=== PATIENT | female | born 1950 | race Caucasian/White ===

== ENCOUNTER 2023-05-15 08:41 | Outpatient (OUT) | payer MEDICARE, OTHER, SELFPAY ==
[2023-05-15 09:22] LABS: Basophils Absolute Auto 0.1 10^3/uL (0.0-0.1); Basophils Percent Auto 0.5 % (0.2-2.0); Eosinophils Absolute Auto 0.1 10^3/uL (0.0-0.7); Eosinophils Percent Auto 1.4 % (0.9-7.0); Hematocrit 47.5 % (36.0-48.0); Immature Granulocytes Abs Auto 0.03 10^3/uL (0.00-0.03); Immature Granulocytes Pct Auto 0.3 % (0.0-0.5); Lymphocytes Absolute Auto 2.3 10^3/uL (1.2-3.8); Lymphocytes Percent Auto 23.7 % (20.5-60.0); Mean Corpuscular HGB Conc 31.6 g/dL (29.9-35.2); Mean Corpuscular Hemoglobin 30.2 pg (26.7-34.0); Mean Corpuscular Volume 95.8 fL (81.0-99.0); Mean Platelet Volume 9.9 fL (9.5-13.5); Monocytes Absolute Auto 0.5 10^3/uL (0.3-0.8); Monocytes Percent Auto 5.4 % (1.7-12.0); Neutrophils Absolute Auto 6.5 10^3/uL (1.4-6.5); Neutrophils Percent Auto 68.7 % (43.0-75.0); Platelet Count 227 10^3/uL (150-450); Red Blood Count 4.96 10^6/uL (4.20-5.40); Red Cell Distribution Width 14.5 % (11.0-15.0); White Blood Count 9.5 10^3/uL (4.0-11.0)
[2023-05-15 09:55] LABS: Alanine Aminotransferase 33 U/L (14-59); Alkaline Phosphatase 97 U/L (46-116); Aspartate Amino Transferase 24 U/L (15-37); Bilirubin Total 0.6 mg/dL (0.2-1.0); Calcium 9.3 mg/dL (8.5-10.1); Carbon Dioxide 29.2 mmol/L (21.0-32.0); Chloride 103 mmol/L (98-107); Cholesterol 176 mg/dL (<=200); Estimated GFR (African America >60 (>=60); Estimated GFR (Non-African Ame >60 (>=60); Glucose 93 mg/dL (74-106); HDL Cholesterol 59 mg/dL (40-60); Potassium 4.2 mmol/L (3.5-5.1); Sodium 140 mmol/L (136-145); Triglycerides 178 mg/dL (<=150); VLDL CHOLESTEROL 35.6 mg/dL
== END 2023-05-15 08:42 | disposition home or self-care (01) ==
LOC: LAB 08:41
PROVIDERS: PCP Family Medicine; Visit Provider Family Medicine
DX: E78.5 Hyperlipidemia, unspecified (principal); I10 Essential (primary) hypertension
CPT/HCPCS: 36415; 80053; 80061; 82043; 85025

== ENCOUNTER 2023-06-27 07:56 | Outpatient (OUT) | payer MEDICARE, OTHER, SELFPAY ==
--- NOTE | 2023-06-27 07:59 | MM_ITS ---
Patient: PORFIRIO LAWSON Exam Date: 06/27/2023 : 1950 Gender:F Ordering : DR Reyn Carbera M.D. Admission #: [id number] Family : Order #: [id number] CLICK HERE TO VIEW EXAM RADIOLOGY REPORT PROCEDURE: MM TOMOSYNTHESIS SCREENING BI COMPARISON: MG MAMM SCREEN 3D EVAN CAD, 06/25/2021. MG MAMM SCREEN 3D EVAN CAD, 06/26/2022. INDICATIONS: Screening Calculator Name NCI Breast Cancer Risk Assessment Tool 5 Year Breast Cancer Risk 1.80% Lifetime Breast Cancer Risk 5.10% Personal Breast Cancer No Personal Ovarian Cancer No Treatments None Family Cancers None LOCATION: [facility] BREAST COMPOSITION: Heterogeneously dense,which may obscure small masses. FINDINGS: DIAGNOSTIC CATEGORY 2--BENIGN FINDING. NO CHANGE FROM COMPARISON. Scattered benign-appearing nodules are present. Scattered benign-appearing calcifications are present. Scattered benign-appearing lymph nodes are present. RIGHT BREAST: No significant suspicious finding. LEFT BREAST: No significant suspicious finding. RECOMMENDATIONS: ROUTINE MAMMOGRAM AND CLINICAL EVALUATION IN 12 MONTHS. PLEASE NOTE: A NORMAL MAMMOGRAM DOES NOT EXCLUDE THE POSSIBILITY OF BREAST CANCER. A CLINICALLY SUSPICIOUS PALPABLE LUMP SHOULD BE BIOPSIED. Dictated by: Mario Sheldon MD on 06/27/2023 at 09:08 Approved by: Mario Sheldon MD on 06/27/2023 at 09:09
== END 2023-06-27 07:57 | disposition home or self-care (01) ==
LOC: MAMMO 07:56
PROVIDERS: PCP Family Medicine; Visit Provider Family Medicine
DX: Z12.31 Encounter for screening mammogram for malignant neoplasm of breast (principal)
CPT/HCPCS: 77063; 77067

== ENCOUNTER 2024-05-03 10:51 | Outpatient (OUT) | payer MEDICARE, OTHER, SELFPAY ==
--- OUTSIDE RECORDS SUMMARY | 2024-05-03 11:13 | XMS_ITS | CCD ---
Author Organization [facility] Care Team Providers Care Cloth Grader Name Role Phone WEST, DR LOTUS Chester Consulting Unavailable DEBORAH, DR RENY Montes Attending Unavailable DEBORAH, DR RENY Montes Admitting Unavailable DEBORAH, DR RENY Montes Primary Care Unavailable DEBORAH, DR RENY Montes Consulting Unavailable DEBORAH, DR RENY Montes Primary Care Unavailable DEBORAH, DR RENY Montes Consulting Unavailable DEBORAH, DR RENY Montes Attending Unavailable DEBORAH, DR RENY Montes Admitting Unavailable Reny Cabrera DOMINIC PATIÑO Attending Unavailable Medications Current Medications Medication Drug Class(es) Dates Sig (Normalized) Sig (Original) atorvastatin 20 mg oral tablet (2 sources) HMG-CoA Reductase Inhibitor Atorvastatin Calcium 20 MG TAKE 1 TABLET EVERY DAY Active lisinopril 20 mg oral tablet (2 sources) Angiotensin Converting Enzyme Inhibitor Start: 07-11-2022 take 1 tablet by mouth once daily Lisinopril 20 MG lisinopriL 20mg, 1 (one) Tablet daily # 0, 07/11/2022, No Refill. Active Oral daily Jun, Active sertraline 100 mg oral tablet (2 sources) Serotonin Reuptake Inhibitor Start: 07-16-2022 take 1 tablet by mouth once daily sertraline 100mg sertraline 100mg, 1 (one) Tablet daily # 0, 07/16/2022, No Refill. Active oral daily for 0 Jun, Active Problems Problem Classification Problem Date Documented Da te Episodic/Chronic Disorders of lipid metabolism (7 sources) Hyperlipidemia, unspecified; Translations: [Dyslipidemia] Onset: 05-13-2022 Chronic Essential hypertension (4 sources) Essential (primary) hypertension; Translations: [Essential hypertension] Onset: 05-14-2022 Chronic Melanomas of skin (2 sources) History of malignant melanoma of the skin; Translations: [Personal history of malignant melanoma of skin] Episodic Mood disorders (2 sources) Major depression, single episode; Translations: [Major depressive disorder, single episode, unspecified] Chronic Other screening for suspected conditions (not mental disorders or infectious disease) (5 sources) Encounter for screening mammogram for malignant neoplasm of breast; Translations: [ENC SCR MAMMO MALIG NEOPLASM BREAST] Onset: 06-26-2022 Episodic Results Test Name Value Interpretation Reference Range Facil ity MG MAMM SCREEN 3D EVAN CADon 06-26-2022 MG MAMM SCREEN 3D EVAN CAD Patient: PORFIRIO LAWSON Exam Date: 06/26/2022 : 1950 Gender:F Ordering : DR RENY CABRERA M.D. Admission #: [id number] Family : Order #: [id number] CLICK HERE TO VIEW EXAM RADIOLOGY REPORT PROCEDURE: MAMMOGRAM SCREENING 3D BILATERAL CAD COMPARISON: MG MAMM SCREEN EVAN W CAD, 06/23/2020. MG MAMM SCREEN 3D EVAN CAD, 06/25/2021. INDICATIONS: Screening mammography Calculator Name NCI Breast Cancer Risk Assessment Tool 5 Year Breast Cancer Risk 1.80% Lifetime Breast Cancer Risk 5.30% Personal Breast Cancer No Personal Ovarian Cancer No Treatments None Family Cancers None LOCATION: [facility] BREAST COMPOSITION: Heterogeneously dense,which may obscure small masses. FINDINGS: DIAGNOSTIC CATEGORY 2--BENIGN FINDING. NO CHANGE FROM COMPARISON. Scattered benign-appearing nodules are present. Scattered benign-appearing calcifications are present. Scattered benign-appearing lymph nodes are present. RIGHT BREAST: No significant suspicious finding. LEFT BREAST: No significant suspicious finding. RECOMMENDATIONS: ROUTINE MAMMOGRAM AND CLINICAL EVALUATION IN 12 MONTHS. PLEASE NOTE: A NORMAL MAMMOGRAM DOES NOT EXCLUDE THE POSSIBILITY OF BREAST CANCER. A CLINICALLY SUSPICIOUS PALPABLE LUMP SHOULD BE BIOPSIED. Dictated by: Lotus Serna MD on 06/26/2022 at 08:27 Approved by: Lotus Serna MD on 06/26/2022 at 08:44 Normal [facility] CBC AUTO DIFFon 05-13-2022 BASO # 0.0 103/ul Normal 0.0-0.1 [facility] Comment on above: Performed By: #### C BC #### [facility] [address] [address] [address] Christina Camarena Basophils/100 WBC (Bld) 0.3 % Normal 0.2-2.0 [facility] Comment on above: Performed By: #### C BC #### [facility] [address] [place] [address] Dr. Christina Camarena EO # 0.1 103/ul Normal 0.0-0.7 [facility] Comment on above: Performed By: #### C BC #### [facility] [address] [place] [address] Dr. Christina Camarena Eosinophils/100 WBC (Bld) 1.5 % Normal 0.9-7.0 [facility] Comment on above: Performed By: #### C BC #### [facility] [address] [place] [address] Dr. Christina Camarnea Erythrocyte distribution width (RBC) [Ratio] 14.4 % Normal 11.0-15.0 [facility] Comment on above: Performed By: #### C BC #### [facility] [address] [place] [address] Dr. Christina Camarena Hematocrit (Bld) [Volume fraction] 46.5 % Normal 36.0-48.0 [facility] Comment on above: Performed By: #### C BC #### [facility] [address] [place] [address] Dr. Christina Camarena Hemoglobin (Bld) [Mass/Vol] 14.8 g/dL Normal 12.0-16.0 [facility] Comment on above: Performed By: #### C BC #### [facility] [address] [place] [address] Dr. Christina Camarena IG # 0.02 10e3/ul Normal 0.00-0.03 [facility] Comment on above: Performed By: #### C BC #### [facility] [address] [place] [address] Dr. Christina Camarena IG % 0.2 % Normal 0.0-0.5 [facility] Comment on above: Performed By: #### C BC #### [facility] [address] [place] [address] Dr. Christina Camarena LYMPH # 2.4 103/ul Normal 1.2-3.8 [facility] Comment on above: Performed By: #### C BC #### [facility] [address] [address] [address] Christina Camarena Lymphocytes/100 WBC (Bld) 26.2 % Normal 20.5-60.0 [facility] Comment on above: Performed By: #### C BC #### [facility] [address] [address] [address] Christina Camarena MANUAL DIFF REQ NO Normal [facility] Comment on above: Performed By: #### C BC #### [facility] [address] [place] [address] Dr. Christina Camarena MCH (RBC) [Entitic mass] 29.5 pg Normal 26.7-34.0 [facility] Comment on above: Performed By: #### C BC #### [facility] [address] [place] [address] Dr. Christina Camarena MCHC (RBC) [Mass/Vol] 31.8 g/dL Normal 29.9-35.2 [facility] Comment on above: Performed By: #### C BC #### [facility] [address] [place] [address] Dr. Christina Camarena MCV (RBC) [Entitic vol] 92.8 fL Normal 81.0-99.0 [facility] Comment on above: Performed By: #### C BC #### [facility] [address] [place] [address] Dr. Christina Camarena MONO # 0.6 103/ul Normal 0.3-0.8 [facility] Comment on above: Performed By: #### C BC #### [facility] [address] [place] [address] Dr. Christina Camarena Monocytes/100 WBC (Bld) 6.7 % Normal 1.7-12.0 [facility] Comment on above: Performed By: #### C BC #### [facility] [address] [place] [address] Dr. Christina Camarena NEUT # 5.9 103/ul Normal 1.4-6.5 [facility] Comment on above: Performed By: #### C BC #### [facility] [address] [address] [address] Christina Camarena Neutrophils/100 WBC (Bld) 65.1 % Normal 43.0-75.0 [facility] Comment on above: Performed By: #### C BC #### [facility] [address] [place] [address] Dr. Christina Camarena Platelet mean volume (Bld) [Entitic vol] 9.8 fL Normal 9.5-13.5 [facility] Comment on above: Performed By: #### C BC #### [facility] [address] [place] [address] Dr. Christina Camarena PLT 228 103/ul Normal 150-450 [facility] Comment on above: Performed By: #### C BC #### [facility] [address] [place] [address] Dr. Christina Camarena RBC 5.01 106/ul Normal 4.20-5.40 [facility] Comment on above: Performed By: #### C BC #### [facility] [address] [place] [address] Dr. Christina Camarena WBC 9.1 103/ul Normal 4.0-11.0 [facility] Comment on above: Performed By: #### C BC #### [facility] [address] [place] [address] Dr. Christina Camarena LIPID PROFILEon 05-13-2022 CHOL-HDL RATIO NORM SEE BELOW Normal [facility] Comment on above: Result Comment: 3.3 - 4.4 LOW RISK 4.4 - 7.1 AVERAGE RISK 7.1 - 11.0 MODERATE RISK >11.0 HIGH RISK Performed By: #### L IPID, CMP #### [facility] [address] [place] [address] Dr. Christina Camarena Cholesterol [Mass/Vol] 172 mg/dL Normal <=200 [facility] Comment on above: Performed By: #### L IPID, CMP #### [facility] [address] [place] [address] Dr. Christina Camarena Cholesterol in HDL [Mass/Vol] 55 mg/dL Normal 40-60 [facility] Comment on above: Performed By: #### L IPID, CMP #### [facility] [address] [address] [address] Christina Camarena Cholesterol in LDL [Mass/Vol] 76.8 mg/dL Normal [facility] Comment on above: Performed By: #### L IPID, CMP #### [facility] [address] [address] [address] Christina Camarena Cholesterol.total/C holesterol in HDL [Mass ratio] 3.1 {ratio} Normal [facility] Comment on above: Performed By: #### L IPID, CMP #### [facility] [address] [address] [address] Christina Camarena HDL NORMAL > or = 60 mg/dl - LO W CARDIOVASCULAR RISK <40 mg/dl - HIGH CARDIOVASCULAR RISK Normal [facility] Comment on above: Performed By: #### L IPID, CMP #### [facility] [address] [place] [address] Dr. Christina Camarena LDL CALC NORMAL SEE BELOW Normal [facility] Comment on above: Result Comment: <100 mg/dl OPTIMAL 100 - 129 mg/dl NEAR OR ABOVE OPTIMAL 130 - 159 mg/dl BORDERLINE HIGH 160 - 189 mg/dl HIGH >190 mg/dl VERY HIGH Performed By: #### L IPID, CMP #### [facility] [address] [place] [address] Dr. Christina Camarena Triglyceride [Mass/Vol] 201 mg/dL Critically high <=150 [facility] Comment on above: Performed By: #### L IPID, CMP #### [facility] [address] [place] [address] Dr. Christina Camarena VLDL CALC 40.2 mg/dL Normal [facility] Comment on above: Performed By: #### L IPID, CMP #### [facility] [address] [place] [address] Dr. Christina Camarena PROF 14(COMP METB)on 022 Albumin [Mass/Vol] 4.1 g/dL Normal 3.4-5.0 [facility] Comment on above: Performed By: #### L IPID, CMP #### [facility] [address] [address] [address] Christina Camarena Albumin/Globulin [Mass ratio] 1.1 {ratio} Normal [facility] Comment on above: Performed By: #### L IPID, CMP #### [facility] [address] [address] [address] Christina Camarena ALP [Catalytic activity/Vol] 99 U/L Normal 46-116 [facility] Comment on above: Performed By: #### L IPID, CMP #### [facility] [address] [address] [address] Christina Camarena ALT [Catalytic activity/Vol] 29 U/L Normal 14-59 [facility] Comment on above: Performed By: #### L IPID, CMP #### [facility] [address] [address] [address] Christina Camarena Anion gap [Moles/Vol] 13.7 mmol/L Normal [facility] Comment on above: Performed By: #### L IPID, CMP #### [facility] [address] [address] [address] Christina Camarena AST [Catalytic activity/Vol] 24 U/L Normal 15-37 [facility] Comment on above: Performed By: #### L IPID, CMP #### [facility] [address] [address] [address] Christina Camarena Bilirubin [Mass/Vol] 0.5 mg/dL Normal 0.2-1.0 [facility] Comment on above: Performed By: #### L IPID, CMP #### [facility] [address] [address] [address] Christina Camarena Calcium [Mass/Vol] 9.4 mg/dL Normal 8.5-10.1 [facility] Comment on above: Performed By: #### L IPID, CMP #### [facility] [address] [address] [address] Christina Camarena Chloride [Moles/Vol] 104 mmol/L Normal 98-107 [facility] Comment on above: Performed By: #### L IPID, CMP #### [facility] [address] [address] [address] Christina Camarena CO2 [Moles/Vol] 25.4 mmol/L Normal 21.0-32.0 [facility] Comment on above: Performed By: #### L IPID, CMP #### [facility] [address] [address] [address] Christina Camarena Creatinine [Mass/Vol] 0.99 mg/dL Normal 0.55-1.02 [facility] Comment on above: Performed By: #### L IPID, CMP #### [facility] [address] [address] [address] Christina Camarena EGFR-AF VINCENTIAN >60 Normal >=60 [facility] Comment on above: Performed By: #### L IPID, CMP #### [facility] [address] [address] [address] Christina Camarena EGFR-NON AF VINCENTIAN 55 mL/min/1.73m2 Critically low >=60 [facility] Comment on above: Performed By: #### L IPID, CMP #### [facility] [address] [address] [address] Christina Camarena Globulin (S) [Mass/Vol] 3.8 g/dL Normal [facility] Comment on above: Performed By: #### L IPID, CMP #### [facility] [address] [address] [address] Christina Camarena Glucose [Mass/Vol] 98 mg/dL Normal 74-106 [facility] Comment on above: Performed By: #### L IPID, CMP #### [facility] [address] [address] [address] Christina Camarena Potassium [Moles/Vol] 4.1 mmol/L Normal 3.5-5.1 [facility] Comment on above: Performed By: #### L IPID, CMP #### [facility] [address] [address] [address] Christina Camarena Protein [Mass/Vol] 7.9 g/dL Normal 6.4-8.2 [facility] Comment on above: Performed By: #### L IPID, CMP #### [facility] [address] [place], [place] [address] Dr. Christina Camarena Sodium [Moles/Vol] 139 mmol/L Normal 136-145 [facility] Comment on above: Performed By: #### L IPID, CMP #### [facility] [id number] Christina Camarena Urea nitrogen [Mass/Vol] 20.0 mg/dL Critically high 7.0-18.0 [facility] Comment on above: Performed By: #### L IPID, CMP #### [facility] [id number] Christina Camarena Urea nitrogen/Creatinine [Mass ratio] 20.2 mg/mg Normal [facility] Comment on above: Performed By: #### L IPID, CMP #### [facility] [address] [address] [address] Christina Camarena Coding Summary.on 02-05-2022 Coding Summary. CD:[id number] G h0bWw+PGhlYWQ+KS9BVVZ wO49qrBIvkZ2YW4jYNI6L VMOEAHRZMC4BZC8tqSW1B DafN4ZmwoNd TdkrkCPjBM25XIk1EGY8z PtcPAylfN7yuWNhC9n5Lk ZfXV41vI07IFplNYMiNfR 3LjZpbjsgbWFy T9liLtFjvBXgLtm+PHRhY mxlIHdpZHRoPScxMDAlJy RajAebPW0jPx9tNMIaQJC vbGxhcHNlOiBj d7vfSPIiGBfcIO0ecFqwB 2XxqRW4LBZtb4m6Gt08aQ I+WCSkFDP5eXhaSQzip65 3ZlVua7jjJYX0 pZJhEDplDOB0O97uy2A1W LAeBRHeDUJ1bLZ3qI6obO esrfqiU1RinTCqMqW8BYY 0yTQdxW4fxQkj xpvrwY6yIhs+E47JCB4VE RQPEF0STrb3S3GcMevjpY I+SJ44RUNmLT22vMIdgKD jt3zdkRc3VqRj IPKuEIG9oKuiKWfzp0SvJ XXlH33phVJur8X9NEOnvF uspACvRlOxcDG0kW1mODs bdwhdt1vzaokb Rqepj3wewq01sH26S82oJ AveITCxTOZ5TCXnOKWyjM mtof0scP4gIk1+LCtbr1p vn6fgsHw0GfSf TMFlldJqmSxkVGF2w2UvD s57Z9GixFedu4OmDdb4va 22zZXkg3H8yPF8JVqaZKY zkK8iNPpyYvS1 VNBtEdPnwJ60bTHySGqpP z6haGzhoOvzJD1lDWWcpd dzXNWkbT0iWVAckQSncDv oMT1dXLMudshc y016JcHkRSF9UTNfkOUwZ 3DwmG3dOqRzJVXyNGJoW9 FgmDHkYFxfJ012NApdCdD 1RADcryIuG5Ez PQBrmCgoWvY5s6N6Ei7Ux 0QgusbrJPM5CBfgFSF8Eg V1RtZfVkJ5K7QhAlp6XWY ooWrhVI5wX6Jx QSXfsziemhvyxTA2BLEfQ MXfmC37aVXjRNbyGp9qj7 L1t158GOQzSUOpfK25Gb2 udDogMTBwdCBU kG3mqfgml9mxlosdYkVdK XZwLQs4RRq4TLBisLmsLg MuQOW2DoX6DAL3iUHlcS0 ixXorcahfmU1s Oyc+Z83dqZ5eWDC2RAF2p yesIARzfiBqQB09NU00D0 RyPjwvdGFibGU+PGRpdiB nqOoyOL1aJcSb h2etm7NcUGokM5TkILGsF EepCpq9VZXvKLO8cSR5fU 3kDUDnFUamc7P4mFO4E9M kwtJwwz3ox5pb UDRbLOvhF99duIKyk9F7K PRxjDW5FUMmrVbzCbBlnZ 93Oyc+ASHhzMqoh3NwIet dk1bdb0gvlLf2 JnVoXMEplvLfeCzfJEA3z 6MiDv00N28qKUhbXVJnUH IsUTTvFZBlrKbldf8npH8 wIi8+PGNvbCB3 yXQ3hA5iEQOhLkS0ZEwuN 597HrMmxMJlXwses2bmc3 qvaZx6WfRpQRKjvhXaeRy wLQJ5t4IbJb34 Q98kHYoxRYCvUWHuBSHqX FGubKhigm7orE3mOw7+PC 2ym1izio09dS37vNQ+PHR iFKG7cMefCYzs QLSqxH0eWOebIyC5ZKQuD rGnlF90bLMxVWhxXe4iqY dxoEgwBB4gRGEwwkfeo40 9UfGvk9mrSLJg uVCfRBrjPTH7H15ey5C7Y DLzZKMkNUN2jOW1mF6thJ lnbjogbGVmdDsgdmVydGl cSVxsXZaeK779 IHRvcDsnPlBhdGllbnQgT tQgFMt8F1JfFsf2TOHfzA blYS2fkDMiYRujFd5gpFx saHnhCD5uDYNw tlars616KcNvd0qiIRSuz UMgPMpfBDX8M64xo4E1OT QfXAEjPKH6iHR6pN0jkZv nbjogbGVmdDsg ndUayBktRIlpQCokZ461O HRvcDsnPkJpcnRoIERhdG Q4UB35EF87aZYkr0P7kMC 7C0ReVQDiyegl lbyyhXI7FYErKMWfbZ42L v8iaCmdJq3xXIPdTVH2MC CelLRsI7AlfL3uDxRfIIJ sHBRyF3RklOEk CQmdD189DGpmLrI8XUMlw yQlG8RzBAEmoDzkXpO0i0 K0Nq7UN4K4HF54VH75uRB cw3B1rCK7W1Ml ZSUnttjikhxilXN8UIIqJ KIlsX96Au3mwBrbGn7uPT WkQFP1LPYwuNJkO9PahS5 yOiAjMDAwMDAw N8WrmLPiZTlqO305COhoX kO0AOIszzVvR7PmYTLlxJ prQtP7j5P0Pi1HELu0LJ0 5GE83vTYre0A1 oJB7M5QgXDRurnmtelvjd JN5KRGoUPGinZ49Pr3vxC qlCy8yMGVrERZ3YGRzvYT kT4KdvQ2tJjSu NJMwTQJvL8JfzRKoILssX 190KShnUpW5IZMiprHuR9 GoTQKksGyoWzB5o4S9Cu5 HMMYsTG80KXP7 vDX2GV34BG08P0VkVqtkt GFibGU+PHRhYmxlIHdpZH RoPScxMDAlJyBzdHlsZT0 cIr0uVUPrVCNk wCrkwJCqVaKgr1wuYZViW DtmWG1xbEidD6ZhjZQ7PM Gvu1b9Ue72P37iQ3MfrCJ +JDJrsLG6gZD1 uL7sXpThKkL8DBspJ019P cZdvRSkEojvz3tlm7jymV q0MsD9TRXqkiSmwRoeICQ 1d6ZoBr95M84q IHdpZHRoPSIxNSUiIHZhb Wxckg7ujB4mSj1+PGNvbC X2xZJ0vN9iKuNjQgN3MAm dP812TvGtrIJy Xjpnw4ouv3yilCk4EsSiD SDgmdDhdXepEFD6y1PxYj 17B3YvzHnpl3RiXqz3go0 6fNAxu6I6rZM0 W2EpOSQpocfgjOFqrRgyO Y7tFOXxgnnmUUYijY7cDO JqU1b6AgYsOvK1PVzgH5B sltK8WFDkwAPu TAikSVC4B78cc6E0XQLlA GNiUWR4uSG3uE3liCkhcu ogbGVmdDsgdmVydGljYWw pDAeuE725LGDl dNheBSGhlX2qKERouCIct QgkNR9cWIKpkxghQaKPVY IFX6FpFZRPIfrUNstRTZ5 2Y8OwMvj8NBFj jNhlID9bnUEtDUifGm0dg HvncDqoHW1lHDYvokdiBP WceY0nOAMtlYCquHagTT7 xWXOcpqniz408 LaIwVCU6DYSivYBsP7Obw E5yYsAmOMBmEZMeU2QnzJ YuQNdbM473PDxzKxX3YRL eflNxA2HyQGDy lSqzWzL8v0A9Ti6aZX8fE G9iKPOaET17FK71uSOyc6 Y1cXV2U3MsJAOzhtraovk wuIJ8DKNkTVBr aY54uJOxICofPd1cc9I7a 294QWTbBURdzG87Fl6jsZ fgLAOqlGFBmX7bjcqjo1y vcjogIzAwMDAw ILv5IGl4WFEkwDkrVsIxY IL7WyU2PYG1lMMptA7maK uutzcaeB2wSty+NjkgWWV rnlQ4S7IaWho7 WWPssRudCR3quXTpIVujM m9rnZzuuYpdCM1wUWJvsl tvOFKijF0bZMUdfEEjgWc yGE7gGRGlnlgj f046PzZmDBE8RKKyfXOzN 7IqhY6oBcVnDICyDSJjM9 UkyYTyGIltD879WZdgZmP 3CWEcvwQfI0Mg PPZdqTpdNbN7d8T7Sb0FK L7ltQA2Z5BiIvr4UKWmeI pxZY2jqWQpRNqxSa3hbEj qcHwyMZ6fTQQx fxsvFNUkaI4pNZTttCLgx SppCE0mRBIajhdpc824Hg XgRSE1ZUCpoEBgR1UubK5 yOiAjMDAwMDAw T7PsrADgQSeuX390MKjvJ bI8DXHnhqTlW1FgMLHcbW bnVoI6x7S0Bw4DVMYeKVM atLJcTwY7X8Yb PjwvdHI+MF57WLFjVI89v QWdvYTws9oidSa4LgRcNQ NqNIK0vOvhJUucy6MrHCQ oA29ftYZab5D7 VFKaiLqztLWkBtQbpBG1a P5nSJrlhgmsb7unodmcJu heu4sycm24hL79S47hNVn pZHRoPSIzMCUi UQPjfYwfne5wlH4uVb6+P UEnhQB1qVI2nC1jAwKnNw I8EHlmR206SnPriROeTbi ry2wdb3zqzGq8 NaLrYNRjhyCtiPciGEB9e 9HdYh32O92lMTpoYUEpZB XrBLEyMDFyvIwjxt8hbA2 wIi8+SK4or5jn zg65zV26aVR+QLNxUGA5g VcrDPuiAXAziF8bICvhHo I3NYQdTuCisR75gCBvYXs mOc6joGtfxOxn OE3gVHPpluago873FdVrz 6coZGAksJDuXPmiWEF0P9 1vo3Z9SOTpZMRwZQJ2gFP 0xA5ymAxhxhml bGVmdDsgdmVydGljYWwtY HpxH477ZRJzbXscHzOesT DkH4ceucDGRP7oWkhiqPA +PCKyBEM9sRsh BShbBYUgvK7cKXCsF0c7L lZaLqC4WYhqF5VdfrV9QQ ValTHsONLdfODNsK2pdoi wx2vxtzveZvRx DLKlSGx2UMf9AEKxtCeiQ kKbCNV2RlH0JHI6jVRalS 6ltIcyrdrufN2lEkk+Rkl OOjwvdGQ+PHRk GSD0pWflKSflTMPjaS9fL GFhI0t5NsYgEgP3OEyfQ3 IfjiI0QNFjeAJiOMJyfGO WhU7plvgdw9cu ecjpMpOaLWYqXGn1XOx9F FZazVyzZpHaABU3UhQ2TE I5iKBduW8xnFjwvfxbrQ4 wOyc+TVJOOjwv dGQ+EFUqHIS9tBfmDSpnF EXfoK7rSXAwX4u3AlDhCr G0MQzqK1XnmcZ6SYDafMT jONFyvOFAvG3p kgsku5zaojexCyVbNWSwL Bj2CDi5DKFnqLccNzJqPA A4GtL9DZV3aDYkwO7heYi ndachtF3qEnb+ JII6FWM4MS64SX63S3YqD jwvdGFibGU+PHRhYmxlIH dpZHRoPScxMDAlJyBzdHl dTW5xRp5tXXHo LWNv (more content not included)... Normal [facility] Physician Orderon 01-17-2022 Physician Order [id number]# 1.00CD:127 Normal [facility] Vital Signs Date Time Vital Sign Value Performing Clinician Facility 05-01-2023 10:00-0400 Body height 160.02 cm Reny Cabrera Other [facility] Other 05-01-2023 10:00-0400 Body mass index (BMI) [Ratio] 29.33 kg/m2 Reny Cabrera Other [facility] Other 05-01-2023 10:00-0400 Body weight 75.12 kg Reny Cabrera Other [facility] Other 05-01-2023 10:00-0400 Diastolic blood pressure 65 mm[Hg] Reny Cabrera Other [facility] Other 05-01-2023 10:00-0400 Systolic blood pressure 125 mm[Hg] Reny Cabrera Other [facility] Other Encounters Encounter Date Encounter Type Care Provider Facility Start: 07-28-2023 End: 07-28-2023 ambulatory DOMINIC Adrián PERALESSOPHIA Not Available Start: 05-15-2023 End: 05-15-2023 ambulatory Reny Cabrera Other [facility] Other Start: 05-15-2023 Telephone encounter Reny Cabrera [facility] Start: 05-01-2023 End: 05-01-2023 ambulatory Reny Cabrera Other [facility] Other Start: 05-01-2023 Patient encounter procedure Reny Cabrera [facility] Start: 06-26-2022 End: 06-27-[address] LOTUS SERNA Facility:[facility] Start: 05-13-2022 End: 05-14-[address] RENY CABRERA Facility:[facility] Immunizations Immunization Date Immunization Notes Care Provider Fa cility 05-01-2023 influenza, high dose seasonal, preservative-free Reny Cabrera Other [facility] Other 06-24-2022 COVID-19 Pfizer (Pediatric) Reny Cabrera Other [facility] Other 06-24-2022 influenza virus vaccine, split virus (incl. purified surface antigen) Reny Cabrera Other [facility] Other 11-14-2020 COVID-19 Vaccine Pfi zer - Documentation Purposes Only Reny Cabrera Other [facility] Other 04-26-2020 influenza virus vaccine, split virus (incl. purified surface antigen) Reny Deborah Other [facility] Other 04-26-2020 pneumococcal polysaccharide vaccine, 23 valent Reny Cabrera Other [facility] Other 04-20-2019 pneumococcal conjuga te vaccine, 13 valent Reny Deborah Other [facility] Other Payers Date Payer Category Payer Medicare [id number] 1957 Unknown [id number] 1950 Unknown [id number] 1950 Unknown [id number] 1950 Unknown [id number] Social History Date Type Detail Facility Sex Assigned At [facility] Other Evaluation note 05-01-2023 Note Date & Type Note Facility 05-01-2023 Evaluation note Encounter Date Diagnosis Assessment Notes Apr, Medicare annual wellness visit, subsequent (ICD-10 - Z00.00) Personalized health advice was given to the beneficiary including a written plan for screenings discussed and provided. Advanced care planning reviewed and/or information given as requested. Additional counseling was provided here today in regards to, [ ]. The above visit was performed by [ ], under direct supervision of [ ]. Document reviewed and amended by provider signed below. 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 Medical History Personal history of malignant melanoma of skin Surgical History Cholecystectomy Surgical History Wide excision of Melanoma 2012 Surgical History D&C Hospitalization History see surgical hx [facility] video Other History general Narrative - Reported Note Date & Type Note Facility History general Narrative - Reported Type Surgical History Cholecystectomy Surgical History Wide excision of Melanoma 2012 Surgical History D&C Hospitalization History see surgical hx [facility] video Other Summary Purpose Family History No Family History Records FoundNo Family History Records FoundNo Family History Records Found Advance Directives No Advanced Directives Records FoundNo Advanced Directives Records FoundNo Advanced Directives Records Found Additional Source Comments INFORMATION SOURCE (unrecogn ized section and content) DATE CREATED AUTHOR 03/13/2022 [facility] DATE CREATED AUTHOR AUTHOR'S ORGANIZ ATION 07/30/2022 [facility] DATE CREATED AUTHOR AUTHOR'S ORGANIZ ATION 07/29/2023 [facility] EPIC REASON FOR VISIT (unrecogniz ed section and content) [facility] FOR RECORDS PERTAINING TO PATIENTS WHO ARE OR HAVE BEEN ENROLLED IN A CHEMICAL DEPENDENCY/SUBSTANCEABUSE PROGRAM, SOME INFORMATION MAY BE OMITTED. This clinical summary was aggregated from multiple sources. Caution should be exercised in using it in the provision of clinical care. This summary normalizes information from multiple sources, and as a consequence, information in this document may materially change the coding, format and clinical context of patient data. In addition, data may be omitted in some cases. CLINICAL DECISIONS SHOULD BE BASED ON THE PRIMARY CLINICAL RECORDS. [employer] provides no warranty or guarantee of the accuracy or completeness of information in this document.
[2024-05-03 11:18] LABS: Basophils Percent Auto 0.5 % (0.2-2.0); Eosinophils Absolute Auto 0.1 10^3/uL (0.0-0.7); Eosinophils Percent Auto 1.6 % (0.9-7.0); Hematocrit 45.3 % (36.0-48.0); Hemoglobin 14.7 g/dL (12.0-16.0); Immature Granulocytes Abs Auto 0.02 10^3/uL (0.00-0.03); Immature Granulocytes Pct Auto 0.2 % (0.0-0.5); Lymphocytes Absolute Auto 2.5 10^3/uL (1.2-3.8); Lymphocytes Percent Auto 30.3 % (20.5-60.0); Mean Corpuscular HGB Conc 32.5 g/dL (29.9-35.2); Mean Corpuscular Hemoglobin 30.1 pg (26.7-34.0); Mean Corpuscular Volume 92.6 fL (81.0-99.0); Mean Platelet Volume 9.7 fL (9.5-13.5); Monocytes Absolute Auto 0.5 10^3/uL (0.3-0.8); Monocytes Percent Auto 5.9 % (1.7-12.0); Neutrophils Percent Auto 61.5 % (43.0-75.0); Platelet Count 206 10^3/uL (150-450); Red Blood Count 4.89 10^6/uL (4.20-5.40); Red Cell Distribution Width 14.4 % (11.0-15.0); White Blood Count 8.2 10^3/uL (4.0-11.0)
[2024-05-03 11:58] LABS: Alanine Aminotransferase 29 U/L (14-59); Albumin Globulin Ratio 1.1; Alkaline Phosphatase 107 U/L (46-116); Aspartate Amino Transferase 23 U/L (15-37); BUN Creatinine Ratio 17.2; Bilirubin Total 0.4 mg/dL (0.2-1.0); Calcium 9.7 mg/dL (8.5-10.1); Carbon Dioxide 30.1 mmol/L (21.0-32.0); Chloride 103 mmol/L (98-107); Chol HDL Ratio 2.6; Cholesterol 163 mg/dL (<=200); Estimated GFR (African America >60 (>=60); Estimated GFR (Non-African Ame 55 (>=60); Globulin 3.7 g/dL; Glucose 91 mg/dL (74-106); HDL Cholesterol 62 mg/dL (40-60); Potassium 4.1 mmol/L (3.5-5.1); Sodium 139 mmol/L (136-145); Thyroid Stimulating Hormone 2.666 uIU/mL (0.358-3.740); Total Protein 7.7 g/dL (6.4-8.2); Triglycerides 91 mg/dL (<=150); VLDL CHOLESTEROL 18.2 mg/dL
== END 2024-05-03 10:52 | disposition home or self-care (01) ==
PROVIDERS: PCP Family Medicine; Visit Provider Family Medicine
DX: E78.5 Hyperlipidemia, unspecified (principal); I10 Essential (primary) hypertension; R00.2 Palpitations
CPT/HCPCS: 36415; 80053; 80061; 84443; 85025

== ENCOUNTER 2024-05-06 07:14 | Outpatient (OUT) | payer MEDICARE, OTHER, SELFPAY ==
--- NOTE | 2024-05-06 | ECG_ITS ---
[facility] Test Date: 2024-05-06 Pat Name: PORFIRIO LAWSON Department: Room: - Gender: Female General Internist: : 1950 Requested By: KAMI SMITH Order Number: [id number] Reading MD: IRENE VELAZQUEZ Measurements Intervals [place] Rate: 56 P: 258 TN: 120 QRS: 62 QRSD: 97 T: 72 QT: 403 QTc: 391 Interpretive Statements JUNCTIONAL BRADYCARDIA ABNORMAL RHYTHM ECG No previous ECG available for comparison Electronically Signed On 05-06-2024 22:25:23 EDT by IRENE VELAZQUEZ
--- OUTSIDE RECORDS SUMMARY | 2024-05-06 07:16 | XMS_ITS | CCD ---
Author Organization [facility] Care Team Providers Care Meter Mechanic Name Role Phone WEST, DR LOTUS Chester Consulting Unavailable LUIS, DR RENY Montes Attending Unavailable LUIS, DR RENY Montes Admitting Unavailable LUIS, DR RENY Montes Primary Care Unavailable LUIS, DR RENY Montes Consulting Unavailable LUIS, DR RENY Montes Primary Care Unavailable LUIS, DR RENY Montes Consulting Unavailable LUIS, DR RENY Montes Attending Unavailable LUIS, DR RENY Montes Admitting Unavailable Reny Cabrera Unavailable DOMINIC PATIÑO Attending Unavailable NON STAFF Primary Care Provider UnavailMD Reny Mendoza Attending Provider [phone] Reny Cabrera Attending Unavailable Reny Cabrera Admitting Unavailable NON STAFF Primary Care Unavailable Medications Current Medications Medication Drug Class(es) Dates Sig (Normalized) Sig (Original) atorvastatin 20 mg oral tablet (4 sources) HMG-CoA Reductase Inhibitor Start: 05-03-2024 take 1 tablet by mouth once daily Atorvastatin Active 1 TAB PO Daily May 03, 2024 12:00am FreeTextSi tablet Orally Once a day; Note: Source Status: Refill; Refills: 3; Qty: 90 Tablet; Provider: Luis Montes Atorvastatin Mauricio cium 20 MG TAKE 1 TABLET EVERY DAY Active lisinopril 20 mg oral tablet (4 sources) Angiotensin Converting Enzyme Inhibitor Start: 05-03-2024 take 1 tablet by mouth once daily Lisinopril Active 20 MG PO Daily May 03, 2024 12:00am FreeTextSig: TAKE 1 TABLET EVERY DAY; Note: Source Status: Start; Refills: 3; Qty: 90 Tablet; Provider: Luis Oglesby ( ) Start: 07-11-2022 take 1 tablet by akbar th once daily Lisinopril 20 MG lisinopriL 20mg, 1 (one) Tablet daily # 0, 07/11/2022, No Refill. Active Oral daily Jun, Active sertraline 100 mg oral tablet (4 sources) Serotonin Reuptake Inhibitor Start: 05-03-2024 take 1 tablet by mouth once daily Sertraline Active 100 MG PO Daily May 03, 2024 12:00am FreeTextSig: TAKE 1 TABLET EVERY DAY; Note: Source Status: Start; Refills: 3; Qty: 90 Tablet; Provider: Luis Oglesby ( ) Start: 07-16-2022 take 1 tablet by akbar th once daily sertraline 100mg sertraline 100mg, 1 (one) Tablet daily # 0, 07/16/2022, No Refill. Active oral daily for 0 Jun, Active Problems Problem Classification Problem Date Documented Da te Episodic/Chronic Cardiac dysrhythmias (5 sources) Palpitations; Translations: [Palpitations] Onset: 05-03-2024 05-03-2024 Episodic Disorders of lipid metabolism (11 sources) Hyperlipidemia, unspecified; Translations: [Dyslipidemia] Onset: 05-13-2022 Chronic Essential hypertension (8 sources) Essential (primary) hypertension; Translations: [Essential hypertension] Onset: 05-14-2022 Chronic Melanomas of skin (2 sources) History of malignant melanoma of the skin; Translations: [Personal history of malignant melanoma of skin] Episodic Mood disorders (2 sources) Major depression, single episode; Translations: [Major depressive disorder, single episode, unspecified] Chronic Other screening for suspected conditions (not mental disorders or infectious disease) (9 sources) Encounter for screening mammogram for malignant neoplasm of breast; Translations: [Patient encounter status] Onset: 06-26-2022 Episodic Results Test Name Value Interpretation Reference Range Facility Basophils Auto (Bld) [#/Vol] on 05-03-2024 Basophils (Bld) [#/Vol] 0.0 10 3/uL 0.0-0.1 [facility] Basophils/100 WBC Auto (Bld) on 05-03-2024 Basophils/100 WBC (Bld) 0.5 % 0.2-2.0 [facility] Cholesterol in LDL Calc [Mas s/Vol]on 05-03-2024 Cholesterol in LDL [Mass/Vol] 83.0 mg/dL [facility] Comment on above: <100 mg/dl [id number] 0-129 mg/dl NEAR OR ABOVE [id number] mg/dl BORDERLINE VSBI017-316 mg/dl HIGH>190 mg/dl VERY HIGH Cholesterol in VLDL Calc [Ma ss/Vol]on 05-03-2024 Cholesterol in VLDL [Mass/Vol] 18.2 mg/dL [facility] Eosinophils/100 WBC Auto (Bl d)on 05-03-2024 Eosinophils/100 WBC (Bld) 1.6 % 0.9-7.0 [facility] Erythrocyte distribution wid th Auto (RBC) [Ratio]on 05-03-2024 Erythrocyte distribution width (RBC) [Ratio] 14.4 % 11.0-15.0 [facility] Estimated glomerular filtrat ion rate (GFR) non- Americanon 05-03-2024 GFR/1.73 sq M.predicted among non-blacks MDRD (S/P/Bld) [Vol rate/Area] 55 mL/min/{1.73_m2} Low >=60 [facility] Globulin Calc (S) [Mass/Vol] on 05-03-2024 Globulin (S) [Mass/Vol] 3.7 g/dL [facility] Hematocrit Auto (Bld) [Volum e fraction]on 05-03-2024 Hematocrit (Bld) [Volume fraction] 45.3 % 36.0-48.0 [facility] Hemoglobin [Mass/volume] in Bloodon 05-03-2024 Hemoglobin (Bld) [Mass/Vol] 14.7 g/dL 12.0-16.0 [facility] Laboratory - Chemistry and C hemistry - challengeon 05-03-2024 Albumin [Mass/Vol] 4.0 g/dL 3.4-5.0 [facility] ALP [Catalytic activity/Vol] 107 U/L 46-116 [facility] ALT [Catalytic activity/Vol] 29 U/L 14-59 [facility] AST [Catalytic activity/Vol] 23 U/L 15-37 [facility] Bilirubin [Mass/Vol] 0.4 mg/dL 0.2-1.0 [facility] Calcium [Mass/Vol] 9.7 mg/dL 8.5-10.1 [facility] Chloride [Moles/Vol] 103 mmol/L 98-107 [facility] Cholesterol [Mass/Vol] 163 mg/dL <=200 [facility] Cholesterol in HDL [Mass/Vol] 62 mg/dL High 40-60 [facility] Comment on above: > or =60 mg/dl - LOW CARDIOVASCULAR RISK<40 mg/dl - HIGH CARDIOVASCULAR RISK CO2 [Moles/Vol] 30.1 mmol/L 21.0-32.0 [facility] Creatinine [Mass/Vol] 0.99 mg/dL 0.55-1.02 [facility] GFR/1.73 sq M.predicted MDRD (S/P/Bld) [Vol rate/Area] mL/min/{1.73_m2} >=60 [facility] Glucose [Mass/Vol] 91 mg/dL 74-106 [facility] Potassium [Moles/Vol] 4.1 mmol/L 3.5-5.1 [facility] Protein [Mass/Vol] 7.7 g/dL 6.4-8.2 [facility] Sodium [Moles/Vol] 139 mmol/L 136-145 [facility] Triglyceride [Mass/Vol] 91 mg/dL <=150 [facility] TSH Qn 2.666 m[IU]/L 0.358-3.740 [facility] Urea nitrogen [Mass/Vol] 17.0 mg/dL 7.0-18.0 [facility] Urea nitrogen/Creatinine [Mass ratio] 17.2 mg/mg [facility] Laboratory - Hematology and Cell countson 05-03-2024 Immature granulocytes/100 WBC (Bld) 0.2 % 0.0-0.5 [facility] Leukocytes [#/volume] correc alyssia for nucleated erythrocytes in Blood by Automated counon 05-03-2024 WBC corrected for nucl RBC Auto (Bld) [#/Vol] 8.2 10 3/uL 4.0-11.0 [facility] Lymphocytes Auto (Bld) [#/Vo l]on 05-03-2024 Lymphocytes (Bld) [#/Vol] 2.5 10 3/uL 1.2-3.8 [facility] Lymphocytes/100 WBC Auto (Bl d)on 05-03-2024 Lymphocytes/100 WBC (Bld) 30.3 % 20.5-60.0 [facility] MCH Auto (RBC) [Entitic mass ]on 05-03-2024 MCH (RBC) [Entitic mass] 30.1 pg 26.7-34.0 [facility] MCHC Auto (RBC) [Mass/Vol]on 05-03-2024 MCHC (RBC) [Mass/Vol] 32.5 g/dL 29.9-35.2 [facility] MCV Auto (RBC) [Entitic vol] on 05-03-2024 MCV (RBC) [Entitic vol] 92.6 fL 81.0-99.0 [facility] Monocytes Auto (Bld) [#/Vol] on 05-03-2024 Monocytes (Bld) [#/Vol] 0.5 10 3/uL 0.3-0.8 [facility] Monocytes/100 WBC Auto (Bld) on 05-03-2024 Monocytes/100 WBC (Bld) 5.9 % 1.7-12.0 [facility] Neutrophils Auto (Bld) [#/Vo l]on 05-03-2024 Neutrophils (Bld) [#/Vol] 5.0 10 3/uL 1.4-6.5 [facility] Neutrophils/100 WBC Auto (Bl d)on 05-03-2024 Neutrophils/100 WBC (Bld) 61.5 % 43.0-75.0 [facility] No Panel Informationon 05-03 Eosinophils # (Auto) 0.1 10 3/uL 0.0-0.7 [facility] Immature Granulocyte # (Auto) 0.02 10 3/uL 0.00-0.03 [facility] Platelet mean volume Auto (B ld) [Entitic vol]on 05-03-2024 Platelet mean volume (Bld) [Entitic vol] 9.7 fL 9.5-13.5 [facility] Platelets Auto (Bld) [#/Vol] on 05-03-2024 Platelets (Bld) [#/Vol] 206 10 3/uL 150-450 [facility] RBC Auto (Bld) [#/Vol]on RBC (Bld) [#/Vol] 4.89 10 6/uL 4.20-5.40 [facility] Serum or plasma albumin/glob ulin mass ratioon 05-03-2024 Albumin/Globulin [Mass ratio] 1.1 {ratio} [facility] Serum or plasma anion gap de terminationon 05-03-2024 Anion gap [Moles/Vol] 10.0 mmol/L [facility] Serum or plasma total choles terol/high density lipoprotein (HDL) cholesterol mass gloria 05-03-2024 Cholesterol.total/Cho lesterol in HDL [Mass ratio] 2.6 {ratio} [facility] Comment on above: 3.3 - 4.4 LOW RISK4. 4 - 7.1 AVERAGE RISK7.1 - 11.0 MODERATE RISK>11.0 HIGH RISK MG MAMM SCREEN 3D EVAN CADon 06-26-2022 MG MAMM SCREEN 3D EVAN CAD Patient: PORFIRIO FERNANDES Exam Date: 06/26/2022 : 1950 Gender:F Ordering : DR RENY CABRERA M.D. Admission #: [id number] Family : Order #: [id number] CLICK HERE TO VIEW EXAM RADIOLOGY REPORT [...] Treatments None Family Cancers None LOCATION: [facility] BREAST COMPOSITION: Heterogeneously dense,which may obscure [...] MD on 06/26/2022 at 08:44 Normal [facility] CBC AUTO DIFFon 05-13-2022 BASO # 0.0 103/ul Normal 0.0-0.1 [facility] Comment on above: Performed By: #### C BC #### [facility] [address] [place] [address] Dr. Christina Camarena Basophils/100 WBC (Bld) 0.3 % Normal 0.2-2.0 [facility] Comment on above: Performed By: #### C BC #### [facility] [address] [place] [address] Dr. Christina Camarena EO # 0.1 103/ul Normal 0.0-0.7 [facility] Comment on above: Performed By: #### C BC #### [facility] [address] [place] [address] Dr. Christina Camarena Eosinophils/100 WBC (Bld) 1.5 % Normal 0.9-7.0 [facility] Comment on above: Performed By: #### C BC #### [facility] [address] [place] [address] Dr. Christina Camarena Erythrocyte distribution width (RBC) [Ratio] 14.4 % Normal 11.0-15.0 [facility] Comment on above: Performed By: #### C BC #### [facility] [address] [place] [address] Dr. Christina Camarena Hematocrit (Bld) [Volume fraction] 46.5 % Normal 36.0-48.0 [facility] Comment on above: Performed By: #### C BC #### [facility] [address] [place] [address] Dr. Christina Camarena Hemoglobin (Bld) [Mass/Vol] 14.8 g/dL Normal 12.0-16.0 [facility] Comment on above: Performed By: #### C BC #### [facility] [address] [place] [address] Dr. Christina Camarena IG # 0.02 10e3/ul Normal 0.00-0.03 [facility] Comment on above: Performed By: #### C BC #### [facility] [address] [place] [address] Dr. Christina Camarena IG % 0.2 % Normal 0.0-0.5 [facility] Comment on above: Performed By: #### C BC #### [facility] [address] [place] [address] Dr. Christina Camarena LYMPH # 2.4 103/ul Normal 1.2-3.8 [facility] Comment on above: Performed By: #### C BC #### [facility] [address] [place] [address] Dr. Christina Camarena Lymphocytes/100 WBC (Bld) 26.2 % Normal 20.5-60.0 [facility] Comment on above: Performed By: #### C BC #### [facility] [address] [place] [address] Dr. Christina Camarena MANUAL DIFF REQ NO Normal [facility] Comment on above: Performed By: #### C BC #### [facility] [address] [place] [address] Dr. Christina Camarena MCH (RBC) [Entitic mass] 29.5 pg Normal 26.7-34.0 [facility] Comment on above: Performed By: #### C BC #### [facility] [address] [place] [address] Dr. Christina Camarena MCHC (RBC) [Mass/Vol] 31.8 g/dL Normal 29.9-35.2 [facility] Comment on above: Performed By: #### C BC #### [facility] [address] [place] [address] Dr. Christina Camarena MCV (RBC) [Entitic vol] 92.8 fL Normal 81.0-99.0 [facility] Comment on above: Performed By: #### C BC #### [facility] [address] [place] [address] Dr. Christina Camarena MONO # 0.6 103/ul Normal 0.3-0.8 [facility] Comment on above: Performed By: #### C BC #### [facility] [address] [place] [address] Dr. Christina Camarena Monocytes/100 WBC (Bld) 6.7 % Normal 1.7-12.0 [facility] Comment on above: Performed By: #### C BC #### [facility] [address] [place] [address] Dr. Christina Camarena NEUT # 5.9 103/ul Normal 1.4-6.5 [facility] Comment on above: Performed By: #### C BC #### [facility] [address] [place] [address] Dr. Christina Camarena Neutrophils/100 WBC (Bld) 65.1 % Normal 43.0-75.0 [facility] Comment on above: Performed By: #### C BC #### [facility] [address] [place] [address] Dr. Christina Camarena Platelet mean volume (Bld) [Entitic vol] 9.8 fL Normal 9.5-13.5 [facility] Comment on above: Performed By: #### C BC #### [facility] [address] [place] [address] Dr. Christina Camarena PLT 228 103/ul Normal 150-450 [facility] Comment on above: Performed By: #### C BC #### [facility] [address] [place] [address] Dr. Christina Camarena RBC 5.01 106/ul Normal 4.20-5.40 [facility] Comment on above: Performed By: #### C BC #### [facility] [address] [place] [address] Dr. Christina Camarena WBC 9.1 103/ul Normal 4.0-11.0 [facility] Comment on above: Performed By: #### C BC #### [facility] [address] [place] [address] Dr. Christina Camarena LIPID PROFILEon 05-13-2022 CHOL-HDL RATIO NORM SEE BELOW Normal [facility] Comment on above: Result Comment: 3.3 - 4.4 LOW RISK 4.4 - 7.1 AVERAGE RISK 7.1 - 11.0 MODERATE RISK >11.0 HIGH RISK Performed By: #### L IPID, CMP #### [facility] [address] [address] [address] Christina Camarena Cholesterol [Mass/Vol] 172 mg/dL Normal <=200 [facility] Comment on above: Performed By: #### L IPID, CMP #### [facility] [address] [address] [address] Christina Camarena Cholesterol in HDL [Mass/Vol] 55 mg/dL Normal 40-60 [facility] Comment on above: Performed By: #### L IPID, CMP #### [facility] [address] [address] [address] Christina Camarena Cholesterol in LDL [Mass/Vol] 76.8 mg/dL Normal [facility] Comment on above: Performed By: #### L IPID, CMP #### [facility] [address] [place] [address] Dr. Christina Camarena Cholesterol.total/Cho lesterol in HDL [Mass ratio] 3.1 {ratio} Normal [facility] Comment on above: Performed By: #### L IPID, CMP #### [facility] [address] [address] [address] Christina Camarena HDL NORMAL > or = 60 mg/dl - LOW CARDIOVASCULAR RISK <40 mg/dl - HIGH CARDIOVASCULAR RISK Normal [facility] Comment on above: Performed By: #### L IPID, CMP #### [facility] [address] [address] [address] Christina Camarena LDL CALC NORMAL SEE BELOW Normal [facility] Comment on above: Result Comment: <100 mg/dl OPTIMAL 100 - 129 mg/dl NEAR OR ABOVE OPTIMAL 130 - 159 mg/dl BORDERLINE HIGH 160 - 189 mg/dl HIGH >190 mg/dl VERY HIGH Performed By: #### L IPID, CMP #### [facility] [address] [address] [address] Christina Camarena Triglyceride [Mass/Vol] 201 mg/dL Critically high <=150 [facility] Comment on above: Performed By: #### L IPID, CMP #### [facility] [address] [address] [address] Christina Camarena VLDL CALC 40.2 mg/dL Normal [facility] Comment on above: Performed By: #### L IPID, CMP #### [facility] [address] [place] [address] Dr. Christina Camarena PROF 14(COMP METB)on 022 Albumin [Mass/Vol] 4.1 g/dL Normal 3.4-5.0 [facility] Comment on above: Performed By: #### L IPID, CMP #### [facility] [address] [place] [address] Dr. Christina Camarena Albumin/Globulin [Mass ratio] 1.1 {ratio} Normal [facility] Comment on above: Performed By: #### L IPID, CMP #### [facility] [address] [place] [address] Dr. Christina Camarena ALP [Catalytic activity/Vol] 99 U/L Normal 46-116 [facility] Comment on above: Performed By: #### L IPID, CMP #### [facility] [address] [place] [address] Dr. Christina Camarena ALT [Catalytic activity/Vol] 29 U/L Normal 14-59 [facility] Comment on above: Performed By: #### L IPID, CMP #### [facility] [address] [place] [address] Dr. Christina Camarena Anion gap [Moles/Vol] 13.7 mmol/L Normal [facility] Comment on above: Performed By: #### L IPID, CMP #### [facility] [address] [place] [address] Dr. Christina Camarena AST [Catalytic activity/Vol] 24 U/L Normal 15-37 [facility] Comment on above: Performed By: #### L IPID, CMP #### [facility] [address] [place] [address] Dr. Christina Camarena Bilirubin [Mass/Vol] 0.5 mg/dL Normal 0.2-1.0 [facility] Comment on above: Performed By: #### L IPID, CMP #### [facility] [address] [address] [address] Christina Camarena Calcium [Mass/Vol] 9.4 mg/dL Normal 8.5-10.1 [facility] Comment on above: Performed By: #### L IPID, CMP #### [facility] [address] [address] [address] Christina Camarena Chloride [Moles/Vol] 104 mmol/L Normal 98-107 [facility] Comment on above: Performed By: #### L IPID, CMP #### [facility] [address] [address] [address] Christina Camarena CO2 [Moles/Vol] 25.4 mmol/L Normal 21.0-32.[address] [facility] Comment on above: Performed By: #### L IPID, CMP #### [facility] [address] [address] [address] Christina Camarena Creatinine [Mass/Vol] 0.99 mg/dL Normal 0.55-1.02 [facility] Comment on above: Performed By: #### L IPID, CMP #### [facility] [address] [place] [address] Dr. Christina Camarena EGFR-AF ZIMBABWEAN >60 Normal >=[address] [facility] Comment on above: Performed By: #### L IPID, CMP #### [facility] [address] [address] [address] Christina Camarena EGFR-NON AF ZIMBABWEAN 55 mL/min/1.73m2 Critically low >=60 [facility] Comment on above: Performed By: #### L IPID, CMP #### [facility] [address] [address] [address] Christina Camarena Globulin (S) [Mass/Vol] 3.8 g/dL Normal [facility] Comment on above: Performed By: #### L IPID, CMP #### [facility] [address] [address] [address] Christina Camarena Glucose [Mass/Vol] 98 mg/dL Normal 74-106 [facility] Comment on above: Performed By: #### L IPID, CMP #### [facility] [address] [address] [address] Christina Camarena Potassium [Moles/Vol] 4.1 mmol/L Normal 3.5-5.1 [facility] Comment on above: Performed By: #### L IPID, CMP #### [facility] [address] [address] [address] Christina Camarena Protein [Mass/Vol] 7.9 g/dL Normal 6.4-8.2 [facility] Comment on above: Performed By: #### L IPID, CMP #### [facility] [address] [address] [address] Christina Camarena Sodium [Moles/Vol] 139 mmol/L Normal 136-145 [facility] Comment on above: Performed By: #### L IPID, CMP #### [facility] [address] [address] [address] Christina Camarena Urea nitrogen [Mass/Vol] 20.0 mg/dL Critically high 7.0-18.0 [facility] Comment on above: Performed By: #### L IPID, CMP #### [facility] [address] [address] [address] Christina Camarena Urea nitrogen/Creatinine [Mass ratio] 20.2 mg/mg Normal [facility] Comment on above: Performed By: #### L IPID, CMP #### [facility] [address] [address] [address] Christina Camarena Coding Summary.on 02-05-2022 Coding Summary. CD:[id number] Gh0bWw+PGhlYWQ+PE1FV XDhS21kjQAwhH6TV2sSW O3ELMPJIKORWM1XML7mz FP3QVqeF2ImybHp KotqkOXbCR00IVs8KIP0 wMsrQPelmN0ujDEwV5l2 FfMuKZ93gZ73JPsqXNXx JbL6LeHgjmcqbHFa B0ekWjTnyUYjYco+PHRh YmxlIHdpZHRoPScxMDAl LnDlfCieVB9hUq0yEFKq LWNvbGxhcHNlOiBj k1bbNDKmEIpnOG8itIen Q3FgfOD2MTVgk6d1Ys32 dHI+LCEbTFL8cVuwJDsa q314EvCwl1flEAX7 tNGxNHdgPNW9D78aw3N2 TOHqOVSlRJH5kAB0nJ5a vHlgwwdxT9XhbXThLfB6 HRA6sKXyrB9mkDpf wikwkN8pWkq+N26ZKB7K ETDROC9BVmm4L3YiHytu dHI+EV53GXJuER79iJTc iMZfr4ukxFl2RcDt OAThIJW9pTutHWcou2Uf ILJoB88zkZXfu9U7BILm kWdmnZNxZdHnoTG7zD3n KSziluvnk9qvwjxn Yvxtd3nryb73lZ77O19e CRslOFFnWXU1HRPbGTLl pJqwsk3krE7cCp5+IDxj v6fgx3ywaPv2EvIf LASnzsMrnDnlYVP3s0Sn Gk54M6WzpBmwu5VgKkp4 wh49eZQrm8I0bRO2ZRlt PYFsvN7hHOxgGyZ3 OQBbHcAeaV12yRLlJPwf Hl1ijRcuvEfbYK2qIREj nwgkHMIkhP7oIVEkvORs vRcyMH8uOKHwfvuw p896UkKfTNK0MBIkkBJz A9JlbH4yQsEjSIOvFXQd R2FchLDmPRytC928WZix JpQ9HGFrvyMyC0Tb HHTaoUqfSlJ7g8Z8Dm1Z h1QvoymrBCI2PYwsXCQ4 MuX9TwMnFjP8V8RqGof0 MQHilPyiAD8oM1Go QANblmzyhuotkUT8QWZu ZSGmaU20iPIbBHlfKc1t r6P8b057YRNcGKOqjF52 Bk5fcPzhOJAnuSZV jC0xxiowf5iklphuOuYl TBPgJWa0USe1UTWzdClo CyAiRVU1QqE1FWN2eNGp nF1auMxjwpjkuK5e Oyc+C08xeS0hAYU9CYZ2 qpyhMCSushJuFU69JT63 X0JlBcwoqHKttPG+PGRp ehBrgEztKO2iSmHk p3cen0QnFCrxK3XoYNJl UHyzGyg6GIGkAXE2eDH3 tX3cDLBsVXdhc7R9tGZ2 H6MwtyHatf3ta9gd MHIoFZxbT89zfQBwp7J1 MOChvAQ2PIGsdUbrXcYd wZ78Uon+CBDavMcja1Ln Sfcln9ylo3bpmQu5 IjMwJSIgdmFsaWduPSJ0 e1YzAo61U69sXWtqVQYh USGjGRGpQLPanIouul5x eI7gXd4+PGNvbCB3 uMT2aK8uDTTrWdG2NJfv Q934LdGicEXcMxyhs2wu d3rbyXk1KtLcTSJnzjNk yGbmSLT1a4UySz36 T94wFUdiUPIiRQBzGSSk YCWdeTuqud9jlR3hUg9+ TY2ex7wsbc30iF56pBV+ VUZhMVB8dEveCFfz CVThiD0pQJexWeX6GYPg NaQspN90dEHiGGhcPx2g zLscnDksFG9cSLPhsttj l312QgDml0udAERb mAJcXBgjFVB8S68jn3J0 DNQxCMXmZYP7aXV6dO9h bGlnbjogbGVmdDsgdmVy uIhsRNeiWIvcV857 IHRvcDsnPlBhdGllbnQg AzBhSHj4K4WjZmx9EPVk zAghUB5jyRFtUBgvCw0q eIaeeZdkOZ4xIIIi lxidq810KqZqw7lqPNTf rYJvBJdgGAM8Q27on7E4 CTMiZMUnSUX3fKT2oM5u bGlnbjogbGVmdDsg liUigSqcJNeiFQhkG135 IHRvcDsnPkJpcnRoIERh gTQ3DQ11MG44dKNum1A2 hVM8I8YgCLIjjdjq sdahtVQ7JEJySUPbyQ37 Wz2muFltPo0zFZWdNBK6 ZDZbeVWoB1YvrH3pXgKl MTEdKKXdI7XgdAIk YZfnM480BXusBnR8OSEy kwFmR0ZlFNUkpZzmVfO4 m6K2Iw3HH6D2WT81AZ12 xWKni6L5mBL6X4Pe FHEacggdhqutmGQ0OQVr FVQlhO84Is7qyTkbWw3x VOKrLGM9KCQlbYIfB4Na fT9eGmNhHMZbYNTh P8UfqNHxHSjhY109QJxo GkT0EXUleqRyM8EaZEEa sHyqFjX7c9G7Nf3KUNs7 AZ62ED42zHTfb1O2 rBR9R0VfMPBepuglkucq rUC2REUaQQNfkF73Il5o gHqwSf8wHYYiBRX5NFZc qVMqK6JylV2tRlLz CFHhDTVmM4HtlNUeEFzv H454AOcrBiH6ZSSlppFi L5SnJCVyiQjiUiM8y5S9 Ag5EDZHnGO55YFJ8 mPD0XP96KY02T4BuBxrs dGFibGU+PHRhYmxlIHdp ZHRoPScxMDAlJyBzdHls OL2lJw0kOHRnGPJb iOdpaFZzDqRmc7liKKCn TRvkSI3wvPiwU0AftHK8 WYRpb0c2Td02B72xJ2Kw dXA+LOXjiAQ9gYO4 mD4sMyZiLcS2CUbaQ984 HrYwpBZnCvzlo0ecd2ax qSm0TkM5NUNccfCisZih CGS9u0EiVn21E87j IHdpZHRoPSIxNSUiIHZh pVylkd1gfD2vJl3+PGNv eVB5yPV9dN2sUwFlJhH5 PBnqO788CxJekKKr Hcfri6cpx0uthTx0WjAo RFTtnlKmzQtuIVI0m1Ak Yb47Z2PtaMoze7BpFak4 no61hNOtw9Y1cBD4 C2BpBZRkavbqeOXwtXkk TI0vJTXougpgADWruI9u ITOuQ8n9PiWcExH4JMcw P0HqwcY3BPZvpFRh RAssDAX2O97lk0Z2SPTn FHRnNRH9zKL1jK5fjMwz bjogbGVmdDsgdmVydGlj FOevORaiW922RVXt fBczBKJtmN1oEKNpgUMu eJaaIT8iVYIayfgpJtRR FAZTA7DpEGCWEwdPWvbX EZ16C2EiVrc2ZQZe oEymFH6jyHZfJKjwFh1s tIcdsUofAT8uDSPwgldk MTPlcB1rVKIwwESpwRlr HO1aURHbcbmwd266 TsWgFXG8MITpkNFoK5Pe uK8eUlKvXOJeOHAsM4Mg jXVjYEnxJ408MExhYgB1 MWCnqaXfC3GpOXRb qBneTgL0q8D1Kg6gVM5u IT4fLJGjYG59OL59wSJj j2E5kGZ3N8XgGZOzypjt lqllaDV9WQBuQFEz kJ53cNSeJWlyGr1ca1Y2 x345LGIlBVJgiX23Jm9h fAckAEFliDIQzI0tjces y9njphfpSlHlMKDo DTl8MKk6KNRieBhxFsJu PBN6WtB6DTV4kTOguN0q sOzzzdzhwJ7kJfh+Njkg WTWkrhK3N1WnFwm5 VGHcmHgyNU4vwGMpBOzh Ei1cdXxwhBvcJD8kYYIh dloqOBUoiY5uBPRmgRGd tCmwPU7nFANkxxtq t764FpAxONV1MOEfgBSh H4QhgG8nPuVxGPCzQIPo W8OjoXOcIMqfO553AOgs EhI2ZDXjfwScE3Oe CCYdsMceWwD3v9U9Zf9T CR0ayGF1M1VwUuh9AFCw kEoaOO4lhGLzFGdgFi3d wMxxpLgtLU3bEKCi iksrCCZqsQ5oEBHhkQOg hImoRS6rOGGtdjhdr550 KbVjNFB0SNDcxOLsJ9Rk bW1bBjUiHOBwYKJc C6RdkGWvJEqvW151WGjx UgU8HPIwpmAbW2OiTUNq jCxyTcO8i5M4Ah7VEHLd KBYpgLKdPvO3F4Hk PjwvdHI+NW47KAMjBE94 eTKbsYDrv6ihyIs2QkBd CHIuRWA4zFdoONauy2Aq FLTcS01zyAOlv2S4 IGNvbGxhcHNlOyBlbXB0 aQ5xWZhrdtzeo5hlfaxh Pqcgr4jaog91fG55R31w IHdpZHRoPSIzMCUi GMEygBylxb5ddW2bPw6+ RNLguFO1jTO2nJ5kYbJx UaS3RSjxU392WpJznSMb Biowx0nir3uzoPg9 IjIwJSIgdmFsaWduPSJ0 t6QqRk25O06iNHdiFIRs NBLdHMKmBMXbtAhmae4b jT3cZc1+YG4mo0fw wg78tU60nFX+PHRkIHN0 cHwmDDhgWUDojG1uUWoa EzS8FJRhYrBxhM28cKGr GRvsMa1phRtnlXle IC0qDXTaduaop445HuQb n1bcNGNqaIGzSRbfAYL4 J82si3N8XFUoBXHmDCG3 yVG6vH8dsZhotuiu bGVmdDsgdmVydGljYWwt JRruI514ZUXhfEmyYvMs vSQiL0dcdvOMSB8zBhur dGQ+CVPqNQK2hLwf WEgdQZXyvT6dZOTnO5x7 OsRiHbV6FIxwE0LnbiE5 JAZiqFPdSCDzgRMRbN3l wdwte6medjktJiPk FCZaFBv9LTv2MIIxhSdo QkFlPRN0QzV6JZU2wPFs nM4xjQexlxzptU6gTbd+ RklOOjwvdGQ+PHRk ITP4yYqzROeuCWPbqI9d ZNMcU7b7AaZeKsH2NPqv Z9XoqoU9RUWubPSqGMYd mQGBpW6qbyyvf3iy xdruFbSzWZJnOTi6HAc1 RIWehJvrCmRoHAV9FfK3 OIJ4jPLhgB7jpWwtsmbw bX3aXof+TVJOOjwv dGQ+UWTpGAS7sDjaWMfg AZApkF6yKTAuT5y3PvVi SpW2RRiwQ4PessE5YFOj jRRqDUHwsHHCwE0h ashvm4znizrrRtHbJCDz MQn1UFa1JLFeqRogNfWe GCU8QvM1OFA0kHEeoH6y fTphatajfN0oRre+ AOK3CCB8HW69XJ06C0Uq PjwvdGFibGU+PHRhYmxl IHdpZHRoPScxMDAlJyBz bPjgXV9rTv2cTUHk LWNv (more content not included)... Normal [facility] Physician Orderon 01-17-2022 Physician Order [id number] Normal [facility] Vital Signs Date Time Vital Sign Value Performing Clinician Facility 05-03-2024 10:03-0400 Body height 157.48 cm [facility] 05-03-2024 10:03-0400 Body mass index (BMI) [Ratio] 31.2 kg/m2 [facility] 05-03-2024 10:03-0400 Body weight 77.56 kg [facility] 05-03-2024 10:03-0400 Diastolic blood pressure 71 mm[Hg] [facility] 05-03-2024 10:03-0400 Heart rate 62 /min [facility] 05-03-2024 10:03-0400 Systolic blood pressure 144 mm[Hg] [facility] 05-01-2023 10:00-0400 Body height 160.02 cm Reny Cabrera Other [facility] Other 05-01-2023 10:00-0400 Body mass index (BMI) [Ratio] 29.33 kg/m2 Reny Cabrera Other [facility] Other 05-01-2023 10:00-0400 Body weight 75.12 kg Reny Cabrera Other [facility] Other 05-01-2023 10:00-0400 Diastolic blood pressure 65 mm[Hg] Reny Cabrera Other [facility] Other 05-01-2023 10:00-0400 Systolic blood pressure 125 mm[Hg] Reny Cabrera Other [facility] Other Encounters Encounter Date Encounter Type Care Provider Facility Start: 05-03-2024 Patient encounter procedure [facility] Start: 05-03-2024 End: 05-03-2024 ambulatory NON STAFF [facility] Work Phone: Start: 05-03-2024 End: 05-03-2024 Patient encounter procedure [facility] Work Phone: Start: 07-28-2023 End: 07-28-2023 ambulatory DOMINIC B APLING Not Available Start: 05-15-2023 End: 05-15-2023 ambulatory Reny Cabrera Other [facility] Other Start: 05-15-2023 Telephone encounter Reny Cabrera [facility] Start: 05-01-2023 End: 05-01-2023 ambulatory Reny Cabrera Other [facility] Other Start: 05-01-2023 Patient encounter procedure Reny Cabrera [facility] Start: 06-26-2022 End: 06-27-[address] LOTUS SERNA Facility:[facility] Start: 05-13-2022 End: 05-14-[address] RENY CABRERA Facility:[facility] Plan of Treatment Date Care Activity Detail Author Start: 05-03-2024 EKG 12 channel panel Fi [facility] Comprehensive metabo lic 2000 panel - Serum or Plasma [facility] Holter monitor study [facility] MG Breast - bilateral Screening [facility] Immunizations Immunization Date Immunization Notes Care Provider Fa cility 05-01-2023 influenza virus vaccine, unspecified formulation [facility] 05-01-2023 influenza, high dose seasonal, preservative-free Reny Cabrera Other [facility] Other 06-24-2022 COVID-19 Pfizer (Pediatric) Reny Cabrera Other [facility] 06-24-2022 influenza virus vaccine, split virus (incl. purified surface antigen) Reny Cabrera Other [facility] Other 06-24-2022 influenza virus vaccine, unspecified formulation [facility] 11-14-2020 COVID-19 Vaccine Pfi zer - Documentation Purposes Only Reny Cabrera Other [facility] 04-26-2020 influenza virus vaccine, split virus (incl. purified surface antigen) Reny Cabrera Other [facility] Other 04-26-2020 influenza virus vaccine, unspecified formulation [facility] 04-26-2020 pneumococcal polysaccharide vaccine, 23 valmario Oglesby Luis Other [facility] 04-20-2019 pneumococcal conjuga te vaccine, 13 jesu Oglesby Luis Other [facility] Payers Date Payer Category Payer Self-pay 1957 Medicare [id number] 1957 Unknown [id number] 1950 Unknown [id number] 1950 Unknown [id number] 1950 Unknown [id number] Unknown [id number] Social History Date Type Detail Facility Sex Assigned At [facility] Other Start: 05-03-2024 Tobacco smoking stat us IAIS Never smoked tobacco (finding) [facility] Start: 1950 Sex Assigned At Female F [facility] Evaluation note 05-01-2023 Note Date & Type [...] mammogram for breast cancer (ICD-10 - Z12.31) [facility] Other Evaluation note Note Date & Type Note Facility Evaluation note No Information [facility] [employer] Other Evaluation note Note Date & Type Note Facility Evaluation note Diagnosis Onset Date Dyslipidemia acute Essential hypertension acute Palpitations acute Screening mammogram for breast cancer acute [facility] Work Phone: Evaluation note Note Date & Type Note Facility Evaluation note Diagnosis Onset Date Dyslipidemia acute Essential hypertension acute Medicare annual wellness visit, subsequent acute Palpitations acute Screening mammogram for breast cancer acute 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 Medical History Personal history of malignant melanoma of skin Surgical History Cholecystectomy Surgical History Wide excision of Melanoma 2012 Surgical History [facility] Hospitalization History see surgical hx [facility] Other History general Narrative - Reported Note Date & Type Note Facility History general Narrative - Reported Type Surgical History Cholecystectomy Surgical History Wide excision of Melanoma 2012 Surgical History [facility] Hospitalization History see surgical hx [facility] Other Summary Purpose Family History No Family History Records Found Relationship Condition Age at Onset Recorded Date/T smiley mother Family history of thyroid disease Unknown History of stroke Unknown Advance Directives No Advanced Directives Records Found Advance Directive Response Recorded Date/ Time Advance Directives No April 9:52am Chief Complaint and Reason for Visit Chief Complaint wellness Reason for Visit Dyslipidemia Essential hypertension Palpitations Screening mammogram for breast cancer Chief Complaint wellness Reason for Visit Dyslipidemia Essential hypertension Medicare annual wellness visit, subsequent Palpitations Screening mammogram for breast cancer Additional Source Comments INFORMATION SOURCE (unrecogn ized section and content) DATE CREATED AUTHOR 03/13/2022 [facility] DATE CREATED AUTHOR AUTHOR'S ORGANIZ ATION 07/30/2022 [facility] DATE CREATED AUTHOR AUTHOR'S ORGANIZ ATION 07/29/2023 [facility] EPIC DATE CREATED AUTHOR AUTHOR'S ORGANIZ ATION 05/04/2024 [facility] REASON FOR VISIT (unrecogniz ed section and content) [facility] Care Teams (unrecognized sec tion and content) Team Status: Active Member Role Status Dates NON STAFF Primary Care Provider Active Team Status: Inactive Member Role Status Dates NON STAFF Primary Care Provider Active Start: May 03, 2024 End: May 03, 2024 Reny Cabrera MD Attending Provider Active St art: May 03, 2024 End: May 03, 2024 Team Status: Active Member Role Status Dates NON STAFF Primary Care Provider Active Start: May 03, 2024 Reny Cabrera MD Attending Provider Active St art: May 03, 2024 Goals (unrecognized section and content) Goals may be documented in a n alternate section FOR RECORDS PERTAINING TO PATIENTS WHO ARE [...] BE BASED ON THE PRIMARY CLINICAL RECORDS. [employer] provides no warranty or guarantee of the accuracy or completeness of information in this document.
== END 2024-05-06 07:15 | disposition home or self-care (01) ==
PROVIDERS: PCP Family Medicine; Visit Provider Family Medicine
DX: R00.2 Palpitations (principal)
CPT/HCPCS: 93005; 93270

== ENCOUNTER 2024-05-12 19:50 | Outpatient (OUT) | payer MEDICARE, OTHER, SELFPAY ==
--- OUTSIDE RECORDS SUMMARY | 2024-05-12 19:52 | XMS_ITS | CCD ---
Author Organization [facility] Care Team Providers Care [employer] Marker Name Role Phone WEST, DR LOTUS Chester [...] Care Provider UnavailMD Reny Mendoza Attending Provider Reny Cabrera Attending Unavailable Reny Cabrera Admitting [...] Basophils (Bld) [#/Vol] 0.0 10 3/uL 0.0-0.1 [facility] Basophils/100 WBC Auto (Bld) on 05-03-2024 Basophils/100 WBC (Bld) 0.5 % 0.2-2.0 [facility] Cholesterol in LDL Calc [Mas s/Vol]on 05-03-2024 Cholesterol in LDL [Mass/Vol] 83.0 mg/dL [facility] Comment on above: <100 mg/dl [id number] 0-129 mg/dl NEAR OR ABOVE ULPQQQU079-780 mg/dl BORDERLINE APCM246-789 mg/dl HIGH>190 mg/dl VERY HIGH Cholesterol in VLDL Calc [Ma ss/Vol]on 05-03-2024 Cholesterol in VLDL [Mass/Vol] 18.2 mg/dL [facility] Eosinophils/100 WBC Auto (Bl d)on 05-03-2024 Eosinophils/100 WBC (Bld) 1.6 % 0.9-7.0 [facility] Erythrocyte distribution wid th Auto (RBC) [Ratio]on 05-03-2024 Erythrocyte distribution width (RBC) [Ratio] 14.4 % 11.0-15.0 [facility] Estimated glomerular filtrat ion rate (GFR) non- Americanon 05-03-2024 GFR/1.73 sq M.predicted among non-blacks MDRD (S/P/Bld) [Vol rate/Area] 55 mL/min/{1.73_m2} Low >=60 [facility] Globulin Calc (S) [Mass/Vol] on 05-03-2024 Globulin (S) [Mass/Vol] 3.7 g/dL [facility] Hematocrit Auto (Bld) [Volum e fraction]on 05-03-2024 Hematocrit (Bld) [Volume fraction] 45.3 % 36.0-48.0 [facility] Hemoglobin [Mass/volume] in Bloodon 05-03-2024 Hemoglobin (Bld) [Mass/Vol] 14.7 g/dL 12.0-16.0 [facility] Laboratory - Chemistry and C hemistry - challengeon 05-03-2024 Albumin [Mass/Vol] 4.0 g/dL 3.4-5.0 [facility] ALP [Catalytic activity/Vol] 107 U/L 46-116 [facility] ALT [Catalytic activity/Vol] 29 U/L 14-59 [facility] AST [Catalytic activity/Vol] 23 U/L 15-37 [facility] Bilirubin [Mass/Vol] 0.4 mg/dL 0.2-1.0 [facility] Calcium [Mass/Vol] 9.7 mg/dL 8.5-10.1 [facility] Chloride [Moles/Vol] 103 mmol/L 98-107 [facility] Cholesterol [Mass/Vol] 163 mg/dL <=200 [facility] Cholesterol in HDL [Mass/Vol] 62 mg/dL High 40-60 [facility] Comment on above: > or =60 mg/dl - LOW CARDIOVASCULAR RISK<40 mg/dl - HIGH CARDIOVASCULAR RISK CO2 [Moles/Vol] 30.1 mmol/L 21.0-32.0 [facility] Creatinine [Mass/Vol] 0.99 mg/dL 0.55-1.02 [facility] GFR/1.73 sq M.predicted MDRD (S/P/Bld) [Vol rate/Area] mL/min/{1.73_m2} >=60 [facility] Glucose [Mass/Vol] 91 mg/dL 74-106 [facility] Potassium [Moles/Vol] 4.1 mmol/L 3.5-5.1 [facility] Protein [Mass/Vol] 7.7 g/dL 6.4-8.2 [facility] Sodium [Moles/Vol] 139 mmol/L 136-145 [facility] Triglyceride [Mass/Vol] 91 mg/dL <=150 [facility] TSH Qn 2.666 m[IU]/L 0.358-3.740 [facility] Urea nitrogen [Mass/Vol] 17.0 mg/dL 7.0-18.0 [facility] Urea nitrogen/Creatinine [Mass ratio] 17.2 mg/mg [facility] Laboratory - Hematology and Cell countson 05-03-2024 Immature granulocytes/100 WBC (Bld) 0.2 % 0.0-0.5 [facility] Leukocytes [#/volume] correc alyssia for nucleated erythrocytes in Blood by Automated counon 05-03-2024 WBC corrected for nucl RBC Auto (Bld) [#/Vol] 8.2 10 3/uL 4.0-11.0 [facility] Lymphocytes Auto (Bld) [#/Vo l]on 05-03-2024 Lymphocytes (Bld) [#/Vol] 2.5 10 3/uL 1.2-3.8 [facility] Lymphocytes/100 WBC Auto (Bl d)on 05-03-2024 Lymphocytes/100 WBC (Bld) 30.3 % 20.5-60.0 [facility] MCH Auto (RBC) [Entitic mass ]on 05-03-2024 MCH (RBC) [Entitic mass] 30.1 pg 26.7-34.0 [facility] MCHC Auto (RBC) [Mass/Vol]on 05-03-2024 MCHC (RBC) [Mass/Vol] 32.5 g/dL 29.9-35.2 [facility] MCV Auto (RBC) [Entitic vol] on 05-03-2024 MCV (RBC) [Entitic vol] 92.6 fL 81.0-99.0 [facility] Monocytes Auto (Bld) [#/Vol] on 05-03-2024 Monocytes (Bld) [#/Vol] 0.5 10 3/uL 0.3-0.8 [facility] Monocytes/100 WBC Auto (Bld) on 05-03-2024 Monocytes/100 WBC (Bld) 5.9 % 1.7-12.0 [facility] Neutrophils Auto (Bld) [#/Vo l]on 05-03-2024 Neutrophils (Bld) [#/Vol] 5.0 10 3/uL 1.4-6.5 [facility] Neutrophils/100 WBC Auto (Bl d)on 05-03-2024 Neutrophils/100 WBC (Bld) 61.5 % 43.0-75.0 [facility] No Panel Informationon 05-03 Eosinophils # (Auto) 0.1 10 3/uL 0.0-0.7 [facility] Immature Granulocyte # (Auto) 0.02 10 3/uL 0.00-0.03 [facility] Platelet mean volume Auto (B ld) [Entitic vol]on 05-03-2024 Platelet mean volume (Bld) [Entitic vol] 9.7 fL 9.5-13.5 [facility] Platelets Auto (Bld) [#/Vol] on 05-03-2024 Platelets (Bld) [#/Vol] 206 10 3/uL 150-450 [facility] RBC Auto (Bld) [#/Vol]on RBC (Bld) [#/Vol] 4.89 10 6/uL 4.20-5.40 [facility] Serum or plasma albumin/glob ulin mass ratioon 05-03-2024 Albumin/Globulin [Mass ratio] 1.1 {ratio} [facility] Serum or plasma anion gap de terminationon 05-03-2024 Anion gap [Moles/Vol] 10.0 mmol/L Fi [facility] Serum or plasma total choles terol/high density lipoprotein (HDL) cholesterol mass gloria 05-03-2024 Cholesterol.total/Cho lesterol in HDL [Mass ratio] 2.6 {ratio} [facility] Comment on above: 3.3 - 4.4 LOW RISK4. 4 - 7.1 AVERAGE RISK7.1 - 11.0 MODERATE RISK>11.0 HIGH RISK MG MAMM SCREEN 3D EVAN CADon 06-26-2022 MG MAMM SCREEN 3D EVAN CAD Patient: PORFIRIO FERNANDES Exam Date: 06/26/2022 : 1950 Gender:F Ordering : DR RENY CABRERA M.D. Admission #: [id number] Family : Order #: [id number] CLICK HERE TO VIEW EXAM RADIOLOGY REPORT [...] Treatments None Family Cancers None LOCATION: [facility] BREAST COMPOSITION: Heterogeneously dense,which may obscure [...] MD on 06/26/2022 at 08:44 Normal [facility] CBC AUTO DIFFon 05-13-2022 BASO # 0.0 103/ul Normal 0.0-0.1 [facility] Comment on above: Performed By: #### C BC #### [facility] [address] [place] [address] Dr. Christina Camarena Basophils/100 WBC (Bld) 0.3 % Normal 0.2-2.0 [facility] Comment on above: Performed By: #### C BC #### [facility] [address] [place] [address] Dr. Christina Camarena EO # 0.1 103/ul Normal 0.0-0.7 [facility] Comment on above: Performed By: #### C BC #### [facility] [address] [place] [address] Dr. Christina Camarena Eosinophils/100 WBC (Bld) 1.5 % Normal 0.9-7.0 [facility] Comment on above: Performed By: #### C BC #### [facility] [address] [place] [address] Dr. Christina Camarena Erythrocyte distribution width (RBC) [Ratio] 14.4 % Normal 11.0-15.0 [facility] Comment on above: Performed By: #### C BC #### [facility] [address] [place] [address] Dr. Christina Camarena Hematocrit (Bld) [Volume fraction] 46.5 % Normal 36.0-48.0 [facility] Comment on above: Performed By: #### C BC #### [facility] [address] [place] [address] Dr. Christina Camarena Hemoglobin (Bld) [Mass/Vol] 14.8 g/dL Normal 12.0-16.0 [facility] Comment on above: Performed By: #### C BC #### [facility] [address] [place] [address] Dr. Christina Camarena IG # 0.02 10e3/ul Normal 0.00-0.03 [facility] Comment on above: Performed By: #### C BC #### [facility] [address] [place] [address] Dr. Christina Camarena IG % 0.2 % Normal 0.0-0.5 [facility] Comment on above: Performed By: #### C BC #### [facility] [address] [place] [address] Dr. Christina Camarena LYMPH # 2.4 103/ul Normal 1.2-3.8 [facility] Comment on above: Performed By: #### C BC #### [facility] [address] [place] [address] Dr. Christina Camarena Lymphocytes/100 WBC (Bld) 26.2 % Normal 20.5-60.0 [facility] Comment on above: Performed By: #### C BC #### [facility] [address] [place] [address] Dr. Christina Camarena MANUAL DIFF REQ NO Normal [facility] Comment on above: Performed By: #### C BC #### [facility] [address] [place] [address] Dr. Christina Camarena MCH (RBC) [Entitic mass] 29.5 pg Normal 26.7-34.0 [facility] Comment on above: Performed By: #### C BC #### [facility] [address] [place] [address] Dr. Christina Camarena MCHC (RBC) [Mass/Vol] 31.8 g/dL Normal 29.9-35.2 [facility] Comment on above: Performed By: #### C BC #### [facility] [address] [place] [address] Dr. Christina Camarena MCV (RBC) [Entitic vol] 92.8 fL Normal 81.0-99.0 [facility] Comment on above: Performed By: #### C BC #### [facility] [address] [place] [address] Dr. Christina Camarena MONO # 0.6 103/ul Normal 0.3-0.8 [facility] Comment on above: Performed By: #### C BC #### [facility] [address] [place] [address] Dr. Christina Camarena Monocytes/100 WBC (Bld) 6.7 % Normal 1.7-12.0 [facility] Comment on above: Performed By: #### C BC #### [facility] [address] [place] [address] Dr. Christina Camarena NEUT # 5.9 103/ul Normal 1.4-6.5 [facility] Comment on above: Performed By: #### C BC #### [facility] [address] [place] [address] Dr. Christina Camarena Neutrophils/100 WBC (Bld) 65.1 % Normal 43.0-75.0 [facility] Comment on above: Performed By: #### C BC #### [facility] [address] [place] [address] Dr. Christina Camarena Platelet mean volume (Bld) [Entitic vol] 9.8 fL Normal 9.5-13.5 [facility] Comment on above: Performed By: #### C BC #### [facility] [address] [place] [address] Dr. Christina Camarena PLT 228 103/ul Normal 150-450 [facility] Comment on above: Performed By: #### C BC #### [facility] [address] [place] [address] Dr. Christina Camarena RBC 5.01 106/ul Normal 4.20-5.40 [facility] Comment on above: Performed By: #### C BC #### [facility] [address] [place] [address] Dr. Christina Camarena WBC 9.1 103/ul Normal 4.0-11.0 [facility] Comment on above: Performed By: #### C BC #### [facility] [address] [place] [address] Dr. Christina Camarena LIPID PROFILEon 05-13-2022 CHOL-HDL RATIO NORM SEE BELOW Normal [facility] Comment on above: Result Comment: 3.3 - 4.4 LOW RISK 4.4 - 7.1 AVERAGE RISK 7.1 - 11.0 MODERATE RISK >11.0 HIGH RISK Performed By: #### L IPID, CMP #### [facility] [address] [address] [address] Christina Camarena Cholesterol [Mass/Vol] 172 mg/dL Normal <=200 [facility] Comment on above: Performed By: #### L IPID, CMP #### [facility] [address] [address] [address] Christina Camarena Cholesterol in HDL [Mass/Vol] 55 mg/dL Normal 40-60 [facility] Comment on above: Performed By: #### L IPID, CMP #### [facility] [address] [address] [address] Christina Camarena Cholesterol in LDL [Mass/Vol] 76.8 mg/dL Normal [facility] Comment on above: Performed By: #### L IPID, CMP #### [facility] [address] [place] [address] Dr. Christina Camarena Cholesterol.total/Cho lesterol in HDL [Mass ratio] 3.1 {ratio} Normal [facility] Comment on above: Performed By: #### L IPID, CMP #### [facility] [address] [address] [address] Christina Camarena HDL NORMAL > or = 60 mg/dl - LOW CARDIOVASCULAR RISK <40 mg/dl - HIGH CARDIOVASCULAR RISK Normal [facility] Comment on above: Performed By: #### L IPID, CMP #### [facility] [address] [address] [address] Christina Camarena LDL CALC NORMAL SEE BELOW Normal [facility] Comment on above: Result Comment: <100 mg/dl OPTIMAL 100 - 129 mg/dl NEAR OR ABOVE OPTIMAL 130 - 159 mg/dl BORDERLINE HIGH 160 - 189 mg/dl HIGH >190 mg/dl VERY HIGH Performed By: #### L IPID, CMP #### [facility] [address] [address] [address] Christina Camarena Triglyceride [Mass/Vol] 201 mg/dL Critically high <=150 [facility] Comment on above: Performed By: #### L IPID, CMP #### [facility] [address] [address] [address] Christina Camarena VLDL CALC 40.2 mg/dL Normal [facility] Comment on above: Performed By: #### L IPID, CMP #### [facility] [address] [place] [address] Dr. Christina Camarena PROF 14(COMP METB)on 022 Albumin [Mass/Vol] 4.1 g/dL Normal 3.4-5.0 [facility] Comment on above: Performed By: #### L IPID, CMP #### [facility] [address] [place] [address] Dr. Christina Camarena Albumin/Globulin [Mass ratio] 1.1 {ratio} Normal [facility] Comment on above: Performed By: #### L IPID, CMP #### [facility] [address] [place] [address] Dr. Christina Camarena ALP [Catalytic activity/Vol] 99 U/L Normal 46-116 [facility] Comment on above: Performed By: #### L IPID, CMP #### [facility] [address] [place] [address] Dr. Christina Camarena ALT [Catalytic activity/Vol] 29 U/L Normal 14-59 [facility] Comment on above: Performed By: #### L IPID, CMP #### [facility] [address] [place] [address] Dr. Christina Camarena Anion gap [Moles/Vol] 13.7 mmol/L Normal [facility] Comment on above: Performed By: #### L IPID, CMP #### [facility] [address] [place] [address] Dr. Christina Camarena AST [Catalytic activity/Vol] 24 U/L Normal 15-37 [facility] Comment on above: Performed By: #### L IPID, CMP #### [facility] [address] [place] [address] Dr. Christina Camarena Bilirubin [Mass/Vol] 0.5 mg/dL Normal 0.2-1.0 [facility] Comment on above: Performed By: #### L IPID, CMP #### [facility] [address] [address] [address] Christina Camarena Calcium [Mass/Vol] 9.4 mg/dL Normal 8.5-10.1 [facility] Comment on above: Performed By: #### L IPID, CMP #### [facility] [address] [address] [address] Christina Camarena Chloride [Moles/Vol] 104 mmol/L Normal 98-107 [facility] Comment on above: Performed By: #### L IPID, CMP #### [facility] [address] [address] [address] Christina Camarena CO2 [Moles/Vol] 25.4 mmol/L Normal 21.0-32.0 [facility] Comment on above: Performed By: #### L IPID, CMP #### [facility] [address] [address] [address] Christina Camarena Creatinine [Mass/Vol] 0.99 mg/dL Normal 0.55-1.02 [facility] Comment on above: Performed By: #### L IPID, CMP #### [facility] [address] [place] [address] Dr. Christina Camarena EGFR-AF LITHUANIAN >60 Normal >=60 [facility] Comment on above: Performed By: #### L IPID, CMP #### [facility] [address] [address] [address] Christina Camarena EGFR-NON AF LITHUANIAN 55 mL/min/1.73m2 Critically low >=60 [facility] Comment on above: Performed By: #### L IPID, CMP #### [facility] [address] [address] [address] Christina Camarena Globulin (S) [Mass/Vol] 3.8 g/dL Normal [facility] Comment on above: Performed By: #### L IPID, CMP #### [facility] [address] [address] [address] Christina Camarena Glucose [Mass/Vol] 98 mg/dL Normal 74-106 [facility] Comment on above: Performed By: #### L IPID, CMP #### [facility] [address] [address] [address] Christina Camarena Potassium [Moles/Vol] 4.1 mmol/L Normal 3.5-5.1 [facility] Comment on above: Performed By: #### L IPID, CMP #### [facility] [address] [address] [address] Christina Camarena Protein [Mass/Vol] 7.9 g/dL Normal 6.4-8.2 [facility] Comment on above: Performed By: #### L IPID, CMP #### [facility] [address] [address] [address] Christina Camarena Sodium [Moles/Vol] 139 mmol/L Normal 136-145 [facility] Comment on above: Performed By: #### L IPID, CMP #### [facility] [address] [address] [address] Christina Camarena Urea nitrogen [Mass/Vol] 20.0 mg/dL Critically high 7.0-18.0 [facility] Comment on above: Performed By: #### L IPID, CMP #### [facility] [address] [address] [address] Christina Camarena Urea nitrogen/Creatinine [Mass ratio] 20.2 mg/mg Normal [facility] Comment on above: Performed By: #### L IPID, CMP #### [facility] [address] [address] [address] Christina Camarena Coding Summary.on 02-05-2022 Coding Summary. CD:[id number] Gh0bWw+PGhlYWQ+PE1FV JOvD66hpGSkoG6RV9qIP K4MJKVSUPWOFE2MXA1il OP3KSneA3GnkpNk BeygdIMrGQ76EUg9OQO8 xQcxHSpbrE7bhFDmD9z9 JnMvRP67jM50CSxaWUKz YfG4TzEqwymmqSJi S7xoUmOdpCIjMen+PHRh YmxlIHdpZHRoPScxMDAl GlOhpRanTH2pDm5dCZAz LWNvbGxhcHNlOiBj s5urGWDtVPoaYK1wiVee B6JaaGN6KXEfo5o7Df05 dHI+WSGtGYB1zUqiDFab p203VuCny1qgQKT2 oYDhQKdhITX7T74gq7Z9 YDAjCHSnZMU4xYE8fZ0c cSnvztnyQ7WejJXfTdJ7 EWW5wCCejQ1ukLdg gbkfpT2pYkb+I54MQZ8N MZRBGM0BLgi6P9RePnse dHI+FA89FQFtGY66iOJh kCJsb7yusPd3AvCj HKQzZMX8wClmANkpu7Cw ENIlC96geNHco7J8ATDf rXgahMPuXfXobPC4qN7h EDrrgfrwz0nahqji Tmncv3vrts01jI59H64z XAfjIFLaZNS7NPLdRISj dQkyaq0fzN6jYq1+IDxj v7xue2dnvEa9PqEv AFCrtvDlqWjfQXA4w0Xs Xu43L1JjgUqwb5RaEsr2 qs35rWSsr7B8aDS5IRin LTXbbG6nNNfuKvF5 NVVmMxEcmG54rRNlMEjm Xv3xtGiugLwjAU5iXCMp tuezLHPyiU6lKSFumDEd uJtxGO9xFCVqkbye s863YxGmLEN0IPIbgWRe Y7NtzE3sDkDsTQPoCMAf J6JzlAOoMLgbF108IBnh EvH0MLSsysFnL9Qe YOYuiQdfPkJ0z4P4We0D x6EvekgxWAA7JCfoUVL3 CdG5XzRuDwO3H4OnAhd6 UKXqtQriAT4zM7Rj INFubqclwqdzlVC1OJOs GCZncJ14sWXfWFhsIl0d c1X2m635QPUlWCCnnC21 Lf8ibJmlPQRnjAJJ dE2feacbu7fnyzejAmJw GNKfTTk0FLb8PPNhqUch IjWsHOX4LzN6HBA1pDWd mF4avZcnqvkaaF6l Oyc+Z14gkT1kHTW2CLQ8 rrckIPYjbrUxSQ63VQ19 A4QwLdtwrKIsdIH+PGRp etJpuYbzRV3gPvIy y4etd7AbGFbbY6HlAGFm UDczZdj6SCEbCUD5iGN6 wU3lVHXvNIqbc6Q3kEA6 T7HuezNcrx4zq2pn RVYdNUvnJ03rtQXrx9P9 VCOpaKV0TAFcaEyvIxWf bD20Dgb+MKCohMrdm9Jx Yhdwa6lij4kpoNt7 IjMwJSIgdmFsaWduPSJ0 b5OeXu13O67qAJiuXMQt QZRzVFPfLMJzhDvuus3m cN4rHk6+PGNvbCB3 nZX5nD4pKOLwQqT1IUqp X846GjCznAXpActmx1hh s2malFy1XlJrIWToopYu sBipJFI3k9UdTu43 I23gZNbiPSTeOPDnBSZz WSZldAvrkv1izC5wFj3+ DB0dl1eomi50eJ09nRD+ GWYiGXA1gHmjPMpf OPMvqA3cFHxvHyR6KGRy AxKdwU84yERvPWimWo0n vQclnBioTB1wAOWvjrmb x379YtStl4fmQOWi kNSpCGuqJBQ2I45hr6P5 MJKbUCIpLKM2nUS1hU9o bGlnbjogbGVmdDsgdmVy sWmvNTqnFFecG371 IHRvcDsnPlBhdGllbnQg PoDcTVr7T3ZmZtx0DNAg yGerYH9bcUDiVIfeQw3b rAgewPtlNF4jENCi fflra016JfUds4wvPSXn jIFbYPumBKU4W12gv1K8 CPXlWULeDGZ5kQY5kM5d bGlnbjogbGVmdDsg ofBnfJtaKHtbBMlgD866 IHRvcDsnPkJpcnRoIERh wJQ9BK73GQ81bXUtl4A8 pKI8J8PhYIOxwtpp jezmzCC8AOElTBQeyB84 Dv8vpZknRc4yWHYvFON3 ZXNkhWPjR1FjsY5bIuGm GOWqNEEjR1VtkRZt UQafQ177NPmkWlF5IWAj goEjV9YwQHOsjDdwAkP1 k3N7Si2QV5D4UW07NC62 tROhc0J1gQL3D0Nb OATmwocptjxkzPK3UJNf MVMzbX23Rb3yoHnuFr6r MIUpWPD7DGXkmSJmE4Ku cG4yGrZkCWPgUEWu J4NjlPPuVBsqV578JAgk DoZ4HFVyycRuT2HgVXFf cMxtMnV4o8P5Di5SCCp4 LB37HD91oDIrh4L6 xYL6G1UpYYJmbmfahfhs dWA4QDOhMNNtrA39Ij5v bLelKa1gBBJuRKX0XCAu aTYvF1RntS4nFqEc YLWaGOOtQ0GyhSCxIErj O428GTnvYlL8EIFvnlHc W8DpNLAmmAmvXdZ6n1O5 Nk4FBQCcUN15IYU9 vHA3HM29OO98E2XrXnup dGFibGU+PHRhYmxlIHdp ZHRoPScxMDAlJyBzdHls EC4bUu3cFOKgRGYd kYilwFDbOvXpt3doEBSq TPpdSH3xnZlmP1RxsUG5 XIMka0d8Km38D02eT9Wn dXA+NDWnwHW2zJK5 hI4hVhVlIwJ6XCwlM989 GiIreMQjLrwky1lye5jc fZw3JuK2RNXfjtKzrBzj AFQ1r4WhXj33R28b IHdpZHRoPSIxNSUiIHZh fQijgz1xrE8sYn5+PGNv tYM8mYT3cR9qEaGjNzB8 FTydC430EeIccQPc Loxqx0pok0dlbUc3HvYn KHDwinBuqRxhGRN7j2Qb Ep99O2MyiLwxh8EcYpv4 gk76kZAqx1Y5hXR0 U9QzKIKewkuwlEEazPwb NQ0bGHTdnubfUGGcnA5r BPCiZ3b1KvBrYhU3TDbv C2OqujL7JBGmnUUm CXlaDRM8H19vz9O5YFFc JLZbZQX0bRW3vR6naNpv bjogbGVmdDsgdmVydGlj ELesYXisJ905BTDd dJmsAJZupO1pKITkmENl zEjgHQ5hYNUcimdiBpYV JGECX0DfRVTGOzxPJvuP MH97Z6UuPxb0DVQy zWsoFT9xiMWhUTjiSd7x dIovgDxlUO7lZWUlkffl MBAvmZ4vOKDrsLSpqFjt FJ6rURKlqrzyw877 NzQoPTB5FLZtePJjK2Dc fS9yFdWbUSLnSXHkH6Bk kXCbZAqgE297JLzlWzI4 FNZyswSnE4NtFEPh qYsgDhR0r8V7Rk6mOC8r QI9iLGHgUA81XN60gERm v6G7jMK6S2YfTKQbzrme jmdppHX2MFKzINKn mF74yENsYOdlFj6bv8L2 b165GZZpVTVakC85Yv2z hVwlCFTwnEHKmT9msqdz k5kkahimFaKuRBAh KZb8SSw7TDIymVcsIzWr XRB7WlY8DEH4fRReuD8r sDtxtbbteB2fKgr+Njkg GIEubkU6Y7UrCaw8 VWQzvZbvGF5xbOLpTXqn Ap1msOihcLwnQB4gMJTg vngePHOqxD0aHQUzeSWq bUjrEK8bCNNabjvi v398IpMaETB6CQQkqCWz H6KccA6lAgDtGZWtDFTd K5HacPHgDCpwH060IPzj HlH5CXRxzbNyK8Ou GZMokQmwQxM9x8J4Gh3C IA5olPM3P2IfCrv7NHXg fVoqGA2ulCUoVIjvZt4q tBeevPycLP8rYWLv idllWUDfkC3pTJGcmRXb lIniKC2jCZIhkfkds938 BqDzPQC0NNRfiNMqP1Iq tS8iIqHbZWGcGCNo K9MhxEZnWUhcN547EIxl IrP0PMOyqtIrT9QhUDIx oPdjBeP3e7F6Yx7BXTZr BAHqmQJdEpU0F7Zr PjwvdHI+BA01DJFiYZ92 uBCheGIkb3mrcFw6FvOr ANAsFRJ7qNvgHTama8Jq OGBhE04nySRyu4D0 IGNvbGxhcHNlOyBlbXB0 sA6hPHjselcqn2fbpsov Vtvjt4iitr75nT98O01x IHdpZHRoPSIzMCUi YYKzoWrvsa3ccE2cSn6+ JWZuzUE1bPC3bT3dJfYx FeC4EKpcK038XdOzjKUy Oltyn2rrh1vnsCs7 IjIwJSIgdmFsaWduPSJ0 y4NjPy76P06mTFjqDUTi RJMrWNXnKQSotGpauh4o vQ7qVr1+VD2zv4or jc95dI11lBF+PHRkIHN0 fLpnIExlNSOekC5sJUhz WiM5UMWpDyVrvV21pTIn PCzvDn8beFngoQaq DA9aSZAcfynqd984RfCj x7mgKJJcjACkWNzwJDM8 V92og7U5DGArRTZsZJK9 gSR7fW6xwUrlnqbd bGVmdDsgdmVydGljYWwt EYbiO207THIvyEbqTzBe tCFhJ6neuhXHLP3xKbke dGQ+SWUpMDR9qLfp VTluJBDcdB0zDEXaY0w0 StYlIcJ7AEwuJ1UgkrT8 RTGopIXpPDUbgXUYsW7e lrutm9fsuuqiIgQf DAWoNHv2PMz8QKEquBjg LuQcHGC1ToD2XAL3wZUy gS4waMtvdazylR4kAan+ RklOOjwvdGQ+PHRk QLH2xTuxTQhwRNSbjS9r YTIoX3i8TrPpQkM6OWwv L8YjcwZ2SDZpqQDbEZUy gUQJmZ5kluelj3sv yzisSdNsZYIuLEw0NKa5 ZAYbzCekEcVeRCN8DvI5 ESL1pOTtpY9ncDwoombg cW3qSgc+TVJOOjwv dGQ+ZQJzCJM6eLodUXmv TSRhkI0tCTCrA0m3HtDz ShO4RNpjF5ZinnD4UDDh cCJkMOOhrUJHqO4u nbzrz7nylkexXlTxZAYz SPm1IJi2HFSuzHidLlNw WVX6HbX5ZLO6qXEqvN2s oBcafuvveU1dGco+ TSA1CAJ8EN46DD36Z4Ci PjwvdGFibGU+PHRhYmxl IHdpZHRoPScxMDAlJyBz hWndYZ5yPl1vILEl LWNv (more content not included)... Normal [facility] Physician Orderon 01-17-2022 Physician Order [id number] Normal [facility] Vital Signs Date Time Vital Sign Value Performing Clinician Facility 05-03-2024 10:03-0400 Body height 157.48 cm [facility] 05-03-2024 10:03-0400 Body mass index (BMI) [Ratio] 31.2 kg/m2 [facility] 05-03-2024 10:03-0400 Body weight 77.56 kg [facility] 05-03-2024 10:03-0400 Diastolic blood pressure 71 mm[Hg] [facility] 05-03-2024 10:03-0400 Heart rate 62 /min [facility] 05-03-2024 10:03-0400 Systolic blood pressure 144 mm[Hg] [facility] 05-01-2023 10:00-0400 Body height 160.02 cm Reny Cabrera Other [facility] Other 05-01-2023 10:00-0400 Body mass index (BMI) [Ratio] 29.33 kg/m2 Reny Cabrera Other [facility] Other 05-01-2023 10:00-0400 Body weight 75.12 kg Reny Cabrera Other [facility] Other 05-01-2023 10:00-0400 Diastolic blood pressure 65 mm[Hg] Reny Cabrera Other [facility] Other 05-01-2023 10:00-0400 Systolic blood pressure 125 mm[Hg] Reny Cabrera Other [facility] Other Encounters Encounter Date Encounter Type Care Provider Facility Start: 05-03-2024 Patient encounter procedure [facility] Start: 05-03-2024 End: 05-03-2024 ambulatory NON STAFF [facility] Work Phone: Start: 05-03-2024 End: 05-03-2024 Patient encounter procedure [facility] Work Phone: Start: 07-28-2023 End: 07-28-2023 ambulatory DOMINIC B APLING Not Available Start: 05-15-2023 End: 05-15-2023 ambulatory Reny Cabrera Other [facility] Other Start: 05-15-2023 Telephone encounter Reny Cabrera [facility] Start: 05-01-2023 End: 05-01-2023 ambulatory Reny Cabrera Other [facility] Other Start: 05-01-2023 Patient encounter procedure Reny Cabrera [facility] Start: 06-26-2022 End: 06-27-[address] LOTUS ESRNA Facility:[facility] Start: 05-13-2022 End: 05-14-[address] RENY CABRERA Facility:[facility] Plan of Treatment Date Care Activity Detail Author Start: 05-03-2024 EKG 12 channel panel Fi [facility] Comprehensive metabo lic 2000 panel - Serum or Plasma [facility] Holter monitor study [facility] MG Breast - bilateral Screening [facility] Immunizations Immunization Date Immunization Notes Care Provider Fa cility 05-01-2023 influenza virus vaccine, unspecified formulation [facility] 05-01-2023 influenza, high dose seasonal, preservative-free Reny Cabrera Other [facility] Other 06-24-2022 COVID-19 Pfizer (Pediatric) Reny Cabrera Other [facility] 06-24-2022 influenza virus vaccine, split virus (incl. purified surface antigen) Reny Cabrera Other [facility] Other 06-24-2022 influenza virus vaccine, unspecified formulation [facility] 11-14-2020 COVID-19 Vaccine Pfi zer - Documentation Purposes Only Reny Cabrera Other [facility] 04-26-2020 influenza virus vaccine, split virus (incl. purified surface antigen) Reny Cabrera Other [facility] Other 04-26-2020 influenza virus vaccine, unspecified formulation [facility] 04-26-2020 pneumococcal polysaccharide vaccine, 23 valmario Oglesby Luis Other [facility] 04-20-2019 pneumococcal conjuga te vaccine, 13 jesu Oglesby Luis Other [facility] Payers Date Payer Category Payer Self-pay 1957 Medicare [id number] 1957 Unknown [id number] 1950 Unknown [id number] 1950 Unknown [id number] 1950 Unknown [id number] Unknown [id number] Social History Date Type Detail Facility Sex Assigned At [facility] Other Start: 05-03-2024 Tobacco smoking stat us MSIS Never smoked tobacco (finding) [facility] Start: 1950 Sex Assigned At Female F [facility] Evaluation note 05-01-2023 Note Date & [...] mammogram for breast cancer (ICD-10 - Z12.31) [facility] Other Evaluation note Note Date & Type Note Facility Evaluation note No Information [facility] Other Evaluation note Note Date & Type Note Facility Evaluation note Diagnosis Onset Date Dyslipidemia acute Essential hypertension acute Palpitations acute Screening mammogram for breast cancer acute [facility] Work Phone: Evaluation note Note Date & Type Note Facility Evaluation note Diagnosis Onset Date Dyslipidemia acute Essential hypertension acute Medicare annual wellness visit, subsequent acute Palpitations acute Screening mammogram for breast cancer acute [facility] Work Phone: History general Narrative - Reported Note Date & Type Note Facility History general Narrative - Reported Type Medical History Dyslipidemia Medical History Essential hypertension Medical History 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 Medical History Personal history of malignant melanoma of skin Surgical History Cholecystectomy Surgical History Wide excision of Melanoma 2012 Surgical History [facility] Hospitalization History see surgical hx [facility] Other History general Narrative - Reported Note Date & Type Note Facility History general Narrative - Reported Type Surgical History Cholecystectomy Surgical History Wide excision of Melanoma 2012 Surgical History [facility] Hospitalization History see surgical hx [facility] Other Summary Purpose Family History No Family [...] section and content) DATE CREATED AUTHOR 03/13/2022 [facility] DATE CREATED AUTHOR AUTHOR'S ORGANIZ ATION 07/30/2022 [facility] DATE CREATED AUTHOR AUTHOR'S ORGANIZ ATION 07/29/2023 [facility] EPIC DATE CREATED AUTHOR AUTHOR'S ORGANIZ ATION 05/12/2024 [facility] REASON FOR VISIT (unrecogniz ed [...] BE BASED ON THE PRIMARY CLINICAL RECORDS. [employer] provides no warranty or guarantee of the accuracy or completeness of information in this document.
== END 2024-05-12 19:51 | disposition home or self-care (01) ==
LOC: SLEEP 19:50
PROVIDERS: PCP Family Medicine; Visit Provider Family Medicine
DX: G47.33 Obstructive sleep apnea (adult) (pediatric) (principal)
CPT/HCPCS: 95810

== ENCOUNTER 2024-06-08 20:48 | Outpatient (OUT) | payer MEDICARE, OTHER, SELFPAY ==
--- OUTSIDE RECORDS SUMMARY | 2024-06-08 20:51 | XMS_ITS | CCD ---
Author Organization [facility] Care Team Providers Care Booking Agent Name Role Phone WEST, DR LOTUS Chester [...] Care Provider UnavailMD Reny Mendoza Attending Provider [phone] Reny Cabrera Attending Unavailable Reny Cabrera Admitting [...] Basophils (Bld) [#/Vol] 0.0 10 3/uL 0.0-0.1 [facility] Basophils/100 WBC Auto (Bld) on 05-03-2024 Basophils/100 WBC (Bld) 0.5 % 0.2-2.0 [facility] Cholesterol in LDL Calc [Mas s/Vol]on 05-03-2024 Cholesterol in LDL [Mass/Vol] 83.0 mg/dL [facility] Comment on above: <100 mg/dl [id number] 0-129 mg/dl NEAR OR ABOVE [id number] mg/dl BORDERLINE [id number] mg/dl HIGH>190 mg/dl VERY HIGH Cholesterol in VLDL Calc [Ma ss/Vol]on 05-03-2024 Cholesterol in VLDL [Mass/Vol] 18.2 mg/dL [facility] Eosinophils/100 WBC Auto (Bl d)on 05-03-2024 Eosinophils/100 WBC (Bld) 1.6 % 0.9-7.0 [facility] Erythrocyte distribution wid th Auto (RBC) [Ratio]on 05-03-2024 Erythrocyte distribution width (RBC) [Ratio] 14.4 % 11.0-15.0 [facility] Estimated glomerular filtrat ion rate (GFR) non- Americanon 05-03-2024 GFR/1.73 sq M.predicted among non-blacks MDRD (S/P/Bld) [Vol rate/Area] 55 mL/min/{1.73_m2} Low >=60 [facility] Globulin Calc (S) [Mass/Vol] on 05-03-2024 Globulin (S) [Mass/Vol] 3.7 g/dL [facility] Hematocrit Auto (Bld) [Volum e fraction]on 05-03-2024 Hematocrit (Bld) [Volume fraction] 45.3 % 36.0-48.0 [facility] Hemoglobin [Mass/volume] in Bloodon 05-03-2024 Hemoglobin (Bld) [Mass/Vol] 14.7 g/dL 12.0-16.0 [facility] Laboratory - Chemistry and C hemistry - challengeon 05-03-2024 Albumin [Mass/Vol] 4.0 g/dL 3.4-5.0 [facility] ALP [Catalytic activity/Vol] 107 U/L 46-116 [facility] ALT [Catalytic activity/Vol] 29 U/L 14-59 [facility] AST [Catalytic activity/Vol] 23 U/L 15-37 [facility] Bilirubin [Mass/Vol] 0.4 mg/dL 0.2-1.[address] [facility] Calcium [Mass/Vol] 9.7 mg/dL 8.5-10.1 [facility] Chloride [Moles/Vol] 103 mmol/L 98-[address] [facility] Cholesterol [Mass/Vol] 163 mg/dL <=200 [facility] Cholesterol in HDL [Mass/Vol] 62 mg/dL High 40-60 [facility] Comment on above: > or =60 mg/dl - LOW CARDIOVASCULAR RISK<40 mg/dl - HIGH CARDIOVASCULAR RISK CO2 [Moles/Vol] 30.1 mmol/L 21.0-32.0 [facility] Creatinine [Mass/Vol] 0.99 mg/dL 0.55-1.02 [facility] GFR/1.73 sq M.predicted MDRD (S/P/Bld) [Vol rate/Area] mL/min/{1.73_m2} >=60 [facility] Glucose [Mass/Vol] 91 mg/dL 74-106 [facility] Potassium [Moles/Vol] 4.1 mmol/L 3.5-5.1 [facility] Protein [Mass/Vol] 7.7 g/dL 6.4-8.2 [facility] Sodium [Moles/Vol] 139 mmol/L 136-145 [facility] Triglyceride [Mass/Vol] 91 mg/dL <=150 [facility] TSH Qn 2.666 m[IU]/L 0.358-3.740 [facility] Urea nitrogen [Mass/Vol] 17.0 mg/dL 7.0-18.0 [facility] Urea nitrogen/Creatinine [Mass ratio] 17.2 mg/mg [facility] Laboratory - Hematology and Cell countson 05-03-2024 Immature granulocytes/100 WBC (Bld) 0.2 % 0.0-0.5 [facility] Leukocytes [#/volume] correc alyssia for nucleated erythrocytes in Blood by Automated counon 05-03-2024 WBC corrected for nucl RBC Auto (Bld) [#/Vol] 8.2 10 3/uL 4.0-11.0 [facility] Lymphocytes Auto (Bld) [#/Vo l]on 05-03-2024 Lymphocytes (Bld) [#/Vol] 2.5 10 3/uL 1.2-3.8 [facility] Lymphocytes/100 WBC Auto (Bl d)on 05-03-2024 Lymphocytes/100 WBC (Bld) 30.3 % 20.5-60.0 [facility] MCH Auto (RBC) [Entitic mass ]on 05-03-2024 MCH (RBC) [Entitic mass] 30.1 pg 26.7-34.0 [facility] MCHC Auto (RBC) [Mass/Vol]on 05-03-2024 MCHC (RBC) [Mass/Vol] 32.5 g/dL 29.9-35.2 [facility] MCV Auto (RBC) [Entitic vol] on 05-03-2024 MCV (RBC) [Entitic vol] 92.6 fL 81.0-99.0 [facility] Monocytes Auto (Bld) [#/Vol] on 05-03-2024 Monocytes (Bld) [#/Vol] 0.5 10 3/uL 0.3-0.8 [facility] Monocytes/100 WBC Auto (Bld) on 05-03-2024 Monocytes/100 WBC (Bld) 5.9 % 1.7-12.0 [facility] Neutrophils Auto (Bld) [#/Vo l]on 05-03-2024 Neutrophils (Bld) [#/Vol] 5.0 10 3/uL 1.4-6.5 [facility] Neutrophils/100 WBC Auto (Bl d)on 05-03-2024 Neutrophils/100 WBC (Bld) 61.5 % 43.0-75.0 [facility] No Panel Informationon 05-03 Eosinophils # (Auto) 0.1 10 3/uL 0.0-0.7 [facility] Immature Granulocyte # (Auto) 0.02 10 3/uL 0.00-0.03 [facility] Platelet mean volume Auto (B ld) [Entitic vol]on 05-03-2024 Platelet mean volume (Bld) [Entitic vol] 9.7 fL 9.5-13.5 [facility] Platelets Auto (Bld) [#/Vol] on 05-03-2024 Platelets (Bld) [#/Vol] 206 10 3/uL 150-450 [facility] RBC Auto (Bld) [#/Vol]on RBC (Bld) [#/Vol] 4.89 10 6/uL 4.20-5.40 [facility] Serum or plasma albumin/glob ulin mass ratioon 05-03-2024 Albumin/Globulin [Mass ratio] 1.1 {ratio} [facility] Serum or plasma anion gap de terminationon 05-03-2024 Anion gap [Moles/Vol] 10.0 mmol/L Fi [facility] Serum or plasma total choles terol/high density lipoprotein (HDL) cholesterol mass gloria 05-03-2024 Cholesterol.total/Cho lesterol in HDL [Mass ratio] 2.6 {ratio} [facility] Comment on above: 3.3 - 4.4 LOW RISK4. 4 - 7.1 AVERAGE RISK7.1 - 11.0 MODERATE RISK>11.0 HIGH RISK MG MAMM SCREEN 3D EVAN CADon 06-26-2022 MG MAMM SCREEN 3D EVAN CAD Patient: PORFIRIO FERNANDES Exam Date: 06/26/2022 : 1950 Gender:F Ordering : DR RENY CABRERA M.D. Admission #: [id number] Family : Order #: [id number] CLICK HERE TO VIEW EXAM RADIOLOGY REPORT [...] Treatments None Family Cancers None LOCATION: [facility] BREAST COMPOSITION: Heterogeneously dense,which may obscure [...] MD on 06/26/2022 at 08:44 Normal [facility] CBC AUTO DIFFon 05-13-2022 BASO # 0.0 103/ul Normal 0.0-0.1 [facility] Comment on above: Performed By: #### C BC #### [facility] [address] [place] [address] Dr. Christina Camarena Basophils/100 WBC (Bld) 0.3 % Normal 0.2-2.0 [facility] Comment on above: Performed By: #### C BC #### [facility] [address] [place] [address] Dr. Christina Camarena EO # 0.1 103/ul Normal 0.0-0.7 [facility] Comment on above: Performed By: #### C BC #### [facility] [address] [place] [address] Dr. Christina Camarena Eosinophils/100 WBC (Bld) 1.5 % Normal 0.9-7.0 [facility] Comment on above: Performed By: #### C BC #### [facility] [address] [place] [address] Dr. Christina Camarena Erythrocyte distribution width (RBC) [Ratio] 14.4 % Normal 11.0-15.0 [facility] Comment on above: Performed By: #### C BC #### [facility] [address] [place] [address] Dr. Christina Camarena Hematocrit (Bld) [Volume fraction] 46.5 % Normal 36.0-48.0 [facility] Comment on above: Performed By: #### C BC #### [facility] [address] [place] [address] Dr. Christina Camarena Hemoglobin (Bld) [Mass/Vol] 14.8 g/dL Normal 12.0-16.0 [facility] Comment on above: Performed By: #### C BC #### [facility] [address] [place] [address] Dr. Christina Camarena IG # 0.02 10e3/ul Normal 0.00-0.03 [facility] Comment on above: Performed By: #### C BC #### [facility] [address] [place] [address] Dr. Christina Camarena IG % 0.2 % Normal 0.0-0.5 [facility] Comment on above: Performed By: #### C BC #### [facility] [address] [place] [address] Dr. Christina Camarena LYMPH # 2.4 103/ul Normal 1.2-3.8 [facility] Comment on above: Performed By: #### C BC #### [facility] [address] [place] [address] Dr. Christina Camarena Lymphocytes/100 WBC (Bld) 26.2 % Normal 20.5-60.0 [facility] Comment on above: Performed By: #### C BC #### [facility] [address] [place] [address] Dr. Christina Camarena MANUAL DIFF REQ NO Normal [facility] Comment on above: Performed By: #### C BC #### [facility] [address] [place] [address] Dr. Christina Camarena MCH (RBC) [Entitic mass] 29.5 pg Normal 26.7-34.0 [facility] Comment on above: Performed By: #### C BC #### [facility] [address] [place] [address] Dr. Christina Camarena MCHC (RBC) [Mass/Vol] 31.8 g/dL Normal 29.9-35.2 [facility] Comment on above: Performed By: #### C BC #### [facility] [address] [place] [address] Dr. Christina Camarena MCV (RBC) [Entitic vol] 92.8 fL Normal 81.0-99.0 [facility] Comment on above: Performed By: #### C BC #### [facility] [address] [place] [address] Dr. Christina Camarena MONO # 0.6 103/ul Normal 0.3-0.8 [facility] Comment on above: Performed By: #### C BC #### [facility] [address] [place] [address] Dr. Christina Camarena Monocytes/100 WBC (Bld) 6.7 % Normal 1.7-12.0 [facility] Comment on above: Performed By: #### C BC #### [facility] [address] [place] [address] Dr. Christina Camarena NEUT # 5.9 103/ul Normal 1.4-6.5 [facility] Comment on above: Performed By: #### C BC #### [facility] [address] [place] [address] Dr. Christina Camarena Neutrophils/100 WBC (Bld) 65.1 % Normal 43.0-75.0 [facility] Comment on above: Performed By: #### C BC #### [facility] [address] [place] [address] Dr. Christina Camarena Platelet mean volume (Bld) [Entitic vol] 9.8 fL Normal 9.5-13.5 [facility] Comment on above: Performed By: #### C BC #### [facility] [address] [place] [address] Dr. Christina Camarena PLT 228 103/ul Normal 150-450 [facility] Comment on above: Performed By: #### C BC #### [facility] [address] [place] [address] Dr. Christina Camarena RBC 5.01 106/ul Normal 4.20-5.40 [facility] Comment on above: Performed By: #### C BC #### [facility] [address] [place] [address] Dr. Christina Camarena WBC 9.1 103/ul Normal 4.0-11.0 [facility] Comment on above: Performed By: #### C BC #### [facility] [address] [place] [address] Dr. Christina Camarena LIPID PROFILEon 05-13-2022 CHOL-HDL RATIO NORM SEE BELOW Normal [facility] Comment on above: Result Comment: 3.3 - 4.4 LOW RISK 4.4 - 7.1 AVERAGE RISK 7.1 - 11.0 MODERATE RISK >11.0 HIGH RISK Performed By: #### L IPID, CMP #### [facility] [address] [address] [address] Christina Camarena Cholesterol [Mass/Vol] 172 mg/dL Normal <=200 [facility] Comment on above: Performed By: #### L IPID, CMP #### [facility] [address] [address] [address] Christina Camarena Cholesterol in HDL [Mass/Vol] 55 mg/dL Normal 40-60 [facility] Comment on above: Performed By: #### L IPID, CMP #### [facility] [address] [address] [address] Christina Camarena Cholesterol in LDL [Mass/Vol] 76.8 mg/dL Normal [facility] Comment on above: Performed By: #### L IPID, CMP #### [facility] [address] [place] [address] Dr. Christina Camarena Cholesterol.total/Cho lesterol in HDL [Mass ratio] 3.1 {ratio} Normal [facility] Comment on above: Performed By: #### L IPID, CMP #### [facility] [address] [address] [address] Christina Camarena HDL NORMAL > or = 60 mg/dl - LOW CARDIOVASCULAR RISK <40 mg/dl - HIGH CARDIOVASCULAR RISK Normal [facility] Comment on above: Performed By: #### L IPID, CMP #### [facility] [address] [address] [address] Christina Camarena LDL CALC NORMAL SEE BELOW Normal [facility] Comment on above: Result Comment: <100 mg/dl OPTIMAL 100 - 129 mg/dl NEAR OR ABOVE OPTIMAL 130 - 159 mg/dl BORDERLINE HIGH 160 - 189 mg/dl HIGH >190 mg/dl VERY HIGH Performed By: #### L IPID, CMP #### [facility] [address] [address] [address] Christina Camarena Triglyceride [Mass/Vol] 201 mg/dL Critically high <=150 [facility] Comment on above: Performed By: #### L IPID, CMP #### [facility] [address] [address] [address] Christina Camarena VLDL CALC 40.2 mg/dL Normal [facility] Comment on above: Performed By: #### L IPID, CMP #### [facility] [address] [place] [address] Dr. Christina Camarena PROF 14(COMP METB)on 022 Albumin [Mass/Vol] 4.1 g/dL Normal 3.4-5.0 [facility] Comment on above: Performed By: #### L IPID, CMP #### [facility] [address] [place] [address] Dr. Christina Camarena Albumin/Globulin [Mass ratio] 1.1 {ratio} Normal [facility] Comment on above: Performed By: #### L IPID, CMP #### [facility] [address] [place] [address] Dr. Christina Camarena ALP [Catalytic activity/Vol] 99 U/L Normal 46-116 [facility] Comment on above: Performed By: #### L IPID, CMP #### [facility] [address] [place] [address] Dr. Christina Camarena ALT [Catalytic activity/Vol] 29 U/L Normal 14-59 [facility] Comment on above: Performed By: #### L IPID, CMP #### [facility] [address] [place] [address] Dr. Christina Camarena Anion gap [Moles/Vol] 13.7 mmol/L Normal [facility] Comment on above: Performed By: #### L IPID, CMP #### [facility] [address] [place] [address] Dr. Christina Camarena AST [Catalytic activity/Vol] 24 U/L Normal 15-37 [facility] Comment on above: Performed By: #### L IPID, CMP #### [facility] [address] [place] [address] Dr. Christina Camarena Bilirubin [Mass/Vol] 0.5 mg/dL Normal 0.2-1.0 [facility] Comment on above: Performed By: #### L IPID, CMP #### [facility] [address] [address] [address] Christina Camarena Calcium [Mass/Vol] 9.4 mg/dL Normal 8.5-10.[address] [facility] Comment on above: Performed By: #### L IPID, CMP #### [facility] [address] [address] [address] Christina Camarena Chloride [Moles/Vol] 104 mmol/L Normal 98-107 [facility] Comment on above: Performed By: #### L IPID, CMP #### [facility] [address] [address] [address] Christina Camarena CO2 [Moles/Vol] 25.4 mmol/L Normal 21.0-32.0 [facility] Comment on above: Performed By: #### L IPID, CMP #### [facility] [address] [address] [address] Christina Camarena Creatinine [Mass/Vol] 0.99 mg/dL Normal 0.55-1.02 [facility] Comment on above: Performed By: #### L IPID, CMP #### [facility] [address] [place] [address] Dr. Christina Camarena EGFR-AF [place] >60 Normal >=60 [facility] Comment on above: Performed By: #### L IPID, CMP #### [facility] [address] [address] [address] Christina Camarena EGFR-NON AF [place] 55 mL/min/1.73m2 Critically low >=60 [facility] Comment on above: Performed By: #### L IPID, CMP #### [facility] [address] [address] [address] Christina Camarena Globulin (S) [Mass/Vol] 3.8 g/dL Normal [facility] Comment on above: Performed By: #### L IPID, CMP #### [facility] [address] [address] [address] Christina Camarena Glucose [Mass/Vol] 98 mg/dL Normal 74-[address] [facility] Comment on above: Performed By: #### L IPID, CMP #### [facility] [address] [address] [address] Christina Camarena Potassium [Moles/Vol] 4.1 mmol/L Normal 3.5-5.1 [facility] Comment on above: Performed By: #### L IPID, CMP #### [facility] [address] [address] [address] Christina Camarena Protein [Mass/Vol] 7.9 g/dL Normal 6.4-8.[address] [facility] Comment on above: Performed By: #### L IPID, CMP #### [facility] [address] [address] [address] Christina Camarena Sodium [Moles/Vol] 139 mmol/L Normal 136-[address] [facility] Comment on above: Performed By: #### L IPID, CMP #### [facility] [address] [address] [address] Christina Camarena Urea nitrogen [Mass/Vol] 20.0 mg/dL Critically high 7.0-18.0 [facility] Comment on above: Performed By: #### L IPID, CMP #### [facility] [address] [address] [address] Christina Camarena Urea nitrogen/Creatinine [Mass ratio] 20.2 mg/mg Normal [facility] Comment on above: Performed By: #### L IPID, CMP #### [facility] [address] [address] [address] Christina Camarena Coding Summary.on 02-05-2022 Coding Summary. CD:[id number] Gh0bWw+PGhlYWQ+PE1FV YKfD35alNZrtT6PR1vFL G0BWYEFZUWJGW4IMW1oq NN1CBkxW5YpvbZq AngskQFcOF96IKt8NTX7 eUutZDuedL8myGAuU4y7 PcYsAN98lC94VSgjXXOd WaU2JtMshglxpQWy W1afOrBitMZfMdt+PHRh YmxlIHdpZHRoPScxMDAl VpBsdOmpVC3uRu7bRMXz LWNvbGxhcHNlOiBj v1txDPSdNBeqAM9fzLsz S2XfkZR3WTXud3f1Lh46 dHI+KWGyRSP3eZiqXVzm e429RvZqf3buJDH8 eYGeRZgmNQE3Y86am0Q4 ZTCrNJIhVAA8lOD6hP6a mGdeaurgM1BvsYCjDaQ9 VMV5vSXzpW8ltKyv yafbaM2dQza+J84FLA2C OCXJKX2LYzz2U6BxKbds dHI+DV20BHVkHS47vVTr hTRyb1kgqIs6TzCy XQJdNDR9mSlbAXvua7Ss UFOiJ12hfKRyy3H2YWFw yWeejMZqWnZocWS1cM8p DWknstywa2hfwcjg Dzsqa3trhl67sL10D48w YFbfTVIuAFC1DFXlVXUk qWavqf7sxJ5lDs6+IDxj j2ckk9wotAx5RjVm TZYjygLxhBeeUTK4d3Vq Uy45E1HlaXjeb5YyQzz0 pz45gGEcb4D7lAK1WMqc PUGxuJ3uSYrsEeB0 QECwTrYahY80bGJjEKbg Xp9hhUiurFfiEW9aSKGx dskhBJEkfC7dCXWznXQz mMzvXG3oHHJmkunx k549QlUgBNF5TGTffWKb U8XnbK9xRuYxTXRvRMQm X1NgiIWqAMbkF640IRfb HlM6IQEdjxNcI6Qv KTObyVmsQwH3h8V2Sy7H r1YezxsoPXI1MXhpYHN4 VlR9ByVyBcS8V7IrDae1 RYNsgPurST9rH4Rb DJPpjpxjdhjvdDV2LVFv CVQgwK86qXIwIDppEb3k b3W2h133PMKmNIAsxW11 Qt3dxZrjJQKzqEYC yW8tgadxw3rrwfakMfCk QGIhHKo3AHv5LZAegXql BmKbMJV6MlZ7YLG2kUNq qF0gmCkdfzafxX3w Oyc+L58wgE1fKPW7ZZR2 gyaySVSnneKnQJ00QA26 S4IyVllsdJTwqCU+PGRp clTymKvqOU9wUuPe f8puv8XoSLmcN1LdYBFl WWtpDnt1HVVkLWO0iQV7 jK0xFWDyGUtgw8W2zUY5 N0BczvJukq4pl9mw CVGlCZatC66pmCTpk3L4 BNEriBZ6OOWiaAcsEqSo iR58Xls+IVCnkHimj0Bi Yrkys9olz6tocKb4 IjMwJSIgdmFsaWduPSJ0 y3UfKh37A55sJGkhMAJa SMFeNCHaEDUfxGogxp6u sV7vEn2+PGNvbCB3 xCE3aI2mDGBbVfP2ASpk H398PgSekYHjSanio4hw q5pcbYe9GnMmQYRlgrQj dHlpOVE4p4BxCc22 M38rZTfvABAnBSMcKWOy SVJxfEdqtl7qjH5jGe6+ HF0sc4fnqh05qW86jTW+ NMSuIRV0dWntQTmj YRBqfB2jVChrWhC4JNSf MgKduO18vYKpHDomMm1s lGotmBmhBU7eJZCkovts m434GmRft7tsAIVg nHMiAFleGCS8H81mq4Q2 MRNbEYRtPPF6zCK8hK9n bGlnbjogbGVmdDsgdmVy xMvcRXkwOMtiV589 IHRvcDsnPlBhdGllbnQg NaWkQLp7T4FdNum9DNGa mIeaHO3kuUJtZDqqOt9r cYsnjWopIQ2sHXDs zrddv970UhPdr9gyCZFf vPIaMPqeBEO8J03hv2T8 IOAwWTKiMYN8uPQ3rY8q bGlnbjogbGVmdDsg ixRqzHttUCfaPIlmF119 IHRvcDsnPkJpcnRoIERh xBA5PX46OB37qGQos5B3 yCO5N3PnVSYvmzil xzhebSN2LWKfVUGguN95 Yb8zeVemGt9mYCZdWOL0 IRKbpRJtP7FywL3gCeVh HYOcGQOrV8VrqLNf EZhiG765QCchRrS1VVIx flSvW4EsDORpeLttRkB3 p8N2Kv7PO6R8YQ86WH32 sBIae2B7gPT6Z7Kp GZUzismikevozOM6VKIx GKPawK53Sn9okSnsEa1h IYPsDEW4HLWbrNBdT2Qe eU3oMfPsIADiOTDm N7WafIVqHAegZ084DGhx GcB8MGYjjgXyI5EyYIOs rPyjZnX4m1K9Gi8QPEs5 UY38BY68fWXcn4K6 iMF3L6MwFFNzniuwbjab oPF9VINkCETyrY69Qj7y wYjqAm5qDOLuJRL3IOSq qWUjE8LaxA0eCiIj BRLxOOHhQ4MuwGEbUIsd D002YQprHcK7KHPstgDp M8InGKJxwNjrUnF1i0A1 Pn0FVZNlUY16NBM1 fPG0ZP90LQ43I4TaNgqd dGFibGU+PHRhYmxlIHdp ZHRoPScxMDAlJyBzdHls HF3cBw2uQTJuOKTs oDjojANgFoQsl5vfUKDw YYfmEF5lwFemH1PowOK4 WYYcj6n5Jt28V07bY4Uh dXA+TELaeBN8uVD9 cD0lOpGuFjV2WPesI103 AzMkgBTtOmvql9axf1zi bMl3BcK5LTIywiFjyHvh MAC1y5CgYo04K21u IHdpZHRoPSIxNSUiIHZh uDsuog8fjO6oJb0+PGNv fST7dWH8lI0pGmLhVuK9 VKnvU136GkNijQFs Zeqkm3aut5dmhQz2OwJz ACAtbxQfrAsxGER7h7Ct Vl24U7ReaRhgn1CcHjf1 wi91dEYeo4H2yPF8 M5QeGVKuoliscDBvbRhs RR5mVEHkfbhdFWOosF0q DJLrM0u9AeTmGvQ0FRur K2ZuvxN8CUPeqWXc XLitGPG6N10tu8C5FHRh FJSoEIT7hOA9vY9dgAvm bjogbGVmdDsgdmVydGlj KIxhSPmsE009UIKl nDkwQYLffD0kJHGvmIFb pPrnOZ7nCHHfximiOeZY AHLIV2PqCCIKUcfTIxkX RE61H1CfMfs1BKPn vRrxIV7ueBEfFNiyIs4p dQopmPngBZ7rPBQhltmw NGZepN2hLYZieGCjwAce DL4yRMKndbbln658 VzKwNQY6BQBqsDYbV8Tv oJ8gQxJhCIDoFWPmK3Gh gNCaWCjkR430PIbuUcD8 ZSTvugAcA2UnTSNb rMwfIaF3y0M7Rm7iQM1g VI5xFFQiHC15CC66wTWi z9P1eCQ1D9PnJADpocvh bfvxiRW0GJQrUSQr iQ85gKYkAWfoVe1ci3T1 g992FYJzVIQdiG78Iq1y rKwdDANgnYFGoM4kbcfb h4enkzedGfZdXGYh OMw6SEu1WYAjrEqjHdDk IHG5QyK1WEH6sHYooF2m wWnunrewpP3wQui+Njkg RBSjpdS2I5PbUvv0 LNSpcUbzRE4hyVVdIPup Ue4ovTbyxOwzYK2iQEOk eaqnEAIliH0vJBKvlZBz yUwcRB5tVBQtxxng b248XaAdDFC0GOUbyTKw V6NfuE8xFiLhDNMaPJNb B9GfbIMsQCcxF202UVqq BvH1STVugjDcB6Rg YMKkrNjzZcB7g5I9Ko2U TZ9zdHV5F2XaLma6ZXLl nTydRA6tlYHoBFkpYi8v xMierLwqLT7sNFLx mabyRIDudV3cUFCnxAGf yBmrCA0gHNYsefdtr864 OmOmOVC7TLOpzCGfL9Qo nL4oYlCvZIRoLMCl C3DddBIkGZxsC229IOjh ClX4OTSjfoCsK1JzGYOw aQxjTkZ8y3N0Iv7HOFVf UMNxtJPoAzE6T7Qs PjwvdHI+WX44APFkJR12 lHCyfCHan3tgsKz1EfUf BFGiQRP9dBkzFTfos8Md KPDiJ43xoXWxq1N9 IGNvbGxhcHNlOyBlbXB0 mT5xFLoxkppct2exshiy Tinhy8prlr44nL47B27c IHdpZHRoPSIzMCUi YHAdhZomat2xlC6dEl3+ EJWaoBU0rDD1xB5aRoKq TbG6MVcgF645AcGsgNAf Nepik9ake6vkiVc7 IjIwJSIgdmFsaWduPSJ0 i2ZfIx54V57gHYfjWNVf GJLnFLAjKVZkrUufak9s wG1rWk5+KI8gn4ny vk56eW64rUE+PHRkIHN0 eSjfIAdgNHQevB2bGZwn YsC6TYKnByGfuI65lXXa PGqoXc3tcDxinMhr ML3vGGAxwrdah594NpPx v9mqQQWidWPsANinRPO4 K76zo7X2JHGpFBRmDTR6 oRA8vU3jpFwgzqib bGVmdDsgdmVydGljYWwt XCvaU467LKCcjZttJwKy dYPqA8fusrWNXP6dQoyz dGQ+GZOyAZI7lUjb CXikVKTcnB9iCEOrA7e9 KjUwVfK3MFutP2CinyV4 TAWegHOtOPZepCLTaS5u ckuld8kawxxjCdOa NEOyCIu6QLe0LDLtvQfl NuBuCIM9HyK3YAU1vADl eI7tkRryxifhwM2xRzt+ RklOOjwvdGQ+PHRk ZXT4fKvzQOloAJCegH7m OLKbY5w5OiFhQdC4ZKif E9DjqhA6KESitNHeHCYa bCVFqD0nbcliy7fv bjimIxZiVFMvEUk1HNq7 AZAqsCtuLtMlXHO9SvX7 DVO3dRCjaK5wkUyjrybk sP5eZix+TVJOOjwv dGQ+IDQvQZF6yCxrGXtc FZUuuV5mEFWyW0v6PxGz KgX2IDerX4IoejF4OYYq uDAmLUNrtANEqE2q unwrk7rifofvZjMlFRWa SRr5ILk1CWRksStdRuMz ZZS3SgP4PSJ5uLCouP4z vMxpekdztR3uAhc+ YKJ3TDH8GH89TY46O5Fl PjwvdGFibGU+PHRhYmxl IHdpZHRoPScxMDAlJyBz vWlpBN2uZr9tDAGl LWNv (more content not included)... Normal [facility] Physician Orderon 01-17-2022 Physician Order [id number] 7#[id number] [facility] [facility] Vital Signs Date Time Vital Sign Value Performing Clinician Facility 05-03-2024 10:03-0400 Body height 157.48 cm [facility] 05-03-2024 10:03-0400 Body mass index (BMI) [Ratio] 31.2 kg/m2 [facility] 05-03-2024 10:03-0400 Body weight 77.56 kg [facility] 05-03-2024 10:03-0400 Diastolic blood pressure 71 mm[Hg] [facility] 05-03-2024 10:03-0400 Heart rate 62 /min [facility] 05-03-2024 10:03-0400 Systolic blood pressure 144 mm[Hg] [facility] 05-01-2023 10:00-0400 Body height 160.02 cm Reny Cabrera Other [facility] 05-01-2023 10:00-0400 Body mass index (BMI) [Ratio] 29.33 kg/m2 Reny Cabrera Other [facility] 05-01-2023 10:00-0400 Body weight 75.12 kg Reny Cabrera Other [facility] 05-01-2023 10:00-0400 Diastolic blood pressure 65 mm[Hg] Reny Cabrera Other [facility] 05-01-2023 10:00-0400 Systolic blood pressure 125 mm[Hg] Reny Cabrera Other [facility] Other Encounters Encounter Date Encounter Type Care Provider Facility Start: 05-03-2024 Patient encounter procedure [facility] Start: 05-03-2024 End: 05-03-2024 ambulatory NON STAFF [facility] Work Phone: Start: 05-03-2024 End: 05-03-2024 Patient encounter procedure [facility] Work Phone: Start: 07-28-2023 End: 07-28-2023 ambulatory DOMINIC B APLING Not Available Start: 05-15-2023 End: 05-15-2023 ambulatory Reny Cabrera Other [facility] Start: 05-15-2023 Telephone encounter Reny Cabrera [facility] Start: 05-01-2023 End: 05-01-2023 ambulatory Reny Cabrera Other [facility] Start: 05-01-2023 Patient encounter procedure Reny Cabrera [facility] Start: 06-26-2022 End: 06-27-[address] LOTUS SERNA Facility:[facility] Start: 05-13-2022 End: 05-14-[address] RENY CABRERA Facility:[facility] Plan of Treatment Date Care Activity Detail Author Start: 05-03-2024 EKG 12 channel panel Fi [facility] Comprehensive metabo lic 2000 panel - Serum or Plasma [facility] Holter monitor study [facility] MG Breast - bilateral Screening [facility] Immunizations Immunization Date Immunization Notes Care Provider Fa cility 05-01-2023 influenza virus vaccine, unspecified formulation [facility] 05-01-2023 influenza, high dose seasonal, preservative-free Reny Cabrera Other [facility] 06-24-2022 COVID-19 Pfizer (Pediatric) Reny Cabrera Other [facility] 06-24-2022 influenza virus vaccine, split virus (incl. purified surface antigen) Reny Cabrera Other [facility] 06-24-2022 influenza virus vaccine, unspecified formulation [facility] 11-14-2020 COVID-19 Vaccine Pfi zer - Documentation Purposes Only Reny Cabrera Other [facility] 04-26-2020 influenza virus vaccine, split virus (incl. purified surface antigen) Reny Cabrera Other [facility] 04-26-2020 influenza virus vaccine, unspecified formulation [facility] 04-26-2020 pneumococcal polysaccharide vaccine, 23 valmario Oglesby Luis Other [facility] 04-20-2019 pneumococcal conjuga te vaccine, 13 jesu Oglesby Luis Other [facility] Payers Date Payer Category Payer Self-pay 1957 Medicare [id number] 1957 Unknown [id number] 1950 Unknown [id number] 1950 Unknown [id number] 1950 Unknown [id number] Unknown [id number] Social History Date Type Detail Facility Sex Assigned At [facility] Start: 05-03-2024 Tobacco smoking stat us FLIS Never smoked tobacco (finding) [facility] Start: 1950 Sex Assigned At Female F [facility] Evaluation note 05-01-2023 Note Date & [...] mammogram for breast cancer (ICD-10 - Z12.31) [facility] Other Evaluation note Note Date & Type Note Facility Evaluation note No Information [employer] Other Evaluation note Note Date & Type Note Facility Evaluation note Diagnosis Onset Date Dyslipidemia acute Essential hypertension acute Palpitations acute Screening mammogram for breast cancer acute [facility] Work Phone: Evaluation note Note Date & Type Note Facility Evaluation note Diagnosis Onset Date Dyslipidemia acute Essential hypertension acute Medicare annual wellness visit, subsequent acute Palpitations acute Screening mammogram for breast cancer acute [facility] Work Phone: History general Narrative - Reported Note Date & Type Note Facility History general Narrative - Reported Type Medical History Dyslipidemia Medical History Essential hypertension Medical History 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 Medical History Personal history of malignant melanoma of skin Surgical History Cholecystectomy Surgical History Wide excision of Melanoma 2012 Surgical History [facility] Hospitalization History see surgical hx [facility] Other History general Narrative - Reported Note Date & Type Note Facility History general Narrative - Reported Type Surgical History Cholecystectomy Surgical History Wide excision of Melanoma 2012 Surgical History [facility] Hospitalization History see surgical hx [facility] Other Summary Purpose Family History No Family [...] section and content) DATE CREATED AUTHOR 03/13/2022 [facility] DATE CREATED AUTHOR AUTHOR'S ORGANIZ ATION 07/30/2022 [facility] DATE CREATED AUTHOR AUTHOR'S ORGANIZ ATION 07/29/2023 [facility] EPIC DATE CREATED AUTHOR AUTHOR'S ORGANIZ ATION 05/12/2024 [facility] REASON FOR VISIT (unrecogniz ed [...] BE BASED ON THE PRIMARY CLINICAL RECORDS. [employer] provides no warranty or guarantee of the accuracy or completeness of information in this document.
== END 2024-06-08 20:49 | disposition home or self-care (01) ==
LOC: SLEEP 20:48
PROVIDERS: PCP Family Medicine; Visit Provider Family Medicine
DX: G47.33 Obstructive sleep apnea (adult) (pediatric) (principal)
CPT/HCPCS: 95811

== ENCOUNTER 2024-06-29 11:18 | Outpatient (OUT) | payer MEDICARE, OTHER, SELFPAY ==
--- NOTE | 2024-06-29 11:20 | MM_ITS ---
Patient Name: PORFIRIO LAWSON MR#: [id number] : 1950 Exam Date: 06/29/2024 Ordering Doctor: DR Reny Cabrera M.D. RADIOLOGY REPORT PROCEDURE: MM TOMOSYNTHESIS SCREENING BI COMPARISON: MM TOMOSYNTHESIS SCREENING BI, 06/27/2023. MG MAMM SCREEN 3D EVAN CAD, 06/26/2022. INDICATIONS: Screening Calculator Name NCI Breast Cancer Risk Assessment Tool 5 Year Breast Cancer Risk 1.90% Lifetime Breast Cancer Risk 4.80% Personal Breast Cancer No Personal Ovarian Cancer No Treatments None Family Cancers None LOCATION: [facility] BREAST COMPOSITION: The breasts are heterogeneously dense,which may obscure small masses. FINDINGS: DIAGNOSTIC CATEGORY 2--BENIGN FINDING. NO CHANGE FROM COMPARISON. Scattered benign-appearing nodules are present. Scattered benign-appearing calcifications are present. Scattered benign-appearing lymph nodes are present. RIGHT BREAST: No significant suspicious finding. LEFT BREAST: No significant suspicious finding. RECOMMENDATIONS: ROUTINE MAMMOGRAM AND CLINICAL EVALUATION IN 12 MONTHS. PLEASE NOTE: A NORMAL MAMMOGRAM DOES NOT EXCLUDE THE POSSIBILITY OF BREAST CANCER. A CLINICALLY SUSPICIOUS PALPABLE LUMP SHOULD BE BIOPSIED. Dictated by: Mario Sheldon MD on 06/29/2024 at 12:43 Approved by: Mario Sheldon MD on 06/29/2024 at 12:44
--- OUTSIDE RECORDS SUMMARY | 2024-06-29 11:26 | XMS_ITS | CCD ---
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 Name Role Phone WEST, DR LOTUS Chester Consulting Unavailable LUIS, DR RENY Montes Attending Unavailable LUIS, DR RENY Montes Admitting Unavailable LUIS, DR RENY Montes Primary Care Unavailable LUIS, DR RENY Montes Consulting Unavailable LUIS, DR RENY Montes Primary Care Unavailable LUIS, DR RENY Montes Consulting Unavailable LUIS, DR RENY Montes Attending Unavailable LUIS, DR RENY Montes Admitting Unavailable Reny Cabrera Unavailable NON STAFF Primary Care Provider UnavailMD Reny Mendoza Attending Provider Reny Cabrera Attending Unavailable Reny Cabrera Admitting Unavailable NON STAFF Primary Care Unavailable Reny Cabrera MD Primary Care Provider [phone] DOMINIC PATIÑO Attending Unavailable DOMINIC PATIÑO Attending Unavailable DOMINIC PATIÑO Referring Unavailable Medications Current Medications Medication Drug Class(es) Dates Sig (Normalized) Sig (Original) amoxicillin 875 mg / clavulanate 125 mg oral tablet (1 source) Penicillin-class Antibacterial Start: 06-14-2024 take 1 tablet by mouth twice daily Amoxicillin-Pot Clavulanate Active 1 TAB PO Twice daily 14 7 June 14, 2024 12:00am atorvastatin (7 sources) HMG-CoA Reductase Inhibitor Start: 05-04-2024 Atorvastatin Active 0 .ROUTE .COMPLEX 90 May 04, 2024 8:36am TAKE 1 TABLET EVERY DAY Start: 05-03-2024 End: 05-04-2024 take 1 tablet by mouth once daily Atorvastatin Discontinued 1 TAB PO Daily May 03, 2024 12:00am May 04, 2024 8:36am FreeTextSi tablet Orally Once a day; Note: Source Status: Refill; Refills: 3; Qty: 90 Tablet; Provider: Luis Montes calcium carbonate 1250 mg / cholecalciferol 0.01 mg chewable tablet (1 source) Vitamin D Calcium Carb-Cholecalciferol (Calcium + Vitamin D3) 500-10 MG-MCG chewable tablet Calcium + Vitamin D3 Active Fish Oils (1 source) take 1 capsule by mouth every twelve hours omega-3 (Fish Oil) 500 MG capsule 1 capsule every 12 (twelve) hours. Active fluticasone propionate 0.05 mg/actuat metered dose nasal spray (1 source) Corticosteroid Start: 2023 take 1 spray(s) nasal route twice daily Fluticasone Propionate (Flonase Allergy Relief) 50 mcg/actuation spray,suspension Active 1 SPRAY INTRANASAL Twice daily June 14, 2024 12:00am administer into each nostril lisinopril 20 mg oral tablet (6 sources) Angiotensin Converting Enzyme Inhibitor Start: 2023 take 1 tablet by mouth once daily [...] No Refill. Active Oral daily Jun, Active Misc Natural Products (OSTEO BI-FLEX TRIPLE STRENGTH PO) (1 source) Misc Natural Products (OSTEO BI-FLEX TRIPLE STRENGTH PO) Osteo Bi-Flex Triple Strength Active Multiple Vitamin (multivitamin) tablet (1 source) take 1 tablet by mouth in the morning Multiple Vitamin (multivitamin) tablet Take 1 tablet by mouth in the morning. Active sertraline 100 mg oral tablet (6 sources) Serotonin Reuptake Inhibitor Start: 07-16-2022 take 1 tablet by mouth once daily Sertraline Active 100 MG PO Daily May 03, 2024 12:00am FreeTextSig: TAKE 1 TABLET EVERY DAY; Note: Source Status: Start; Refills: 3; Qty: 90 Tablet; Provider: Luis Oglesby ( ) Problems Active Problems Problem Classification Problem Date Documented Date Episodic/Chronic Cardiac dysrhythmias (7 sources) Palpitations; Translations: [Palpitations] Onset: 05-03-2024 05-03-2024 Episodic Cataract (1 source) Nuclear senile cataract; Translations: [Age-related nuclear cataract, unspecified eye] Onset: 01-30-2023 01-30-2023 Chronic Disorders of lipid metabolism (13 sources) Hyperlipidemia, unspecified; Translations: [Dyslipidemia] Onset: 05-13-2022 Chronic Essential hypertension (10 sources) Essential (primary) hypertension; Translations: [Essential hypertension] Onset: 05-14-2022 Chronic Melanomas of skin (2 sources) History of malignant melanoma of the skin; Translations: [Personal history of malignant melanoma of skin] Episodic Mood disorders (2 sources) Major depression, single episode; Translations: [Major depressive disorder, single episode, unspecified] Chronic Osteoarthritis (2 sources) Arthritis of first carpometacarpal joint of left hand; Translations: [Unilateral primary osteoarthritis of first carpometacarpal joint, left hand] Onset: 01-30-2023 01-30-2023 Chronic Other screening for suspected conditions (not mental disorders or infectious disease) (11 sources) Encounter for screening mammogram for malignant neoplasm of breast; Translations: [Patient encounter status] Onset: 06-26-2022 Episodic Other upper respiratory infections (2 sources) Acute maxillary sinusitis; Translations: [Acute maxillary sinusitis, unspecified] 06-14-2024 Episodic Past or Other Problems Problem Classification Problem Date Documented Date Episodic/Chronic Other eye disorders (1 source) Dermatochalasis of left upper eyelid; Translations: [Dermatochalasis of left upper eyelid] Onset: 01-30-2023 01-30-2023 Episodic Other eye disorders (1 source) Excess skin of eyelid; Translations: [Blepharochalasis unspecified eye, unspecified eyelid] Onset: 01-30-2023 01-30-2023 Episodic Results Test Name Value Interpretation Reference Range Facility Basophils Auto (Bld) [#/Vol] on 05-03-2024 Basophils (Bld) [#/Vol] 0.0 10 3/uL 0.0-0.1 [facility] Basophils/100 WBC Auto (Bld) on 05-03-2024 Basophils/100 WBC (Bld) 0.5 % 0.2-2.0 [facility] Cholesterol in LDL Calc [Mas s/Vol]on 05-03-2024 Cholesterol in LDL [Mass/Vol] 83.0 mg/dL [facility] Comment on above: <100 mg/dl [id number] 0-129 mg/dl NEAR OR ABOVE [id number] mg/dl BORDERLINE [id number] mg/dl HIGH>190 mg/dl VERY HIGH Cholesterol in VLDL Calc [Ma ss/Vol]on 05-03-2024 Cholesterol in VLDL [Mass/Vol] 18.2 mg/dL [facility] Eosinophils/100 WBC Auto (Bl d)on 05-03-2024 Eosinophils/100 WBC (Bld) 1.6 % 0.9-7.0 [facility] Erythrocyte distribution wid th Auto (RBC) [Ratio]on 05-03-2024 Erythrocyte distribution width (RBC) [Ratio] 14.4 % 11.0-15.0 [facility] Estimated glomerular filtrat ion rate (GFR) non- Americanon 05-03-2024 GFR/1.73 sq M.predicted among non-blacks MDRD (S/P/Bld) [Vol rate/Area] 55 mL/min/{1.73_m2} Low >=60 [facility] Globulin Calc (S) [Mass/Vol] on 05-03-2024 Globulin (S) [Mass/Vol] 3.7 g/dL [facility] Hematocrit Auto (Bld) [Volum e fraction]on 05-03-2024 Hematocrit (Bld) [Volume fraction] 45.3 % 36.0-48.0 [facility] Hemoglobin [Mass/volume] in Bloodon 05-03-2024 Hemoglobin (Bld) [Mass/Vol] 14.7 g/dL 12.0-16.0 [facility] Laboratory - Chemistry and C hemistry - challengeon 05-03-2024 Albumin [Mass/Vol] 4.0 g/dL 3.4-5.0 [facility] ALP [Catalytic activity/Vol] 107 U/L 46-116 [facility] ALT [Catalytic activity/Vol] 29 U/L 14-59 [facility] AST [Catalytic activity/Vol] 23 U/L 15-37 [facility] Bilirubin [Mass/Vol] 0.4 mg/dL 0.2-1.0 [facility] Calcium [Mass/Vol] 9.7 mg/dL 8.5-10.1 [facility] Chloride [Moles/Vol] 103 mmol/L 98-107 [facility] Cholesterol [Mass/Vol] 163 mg/dL <=200 [facility] Cholesterol in HDL [Mass/Vol] 62 mg/dL High 40-60 [facility] Comment on above: > or =60 mg/dl - LOW CARDIOVASCULAR RISK<40 mg/dl - HIGH CARDIOVASCULAR RISK CO2 [Moles/Vol] 30.1 mmol/L 21.0-32.0 [facility] Creatinine [Mass/Vol] 0.99 mg/dL 0.55-1.02 [facility] GFR/1.73 sq M.predicted MDRD (S/P/Bld) [Vol rate/Area] mL/min/{1.73_m2} >=60 [facility] Glucose [Mass/Vol] 91 mg/dL 74-106 [facility] Potassium [Moles/Vol] 4.1 mmol/L 3.5-5.1 [facility] Protein [Mass/Vol] 7.7 g/dL 6.4-8.2 [facility] Sodium [Moles/Vol] 139 mmol/L 136-145 [facility] Triglyceride [Mass/Vol] 91 mg/dL <=150 [facility] TSH Qn 2.666 m[IU]/L 0.358-3.740 [facility] Urea nitrogen [Mass/Vol] 17.0 mg/dL 7.0-18.0 [facility] Urea nitrogen/Creatinine [Mass ratio] 17.2 mg/mg [facility] Laboratory - Hematology and Cell countson 05-03-2024 Immature granulocytes/100 WBC (Bld) 0.2 % 0.0-0.5 [facility] Leukocytes [#/volume] correc alyssia for nucleated erythrocytes in Blood by Automated counon 05-03-2024 WBC corrected for nucl RBC Auto (Bld) [#/Vol] 8.2 10 3/uL 4.0-11.0 [facility] Lymphocytes Auto (Bld) [#/Vo l]on 05-03-2024 Lymphocytes (Bld) [#/Vol] 2.5 10 3/uL 1.2-3.8 [facility] Lymphocytes/100 WBC Auto (Bl d)on 05-03-2024 Lymphocytes/100 WBC (Bld) 30.3 % 20.5-60.0 [facility] MCH Auto (RBC) [Entitic mass ]on 05-03-2024 MCH (RBC) [Entitic mass] 30.1 pg 26.7-34.0 [facility] MCHC Auto (RBC) [Mass/Vol]on 05-03-2024 MCHC (RBC) [Mass/Vol] 32.5 g/dL 29.9-35.2 [facility] MCV Auto (RBC) [Entitic vol] on 05-03-2024 MCV (RBC) [Entitic vol] 92.6 fL 81.0-99.0 [facility] Monocytes Auto (Bld) [#/Vol] on 05-03-2024 Monocytes (Bld) [#/Vol] 0.5 10 3/uL 0.3-0.8 [facility] Monocytes/100 WBC Auto (Bld) on 05-03-2024 Monocytes/100 WBC (Bld) 5.9 % 1.7-12.0 [facility] Neutrophils Auto (Bld) [#/Vo l]on 05-03-2024 Neutrophils (Bld) [#/Vol] 5.0 10 3/uL 1.4-6.5 [facility] Neutrophils/100 WBC Auto (Bl d)on 05-03-2024 Neutrophils/100 WBC (Bld) 61.5 % 43.0-75.0 [facility] No Panel Informationon 05-03 Eosinophils # (Auto) 0.1 10 3/uL 0.0-0.7 [facility] Immature Granulocyte # (Auto) 0.02 10 3/uL 0.00-0.03 [facility] Platelet mean volume Auto (B ld) [Entitic vol]on 05-03-2024 Platelet mean volume (Bld) [Entitic vol] 9.7 fL 9.5-13.5 [facility] Platelets Auto (Bld) [#/Vol] on 05-03-2024 Platelets (Bld) [#/Vol] 206 10 3/uL 150-450 [facility] RBC Auto (Bld) [#/Vol]on RBC (Bld) [#/Vol] 4.89 10 6/uL 4.20-5.40 [facility] Serum or plasma albumin/glob ulin mass ratioon 05-03-2024 Albumin/Globulin [Mass ratio] 1.1 {ratio} [facility] Serum or plasma anion gap de terminationon 05-03-2024 Anion gap [Moles/Vol] 10.0 mmol/L [facility] Serum or plasma total choles terol/high density lipoprotein (HDL) cholesterol mass gloria 05-03-2024 Cholesterol.total/Cho lesterol in HDL [Mass ratio] 2.6 {ratio} [facility] Comment on above: 3.3 - 4.4 LOW RISK4. 4 - 7.1 AVERAGE RISK7.1 - 11.0 MODERATE RISK>11.0 HIGH RISK MG MAMM SCREEN 3D EVAN CADon 06-26-2022 MG MAMM SCREEN 3D EVAN CAD Patient: PORFIRIO FERNANDES Exam Date: 06/26/2022 : 1950 Gender:F Ordering : DR RENY CABRERA M.D. Admission #: [id number] Family : Order #: [id number] CLICK HERE TO VIEW EXAM RADIOLOGY REPORT [...] Treatments None Family Cancers None LOCATION: [facility] BREAST COMPOSITION: Heterogeneously dense,which may [...] MD on 06/26/2022 at 08:44 Normal [facility] CBC AUTO DIFFon 05-13-2022 BASO # 0.0 103/ul Normal 0.0-0.1 [facility] Comment on above: Performed By: #### C BC #### [facility] [address] [place] [address] Dr. Christina Camarena Basophils/100 WBC (Bld) 0.3 % Normal 0.2-2.0 [facility] Comment on above: Performed By: #### C BC #### [facility] [address] [place] [address] Dr. Christina Camarena EO # 0.1 103/ul Normal 0.0-0.7 [facility] Comment on above: Performed By: #### C BC #### [facility] [address] [place] [address] Dr. Christina Camarena Eosinophils/100 WBC (Bld) 1.5 % Normal 0.9-7.0 [facility] Comment on above: Performed By: #### C BC #### [facility] [address] [place] [address] Dr. Christina Camarena Erythrocyte distribution width (RBC) [Ratio] 14.4 % Normal 11.0-15.0 [facility] Comment on above: Performed By: #### C BC #### [facility] [address] [place] [address] Dr. Christina Camarena Hematocrit (Bld) [Volume fraction] 46.5 % Normal 36.0-48.0 [facility] Comment on above: Performed By: #### C BC #### [facility] [address] [place] [address] Dr. Christina Camarena Hemoglobin (Bld) [Mass/Vol] 14.8 g/dL Normal 12.0-16.0 [facility] Comment on above: Performed By: #### C BC #### [facility] [address] [place] [address] Dr. Christina Camarena IG # 0.02 10e3/ul Normal 0.00-0.03 [facility] Comment on above: Performed By: #### C BC #### [facility] [address] [place] [address] Dr. Christina Camarena IG % 0.2 % Normal 0.0-0.5 [facility] Comment on above: Performed By: #### C BC #### [facility] [address] [place] [address] Dr. Christina Camarena LYMPH # 2.4 103/ul Normal 1.2-3.8 [facility] Comment on above: Performed By: #### C BC #### [facility] [address] [place] [address] Dr. Christina Camarena Lymphocytes/100 WBC (Bld) 26.2 % Normal 20.5-60.0 [facility] Comment on above: Performed By: #### C BC #### [facility] [address] [place] [address] Dr. Christina Camarena MANUAL DIFF REQ NO Normal [facility] Comment on above: Performed By: #### C BC #### [facility] [address] [place] [address] Dr. Christina Camarena MCH (RBC) [Entitic mass] 29.5 pg Normal 26.7-34.0 [facility] Comment on above: Performed By: #### C BC #### [facility] [address] [place] [address] Dr. Christina Camarean MCHC (RBC) [Mass/Vol] 31.8 g/dL Normal 29.9-35.2 [facility] Comment on above: Performed By: #### C BC #### [facility] [address] [place] [address] Dr. Christina Camarena MCV (RBC) [Entitic vol] 92.8 fL Normal 81.0-99.0 [facility] Comment on above: Performed By: #### C BC #### [facility] [address] [place] [address] Dr. Christina Camarena MONO # 0.6 103/ul Normal 0.3-0.8 [facility] Comment on above: Performed By: #### C BC #### [facility] [address] [place] [address] Dr. Christina Camarena Monocytes/100 WBC (Bld) 6.7 % Normal 1.7-12.0 [facility] Comment on above: Performed By: #### C BC #### [facility] [address] [place] [address] Dr. Christina Camarena NEUT # 5.9 103/ul Normal 1.4-6.5 [facility] Comment on above: Performed By: #### C BC #### [facility] [address] [place] [address] Dr. Christina Camarena Neutrophils/100 WBC (Bld) 65.1 % Normal 43.0-75.0 [facility] Comment on above: Performed By: #### C BC #### [facility] [address] [place] [address] Dr. Christina Camarena Platelet mean volume (Bld) [Entitic vol] 9.8 fL Normal 9.5-13.5 [facility] Comment on above: Performed By: #### C BC #### [facility] [address] [place] [address] Dr. Christina Camarena PLT 228 103/ul Normal 150-450 [facility] Comment on above: Performed By: #### C BC #### [facility] [address] [place] [address] Dr. Christina Camarena RBC 5.01 106/ul Normal 4.20-5.40 [facility] Comment on above: Performed By: #### C BC #### [facility] [address] [place] [address] Dr. Christina Camarena WBC 9.1 103/ul Normal 4.0-11.0 [facility] Comment on above: Performed By: #### C BC #### [facility] [address] [place] [address] Dr. Christina Camarena LIPID PROFILEon 05-13-2022 CHOL-HDL RATIO NORM SEE BELOW Normal [facility] Comment on above: Result Comment: 3.3 - 4.4 LOW RISK 4.4 - 7.1 AVERAGE RISK 7.1 - 11.0 MODERATE RISK >11.0 HIGH RISK Performed By: #### L IPID, CMP #### [facility] [address] [address] [address] Christina Camarena Cholesterol [Mass/Vol] 172 mg/dL Normal <=200 [facility] Comment on above: Performed By: #### L IPID, CMP #### [facility] [address] [address] [address] Christina Camarena Cholesterol in HDL [Mass/Vol] 55 mg/dL Normal 40-60 [facility] Comment on above: Performed By: #### L IPID, CMP #### [facility] [address] [address] [address] Christina Camarena Cholesterol in LDL [Mass/Vol] 76.8 mg/dL Normal [facility] Comment on above: Performed By: #### L IPID, CMP #### [facility] [address] [address] [address] Christina Camarena Cholesterol.total/Cho lesterol in HDL [Mass ratio] 3.1 {ratio} Normal [facility] Comment on above: Performed By: #### L IPID, CMP #### [facility] [address] [address] [address] Christina Camarena HDL NORMAL > or = 60 mg/dl - LOW CARDIOVASCULAR RISK <40 mg/dl - HIGH CARDIOVASCULAR RISK Normal [facility] Comment on above: Performed By: #### L IPID, CMP #### [facility] [address] [address] [address] Christina Camarena LDL CALC NORMAL SEE BELOW Normal [facility] Comment on above: Result Comment: <100 mg/dl OPTIMAL 100 - 129 mg/dl NEAR OR ABOVE OPTIMAL 130 - 159 mg/dl BORDERLINE HIGH 160 - 189 mg/dl HIGH >190 mg/dl VERY HIGH Performed By: #### L IPID, CMP #### [facility] [address] [address] [address] Christina Camarena Triglyceride [Mass/Vol] 201 mg/dL Critically high <=150 [facility] Comment on above: Performed By: #### L IPID, CMP #### [facility] [address] [address] [address] Christina Camarena VLDL CALC 40.2 mg/dL Normal [facility] Comment on above: Performed By: #### L IPID, CMP #### [facility] [address] [place] [address] Dr. Christina Camarena PROF 14(COMP METB)on 022 Albumin [Mass/Vol] 4.1 g/dL Normal 3.4-5.0 [facility] Comment on above: Performed By: #### L IPID, CMP #### [facility] [address] [place] [address] Dr. Christina Camarena Albumin/Globulin [Mass ratio] 1.1 {ratio} Normal [facility] Comment on above: Performed By: #### L IPID, CMP #### [facility] [address] [place] [address] Dr. Christina Camarena ALP [Catalytic activity/Vol] 99 U/L Normal 46-116 [facility] Comment on above: Performed By: #### L IPID, CMP #### [facility] [address] [place] [address] Dr. Christina Camarena ALT [Catalytic activity/Vol] 29 U/L Normal 14-59 [facility] Comment on above: Performed By: #### L IPID, CMP #### [facility] [address] [place] [address] Dr. Christina Camarena Anion gap [Moles/Vol] 13.7 mmol/L Normal [facility] Comment on above: Performed By: #### L IPID, CMP #### [facility] [address] [place] [address] Dr. Christina Camarena AST [Catalytic activity/Vol] 24 U/L Normal 15-37 [facility] Comment on above: Performed By: #### L IPID, CMP #### [facility] [address] [place] [address] Dr. Christina Camarena Bilirubin [Mass/Vol] 0.5 mg/dL Normal 0.2-1.0 [facility] Comment on above: Performed By: #### L IPID, CMP #### [facility] [address] [place] [address] Dr. Christina Camarena Calcium [Mass/Vol] 9.4 mg/dL Normal 8.5-10.1 [facility] Comment on above: Performed By: #### L IPID, CMP #### [facility] [address] [place] [address] Dr. Christina Camarena Chloride [Moles/Vol] 104 mmol/L Normal 98-107 [facility] Comment on above: Performed By: #### L IPID, CMP #### [facility] [address] [place] [address] Dr. Christina Camarena CO2 [Moles/Vol] 25.4 mmol/L Normal 21.0-32.0 [facility] Comment on above: Performed By: #### L IPID, CMP #### [facility] [address] [place] [address] Dr. Christina Camarena Creatinine [Mass/Vol] 0.99 mg/dL Normal 0.55-1.02 [facility] Comment on above: Performed By: #### L IPID, CMP #### [facility] [address] [place] [address] Dr. Christina Camarena EGFR-AF KITTITIAN >60 Normal >=60 [facility] Comment on above: Performed By: #### L IPID, CMP #### [facility] [address] [place] [address] Dr. Christina Camarena EGFR-NON AF KITTITIAN 55 mL/min/1.73m2 Critically low >=60 [facility] Comment on above: Performed By: #### L IPID, CMP #### [facility] [address] [place] [address] Dr. Christina Camarena Globulin (S) [Mass/Vol] 3.8 g/dL Normal [facility] Comment on above: Performed By: #### L IPID, CMP #### [facility] [address] [place] [address] Dr. Christina Camarena Glucose [Mass/Vol] 98 mg/dL Normal 74-106 [facility] Comment on above: Performed By: #### L IPID, CMP #### [facility] [address] [address] [address] Christina Camarena Potassium [Moles/Vol] 4.1 mmol/L Normal 3.5-5.1 [facility] Comment on above: Performed By: #### L IPID, CMP #### [facility] [address] [address] [address] Christina Camarena Protein [Mass/Vol] 7.9 g/dL Normal 6.4-8.2 [facility] Comment on above: Performed By: #### L IPID, CMP #### [facility] [address] [place] [address] Dr. Christina Camarena Sodium [Moles/Vol] 139 mmol/L Normal 136-145 [facility] Comment on above: Performed By: #### L IPID, CMP #### [facility] [address] [place] [address] Dr. Christina Camarena Urea nitrogen [Mass/Vol] 20.0 mg/dL Critically high 7.0-18.0 [facility] Comment on above: Performed By: #### L IPID, CMP #### [facility] [address] [place] [address] Dr. Christina Camarena Urea nitrogen/Creatinine [Mass ratio] 20.2 mg/mg Normal [facility] Comment on above: Performed By: #### L IPID, CMP #### [facility] [address] [place] [address] Dr. Christina Camarena Coding Summary.on 02-05-2022 Coding Summary. [id number] Gh0bWw+PGhlYWQ+PE1FV NHxN19lnERpeU1AT5hHG K3MIVVSQKPROX3UUH9ib KD4MHorC8OdhbKn AdkuxEBjVJ78PJi0ORO8 dDshLRpezH2sdGKvK7c7 UlHnLV55nT10HTvaXRFz GyP7UnPbnfjdiYNf I0vcUdOqeDTiEsn+PHRh YmxlIHdpZHRoPScxMDAl GcUufXdpAP3hUq1gNBYg LWNvbGxhcHNlOiBj p7lcQKXeTCjfMM4gqMtx Q2FaeUQ7BXKrn1k4Po29 dHI+TYUvSOM9tMzrGTal a941NeVwx9ueOTG3 cOQbTAysWDK7J62kf0C9 CWXlQHUpVZK1xWW9dM2f pWeorilhJ0CqwLSgSdU7 CZG1wYZulJ7gpAmj qkooaW1dDet+K75APD6H KFQHIP5QJrm0H3UuMusq dHI+FK01KFBqIT83wUTe hNOvz6scsPx0HbAm KKOoSEF6sRgkZYndj4Om VTTlK40abVUwy3D1EMWh nPasrKUjHqGybIS8lD2t YDbisixuf0jzdqvl Ngczy5oshb15zJ51S80e LGzlGWPhECF7RNTvDXJk yZsyfg3vpM3jMk2+IDxj e4kht6ednHg3BuSe EZNvspEluCjfSKL8p6Vg Du95C4OhwPkar8WlOto6 zp71bBXyq7E9cAF2IFod UNQepB8lVHwtFcW7 UTXuJwNpkK15nOOcFYtl Ss2sqYxvkKdtCO1xTKEx rhlvQEAhmM8dFOSaoRJs xWguXY6zQRYeankf i843DnDfNPX9AEGgaQRj O8XysS2iWhMjRPGmZSYs W2AciBWaKRyxV335YYjy WnT6MTXczmRpQ0Al SRQwhMbkQyM6p9H6Nn1D u3UlqtadLZL9ALejLBY0 QhB1NjEeQuM1F5DxFmw3 NDWywVdvAZ2nQ5Kc FONwbtjcqdgmyCM1ONPe JXLysS37oEHhEOsqOf1r j6A6e628KKPlZCNzoT91 Zi2jaHmdTYJmeLPN iS3isgpox5klumtkBhIh XSScOHv9UQw7QCEfvCzr QcCcOSW0NsL9ZYF2pJMd gK4xjErjxclmrT3e Oyc+Z33wlF9hVHR3KJN7 cgwjZMRqgwJfTH13KO39 M3QiIscpxPTrsJS+PGRp cnBvuBpjHM0fKfEd j9aej4XoDOgzA0MbWKUy WLdpClu5NVEaZLU6lKR4 nS2tGIOrTUykp0S6kEE9 T1TysiLxwo9ye5kc LMIlHJwkD42peUXuj6V6 EITatUB0LFIovRhnCzAa fN59Wwd+TLMkbRqxx2Aa Enulg8hxr7wjxAt8 IjMwJSIgdmFsaWduPSJ0 x5BzOc43Y92tSVelBDNu ZBTlCLGnRNRaiPhjgy4a lZ6dQl0+PGNvbCB3 bKV4wD9vPRKwHkC3URct O376VsUkpSGmFtqzn6mr d4lslIq4LfGeOAZouwXx sCxpTKY0s9PiGw42 I42lCStzCIInLENwYDXu QNEbsSauxr2bqY6pIb8+ TF6vr2qmkv77oA56dWX+ LDFpCME6fCebCPgu SYPodX1yUUlrNlV5XVDc FkOrnJ83oCLvSYebPj3n uKcazTkkNQ6kVURptdex i190PpTyy4cwMVEl zBNkMZisYFR7P13nf6S3 TOZkGMRyDDP6cPZ4tK2c bGlnbjogbGVmdDsgdmVy cEceEJwxPMfmM292 IHRvcDsnPlBhdGllbnQg TaZfXAa4A0WzFuh2LGYw lEqsBU2gjNSaLEmwZi5q aPvmxDmwIA9xBBKf qycki380ZpOhg8xpCGLn hLOnZYhfAVL3H34sz5R2 QVPtPKAmWNN8iAO6uM8r bGlnbjogbGVmdDsg mwRpwUatZRxwZVuwE330 IHRvcDsnPkJpcnRoIERh cDL7GG50ZQ05qJXkr0R4 iMU5Z9JsIBAxultu nliycGP1KTWrDHLwyE91 Lj7tzImtNp7lKMNcSMR3 KEVqbUIsB8ExaP1sGkLo BPQmMLApO4NqsQJq ESudN053COrwDaQ1IYLt puXgR6HoEYVwnPyuKvE6 h9B7As2CV2K3ZE35GG06 vNBqq9T9mVU3K3Ox QIJsrgqmnnzmiQQ6MOIo FPRyzL22Fp0ztQhyMv1y HEJdCJE9PNSdsVWrR5Er wW0jWjJlZMJtIQAo R1WfrKJdFHgjU843PItv YuK5FKEbwlPsW2BxPHEi yRplTtL9s4M4Ve6FDUw8 LJ18GG81hRJbu4K2 uPN0I9IdPCFrnwkodaee qDL3PPMpRHJzhG03Dy6b pOlvDt2kERZyVQW3WFEj hBHjI7YekU7rKyXp EZTqJQXgQ8VjuOMlYJbo X653ZZvcMmT9OGDgdvWt K5VsXSYanPwcMkC1s6M8 Ff7WWDPgUK06AEK0 oRC0JG23EF01B2UiOedx dGFibGU+PHRhYmxlIHdp ZHRoPScxMDAlJyBzdHls CK6nSf0hMAWgAYIk lSbyaOVoPdUhw7uiGBKk PWniWO1cgQvoE6HdiGB0 FGLnl6r1Zo85G50gM1Bo dXA+TBEorTH1xFG0 zS7kVpVdYyR2RNrlW041 CeLsiAGtFzmkb6ngh4rp oMb5QnB4OXKaojEqpNug OPW2a1RzBn48X17d IHdpZHRoPSIxNSUiIHZh cVrgvm3gxY3bGl6+PGNv fYS4oZH3lK2uHiOrUzD6 FUonE277KlSglYCc Faywl7ufr6nvmXk2RyQo FRFwhvUdkQemXMU6w0Pf Lp04X1MwzVzsh0RxEwm5 zx29gOWpv0Z1xCI8 U9YiOPJjwntngJEhhWzg TH1vSUVcwumyHYHpzD9a DXTrS9r4DaQbWjR0NApf H4VsnyD1LZKucAIr ACltFVM9O17iv0X9EJCf ZXPxPPN5kXU7yG7qkGmj bjogbGVmdDsgdmVydGlj BHxoEXvlJ296YBYa hDabEHLmvU4wTHIueTEz pLayQW8xEWRwgultLiRQ RWMTS7KcBQWYJdlZSbmA RP03O6WtTii9NOQj kTwxHF8jxTPgSIlrEc9v bLfxkKyjBN7dQXSyudoo IUMzoB4jGOAswACjbRzn BW8xGKHguavme343 EwVqAGD5OXDcuZDzG5Jw dI7tXlFlYDFqDGPuX2Ze iTHrZHsoG506UYzoXuB7 WIQnpdYvK9GcNBXt aFmyAjM8q2Q7Af2hKS7l SC4hYUTjEV88VJ86aHCj a7F5kZH5B0KfAWSspptj hhzypGI4XRGuAESu cG93bMKbEPosGn8ly2U8 y595JLMqOODazT08Zx6j gHktWJZilBZRaJ6dtdbp g4piqcixCqKfVMIc QTx1DCf3DMRayKdeKwTw VOY3KtQ5SGE1aZVxgO4x yKwgcacmeK0gIja+Njkg WXRkltB7L0DoWgz7 DKCyiTzhYO7rgHJtBJdj Yn7lnBphzCezRM7gKNOb khtdIJLyqZ3uZBIgaUVh sOctED2mYEIkzdri e713HxDhOOR8IJCkhISx A5LukX8rNwZbGJFiHZMk P8CwuZMfJYiyM081DTai MfZ3NTSkdrOaI4Nq RROxfOadQxK7z0V4Gs6R ZW1ckUM6A9OnWfb3JGSz eMyePH9rlXSmNFrxJa8k cZpwcYtjFX8jZGCa ofniRTOpxA0pMCTimAZs pExcQP5uBGQrgzrtv908 PhPnPZT6TVGosKGwH4Xe dB2yCoZxRYWzDQLy H2PcyRLnHQqbR191AKlr ZlA2UVNuvaBkS3ZqYPOz cMzwSvK4g2O7Xk7DMJCr UENnhPKnShV5E5Sm PjwvdHI+QJ44QEOyWR13 wTFltQQku2nalDv0SfCf HFLmFAP4rBvoIHsgw1Tc XIDdI12bfGXdw4A4 IGNvbGxhcHNlOyBlbXB0 xF2wDNekjjbew2ckivyl Gqqcx1dpkv83xP52C49x IHdpZHRoPSIzMCUi PFDdhLfcia8jlL7aZs5+ XERzrZV6sRZ1hR2sXrTk DdH2OJqbX253IzIymLUd Xlvfg1mjf5ihtRe5 IjIwJSIgdmFsaWduPSJ0 d5LaYs86P74yCYkhIEFg KMJbONElTMWiyKbbbg5z lN8rBb8+EF2hr0jy fq66nM25xHR+PHRkIHN0 yKnfBXoaROOrvN6lRSbf XsR0DKDzEjUdbD25jRPe MLljZc3uyUogwRlt IW3aCVGejddmt900YnMm x2xmZAOryCXmLHoyQLA6 W05ul7C0OJUyFFTvTGK3 oKM9dK3nzFcmakml bGVmdDsgdmVydGljYWwt UQadV344PAMrxPtyMqDt hJTuF6cenqNNRV6sDsmd dGQ+ZMBsYGV6xYji EKmnQQMfdI2fNYBfG4n2 PrRxJoK8CTugM9PbfnY2 TCEkoJSoLFZtbTBDsH5a hkpfq7tpkvbtCeSd KLOnGHv5GXy5ZASucRik ZsItNLB6KaV6TMN3gLIf mJ3xfBouzxuckN8zOhe+ RklOOjwvdGQ+PHRk NXH8dCobPXbzDNCtkX3q CMAaO5p4FmTwKbQ6YMae O0BgqhG5KCTfqVCxCTNx sWVKoE7rdqfwb7ee rlhqKzXhLVFjKJs2LYh3 FUWecUgtUwGyTAK8TyQ6 ZMF5yCLhiJ3nvHosmrab gN0dHxt+TVJOOjwv dGQ+DSQgZFY2zOyxIXoi KHUgzL9yTOEwE6u0LuGs XpB4UYwcZ2NyvpW3OSWb uMFjMEUisFSMxP6v opsyq4esglnsHsCcHAPl FMd6QIx8RBDnpBjzVjDj SSG2TyC7BLV8hLKpsO6o cLtdbipjuP7fOtq+ XPF2JUF0FU27HH53S6Ar PjwvdGFibGU+PHRhYmxl IHdpZHRoPScxMDAlJyBz jEbqWN3hHf6xPKAr LWNv (more content not included)... Normal [facility] Physician Orderon 01-17-2022 Physician Order [id number] Normal [facility] Vital Signs Date Time Vital Sign Value Performing Clinician Facility 06-14-2024 14:25-0400 Body height 157.48 cm [facility] 06-14-2024 14:25-0400 Body mass index (BMI) [Ratio] 31.2 kg/m2 [facility] 06-14-2024 14:25-0400 Body temperature 99 [degF] [facility] 06-14-2024 14:25-0400 Body weight 77.56 kg [facility] 06-14-2024 14:25-0400 Diastolic blood pressure 72 mm[Hg] [facility] 06-14-2024 14:25-0400 Heart rate 77 /min [facility] 06-14-2024 14:25-0400 SaO2% (BldA) [Mass fraction] 94 % [facility] 06-14-2024 14:25-0400 Systolic blood pressure 138 mm[Hg] [facility] 05-03-2024 10:03-0400 Body height 157.48 cm [facility] 05-03-2024 10:03-0400 Body mass index (BMI) [Ratio] 31.2 kg/m2 [facility] 05-03-2024 10:03-0400 Body weight 77.56 kg [facility] 05-03-2024 10:03-0400 Diastolic blood pressure 71 mm[Hg] [facility] 05-03-2024 10:03-0400 Heart rate 62 /min [facility] 05-03-2024 10:03-0400 Systolic blood pressure 144 mm[Hg] [facility] 05-01-2023 10:00-0400 Body height 160.02 cm Reny Cabrera Other [facility] Other 05-01-2023 10:00-0400 Body mass index (BMI) [Ratio] 29.33 kg/m2 Reny Cabrera Other [facility] Other 05-01-2023 10:00-0400 Body weight 75.12 kg Reny Cabrera Other [facility] Other 05-01-2023 10:00-0400 Diastolic blood pressure 65 mm[Hg] Reny Cabrera Other [facility] Other 05-01-2023 10:00-0400 Systolic blood pressure 125 mm[Hg] Reny Cabrera Other [facility] Other Encounters Encounter Date Encounter Type Care Provider Facility Start: 06-28-2024 End: 06-28-2024 Bamboo flowsheet Dominic B Apling [employer] Work Phone: [facility] Start: 06-28-2024 End: 06-28-2024 Bamboo flowsheet Dominic B Apling [employer] Work Phone: [facility] Start: 06-28-2024 End: 06-28-2024 ambulatory DOMINIC B APLING Not Available Start: 06-14-2024 End: 06-14-2024 ambulatory NON STAFF [facility] Work Phone: Start: 06-14-2024 End: 06-14-2024 Patient encounter procedure [facility] Work Phone: Start: 05-06-2024 Non-patient / Non-visit [facility] Work Phone: Start: 05-03-2024 Patient encounter procedure [facility] Start: 05-03-2024 End: 05-03-2024 ambulatory NON STAFF [facility] Work Phone: Start: 05-03-2024 End: 05-03-2024 Patient encounter procedure [facility] Physician [facility] Work Phone: Start: 07-28-2023 End: 07-28-2023 ambulatory DOMINIC B APLING Not Available Start: 05-15-2023 End: 09-21-2023 ambulatory Reny Cabrera Other [facility] Other Start: 05-15-2023 Telephone encounter Reny Cabrera [facility] Start: 05-01-2023 End: 05-01-2023 ambulatory Reny Cabrera Other [facility] Other Start: 05-01-2023 Patient encounter procedure Reny Cabrera [facility] Start: 06-26-2022 End: 06-27-[address] LOTUS SERNA Facility:[facility] Start: 05-13-2022 End: 05-14-[address] RENY CABRERA Facility:[facility] Plan of Treatment Date Care Activity Detail Author Start: 06-28-2024 End: 06-28-2024 Patient encounter procedure 06/28/2024 8:00 AM EST Office Visit [facility] [address] [facility] [address] [place] [id number] Dominic Patiño NP [address] [facility] [address] [place] [address] Swelling of right hand (Primary Dx) [facility] Comment on above: Swelling of right ahn nd (Primary Dx) Start: 05-03-2024 EKG 12 channel panel [facility] Start: 04-25-2024 Influenza vaccination Influenza Vacc ine (#1) [facility] Start: 1992 Screening for malign ant neoplasm of breast Mammogram [facility] Start: 1950 Screening for malign ant neoplasm of colon [facility] Comprehensive metabo lic 2000 panel - Serum or Plasma [facility] Holter monitor study [facility] MG Breast - bilatera l Screening [facility] Immunizations Immunization Date Immunization Notes Care Provider Fa cility 05-01-2023 influenza virus vaccine, unspecified formulation [facility] 05-01-2023 influenza, high dose seasonal, preservative-free Reny Cabrera Other [facility] Other 06-24-2022 COVID-19 Pfizer (Pediatric) Reny Cabrera Other [facility] 06-24-2022 influenza virus vaccine, split virus (incl. purified surface antigen) Reny Cabrera Other [facility] Other 06-24-2022 influenza virus vaccine, unspecified formulation [facility] 11-14-2020 COVID-19 Vaccine Pfi zer - Documentation Purposes Only Reny Cabrera Other [facility] 04-26-2020 influenza virus vaccine, split virus (incl. purified surface antigen) Reny Cabrera Other [facility] Other 04-26-2020 influenza virus vaccine, unspecified formulation [facility] 04-26-2020 pneumococcal polysaccharide vaccine, 23 valent Reny Cabrera Other [facility] 04-20-2019 pneumococcal conjuga te vaccine, 13 valent Reny Cabrera Other [facility] Payers Date Payer Category Payer Self-pay 2022 Private Health Insurance [employer] [id number] 2017 Medicare MEDICARE [id number] 1959 Medicare [id number] 1959 Unknown [id number] 1950 Unknown [id number] 1952 Unknown [id number] 1950 Unknown [id number] 1950 Unknown [id number] 1950 Unknown [id number] Unknown [id number] Social History Date Type Detail Facility Start: 07-28-2023 Sex Assigned At N [facility] Other Start: 01-30-2023 End: 05-03-2024 Tobacco smoking status NHIS Never smoked tobacco (finding) [facility] Start: 1950 Sex Assigned At Female F [facility] Start: 01-30-2023 Tobacco use and exposure Smokeless tobacco non-user [facility] Start: 07-28-2023 Alcoholic beverage intake Ex-drinker (finding) [facility] Start: 07-28-2023 History of Social function [facility] Start: 1950 Sex assigned at Not on file [facility] Evaluation note 05-01-2023 Note Date & Type [...] mammogram for breast cancer (ICD-10 - Z12.31) [facility] Other Evaluation note Note Date & Type Note Facility Evaluation note No Information [employer] Other Evaluation note Note Date & Type Note Facility Evaluation note Diagnosis Onset Date Dyslipidemia acute Essential hypertension acute Palpitations acute Screening mammogram for breast cancer acute [facility] Work Phone: Evaluation note Note Date & Type Note Facility Evaluation note Diagnosis Onset Date Dyslipidemia acute Essential hypertension acute Medicare annual wellness visit, subsequent acute Palpitations acute Screening mammogram for breast cancer acute [facility] Work Phone: Evaluation note Note Date & Type Note Facility Evaluation note Diagnosis Onset Date Dyslipidemia acute Essential hypertension acute Medicare annual wellness visit, subsequent acute Palpitations acute Screening mammogram for breast cancer acute Maxillary sinusitis, acute a cute [facility] Work Phone: History general Narrative - Reported Note Date & Type Note Facility History general Narrative - Reported Type Medical History Dyslipidemia Medical History Essential hypertension Medical History 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 Medical History Personal history of malignant melanoma of skin Surgical History Cholecystectomy Surgical History Wide excision of Melanoma 2012 Surgical History [facility] Hospitalization History see surgical hx [facility] Other History general Narrative - Reported Note Date & Type Note Facility History general Narrative - Reported Type Surgical History Cholecystectomy Surgical History Wide excision of Melanoma 2012 Surgical History [facility] Hospitalization History see surgical hx [facility] Other Summary Purpose Family History No Family [...] subsequent Palpitations Screening mammogram for breast cancer Chief Complaint wellness R00.2 head congestion Reason for Visit Dyslipidemia Essential hypertension Medicare annual wellness visit, subsequent Palpitations Screening mammogram for breast cancer Maxillary sinusitis, acute Additional Source Comments INFORMATION SOURCE (unrecogn ized section and content) DATE CREATED AUTHOR 03/13/2022 [facility] DATE CREATED AUTHOR AUTHOR'S ORGANIZ ATION 07/30/2022 [facility] DATE CREATED AUTHOR AUTHOR'S ORGANIZ ATION 05/12/2024 [facility] DATE CREATED AUTHOR AUTHOR'S ORGANIZ ATION 06/28/2024 [facility] EPIC REASON FOR VISIT (unrecogniz [...] Provider Active St art: May 03, 2024 Team Status: Active Member Role Status Dates NON STAFF Primary Care Provider Active Start: May 06, 2024 Rodríguez Chavez DO Attending Provider Active Sta rt: May 06, 2024 Team Status: Inactive Member Role Status Dates NON STAFF Primary Care Provider Active Start: June 14, 2024 End: June 14, 2024 Krais Pearl APRN [employer]-C Attending Provider Active Start: June 14, 2024 End: June 14, 2024 [employer] Operator Relationship Specialty Start Date End Date Reny Cabrera MD [address] [place] [address] PCP - General Family Medicine 01/17/23 Goals (unrecognized section and content) Goals may [...] BE BASED ON THE PRIMARY CLINICAL RECORDS. [employer] [facility]. provides no warranty or guarantee of the accuracy or completeness of information in this document.
== END 2024-06-29 11:19 | disposition home or self-care (01) ==
LOC: MAMMO 11:18
PROVIDERS: PCP Family Medicine; Visit Provider Family Medicine
DX: Z12.31 Encounter for screening mammogram for malignant neoplasm of breast (principal)
CPT/HCPCS: 77063; 77067

== ENCOUNTER 2024-08-19 09:01 | Outpatient (OUT) | payer MEDICARE, OTHER, SELFPAY ==
--- NOTE | 2024-08-19 09:00 | CA_ITS ---
Patient Name: PORFIRIO LAWSON MR#: [id number] : 1950 Exam Date: 08/19/2024 Ordering Doctor: DR. SOL MARIE M.D. ECHOCARDIOGRAM REPORT PROCEDURE: CA ECHO DOPPLER COMPLETE INDICATIONS: Atrial flutter COMPARISON: None. DESCRIPTION: COMPLETE ECHOCARDIOGRAM Real-time transthoracic echocardiography with 2D, M-mode, spectral and color flow Doppler performed. QUALITY: Technical quality was adequate. LEFT VENTRICLE: Normal chamber size. Mild concentric left ventricular hypertrophy. Normal systolic function. LV EF: Normal left ventricular ejection fraction, (>55%). DIASTOLIC: Grade III diastolic dysfunction. Doppler data indicate elevated left-sided filling pressures. ATRIAL SEPTUM: Visually appears intact. LEFT ATRIUM: Moderate dilatation. RIGHT ATRIUM: Mild dilatation. RIGHT VENTRICLE: Normal chamber size. Normal right ventricular systolic function. TRICUSPID VALVE: Normal mobility and thickness. No stenosis with mild regurgitation. Doppler studies reveal moderately (45-60) elevated right sided pressures. RVSP 60 mmHg MITRAL VALVE: Normal mobility and thickness. No evidence of mitral valve stenosis. There is no mitral annular calcification. Trivial mitral regurgitation. AORTIC VALVE: Normal trileaflet appearance. No visible sclerosis. Normal leaflet mobility. No evidence of aortic valve stenosis. No aortic regurgitation. AORTIC ROOT: Normal diameter and appearance. PULMONIC VALVE: Not well visualized. No regurgitation. PERICARDIUM: No evidence of pericardial effusion. IVC: Collapses with inspirations. IVC is normal in size. PLEURA: CONCLUSION: 1. Mild concentric left ventricular hypertrophy with normal systolic function. Estimated LVEF is 55 to 60%. 2. Normal right ventricular size and systolic function. 3. Mild to moderate biatrial dilatation. 4. Grade 3 diastolic dysfunction. 5. Doppler data indicates elevated left-sided filling pressures. 6. No significant valvular dysfunction. 7. Severely elevated right-sided pressures. RVSP is 60 mmHg. Adult Echocardiography Procedure Report Left Ventricle LVEDD (3.7 - 5.6 cm): 4.33 cm LVESD (2.2 - 4.0 cm): 2.92 cm LVIVS thickness (0.6 - 1.2 cm): 0.97 cm LVPW thickness (0.5 - 1.0 cm): 1.18 cm e': 0.07 m/s E - e': 17.38 LVOT Max Gradient: 4.02 mm[Hg] LVOT Area (cm2): 1.00 m/s Peak Velocity (LVOT): 1.00 m/s Mean Velocity (LVOT): 0.69 m/s LVOT Diameter 1.87 cm Left Atrium LA Volume Index (2D A2C): 37.65 ml/m2 Left Atrium Systolic Dimension: 3.84 cm Mitral Valve MV E to A Ratio: 2.14 Mitral Valve A-Wave Peak Velocity: 0.57 m/s Mitral Valve E-Wave Peak Velocity: 1.22 m/s Right Ventricle Aorta AO Root Diam: 3.18 cm Aortic Valve AoV Area (Peak Yaya): 1.82 cm2, 1.82 cm2 AoV Area (VTI): 1.95 cm2, 1.95 cm2 Peak Velocity(Antegrade Flow): 1.50 m/s Peak Gradient(Antegrade Flow): 9.06 mm[Hg] Mean Velocity(Antegrade Flow): 0.99 m/s Mean Gradient(Antegrade Flow): 4.74 mm[Hg] Velocity Time Integral: 32.84 cm Tricuspid Valve Peak Velocity (Regurgitant Flow): 3.76 m/s Pulmonic Valve Mean Gradient: 1.85 mm[Hg] Mean Velocity: 0.64 m/s Peak Velocity: 0.89 m/s, 0.95 m/s Peak Gradient: 3.58 mm[Hg], 3.14 mm[Hg] Right Atrium Right Atrium Systolic Pressure: 52.54 ml, 52.54 ml Dictated by: Teddy Skinner M.D. on 08/20/2024 at 08:30 Approved by: Teddy Skinner M.D. on 08/20/2024 at 08:33
--- OUTSIDE RECORDS SUMMARY | 2024-08-19 09:04 | XMS_ITS | CCD ---
Author Organization [facility] Care Team Providers Care Technology Infusion Specialist Name Role Phone WEST, DR LOTUS Chester Consulting Unavailable LUIS, DR RENY Montes Attending Unavailable LUIS, DR RENY Montes Admitting Unavailable LUIS, DR RENY Montes Primary Care Unavailable LUIS, DR RENY Montes Consulting Unavailable LUIS, DR RENY Montes Primary Care Unavailable LUIS, DR RENY Montes Consulting Unavailable LUIS, DR RENY Montes Attending Unavailable LUIS, DR RENY Montes Admitting Unavailable Reny Smith Unavailable NON STAFF Primary Care Provider UnavailMD Reny Mendoza Attending Provider [phone] Reny Smith Attending Unavailable Reny Smith Admitting Unavailable NON STAFF Primary Care Unavailable Reny Smith MD Primary Care Provider [phone] NON STAFF Primary Care Provider UnavailReny Mendoza MD Attending Provider DOMINIC MONTOYA Attending Unavailable DOMINIC MONTOYA Attending Unavailable DOMINIC MONTOYA Referring Unavailable DOMINIC MONTOYA Referring Unavailable JR. OSPINA GEORGE C Attending Unavaila UDAY Adair Referring Unavailable SLO MARIE Attending Unavailable UDAY SACNHEZ Attending Unavailable KELLY OSPINA Referring Unavailable Medications Current Medications Medication Drug Class(es) Dates Sig (Normalized) Sig (Original) amoxicillin 875 mg / clavulanate 125 mg oral tablet (2 sources) Penicillin-class Antibacterial Start: 06-14-2024 take 1 tablet by mouth twice daily Amoxicillin-Pot Clavulanate 875-125 mg tablet Active 1 TAB PO Twice daily 14 June 13, 2024 11:00pm atorvastatin (14 sources) HMG-CoA Reductase Inhibitor Start: 05-04-2024 Atorvastatin 20 mg tablet Active 0 .ROUTE .COMPLEX May 04, 2024 7:36am TAKE 1 TABLET EVERY DAY Start: 05-04-2024 Atorvastatin A ctive 0 .ROUTE .COMPLEX May 04, 2024 8:36am TAKE 1 TABLET EVERY DAY Start: 05-03-2024 End: 05-04-2024 take 1 tablet by mouth once daily Atorvastatin 20 mg tablet Discontinued 1 TAB PO Daily May 02, 2024 11:00pm May 04, 2024 7:36am FreeTextSi tablet Orally Once a day; Note: Source Status: Refill; Refills: 3; Qty: 90 Tablet; Provider: Luis Montes calcium carbonate 1250 mg / cholecalciferol 0.01 mg chewable tablet (6 sources) Vitamin D Calcium Carb-Cholecalciferol (Calcium + Vitamin D3) 500-10 MG-MCG chewable tablet Calcium + Vitamin D3 Active Fish Oils (6 sources) take 1 capsule by mouth every twelve hours omega-3 (Fish Oil) 500 MG capsule 1 capsule every 12 (twelve) hours. Active fluticasone propionate 0.05 mg/actuat metered dose nasal spray (2 sources) Corticosteroid Start: 2023 take 1 spray(s) nasal route twice daily Fluticasone Propionate (Flonase Allergy Relief) 50 mcg/actuation spray,suspension Active 1 SPRAY INTRANASAL Twice daily June 13, 2024 11:00pm administer into each nostril lisinopril 20 mg oral tablet (12 sources) Angiotensin Converting Enzyme Inhibitor Start: 2021 take 1 tablet by mouth once daily Lisinopril 20 mg tablet Active 20 MG PO Daily May 02, 2024 11:00pm FreeTextSig: TAKE 1 TABLET EVERY DAY; Note: Source Status: Start; Refills: 3; Qty: 90 Tablet; Provider: Luis Oglesby ( ) Misc Natural Products (OSTEO BI-FLEX TRIPLE STRENGTH PO) (6 sources) Misc Natural Pro ducts (OSTEO BI-FLEX TRIPLE STRENGTH PO) Osteo Bi-Flex Triple Strength Active Multiple Vitamin (multivitamin) tablet (6 sources) take 1 tablet by mouth in the morning Multiple Vitamin (multivitamin) tablet Take 1 tablet by mouth in the morning. Active sertraline 100 mg oral tablet (12 sources) Serotonin Reuptake Inhibitor Start: 2021 sertraline (Zoloft) 100 MG tablet 12/13/2022 Active Problems Active Problems Problem Classification Problem Date Documented Date Episodic/Chronic Cardiac dysrhythmias (2 sources) Typical atrial flutter; Translations: [Typical atrial flutter] Onset: 08-13-2024 Chronic Cardiac dysrhythmias (9 sources) Palpitations; Translations: [Palpitations] Onset: 05-03-2024 05-03-2024 Episodic Cataract (6 sources) Nuclear senile cataract; Translations: [Age-related nuclear cataract, unspecified eye] Onset: 01-30-2023 01-30-2023 Chronic Disorders of lipid metabolism (15 sources) Hyperlipidemia, unspecified; Translations: [Dyslipidemia] Onset: 05-13-2022 Chronic Essential hypertension (12 sources) Essential (primary) hypertension; Translations: [Essential hypertension] Onset: 05-14-2022 Chronic Melanomas of skin (2 sources) History of malignant melanoma of the skin; Translations: [Personal history of malignant melanoma of skin] Episodic Mood disorders (2 sources) Major depression, single episode; Translations: [Major depressive disorder, single episode, unspecified] Chronic Osteoarthritis (12 sources) Arthritis of first carpometacarpal joint of left hand; Translations: [Unilateral primary osteoarthritis of first carpometacarpal joint, left hand] Onset: 01-30-2023 01-30-2023 Chronic Other connective tissue disease (4 sources) Pain in right hand; Translations: [Pain in right hand] 06-28-2024 Episodic Other connective tissue disease (2 sources) Pain in right hand; Translations: [Pain in right hand] Onset: 08-05-2024 Episodic Other non-traumatic joint disorders (4 sources) Other specified joint disorders, right hand; Translations: [Other specified disorders of joint, hand] 06-28-2024 Episodic Other screening for suspected conditions (not mental disorders or infectious disease) (13 sources) Encounter for screening mammogram for malignant neoplasm of breast; Translations: [Patient encounter status] Onset: 06-26-2022 Episodic Other skin disorders (4 sources) Swelling of hand; Translations: [Other specified soft tissue disorders] 06-28-2024 Episodic Other upper respiratory infections (4 sources) Acute maxillary sinusitis; Translations: [Acute maxillary sinusitis, unspecified] 06-14-2024 Episodic Residual codes; unclassified (2 sources) Pain; Translations: [Pain] Onset: 08-05-2024 Episodic Past or Other Problems Problem Classification Problem Date Documented Date Episodic/Chronic Other eye disorders (6 sources) Dermatochalasis of left upper eyelid; Translations: [Dermatochalasis of left upper eyelid] Onset: 01-30-2023 01-30-2023 Episodic Other eye disorders (6 sources) Excess skin of eyelid; Translations: [Blepharochalasis unspecified eye, unspecified eyelid] Onset: 01-30-2023 01-30-2023 Episodic Results Test Name Value Interpretation Reference Range Facility Office Visiton 08-13-2024 Follow-up visit [id number] Kalani Fernandes 1950 Provider Department Center 08/13/2024 [id number] MARIE Family History Problem Relation Age of Onset Other Mother Atrial fibrillation Brother Stroke Maternal Grandmother Family Status - Relation Status Age at Mother Brother Maternal Grandmother Level of Service:58850 SD OFFICE/OUTPATIENT NEW MODERATE MDM 45 MINUTES Reason for Visit and Comments: Hypertension [781974] - Used to be on lisinopril but was recently switched to amlodipine 5mg daily. Denies swelling. Hyperlipidemia [182] - On atorvastatin Palpitations [671379] - Recently wore 30 day event monitor for palpitations, but hasn't had them recently. Sleep Apnea [348] - Compliant with bipap therapy. Normal [facility] Orders Onlyon 08-13-2024 Orders Only [id number] Kalani Fernandes Karena 1950 Provider Department Center 08/13/2024 928-KATERINA SAHNI KIMBERLY Berg Family History Problem Relation Age of Onset Other Mother Atrial fibrillation Brother Stroke Maternal Grandmother Family Status - Relation Status Age at Mother Brother Maternal Grandmother Normal [facility] 36on 08-12-2024 36 Patient was scheduled Normal [facility] Orders Onlyon 08-12-2024 Orders Only [id number] Kalani Fernandes Karena 1950 Provider Department Center 08/12/2024 803-CATARINA CRANE MP ORTHO MPORTHO Family History Problem Relation Age of Onset Other Mother Atrial fibrillation Brother Stroke Maternal Grandmother Family Status - Relation Status Age at Mother Brother Maternal Grandmother Normal [facility] 36on 08-11-2024 36 Patient was seen 08/05/24. She called stating that someone was suppose to call her to set up date and time for surgery. She states that she has not received a call. Please advise. Thank you. Normal [facility] Office Visiton 08-05-2024 Follow-up visit [id number] Kalani Fernandes 1950 F Date Provider Department Center 08/05/2024 UDAY GAMING [facility] No family history on file Level of Service:06287 SD OFFICE/OUTPATIENT NEW LOW [facility] 30 MINUTES (GC,25) Reason for Visit and Comments: Pain [136] Normal [facility] 36on 07-15-2024 36 Patient called to schedule a new patient appointment with our office. 08/05 Patient wants to be seen for: Cyst of joint of right hand Patient had MRI done at [facility] 07/05/24 Patient had Trigger Thumb done on 07/[address] Khan @ [facility] Patient saw Dr. Ospina for this issues. They were referred to us from this provider. This appointment is not a second opionion This appointment IS NOT related to a work related injury [facility] MR HAND RIGHT W AND WO IV CO NTRASTon 07-05-2024 MR HAND RIGHT W AND WO IV CONTRAST EXAMINATION: MR HAND RIGHT W AND WO IV CONTRAST HISTORY: Right hand swelling. Palmar soft tissue mass. COMPARISON: Radiographs June 28, 2024 TECHNIQUE: Multiplanar multisequence MRI of the hand was performed without and with contrast. FINDINGS: The examination is degraded by motion artifact. No acute fracture or bone lesion. Degenerative changes of the wrist and first carpometacarpal joint. Within the palmar soft tissues at the level of the fourth and fifth metacarpal heads is an ovoid structure measuring approximately 12 x 10 x 12 mm that follows fat signal on all sequences and demonstrates a 3 mm internal focus of postcontrast enhancement best seen on axial postcontrast fat-suppressed T1 series 9 image 13. No thick enhancing septations. Flexor and extensor tendons are intact. Musculature of the hand is within normal limits. IMPRESSION: Lipomatous lesion within the palmar soft tissues measuring approximately 12 x 10 x 12 mm most likely representing a lipoma however there is a 3 mm focus of postcontrast enhancement that makes it difficult to exclude a low-grade liposarcoma. ELECTRONICALLY SIGNED BY: Bart Hernández, DO Normal Not Available CREATININEon 07-03-2024 Creatinine [Mass/Vol] 0.90 mg/dL Normal 0.60-1.00 [facility] Comment on above: Performed By: #### 3 75 #### [facility] [address] [place] [address], [address] [place] [address] Safety Trainer: Shiraz Regalado MD GFR/1.73 sq M.predicted among non-blacks MDRD (S/P/Bld) [Vol rate/Area] 68 mL/min/{1.73_m2} Normal > OR = 60 [facility] Comment on above: Performed By: #### 3 75 #### [facility] [address], [address] Safety Trainer: Shiraz Regalado MD XR Hand - right 3 [facility] Result: Xrays AP, LAT and OBL of the right hand performed on June 28, 2024 demonstrates Narrowing of the 1st carpometacarpal joint with adjacent sclerosis and slight subluxation consistent withfirst CMC arthritis, no swelling or fractures noted. 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 [facility] Radiology Study observation (narrative) [facility] XR Hand - right 3 ViewsOrder ed By: El Khan on 06-28-2024 [facility] [employer] Work Phone: Basophils Auto (Bld) [#/Vol] on 05-03-2024 Basophils (Bld) [#/Vol] 0.0 10 3/uL 0.0-0.1 [facility] Basophils (Bld) [#/Vol] Automated basophil count 0.0-0.1 [facility] Basophils/100 WBC Auto (Bld) on 05-03-2024 Basophils/100 WBC (Bld) 0.5 % 0.2-2.0 [facility] Basophils/100 WBC (Bld) Automated basophil % 0.2-2.0 [facility] Cholesterol in LDL Calc [Mas s/Vol]on 05-03-2024 Cholesterol in LDL [Mass/Vol] 83.0 mg/dL [facility] Comment on above: <100 mg/dl [id number] 0-129 mg/dl NEAR OR ABOVE [id number] mg/dl BORDERLINE [id number] mg/dl HIGH>190 mg/dl VERY HIGH Cholesterol in LDL [Mass/Vol] Cholesterol in LDL [Mass/volume] in Serum or Plasma by calculation [facility] Comment on above: <100 mg/dl [id number] 0-129 mg/dl NEAR OR ABOVE [id number] mg/dl BORDERLINE [id number] mg/dl HIGH>190 mg/dl VERY HIGH Cholesterol in VLDL Calc [Ma ss/Vol]on 05-03-2024 Cholesterol in VLDL [Mass/Vol] 18.2 mg/dL [facility] Cholesterol in VLDL [Mass/Vol] Cholesterol in VLDL [Mass/volume] in Serum or Plasma by calculation [facility] Eosinophils/100 WBC Auto (Bl d)on 05-03-2024 Eosinophils/100 WBC (Bld) 1.6 % 0.9-7.0 [facility] Eosinophils/100 WBC (Bld) Automated eosinophil % 0.9-7.0 [facility] Erythrocyte distribution wid th Auto (RBC) [Ratio]on 05-03-2024 Erythrocyte distribution width (RBC) [Ratio] 14.4 % 11.0-15.0 [facility] Erythrocyte distribution width (RBC) [Ratio] Erythrocyte distribution width [Ratio] by Automated count 11.0-15.0 [facility] Estimated glomerular filtrat ion rate (GFR) non- Americanon 05-03-2024 GFR/1.73 sq M.predicted among non-blacks MDRD (S/P/Bld) [Vol rate/Area] 55 mL/min/{1.73_m2} Low >=60 [facility] GFR/1.73 sq M.predicted among non-blacks MDRD (S/P/Bld) [Vol rate/Area] Estimated glomerular filtration rate (GFR) non- Low >=60 [facility] Globulin Calc (S) [Mass/Vol] on 05-03-2024 Globulin (S) [Mass/Vol] 3.7 g/dL [facility] Globulin (S) [Mass/Vol] Serum globulin measurement by calculation (mass/volume) [facility] Hematocrit Auto (Bld) [Volum e fraction]on 05-03-2024 Hematocrit (Bld) [Volume fraction] 45.3 % 36.0-48.0 [facility] Hematocrit (Bld) [Volume fraction] Hematocrit [Volume Fraction] of Blood by Automated count 36.0-48.0 [facility] Hemoglobin [Mass/volume] in Bloodon 05-03-2024 Hemoglobin (Bld) [Mass/Vol] 14.7 g/dL 12.0-16.0 [facility] Hemoglobin (Bld) [Mass/Vol] Hemoglobin [Mass/volume] in Blood 12.0-16.0 [facility] Laboratory - Chemistry and C hemistry - challengeon 05-03-2024 Albumin [Mass/Vol] 4.0 g/dL 3.4-5.0 [facility] ALP [Catalytic activity/Vol] 107 U/L 46-116 [facility] ALT [Catalytic activity/Vol] 29 U/L 14-59 [facility] AST [Catalytic activity/Vol] 23 U/L 15-37 [facility] Bilirubin [Mass/Vol] 0.4 mg/dL 0.2-1.0 [facility] Calcium [Mass/Vol] 9.7 mg/dL 8.5-10.1 [facility] Chloride [Moles/Vol] 103 mmol/L 98-107 [facility] Cholesterol [Mass/Vol] 163 mg/dL <=200 [facility] Cholesterol in HDL [Mass/Vol] 62 mg/dL High 40-60 [facility] Comment on above: > or =60 mg/dl - LOW CARDIOVASCULAR RISK<40 mg/dl - HIGH CARDIOVASCULAR RISK CO2 [Moles/Vol] 30.1 mmol/L 21.0-32.0 [facility] Creatinine [Mass/Vol] 0.99 mg/dL 0.55-1.02 [facility] GFR/1.73 sq M.predicted MDRD (S/P/Bld) [Vol rate/Area] mL/min/{1.73_m2} >=60 [facility] Glucose [Mass/Vol] 91 mg/dL 74-106 [facility] Potassium [Moles/Vol] 4.1 mmol/L 3.5-5.1 [facility] Protein [Mass/Vol] 7.7 g/dL 6.4-8.2 [facility] Sodium [Moles/Vol] 139 mmol/L 136-145 [facility] Triglyceride [Mass/Vol] 91 mg/dL <=150 [facility] TSH Qn 2.666 m[IU]/L 0.358-3.740 [facility] Urea nitrogen [Mass/Vol] 17.0 mg/dL 7.0-18.0 [facility] Urea nitrogen/Creatinine [Mass ratio] 17.2 mg/mg [facility] Laboratory - Hematology and Cell countson 05-03-2024 Immature granulocytes/100 WBC (Bld) 0.2 % 0.0-0.5 [facility] Leukocytes [#/volume] correc alyssia for nucleated erythrocytes in Blood by Automated counon 05-03-2024 WBC corrected for nucl RBC Auto (Bld) [#/Vol] 8.2 10 3/uL 4.0-11.0 [facility] WBC corrected for nucl RBC Auto (Bld) [#/Vol] Leukocytes [#/volume] corrected for nucleated erythrocytes in Blood by Automated coun 4.0-11.0 [facility] Lymphocytes Auto (Bld) [#/Vo l]on 05-03-2024 Lymphocytes (Bld) [#/Vol] 2.5 10 3/uL 1.2-3.8 [facility] Lymphocytes (Bld) [#/Vol] Lymphocytes [#/volume] in Blood by Automated count 1.2-3.8 [facility] Lymphocytes/100 WBC Auto (Bl d)on 05-03-2024 Lymphocytes/100 WBC (Bld) 30.3 % 20.5-60.0 [facility] Lymphocytes/100 WBC (Bld) Lymphocytes/100 leukocytes in Blood by Automated count 20.5-60.0 [facility] MCH Auto (RBC) [Entitic mass ]on 05-03-2024 MCH (RBC) [Entitic mass] 30.1 pg 26.7-34.0 [facility] MCH (RBC) [Entitic mass] MCH [Entitic mass] by Automated count 26.7-34.0 [facility] MCHC Auto (RBC) [Mass/Vol]on 05-03-2024 MCHC (RBC) [Mass/Vol] 32.5 g/dL 29.9-35.2 [facility] MCHC (RBC) [Mass/Vol] MCHC [Mass/volume] by Automated count 29.9-35.2 [facility] MCV Auto (RBC) [Entitic vol] on 05-03-2024 MCV (RBC) [Entitic vol] 92.6 fL 81.0-99.0 [facility] MCV (RBC) [Entitic vol] MCV [Entitic volume] by Automated count 81.0-99.0 [facility] Monocytes Auto (Bld) [#/Vol] on 05-03-2024 Monocytes (Bld) [#/Vol] 0.5 10 3/uL 0.3-0.8 [facility] Monocytes (Bld) [#/Vol] Automated blood monocyte count 0.3-0.8 [facility] Monocytes/100 WBC Auto (Bld) on 05-03-2024 Monocytes/100 WBC (Bld) 5.9 % 1.7-12.0 [facility] Monocytes/100 WBC (Bld) Automated monocyte % 1.7-12.0 [facility] Neutrophils Auto (Bld) [#/Vo l]on 05-03-2024 Neutrophils (Bld) [#/Vol] 5.0 10 3/uL 1.4-6.5 [facility] Neutrophils (Bld) [#/Vol] Neutrophils [#/volume] in Blood by Automated count 1.4-6.5 [facility] Neutrophils/100 WBC Auto (Bl d)on 05-03-2024 Neutrophils/100 WBC (Bld) 61.5 % 43.0-75.0 [facility] Neutrophils/100 WBC (Bld) Automated neutrophil % 43.0-75.0 [facility] No Panel Informationon 05-03 Eosinophils # (Auto) 0.1 10 3/uL 0.0-0.7 [facility] Immature Granulocyte # (Auto) 0.02 10 3/uL 0.00-0.03 [facility] Platelet mean volume Auto (B ld) [Entitic vol]on 05-03-2024 Platelet mean volume (Bld) [Entitic vol] 9.7 fL 9.5-13.5 [facility] Platelet mean volume (Bld) [Entitic vol] Platelet mean volume [Entitic volume] in Blood by Automated count 9.5-13.5 [facility] Platelets Auto (Bld) [#/Vol] on 05-03-2024 Platelets (Bld) [#/Vol] 206 10 3/uL 150-450 [facility] Platelets (Bld) [#/Vol] Platelets [#/volume] in Blood by Automated count 150-450 [facility] RBC Auto (Bld) [#/Vol]on RBC (Bld) [#/Vol] 4.89 10 6/uL 4.20-5.40 [facility] RBC (Bld) [#/Vol] Erythrocytes [#/volume] in Blood by Automated count 4.20-5.40 [facility] Serum or plasma albumin/glob ulin mass ratioon 05-03-2024 Albumin/Globulin [Mass ratio] 1.1 {ratio} [facility] Albumin/Globulin [Mass ratio] Serum or plasma albumin/globulin mass ratio [facility] Serum or plasma anion gap de terminationon 05-03-2024 Anion gap [Moles/Vol] 10.0 mmol/L [facility] Anion gap [Moles/Vol] Serum or plasma anion gap determination [facility] Serum or plasma total choles terol/high density lipoprotein (HDL) cholesterol mass gloria 05-03-2024 Cholesterol.total/Ch olesterol in HDL [Mass ratio] 2.6 {ratio} [facility] Comment on above: 3.3 - 4.4 LOW RISK4. 4 - 7.1 AVERAGE RISK7.1 - 11.0 MODERATE RISK>11.0 HIGH RISK Cholesterol.total/Ch olesterol in HDL [Mass ratio] Serum or plasma total cholesterol/high density lipoprotein (HDL) cholesterol mass rat [facility] Comment on above: 3.3 - 4.4 LOW RISK4. 4 - 7.1 AVERAGE RISK7.1 - 11.0 MODERATE RISK>11.0 HIGH RISK MG MAMM SCREEN 3D EVAN CADon 11-02-2022 MG MAMM SCREEN 3D EVAN CAD Patient: KALANI FERNANDES Exam Date: 06/26/2022 : 1950 Gender:F Ordering : DR RENY SMITH M.D. Admission #: [id number] Family : Order #: [id number] CLICK HERE TO VIEW EXAM RADIOLOGY REPORT [...] Treatments None Family Cancers None LOCATION: [facility] BREAST COMPOSITION: Heterogeneously dense,which may obscure [...] MD on 06/26/2022 at 08:44 Normal [facility] CBC AUTO DIFFon 05-13-2022 BASO # 0.0 103/ul Normal 0.0-0.1 [facility] Comment on above: Performed By: #### C BC #### [facility] [address] [place] [address] Dr. Christina Camarena Basophils/100 WBC (Bld) 0.3 % Normal 0.2-2.0 [facility] Comment on above: Performed By: #### C BC #### [facility] [address] [place] [address] Dr. Christina Camarena EO # 0.1 103/ul Normal 0.0-0.7 [facility] Comment on above: Performed By: #### C BC #### [facility] [address] [place] [address] Dr. Christina Camarena Eosinophils/100 WBC (Bld) 1.5 % Normal 0.9-7.0 [facility] Comment on above: Performed By: #### C BC #### [facility] [address] [place] [address] Dr. Christina Camarena Erythrocyte distribution width (RBC) [Ratio] 14.4 % Normal 11.0-15.0 [facility] Comment on above: Performed By: #### C BC #### [facility] [address] [place] [address] Dr. Christina Camarena Hematocrit (Bld) [Volume fraction] 46.5 % Normal 36.0-48.0 [facility] Comment on above: Performed By: #### C BC #### [facility] [address] [place] [address] Dr. Christina Camarena Hemoglobin (Bld) [Mass/Vol] 14.8 g/dL Normal 12.0-16.0 [facility] Comment on above: Performed By: #### C BC #### [facility] [address] [place] [address] Dr. Christina Camarena IG # 0.02 10e3/ul Normal 0.00-0.03 [facility] Comment on above: Performed By: #### C BC #### [facility] [address] [place] [address] Dr. Christina Camarena IG % 0.2 % Normal 0.0-0.5 [facility] Comment on above: Performed By: #### C BC #### [facility] [address] [place] [address] Dr. Christina Camarena LYMPH # 2.4 103/ul Normal 1.2-3.8 [facility] Comment on above: Performed By: #### C BC #### [facility] [address] [place] [address] Dr. Christina Camarena Lymphocytes/100 WBC (Bld) 26.2 % Normal 20.5-60.0 [facility] Comment on above: Performed By: #### C BC #### [facility] [address] [place] [address] Dr. Christina Camarena MANUAL DIFF REQ NO Normal [facility] Comment on above: Performed By: #### C BC #### [facility] [address] [place] [address] Dr. Christina Camarena MCH (RBC) [Entitic mass] 29.5 pg Normal 26.7-34.0 [facility] Comment on above: Performed By: #### C BC #### [facility] [address] [place] [address] Dr. Christina Camarena MCHC (RBC) [Mass/Vol] 31.8 g/dL Normal 29.9-35.2 [facility] Comment on above: Performed By: #### C BC #### [facility] [address] [place] [address] Dr. Christina Camarena MCV (RBC) [Entitic vol] 92.8 fL Normal 81.0-99.0 [facility] Comment on above: Performed By: #### C BC #### [facility] [address] [place] [address] Dr. Christina Camarena MONO # 0.6 103/ul Normal 0.3-0.8 [facility] Comment on above: Performed By: #### C BC #### [facility] [address] [place] [address] Dr. Christina Camarena Monocytes/100 WBC (Bld) 6.7 % Normal 1.7-12.0 [facility] Comment on above: Performed By: #### C BC #### [facility] [address] [place] [address] Dr. Christina Camarena NEUT # 5.9 103/ul Normal 1.4-6.5 [facility] Comment on above: Performed By: #### C BC #### [facility] [address] [place] [address] Dr. Christina Camarena Neutrophils/100 WBC (Bld) 65.1 % Normal 43.0-75.0 [facility] Comment on above: Performed By: #### C BC #### [facility] [address] [place] [address] Dr. Christina Camarena Platelet mean volume (Bld) [Entitic vol] 9.8 fL Normal 9.5-13.5 [facility] Comment on above: Performed By: #### C BC #### [facility] [address] [place] [address] Dr. Christina Camarena PLT 228 103/ul Normal 150-450 [facility] Comment on above: Performed By: #### C BC #### [facility] [address] [place] [address] Dr. Christina Camarena RBC 5.01 106/ul Normal 4.20-5.40 [facility] Comment on above: Performed By: #### C BC #### [facility] [address] [place] [address] Dr. Christina Camarena WBC 9.1 103/ul Normal 4.0-11.0 [facility] Comment on above: Performed By: #### C BC #### [facility] [address] [place] [address] Dr. Christina Camarena LIPID PROFILEon 05-13-2022 CHOL-HDL RATIO NORM SEE BELOW Normal [facility] Comment on above: Result Comment: 3.3 - 4.4 LOW RISK 4.4 - 7.1 AVERAGE RISK 7.1 - 11.0 MODERATE RISK >11.0 HIGH RISK Performed By: #### L IPID, CMP #### [facility] [address] [place] [address] Dr. Christina Camarena Cholesterol [Mass/Vol] 172 mg/dL Normal <=200 [facility] Comment on above: Performed By: #### L IPID, CMP #### [facility] [address] [place] [address] Dr. Christina Camarena Cholesterol in HDL [Mass/Vol] 55 mg/dL Normal 40-60 [facility] Comment on above: Performed By: #### L IPID, CMP #### [facility] [address] [place] [address] Dr. Christina Camarena Cholesterol in LDL [Mass/Vol] 76.8 mg/dL Normal [facility] Comment on above: Performed By: #### L IPID, CMP #### [facility] [address] [address] [address] Christina Camarena Cholesterol.total/Ch olesterol in HDL [Mass ratio] 3.1 {ratio} Normal [facility] Comment on above: Performed By: #### L IPID, CMP #### [facility] [address] [address] [address] Christina Camarena HDL NORMAL > or = 60 mg/dl - LOW CARDIOVASCULAR RISK <40 mg/dl - HIGH CARDIOVASCULAR RISK Normal [facility] Comment on above: Performed By: #### L IPID, CMP #### [facility] [address] [address] [address] Christina Camarena LDL CALC NORMAL SEE BELOW Normal [facility] Comment on above: Result Comment: <100 mg/dl OPTIMAL 100 - 129 mg/dl NEAR OR ABOVE OPTIMAL 130 - 159 mg/dl BORDERLINE HIGH 160 - 189 mg/dl HIGH >190 mg/dl VERY HIGH Performed By: #### L IPID, CMP #### [facility] [address] [address] [address] Christina Camarena Triglyceride [Mass/Vol] 201 mg/dL Critically high <=150 [facility] Comment on above: Performed By: #### L IPID, CMP #### [facility] [address] [address] [address] Christina Camarena VLDL CALC 40.2 mg/dL Normal [facility] Comment on above: Performed By: #### L IPID, CMP #### [facility] [address] [place] [address] Dr. Christina Camarena PROF 14(COMP METB)on 022 Albumin [Mass/Vol] 4.1 g/dL Normal 3.4-5.0 [facility] Comment on above: Performed By: #### L IPID, CMP #### [facility] [address] [place] [address] Dr. Christina Camarena Albumin/Globulin [Mass ratio] 1.1 {ratio} Normal [facility] Comment on above: Performed By: #### L IPID, CMP #### [facility] [address] [place] [address] Dr. Christina Camarena ALP [Catalytic activity/Vol] 99 U/L Normal 46-116 [facility] Comment on above: Performed By: #### L IPID, CMP #### [facility] [address] [address] [address] Christina Camarena ALT [Catalytic activity/Vol] 29 U/L Normal 14-59 [facility] Comment on above: Performed By: #### L IPID, CMP #### [facility] [address] [address] [address] Christina Camarena Anion gap [Moles/Vol] 13.7 mmol/L Normal [facility] Comment on above: Performed By: #### L IPID, CMP #### [facility] [address] [place] [address] Dr. Christina Camarena AST [Catalytic activity/Vol] 24 U/L Normal 15-37 [facility] Comment on above: Performed By: #### L IPID, CMP #### [facility] [address] [place] [address] Dr. Christina Camarena Bilirubin [Mass/Vol] 0.5 mg/dL Normal 0.2-1.0 [facility] Comment on above: Performed By: #### L IPID, CMP #### [facility] [address] [place] [address] Dr. Christina Camarena Calcium [Mass/Vol] 9.4 mg/dL Normal 8.5-10.1 [facility] Comment on above: Performed By: #### L IPID, CMP #### [facility] [address] [place] [address] Dr. Christina Camarena Chloride [Moles/Vol] 104 mmol/L Normal 98-107 [facility] Comment on above: Performed By: #### L IPID, CMP #### [facility] [address] [address] [address] Christina Camarena CO2 [Moles/Vol] 25.4 mmol/L Normal 21.0-32.0 [facility] Comment on above: Performed By: #### L IPID, CMP #### [facility] [address] [address] [address] Christina Camarena Creatinine [Mass/Vol] 0.99 mg/dL Normal 0.55-1.02 [facility] Comment on above: Performed By: #### L IPID, CMP #### [facility] [address] [address] [address] Christina Camarena EGFR-AF MEXICAN >60 Normal >=60 [facility] Comment on above: Performed By: #### L IPID, CMP #### [facility] [address] [address] [address] Christina Camarena EGFR-NON AF MEXICAN 55 mL/min/1.73m2 Critically low >=60 [facility] Comment on above: Performed By: #### L IPID, CMP #### [facility] [address] [address] [address] Christina Camarena Globulin (S) [Mass/Vol] 3.8 g/dL Normal [facility] Comment on above: Performed By: #### L IPID, CMP #### [facility] [address] [address] [address] Christina Camarena Glucose [Mass/Vol] 98 mg/dL Normal 74-106 [facility] Comment on above: Performed By: #### L IPID, CMP #### [facility] [address] [address] [address] Christina Camarena Potassium [Moles/Vol] 4.1 mmol/L Normal 3.5-5.1 [facility] Comment on above: Performed By: #### L IPID, CMP #### [facility] [address] [address] [address] Christina Camarena Protein [Mass/Vol] 7.9 g/dL Normal 6.4-8.2 [facility] Comment on above: Performed By: #### L IPID, CMP #### [facility] [address] [address] [address] Chrisitna Camarena Sodium [Moles/Vol] 139 mmol/L Normal 136-145 [facility] Comment on above: Performed By: #### L IPID, CMP #### [facility] [address] [place], [place] [address] Dr. Christina Camarena Urea nitrogen [Mass/Vol] 20.0 mg/dL Critically high 7.0-18.0 [facility] Comment on above: Performed By: #### L IPID, CMP #### [facility] [address] [place], [place] [address] Dr. Christina Camarena Urea nitrogen/Creatinine [Mass ratio] 20.2 mg/mg Normal [facility] Comment on above: Performed By: #### L IPID, CMP #### [facility] [address] [place], [place] [address] Dr. Christina Camarena Coding Summary.on 02-05-2022 Coding Summary. [id number] Gh0bWw+PGhlYWQ+PE1FV FRqV59grBQksU3KR9uZW K1RAHLRQXRGDP7LVP4gy IG0AVjrM3TsbhCk KwyekVTtEQ39RIg4TUS7 yGwiMVkrjM6sbTKdB0e7 IkFwNB00gS00IEfpTUMb LiZ5TpPbvckkpYMg A2ojKoUkaYVkWyt+PHRh YmxlIHdpZHRoPScxMDAl RpHipYtoHP2hPu1qFJQo LWNvbGxhcHNlOiBj m9nnCCYjJSezGE0wpDrm J1GuqVF7GQGhc0g6Hd20 dHI+OITaKOG3uJpaJDgp j468BiApi1kjMTB0 vTVeBRpiYBD9A70yy4H9 KMOwLOKoGUJ5uTJ7vF6v cSyhoteuZ7HhiBCfDxS6 VYI1bUZxgA3wgNqh rvrpgO7xQfr+V04TUF7M WWJJWI6VBxq7R1SuFyga dHI+SG33POIzLL11rMPn gJNjb0xwzKv5KjXg ONDrLGQ9pOgeFWplv3Yh FSObC22coUXwx8E8SSLy rAyocWTuGcXwqGA1vA2b NWhtrozqy7qnhakv Puifd8ohgn09aJ87F85j OEdgMREcYLY7TASaOSKo yGycnt5cnR6dIj2+IDxj r7kdh1trnTy2BqXi YFDsufPszUmzSNR1d0Kk Ph41V2SglPdwc0QeMje8 gq58wQMge3Z7oDK6IVmb IJJypK1nYXczGuC2 SETwRnMlwY21eLDpPZmj Af2oaOdpcWywLA3dLKNq wqxnNNWoiT7nWAKnrYQy sNbrSG2bSZZzbytx a998NdHzTJC6KVMnfNUh W5ApgN6tTdUpYMFiQGKx Q1DnsDKmXUkmL690BHlz QaG7BQAuqjWbP1Cn BGMijKbxJqT5e3G5Lf0R m1KtkveuGXR6GYsjNLS8 RrU3NaIyHjI6D7NmOpo2 CMKzmMplAZ3dN7Xc AVHiozlifavhvYV1AQTe HYCbpZ77eMArWRklFx6z l2N0g687HRAjZQFwsN58 Ca4jcFaqMIEnpLJE bI0wxdqcl9jyopeoCzZo XLLcMZs1DVb0RJXarYmd SdWkOVR4YlA0YJD8lPWw qV0txDatpvglnZ6r Oyc+K79kaL3wWEQ0ZNP4 yknvYAOzebSdWZ61BH77 V8ZmDfthsCRckNL+PGRp ytMutKehAS8tFxXy c4szi4WuXQenO0TeBZJl ZUkmCfo8YZDfLHL2iEI3 eQ0tLRSwFFgtd5O7vKM6 I2EhxpLerx8ca9hz AVHvHIcaP49xaVZlk1K1 TWCrcUH6ICTnqAuoUmNg qX72Zbe+YLMwfMcdi8Bl Tgysj3chg4zzuTe1 IjMwJSIgdmFsaWduPSJ0 y8HxFo72V65wNCogDGQj TCSnRDDfYGGdwPdsbb4r aS7mIe2+PGNvbCB3 fFT5qU6rTJXhSnA2RLfx Y268RsBukJDkRsmuq2gi z6lasVu9CaGqKRYsyeJm mYfcOUN6z0UmIz55 E24yPMitOVDyXXGuJQVf ZCEimWyvlm6zgL8uYj2+ FQ3hv9nkaw68mW65vCV+ XYQwJQO6eAofEOau CBPkbK1qFPosJyA0VVXj AeGepV70lJZeCIxcNz3g gDgkkVlbLS1kTBXojdhm j077EdRoj3psSSSr kLPzBXykJRI0W01au8L9 FJWqISTmNBD7sIN0tX9v bGlnbjogbGVmdDsgdmVy pMavVWkpWYgiD317 IHRvcDsnPlBhdGllbnQg ZfNtQMb1X2QdKdv2UATa jUvkWO2ueAHjGPloCx2q qNinkWerCA6jGVDh ilzvi950ZkWpu7rjVDVd bKSlYYewOKN9Q93rw9K4 AKTcPMUiRLB0gNM1yI2q bGlnbjogbGVmdDsg cdZclJfuOQuzKJqkX984 IHRvcDsnPkJpcnRoIERh uBE5KH49GG65gYFyt9P6 hFL5P0ZlHFSyxejo ninecVQ7FNTbZLKzoV02 Qq0kdZqlWo9yYVGqYKH1 SIRquCWzQ9TpqI2vMmHc CGAkZSLoB1EcaWNi EYekO583KWqkMiI7NMXr jyAwD2EcOFJftQdySnW7 q8P4Mr4WR7W7KO03TG68 zZSxk0U7xFE7C9Zf SUGsofzphunjbNA1DMJh EWObaE13Ge1qrKkyKs0k KTNyXSJ8WCBfhEXdX3Fd iI8fZqMbSKWnBCFk Y5FpbKXwIHumT357VLit XxF2SWLhwwTiV2OtOCYq xTmqUvN6g2C1Vt7GKHd9 KN45CP82lFTqq6T9 sZO9M5ErSGIoaqaufswq cUB1XCGiHTOpkS01Fv2q cZejXi6wKNQuIWE7RRCe wHQzN6TyoN2fXpNu TVCrCOKdE4VxyTZmWAxs D902KHfvMgW6EMCutaJk D1KvBXTmnWadJbV5y6N2 Pb9MSNHrKJ32TGS1 sOQ3HC10NR31Q6JzFcxn dGFibGU+PHRhYmxlIHdp ZHRoPScxMDAlJyBzdHls SO5wFn1iSQWgCLEs aNjejPVnLvTrz2xgEGUl XDxhUD1hlEkfM5MqoLT0 CHJrt3q4Wd11Y18oW3Qu dXA+ESWnnLO9eIU8 fE9hCkQsHdV5SOpnI526 LdOlmGAvGbrxt1wjq6oa nPc7BeS1KFGdatJxgHyz NJN7m7OqCb60T40a IHdpZHRoPSIxNSUiIHZh jPiyel8lpD1nDj5+PGNv gRZ5xWC1aY7fEoZqWbM2 THziX669XgQftWWm Vzvzb3bik4qrrMc6BgBp NWRahzIkkZadJWT5l1Sm Yu80R5QekFolc0WtCqs6 nf62bCIrg6O5rGP1 L2TfIPYkrbsaiBRbqObl FJ2eVEVbwadlOJNngR6e TFWkM3r5LjOmTfV7OYlr R1KkavJ6QMEtyZTz IBymDBB5L61vz8X2JNZn XNUaNJP2qZC1xN5agDqz bjogbGVmdDsgdmVydGlj HXdlSZfpH639HLDf sZaoYGPjxT1pHTFigEDo bXqwBS5sJLJqazvkNdYD PQZOV5AsEYKXDruGXlrX PR37O3JyDqb5CREm kZwaDI2qqXNuYMufBa9p hKbpwNiiDR3iDJTqdtgo DJDolC1oPQZyzCEgmZag JM6aHHYzwaycp626 RyRhSJL6NNAdpGRlG4Ln dV1bLjKmFGZtLLDvO0Fa uVCaDNljB996DIpsLoT5 JFBqllZfA6HoRGCo nNqnYvC0u5Y5Aa6rVB0z RA7bVPOiGJ65XO38kMHs j2H3mGZ7H4JfTPAyeyhj yvnwrCZ3YKMsGONj lL51cSXyYJfqPb8bq5H8 m895JQWjRESlbH30Go6i xPfhFMJzdNJZyZ3crswl r8arvahjJhVgTXGf EOz8ZSr7FZSclGjzUfBs RQS0OgS1ZXY0eDEjpH8f hJkqnjxcnH0oUhm+Njkg JADpgfH5E3FtPkk1 NUEasRkiQK3btYQmVDlg Hf3sjNrrqVagCN6cXAAb mmzwAVFdoM8mRUOwnZCq fDnyWG1wYUUfucwe g012VcOqEIJ4WBDwuEMa G7VbgD8uXwUxDTFyWGAv K6WhiNSyMXlqR219APqy LtI2KVKwutRuH1Uo MOIaaWslPlV4l5H6Ij1R VQ9yyFD3X2LrJit1YBEw dAkeWG5awDPwTVnrMg2q xUllcPeaOX1rYFOj tpyaOVOnnE7aIALqoQIu qXjzOO5tYMWfbdbck457 PgWyOKQ7MOHvxLUyZ4El iM7lUtSsKEUvAWWf W3BybVLvXTtoO537QEwf WrE4RCXzdqRvG2NfRIDr oIbtTxK8i2H3Cs4DSNVj APBtbJDmIwT2D8Mc PjwvdHI+HL78LMVhZE41 qXVqhCJzg3juiTx1XyGk HWChIBV6gCorHSaqm9Mv ZOCqK79yvXVex4T3 IGNvbGxhcHNlOyBlbXB0 kD8mFQtygniyz3xhcast Xzpgp7isll68oZ85C88c IHdpZHRoPSIzMCUi MURkfMhlzd6uwK2nLk0+ CRMadOU2kGS6xF2eVxDp MzE7IOqcK104PkSbxXZk Dowla7bqx5lvhRj3 IjIwJSIgdmFsaWduPSJ0 k7XpXq42M88eBRfaNEHf PGDwHSHrUCAehFwghu7x uX4pRz0+IL2ur0oz wl58vG86bEC+PHRkIHN0 zWrzHGuiMMXokN5tPUvd WqK6AOYzMlLadZ50rLGh DUceHl8qnLjuuJci YD1kTGIszzhhu423LiYc q3qdIJRzdQHoZDicBEY9 X37if4T3ZFEbBGCnXMQ8 xCE6vE6jwYpyxjoj bGVmdDsgdmVydGljYWwt JQdcA667EWGwjDpzYtQn rTUqK9ayqnLUAL8aPgge dGQ+TOGfIYD0aGpl NYdwIQOwqM5sLMUfM3s4 QiGaLmZ0HHbdD0JqmaB3 UORjwYWeUFIdiDMGeD9v nphig7rvclhxXoGb YOWiFSa4QFs2QANkyYmj DuUcDWI2YmA8OML5nUDm oE2urBhhstiutJ6cPnr+ RklOOjwvdGQ+PHRk TEZ5wAgkCZuyOBWhmX0b ATJjN6j3WsVmGmJ9MWqk H6BoroL5OBDhzZYmQLUn xPAApQ1jzapmz1tw igftMaQyAQDpMAm0JWo5 LRLzdQqbFbFpTOP9MfN7 HCI3yAZtiN3zqQkjoaqi hL3oEnr+TVJOOjwv dGQ+CLPhZME3oYmnZDzb PRBmhO0uBYYxE4k6ZoJs BlR6IGqvH3HjkzD1OSYa yCTlWHQwvFNDiQ1g iasvn0txivpyCbRlKZEb WAr9WHq8JLQzjHrwWlDm TFU3WyG1XLF6uONueY7e oKuggxxbvA9sBvr+ SPJ4QJX5TJ02ZX66T0Eh PjwvdGFibGU+PHRhYmxl IHdpZHRoPScxMDAlJyBz wVlwJQ2gIw5uIPQy LWNv (more content not included)... Normal [facility] Physician Orderon 01-17-2022 Physician Order [id number] 7#[id number]:127 Normal [facility] Vital Signs Date Time Vital Sign Value Performing Clinician Facility 06-14-2024 14:25040 Body height 157.48 cm [facility] 06-14-2024 14:25-0400 Body mass index (BMI) [Ratio] 31.2 kg/m2 [facility] 06-14-2024 14:25-040 Body temperature 99 [degF] [facility] 06-14-2024 14:25-0400 Body weight 77.56 kg [facility] 06-14-2024 14:25-0400 Diastolic blood pressure 72 mm[Hg] [facility] 06-14-2024 14:25-0400 Heart rate 77 /min [facility] 06-14-2024 14:25-0400 SaO2% (BldA) [Mass fraction] 94 % [facility] 06-14-2024 14:25-0400 Systolic blood pressure 138 mm[Hg] [facility] 05-03-2024 10:03-0400 Body height 157.48 cm [facility] 05-03-2024 10:03-0400 Body mass index (BMI) [Ratio] 31.2 kg/m2 [facility] 05-03-2024 10:03-0400 Body weight 77.56 kg [facility] 05-03-2024 10:03-0400 Diastolic blood pressure 71 mm[Hg] [facility] 05-03-2024 10:03-0400 Heart rate 62 /min [facility] 05-03-2024 10:03-0400 Systolic blood pressure 144 mm[Hg] [facility] 05-01-2023 10:00-0400 Body height 160.02 cm Reny Smith Other [facility] Other 05-01-2023 10:00-0400 Body mass index (BMI) [Ratio] 29.33 kg/m2 Reny Smith Other [facility] Other 05-01-2023 10:00-0400 Body weight 75.12 kg Reny Smith Other [facility] Other 05-01-2023 10:00-0400 Diastolic blood pressure 65 mm[Hg] Reny Smith Other [facility] Other 05-01-2023 10:00-0400 Systolic blood pressure 125 mm[Hg] Reny Smith Other [facility] Other Encounters Encounter Date Encounter Type Care Provider Facility Start: 08-13-2024 End: 08-13-2024 ambulatory [facility] Start: 08-05-2024 End: 08-05-2024 ambulatory [facility] Start: 07-14-2024 End: 07-14-2024 Peace Ospina DO Work Phone: [facility] Start: 07-14-2024 End: 07-14-2024 Bamboo flowsheet Jr. Kelly Castanon Stepanic DO Work Phone: [facility] Start: 07-14-2024 End: 07-14-2024 Office outpatient visit 25 minutes Jr. Kelly Castanon Stepanic DO Work Phone: [facility] Comment on above: Cyst of joint of rig ht hand (Primary Dx) Start: 07-14-2024 End: 07-14-2024 ambulatory KELLY ADAME Not Available Start: 07-09-2024 End: 07-09-2024 ambulatory NON STAFF [facility] Work Phone: Start: 07-09-2024 End: 07-09-2024 Patient encounter procedure [facility] Work Phone: Start: 07-05-2024 End: 07-05-2024 ambulatory DOMINIC B APLING Not Available Start: 06-28-2024 End: 06-28-2024 Bamboo flowsheet Dominic B Apling HALL TENDER Work Phone: [facility] Start: 06-28-2024 End: 06-28-2024 Bamboo flowsheet Dominic B Apling HALL TENDER Work Phone: [facility] Start: 06-28-2024 End: 06-28-2024 Office outpatient visit 15 minutes Dominic Adrián Apling HALL TENDER Work Phone: [facility] Comment on above: Swelling of right ahn nd (Primary Dx); Right hand pain; Cyst of joint of right hand Start: 06-28-2024 End: 06-28-2024 ambulatory DOMINIC B APLING Not Available Start: 06-14-2024 End: 06-14-2024 ambulatory NON STAFF [facility] Work Phone: Start: 06-14-2024 End: 06-14-2024 Patient encounter procedure [facility] Work Phone: Start: 05-06-2024 Non-patient / Non-visit [facility] Work Phone: Start: 05-03-2024 Patient encounter procedure [facility] Start: 05-03-2024 End: 05-03-2024 ambulatory NON STAFF [facility] Work Phone: Start: 05-03-2024 End: 05-03-2024 Patient encounter procedure [facility] Work Phone: Start: 07-28-2023 End: 07-28-2023 ambulatory DOMINIC MONTOYA Not Available Start: 05-15-2023 End: 05-15-2023 ambulatory Reny Smith Other [facility] Other Start: 05-15-2023 Telephone encounter Reny Smith [facility] Start: 05-01-2023 End: 05-01-2023 ambulatory Reny Smith Other [facility] Other Start: 05-01-2023 Patient encounter procedure Reny Smith [facility] Start: 06-26-2022 End: 06-27-[address] LOTUS SERNA Facility:[facility] Start: 05-13-2022 End: 05-14-[address] RENY SMITH Facility:[facility] Procedures Date Procedure Procedure Detail Performing Clinician Start: 06-28-2024 Radex hand minimum 3 views Dominic Montoya HALL TENDER Work Phone: Plan of Treatment Date Care Activity Detail Author Start: 07-14-2024 End: 07-14-2024 Patient encounter procedure [facility] Comment on above: Arrived Start: 07-05-2024 End: 07-05-2024 Professional / ancillary services management 07/05/2024 8:30 AM EST Ancillary Procedure [facility] [address] [place] [address] [facility] Start: 06-28-2024 End: 06-28-2025 Creatinine [Mass/volume] in Serum or Plasma Creatinine, Serum Lab Routine Swelling of right hand Right hand pain Expected: 06/28/2024 (Approximate), Expires: 06/28/2025 [facility] Comment on above: Expected: 06/28/2024 (Approximate), Expires: 06/28/2025 Start: 06-28-2024 End: 06-28-2025 MR Hand - right WO and W contrast IV MR hand right w and wo IV contrast Imaging Routine Swelling of right hand Right hand pain Expected: 06/28/2024 (Approximate), Expires: 06/28/2025 [facility] Work Phone: Comment on above: Expected: 06/28/2024 (Approximate), Expires: 06/28/2025 Start: 06-28-2024 End: 06-28-2024 Patient encounter procedure 06/28/2024 8:00 AM EST Office Visit [facility] [address] [place] [id number] Dominic Montoya NP [address] [place] [address] Swelling of right hand (Primary Dx) [facility] Comment on above: Swelling of right ahn nd (Primary Dx) Start: 05-03-2024 EKG 12 channel panel [facility] Start: 04-25-2024 Influenza vaccination Influenza Vacc ine (#1) [facility] Start: 1992 Screening for malign ant neoplasm of breast Mammogram [facility] Start: 1952 Screening for malign ant neoplasm of colon [facility] Comprehensive metabo lic 2000 panel - Serum or Plasma [facility] Holter monitor study [facility] MG Breast - bilatera l Screening [facility] Immunizations Immunization Date Immunization Notes Care Provider Fa cility 07-09-2024 influenza, high dose seasonal, preservative-free [facility] 05-01-2023 influenza virus vaccine, unspecified formulation [facility] 05-01-2023 influenza, high dose seasonal, preservative-free Reny Smith Other [facility] Other 06-24-2022 COVID-19 Pfizer (Pediatric) Reny Smith Other [facility] 06-24-2022 influenza virus vaccine, split virus (incl. purified surface antigen) Reny Smith Other [facility] Other 06-24-2022 influenza virus vaccine, unspecified formulation [facility] 11-14-2020 COVID-19 Vaccine Pfi zer - Documentation Purposes Only Reny Smith Other [facility] 04-26-2020 influenza virus vaccine, split virus (incl. purified surface antigen) Reny Smith Other [facility] Other 04-26-2020 influenza virus vaccine, unspecified formulation [facility] 04-26-2020 pneumococcal polysaccharide vaccine, 23 valent Reny Smith Other [facility] 04-20-2019 pneumococcal conjuga te vaccine, 13 valent Reny Smith Other [facility] Payers Date Payer Category Payer Self-pay 2022 Private Health Insurance [employer] [id number] 2017 Medicare MEDICARE [id number] 1959 Medicare [id number] 1959 Unknown [id number] 1952 Unknown [id number] [id number]. 593 1952 Unknown [id number] 2.16.840.1.083054.3.579.2. 593 1952 Unknown [id number] 2.16.840.1.842202.3.579.2. 1259 1952 Unknown [id number] 2.16.840.1.445523.3.579.2. 1259 1952 Unknown [id number] 2.16.840.1.750692.3.579.2. 1259 1952 Unknown [id number] 2.16.840.1.310792.3.579.2. 1259 1952 Unknown [id number] 2.16.840.1.711868.3.579.2. 1259 Unknown [id number] 2.16.840.1.171789.3.579.2. 531 Social History Date Type Detail Facility Start: 07-28-2023 End: 07-14-2024 Sex Assigned At [facility] Other Start: 01-30-2023 End: 05-03-2024 Tobacco smoking status NJIS Never smoked tobacco (finding) [facility] Start: 1950 Sex Assigned At Female [facility] Start: 01-30-2023 Tobacco use and exposure Smokeless tobacco non-user [facility] Start: 07-28-2023 End: 07-14-2024 Alcoholic beverage intake Ex-drinker (finding) [facility] Start: 07-28-2023 End: 07-14-2024 History of Social function [facility] Start: 1950 Sex assigned at Not on file [facility] Start: 07-09-2024 Sex Female (finding) [facility] Clinical Notes 05-01-2023 to 08-13-2024 Jr. Kelly Ospina, DO - 07/14/2024 1:00 PM Chuck Montoya, HALL TENDER - 06/28/2024 8:00 AM EST Note Date & Type Note Facility 08-13-2024 Note [facility] Note Reason for cardiology consult: Chest pressure and palpitation Chief Complaint: Chest pressure and palpitation HPI: Deepika Fernandes is a 74 y.o. female without past medical history. She has history of hypertension, hyperlipidemia, obesity, sleep apnea diagnosed recently April 2024 on CPAP, right hand and left upper arm lipoma Patient states that she has been having episodes of palpitations about twice a week, short lasting, she feels that her heart racing. On annual well exam she was noted to have high heart rates therefore event monitor was ordered. Patient states that she used to be on lisinopril 20 mg for a while to control blood pressure but it did not and she was just started on amlodipine and lisinopril was discontinued. Patient is active and she denies any chest pain or shortness of breath at rest or with exertion. She denies dizziness or syncope or near syncope. She denies legs edema or leg discomfort on exertion She does not drink much caffeine however she eats a lot of chocolate. She tries to drink enough water She never been a smoker. She denies alcohol and illicit drugs Regarding family history mother had a pacemaker and grandmother had a stroke and [place] [facility] ROS: GENERAL: Denies fever, chills, night sweats, weight loss. HEENT: Denies changes in vision, photophobia, changes in hearing, epistaxis, oral bleeding. CARDIOVASCULAR: Denies chest pain, exertional dyspnea, orthopnea/PND, lower extremity edema, lightheadedness/dizziness. She reports occasional palpitations as described above RESPIRATORY: Denies SOB, coughing, wheezing GI: Denies abdominal pain, nausea/vomiting, heartburn, melena/hematochezia. RENAL: Denies dysuria, hematuria, flank pain. MSK: Denies muscle weakness/pain, arthralgias/joint pain. NEUROLOGIC: Denies LOC, weakness, numbness, headaches. SKIN: Denies abnormal rashes or bleeding. PSYCH: Denies significant anxiety, depression, sleep disturbances. Past Medical History She has a past medical history of Cancer (CMS/HCC), Hyperlipidemia, Hypertension, and Sleep apnea. Surgical History She has a past surgical history that includes Cholecystectomy and Carpal tunnel release. Social History She reports that she has never smoked. She has never used smokeless tobacco. She reports that she does not currently use alcohol. No history on file for drug use. Family History Family History Problem Relation Name Age of Onset Other (pacemaker in situ) Mother Atrial fibrillation Brother Stroke Maternal Grandmother Allergies Patient has no known allergies. Medications Current Outpatient Medications: amLODIPine (Norvasc) 5 mg tablet, Take 5 mg by mouth in the morning., Disp: , Rfl: atorvastatin (Lipitor) 20 mg tablet, Take 20 mg by mouth at bedtime., Disp: , Rfl: sertraline (Zoloft) 100 mg tablet, Take 100 mg by mouth in the morning., Disp: , Rfl: amLODIPine (Norvasc) 10 mg tablet, Take 1 tablet (10 mg) by mouth once daily as directed., Disp: 90 tablet, Rfl: 3 apixaban (Eliquis) 5 mg tablet, Take 1 tablet (5 mg) by mouth two times daily., Disp: 60 tablet, Rfl: 11 Last Recorded Vitals Visit Vitals BP 160/72 (BP Location: Left arm, Patient Position: Sitting) Pulse 67 Ht 1.575 m (5' 2 ) Wt 77.6 kg (171 lb) SpO2 97% BMI 31.28 kg/m??? Smoking Status Never BSA 1.84 m??? Physical Examination: GENERAL: alert and oriented x3, well developed, in no acute distress. HEAD: atraumatic, normocephalic. EYES: JOHN, EOMI. NECK: trachea midline, no JVD present, no carotid bruits present. CARDIAC: S1, S2 present. RRR. No murmur, rubs, or gallops. RESPIRATORY: CTAB, no increased effort of breathing, no rales, rhonchi, or wheezing. ABDOMEN: soft, nontender, nondistended. EXTREMITIES: no lower extremity edema, peripheral pulses are 2+ bilaterally. No rash/skin discoloration present. NEURO: strength/sensation equal and symmetric in bilateral upper and lower extremities. PSYCH: appropriate mood, affect, and judgement. Labs: 05/03/2024 White blood count 8.2, hemoglobin 14.7, hematocrit 45.3, platelets 206 Sodium 139, potassium 4.1, BUN 17, creatinine 0.99, GFR above 60 glucose 91, calcium 9.7 Total bilirubin 0.4, AST 23, ALT 29, alk phos 107, total protein 7.7, albumin 4 Triglyceride 91, cholesterol 163, LDL 83, HDL 62 TSH 2.66 Last Images: EKG 05/06/2024 showed low atrial rhythm with heart rate 56 bpm, otherwise no other abnormalities 30-day event monitor 05/06/2024 Assessment and Plan: Palpitations Paroxysmal atrial flutter noted on event monitor Sinus bradycardia, asymptomatic Essential hypertension, on amlodipine. Not well-controlled. She used to be on lisinopril 20 mg daily which did not control blood pressure adequately Hyperlipidemia, on atorvastatin, well-controlled Obesity, BMI 31.3 kg/m??? Sleep apnea on BiPAP for about 1 month Right hand and left upper ext (more content not included)... [facility] 08-05-2024 Note Orthopaedic Surgery Subjective Pain of the Right Hand 08/05/24 Kalani Fernandes is a 74 y.o. RHD female presenting for evaluation of a mass in the right hand and triggering of the middle finger. She first noticed the mass in March and states it has gradually increased in size. She reports locking and triggering of the long finger. Patient also reports a mass in the LUE for the past 10 years. 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 She would like to get both masses removed, however is concerned about the recovery with the right hand being so close to her busy season. History History reviewed. No pertinent surgical history. History reviewed. No pertinent past medical history. Objective General: Body mass index is 31.09 kg/m???. No acute distress, comfortable Right UE/Hand: Inspection- no swelling, no deformity or contracture, supple skin with no lesions, mass over the distal palm between the small and ring fingers Non-tender to palpation throughout ROM:full painless motion to all digits and the wrist Strength: mica spreader 5/5, thumb 5/5, interossei 5/5. wrist extension/flexion 5/5 Sensation: intact over median, ulnar, and radial nerve distributions Thumb: normal A1 eduin and AROM, Index finger: normal A1 eduin and AROM, Long finger: normal A1 eduin and AROM, Long finger: TTP over A1 eduin, + triggering, Ring finger: normal A1 eduin and AROM, and Small finger: normal A1 eduin and AROM Negative carpal tunnel compression test, Negative Tinel's at the Carpal Tunnel, Negative Coleen's test, and Negative Tinel's at the Cubital Tunnel Cardiovascular: Well-perfused digits Imaging MR of the left hand performed on 07/06/2024: Lipomatous lesion approximately 12 x 10 x 12 mm most likely representing a lipoma Imaging personally reviewed and interpreted by attending physician. Findings discussed with patient. Steroid Injections: R long A1 for trigger finger on 08/05/2024 1:47 PM Indications: pain Details: 21 G needle, volar approach Medications: 1 mL triamcinolone acetonide (Kenalog-10) 10 mg/mL; 1 mL lidocaine (PF) 10 mg/mL (1 %) Outcome: tolerated well, no immediate complications Procedure, treatment alternatives, risks and benefits explained, specific risks discussed. Immediately prior to procedure a time out was called to verify the correct patient, procedure, equipment, supportability engineer and site/side marked as required. Patient was prepped and draped in the usual sterile fashion. Assessment/Plan Kalani Fernandes is a 74 y.o. 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 Patient also has right long finger trigger finger. -Discussed conservative management versus surgical intervention with the patient. Patient expressed that she would like the masses removed surgically. 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 The office will call her to schedule surgery, if she is able to get added on in early August she will have the right hand mass removed and will plan for removal of the left upper extremity mass at a later date. Risks and benefits of surgery were discussed with the patient and consent was obtained for right hand and left upper extremity mass excision. For the right long finger trigger finger we recommended a corticosteroid injection which was administered in clinic today. -Return to clinic postoperatively Will Germain MD Orthopaedic Surgery Resident, PGY-1 08/05/24 1:43 PM By using the attestations below, the signing clinician agrees that I have read and verify that the documentation has been personally reviewed by me and ensure that the documentation accurately reflects the encounter. GC: I personally saw this patient on the day of the encounter, performed the frey portion(s) of the service and participated in the management and confirm the resident's documentation. Please note there may be an additional personal documentation from me. [facility] 08-05-2024 Note Patient ID: Kalani Fernandes is a 74 y.o. female. Steroid Injections for trigger finger on 08/05/2024 3:00 PM Details: 25 G needle, volar approach Medications: 1 mL lidocaine HCl 10 mg/mL (1 %); 1 mL triamcinolone acetonide (Kenalog-40) 40 mg/mL Outcome: tolerated well, no immediate complications After discussing the treatment options, and the risks and benefits of a corticosteroid injection, verbal consent to proceed was obtained. The right middle finger trigger digit was injected in the clinic today. The area was prepped with Betadine. A combination of 1 mL each of 1 percent lidocaine and Kenalog 40 mg/mL was injected into the flexor sheath using a 25-gauge needle. The area was wiped clean with an alcohol swab, and dressed with a Band-Aid. Instructions were given to either ice the area for about 10 minutes later today or use anti-inflammatories for discomfort. We also instructed that the finger would likely be numb for a couple of hours and to be careful until the sensation returned. Procedure, treatment alternatives, risks and benefits explained, specific risks discussed. Consent was given by the patient. Immediately prior to procedure a time out was called to verify the correct patient, procedure, equipment, supportability engineer and site/side marked as required. Procedure Attestation Level of Attending Supervision for Procedure I was present for the frey and critical portions and I was otherwise immediately available to assist [facility] 07-14-2024 History of Present illness Narrative Images from the original note were not included. HISTORY OF PRESENT ILLNESS: EST PT Kalani Fernandes is an 74 y.o. @ female. (EST PT ; LAST APPT W/ MOR) RECHECK (R) HAND CYST ; HERE FOR MRI RESULTS 07/05/24 IN [facility]YS 06/28/24 IN [facility] MRI 07/05/24 IN EPIC NO MDP / PREDNISONE NO CORTISONE INJ NO PHYSICAL THERAPY NO PAIN MGMT NOTES INTERMITTENT DISCOMFORT WITH ACTIVITY / MOVEMENT / LIFTING - PT STATES LUMP IS GROWING LARGER - LOCATED BETWEEN 4TH / 5TH MCP JOINT ; PALMAR ASPECT. NOTES LIMITED ROM ; SOME WEAKNESS. NO N/T. TAKING IBUPROFEN. PREVIOUS (R) THUMB TRIGGER RELEASE 06/2023 - DR KHAN ALLERGIES: No Known Allergies HOME MEDICATIONS: Current Outpatient Medications Medication Instructions atorvastatin (Lipitor) 20 MG tablet Every 24 hours Calcium Carb-Cholecalciferol (Calcium + Vitamin D3) 500-10 MG-MCG chewable tablet Calcium + Vitamin D3 lisinopril 20 MG tablet Daily Misc Natural Products (OSTEO BI-FLEX TRIPLE STRENGTH PO) Osteo Bi-Flex Triple Strength Multiple Vitamin (multivitamin) tablet 1 tablet, Daily omega-3 (Fish Oil) 500 MG capsule 1 capsule, Every 12 hours sertraline (Zoloft) 100 MG tablet PHYSICAL EXAM: Hand/Wrist Musculoskeletal Exam Inspection Right Edema: mild (between 4th and 5th A-1 eduin, size of a dime) Hand - prior incision: none Palpation Palpation additional comments: There is tenderness over the swelling, trace firmness, the cyst is moveable, the cyst does not move when the 4th and 5th finger is extended or flexed, no erythema, no warmth, no Pulsation, no locking or triggering, there is clicking of the A-1 eduin of the 5th PIP joint no locking. Strength Strength additional comments: Full extension and flexion of the LF and RF, pain with terminal flexion, no pain with extension Neurovascular Right Capillary refill: brisk Ulnar nerve sensory distribution: normal Median nerve sensory distribution: normal Vitals: There is no height or weight on file to calculate BMI. Tobacco Use: Low Risk (07/14/2024) Patient History Smoking Tobacco Use: Never Smokeless Tobacco Use: Never Passive Exposure: Not on file Alcohol Use: Not on file IMAGING: Procedures No orders of the defined types were placed in this encounter. ASSESSMENT: ICD-10-CM 1. Cyst of joint of right hand M25.841 PLAN: Probable lipoma palmar aspect fourth and fifth digits on MRI. We have discussed her MRI with her at length including the possibility of lipoma versus liposarcoma. We have recommended she follow up with Drs. Sanchez for definitive treatment. We'll see her back on a when necessary basis. We have discussed restrictions and home exercise program in the interim. Doing right now changes Questions answered in laymen terms at the bedside. The diagnosis, home exercise plan and any ongoing restrictions/ recommendations reviewed. If unable to be reached in office, I recommend evaluation at nearest Emergency Room if any symptoms worsened or new symptoms develop for requiring urgent evaluation. documented in this encounter [facility] 06-28-2024 History of Present illness Narrative Images from the original note were not included. Subjective Patient ID: Kalani Feranndes is a 74 y.o. female. RT Hand Cyst No studies Pt is RT handed. Pt noticed a small hard lump on the palmar aspect of her hand between 4th and 5th MCP joint x 2 months (Apr 2024) NKI. States it has been growing since she first noticed it, and it is hard to the touch. Occas gets pain on the lump with gripping and with certain movements. Denies radiation. Denies N/T. Denies pain at rest. Pain at worst 5/10 with gripping. Denies pain meds. Has tried heat w/o relief. Denies ice or creams. Denies waking at night. Had CTS 10+ years ago and June 2023 had RT thumb trigger release sx with Dr. Khan. [place]: heat, XR [facility] 06/28/24 Here with her Chris. Objective Ortho Exam Hand/Wrist Musculoskeletal Exam Inspection Right Edema: mild (between 4th and 5th A-1 eduin, size of a dime) Palpation Palpation additional comments: There is tenderness over the swelling, trace firmness, the cyst is moveable, the cyst does not move when the 4th and 5th finger is extended or flexed, no erythema, no warmth, no locking or triggering, there is clicking of the A-1 eduin of the 5th PIP joint no locking. Strength Strength additional comments: Full extension and flexion of the LF and RF, pain with terminal flexion, no pain with extension Neurovascular Right Capillary refill: brisk Ulnar nerve sensory distribution: normal Median nerve sensory distribution: normal XR hand 3+ views right Imaging Result: Xrays AP, LAT and OBL of the right hand performed on June 28, 2024 demonstrates Narrowing of the 1st carpometacarpal joint with adjacent sclerosis and slight subluxation consistent withfirst CMC arthritis, no swelling or fractures noted. Impression First [facility] arthritis Dominic Montoya APPLICATION INTEGRATION ENGINEER Assessment/Plan Encounter Diagnoses: ICD-10-CM 1. Swelling of right hand M79.89 XR hand 3+ views right MR hand right w and wo IV contrast Creatinine, Serum Creatinine, Serum 2. Right hand pain M79.641 MR hand right w and wo IV contrast Creatinine, Serum Creatinine, Serum 3. Cyst of joint of right hand M25.841 discussion of due to failure of conservative treatment would recommend an MRI of the right hand with and without contrast, activities as tolerated, f/u s/p MRI to be done at [facility] documented in this encounter [facility] 05-03-2024 Evaluation note Diagnosis Onset Date Resolution Dyslipidemia acute April 9:55am Essential hypertension acute Se ptember 2023 9:55am Medicare annual wellness visit, subsequent acute May 03, 024 9:55am Palpitations acute April 9:55am Screening mammogram for breast cancer acute May 03, 024 9:55am Maxillary sinusitis, acute acute June 14 2:21pm [facility] Work Phone: [phone]) 887-974709-07-2023 Evaluation note* Encounter Date Diagnosis Assessment Notes Treatment Notes Treatment Clinical Notes Apr, Medicare annual wellness visit, subsequent [...] mammogram for breast cancer (ICD-10 - Z12.31) [place] [facility] Other Evaluation noteNo [place] [facility] Other Evaluation note* Diagnosis Onset Date Resolution Status Dyslipidemia acute Essential hypertension acute Palpitations acute Screening mammogram for breast cancer acute [facility] Work Phone: Evaluation note* Diagnosis Onset Date Resolution Status Dyslipidemia acute Essential hypertension acute Medicare annual wellness visit, subsequent acute Palpitations acute Screening mammogram for breast cancer acute [facility] Work Phone: Evaluation note* Diagnosis Onset Date Resolution Status Dyslipidemia acute Essential hypertension acute Medicare annual wellness visit, subsequent acute Palpitations acute Screening mammogram for breast cancer acute Maxillary sinusitis, acute a cute [facility] Work Phone: Evaluation note* Diagnosis Swelling of right hand- Primary Right hand pain Pain in soft tissues of limb Cyst of joint of right hand [facility] Diagnosis Cyst of joint of right hand- Primary documented in this encounter [facility] Narrative - Reported* Type Description Date Medical History Dyslipidemia Medical History Essential hypertension Medical History Major depressive disorder withou t psychotic features Medical History Personal history of malignant me lanoma of skin Surgical History Cholecystectomy Surgical History Wide excision of Melanoma 2013 Surgical History [facility] Hospitalization History see surgical [place] Other History general Narrative - Reported* Type Description Date Surgical History Cholecystectomy Surgical History Wide excision of Melanoma 2013 Surgical History [facility] Hospitalization History see surgical [place] Other Summary Purpose Family History No Family History Records Found Relationship Condition Age at Onset Recorded Date/T smiley mother Family history of thyroid disease Unknown History of stroke Unknown Advance Directives No Advanced Directives Records Found Advance Directive Response Recorded Date/ Time Advance Directives No April 9:52am Advance Directive Response Recorded Date/ Time Advance Directives No April 8:52am Chief Complaint and Reason for Visit Chief [...] mammogram for breast cancer Maxillary sinusitis, acute Chief Complaint Admit Date wellness May 03, 2024 9:55am R00.2 May 03, 2024 10:37am head congestion June 14, 2024 2 :21pm flu shot July 09, 2024 11:26am Reason for Visit Admit Date Dyslipidemia May 03, 2024 9:55am Essential hypertension May 03 9:55am Medicare annual wellness visit, subseque nt May 03, 2024 9:55am Palpitations May 03, 2024 9:55am Screening mammogram for breast cancer Se ptember 2023 9:55am Maxillary sinusitis, acute June 14, 2024 2:21pm Additional Source Comments INFORMATION SOURCE (unrecogn ized section and content) DATE CREATED AUTHOR 03/13/2022 [facility] DATE CREATED AUTHOR AUTHOR'S ORGANIZ ATION 07/30/2022 [facility] DATE CREATED AUTHOR AUTHOR'S ORGANIZ ATION 05/12/2024 [facility] DATE CREATED AUTHOR AUTHOR'S ORGANIZ ATION 07/05/2024 [facility] DATE CREATED AUTHOR AUTHOR'S ORGANIZ ATION 07/17/2024 [facility] EPIC DATE CREATED AUTHOR AUTHOR'S ORGANIZ ATION 08/17/2024 [facility] REASON FOR VISIT (unrecogniz ed section and content) Reason Comments Pain Reason Comments Pain Care Teams (unrecognized sec tion and content) Team Status: Active Member Role Status Dates NON STAFF Primary Care Provider Active Team Status: Inactive Member Role Status Dates NON STAFF Primary Care Provider Active Start: May 03, 2024 End: May 03, 2024 Reny Smith MD Attending Provider Active St art: May 03, 2024 End: May 03, 2024 Team Status: Active Member Role Status Dates NON STAFF Primary Care Provider Active Start: May 03, 2024 Reny Smith MD Attending Provider Active St art: May 03, 2024 Team Status: Active Member Role Status Dates NON STAFF Primary Care Provider Active Start: May 06, 2024 Rodríguez Chavez DO Attending Provider Active Sta rt: May 06, 2024 Team Status: Inactive Member Role Status Dates NON STAFF Primary Care Provider Active Start: June 14, 2024 End: June 14, 2024 Karis Pearl APRN HALL TENDER-C Attending Provider Active Start: June 14, 2024 End: June 14, 2024 Technology Infusion Specialist Relationship Specialty Start Date End Date Reny Smith MD [address] [place] [id number] PCP - General Family Medicine 01/17/23 Technology Infusion Specialist Relationship Specialty Start Date End Date Reny Smith MD [address] [place] [id number] PCP - General Family Medicine 01/17/23 Team Status: Inactive Member Role Status Dates NON STAFF Primary Care Provider Active Start: July 09, 2024 End: July 09, 2024 Reny Smith MD Attending Provider Active St art: July 09, 2024 End: July 09, 2024 Technology Infusion Specialist Relationship Specialty Start Date End Date Reny Smith MD [address] [place] [id number] PCP - General Family Medicine 01/17/23 Technology Infusion Specialist Relationship Specialty Start Date End Date Reny Smith MD [address] [place] [id number] PCP - General Family Medicine 01/17/23 Goals [...] BE BASED ON THE PRIMARY CLINICAL RECORDS. [employer] provides no warranty or guarantee of the accuracy or completeness of information in this document.
== END 2024-08-19 09:02 | disposition home or self-care (01) ==
LOC: CARD 09:01
PROVIDERS: PCP Family Medicine; Visit Provider Internal Medicine Cardiovascular Disease
DX: I48.3 Typical atrial flutter (principal)
CPT/HCPCS: 93306

== ENCOUNTER 2024-09-08 12:32 | Outpatient (OUT) | payer MEDICARE, OTHER, SELFPAY ==
[2024-09-08 13:27] LABS: Anion Gap 11.3; BUN Creatinine Ratio 18.8; Calcium 9.8 mg/dL (8.5-10.1); Chloride 102 mmol/L (98-107); Estimated GFR (African America >60 (>=60 mL/min/1.73m^2); Estimated GFR (Non-African Ame 54 (>=60 mL/min/1.73m^2); Glucose 89 mg/dL (74-106); Potassium 4.3 mmol/L (3.5-5.1); Sodium 139 mmol/L (136-145)
== END 2024-09-08 12:33 | disposition home or self-care (01) ==
LOC: LAB 12:33
PROVIDERS: PCP Family Medicine; Visit Provider Internal Medicine Cardiovascular Disease
DX: I50.41 Acute combined systolic (congestive) and diastolic (congestive) heart failure (principal)
CPT/HCPCS: 36415; 80048

== ENCOUNTER 2024-09-24 17:47 | Inpatient (IN) | payer MEDICARE, OTHER, SELFPAY ==
[2024-09-24] VITALS (25 sets, daily range): BP systolic 114–168; BP diastolic 62–128; PULSE 63–156; TEMP 36.5; O2SAT 93–97
--- OUTSIDE RECORDS SUMMARY | 2024-09-24 18:03 | XMS_ITS | CCD ---
Author Organization [facility] Care Team Providers Care Weighing Station Operator Name Role Phone WEST, DR LOTUS [...] Provider UnavailMD Reny Mendoza Attending Provider Reny Smith Attending Unavailable Reny Smith Admitting Unavailable NON STAFF Primary Care Unavailable Reny Smith MD Primary Care Provider NON STAFF Primary Care Provider UnavailReny Mendoza MD Attending Provider DOMINIC MONTOYA Attending Unavailable DOMINIC MONTOYA Attending Unavailable DOMINIC MONTOYA Referring Unavailable DOMINIC MONTOYA Referring Unavailable JR. OSPINA GEORGE C Attending Unavaila UDAY Adair Referring Unavailable SOL MARIE Attending Unavailable UDAY SANCHEZ Attending Unavailable KELLY OSPINA Referring Unavailable Medications [...] Test Name Value Interpretation Reference Range Facility 36on 08-30-2024 36 Regarding echo result from 08/19/2024: MD Johanna Mcelroy MA Echo shows normal cardiac systolic function-contractili ty but there is significant diastolic dysfunction and also elevated pulmonary pressures therefore I would like to add Aldactone 25 mg daily and Lasix 20 mg daily to her current medications with following low-salt diet and check BMP in 1 week. Also let her continue to check her blood pressure twice daily for 2 weeks and send the log. Spoke with patient and informed her of new meds and labs ordered. She will continue to keep track of her BP and bring log with her when she sees Dr. Lee soon. She will look into [facility] for both Eliquis and Xarelto and let me know which one she wants us to fax into them. [facility] 36on 08-26-2024 36 Patient calling asking for echo results. It is scanned into digital media associate for your review. Also, Eliquis is very expensive for her. She said her takes Xarelto and that is very expensive for them also. Can I send a referral to coumadin clinic or would you like something else? Please advise. Thanks. [facility] Office Visiton 08-13-2024 Follow-up visit [id number] Kalani Fernandes 1950 F Date Provider Department Center 08/13/2024 [id number] MARIE KIMBERLY [facility] Family History Problem Relation Age of Onset Other Mother Atrial fibrillation Brother Stroke Maternal Grandmother Family Status - Relation Status Age at Mother Brother Maternal Grandmother Level of Service:52150 MI OFFICE/OUTPATIENT NEW MODERATE MDM 45 MINUTES Reason for Visit and Comments: Hypertension [722702] - Used to be on lisinopril but was recently switched to amlodipine 5mg daily. Denies swelling. Hyperlipidemia [182] - On atorvastatin Palpitations [821718] - Recently wore 30 day event monitor for palpitations, but hasn't had them recently. Sleep Apnea [348] - Compliant with bipap therapy. [facility] Orders Onlyon 08-13-2024 Orders Only [id number] Kalani Fernandes 1950 Provider Department Center 08/13/2024 928-KATERINA SAHNI KIMBERLY [facility] Family History Problem Relation Age of Onset Other Mother Atrial fibrillation Brother Stroke Maternal Grandmother Family Status - Relation Status Age at Mother Brother Maternal Grandmother [facility] 36on 08-12-2024 36 Patient was scheduled [facility] Orders Onlyon 08-12-2024 Orders Only [id number] Kalani Fernandes 1950 Provider Department [place] 08/12/2024 803-CATARINA CRANE MP ORTHO MPORTHO Family History Problem Relation Age of Onset Other Mother Atrial fibrillation Brother Stroke Maternal Grandmother Family Status - Relation Status Age at Mother Brother Maternal Grandmother [facility] 36on 08-11-2024 36 Patient was seen 08/05/24. She called stating that someone was suppose to call her to set up date and time for surgery. She states that she has not received a call. Please advise. Thank you. [facility] Office Visiton 08-05-2024 Follow-up visit [id number] Kalani Fernandes 1950 Provider Department Center 08/05/2024 UDAY GAMING [facility] [place] [facility] No family history on file Level of Service:27911 [place] OFFICE/OUTPATIENT NEW LOW MDM 30 MINUTES (GC,25) Reason for Visit and Comments: Pain [136] [facility] 36on 07-15-2024 36 Patient called to schedule a new patient appointment with our office. 08/05 Patient wants to be seen for: Cyst of joint of right hand Patient had MRI done at [facility] 07/05/24 Patient had Trigger Thumb done on 07/[address] Khan @ [facility] Patient saw Dr. Ospina for this issues. They were referred to us from this provider. This appointment is not a second opionion This appointment IS NOT related to a work related injury Normal [facility] MR HAND RIGHT W AND WO IV [...] 07-03-2024 Creatinine [Mass/Vol] 0.90 mg/dL Normal 0.60-1.00 [facility] Comment on above: Performed By: #### 3 75 #### [facility] [address], [address] [place] [phone] Sheet Metal Production Worker: Shiraz Regalado MD GFR/1.73 sq M.predicted among non-blacks MDRD (S/P/Bld) [Vol rate/Area] 68 mL/min/{1.73_m2} Normal > OR = 60 [facility] Comment on above: Performed By: #### 3 75 #### [facility] [address], [address] [place] [phone] [employer] Production Worker: Shiraz Regalado MD XR Hand - right 3 [facility] Result: Xrays AP, LAT and OBL of the right hand performed on June 28, 2024 demonstrates Narrowing of the 1st carpometacarpal joint with adjacent sclerosis and slight subluxation consistent withfirst [facility] arthritis, no swelling or fractures noted. Impression First [facility] arthritis Dominic Montoya TEA TASTER [facility] Study observation (narrative) [facility] XR Hand - right 3 ViewsOrder ed By: El Khan on 06-28-2024 [facility] [employer] Work Phone: Basophils Auto (Bld) [#/Vol] on 05-03-2024 Basophils (Bld) [#/Vol] 0.0 10 3/uL 0.0-0.1 [facility] Basophils (Bld) [#/Vol] Automated basophil count 0.0-0.1 [facility] Basophils/100 WBC Auto (Bld) on 05-03-2024 Basophils/100 WBC (Bld) 0.5 % 0.2-2.0 [facility] Basophils/100 WBC (Bld) Automated basophil % 0.2-2.0 [facility] Cholesterol in LDL Calc [Mas s/Vol]on 05-03-2024 Cholesterol in LDL [Mass/Vol] 83.0 mg/dL [facility] Comment on above: <100 mg/dl [id number] 0-129 mg/dl NEAR OR ABOVE [id number] mg/dl BORDERLINE [id number] mg/dl HIGH>190 mg/dl VERY HIGH Cholesterol in LDL [Mass/Vol] Cholesterol in LDL [Mass/volume] in Serum or Plasma by calculation [facility] Comment on above: <100 mg/dl [id number] 0-129 mg/dl NEAR OR ABOVE [id number] mg/dl BORDERLINE [id number] mg/dl HIGH>190 mg/dl VERY HIGH Cholesterol in VLDL Calc [Ma ss/Vol]on 05-03-2024 Cholesterol in VLDL [Mass/Vol] 18.2 mg/dL [facility] Cholesterol in VLDL [Mass/Vol] Cholesterol in VLDL [Mass/volume] in Serum or Plasma by calculation [facility] Eosinophils/100 WBC Auto (Bl d)on 05-03-2024 Eosinophils/100 WBC (Bld) 1.6 % 0.9-7.0 [facility] Eosinophils/100 WBC (Bld) Automated eosinophil % 0.9-7.0 [facility] Erythrocyte distribution wid th Auto (RBC) [Ratio]on 05-03-2024 Erythrocyte distribution width (RBC) [Ratio] 14.4 % 11.0-15.0 [facility] Erythrocyte distribution width (RBC) [Ratio] Erythrocyte distribution width [Ratio] by Automated count 11.0-15.0 [facility] Estimated glomerular filtrat ion rate (GFR) non- Americanon 05-03-2024 GFR/1.73 sq M.predicted among non-blacks MDRD (S/P/Bld) [Vol rate/Area] 55 mL/min/{1.73_m2} Low >=60 [facility] GFR/1.73 sq M.predicted among non-blacks MDRD (S/P/Bld) [Vol rate/Area] Estimated glomerular filtration rate (GFR) non- Low >=60 [facility] Globulin Calc (S) [Mass/Vol] on 05-03-2024 Globulin (S) [Mass/Vol] 3.7 g/dL [facility] Globulin (S) [Mass/Vol] Serum globulin measurement by calculation (mass/volume) [facility] Hematocrit Auto (Bld) [Volum e fraction]on 05-03-2024 Hematocrit (Bld) [Volume fraction] 45.3 % 36.0-48.0 [facility] Hematocrit (Bld) [Volume fraction] Hematocrit [Volume Fraction] of Blood by Automated count 36.0-48.0 [facility] Hemoglobin [Mass/volume] in Bloodon 05-03-2024 Hemoglobin (Bld) [Mass/Vol] 14.7 g/dL 12.0-16.0 [facility] Hemoglobin (Bld) [Mass/Vol] Hemoglobin [Mass/volume] in Blood 12.0-16.0 [facility] Laboratory - Chemistry and C hemistry - challengeon 05-03-2024 Albumin [Mass/Vol] 4.0 g/dL 3.4-5.0 [facility] ALP [Catalytic activity/Vol] 107 U/L 46-116 [facility] ALT [Catalytic activity/Vol] 29 U/L 14-59 [facility] AST [Catalytic activity/Vol] 23 U/L 15-37 [facility] Bilirubin [Mass/Vol] 0.4 mg/dL 0.2-1.0 [facility] Calcium [Mass/Vol] 9.7 mg/dL 8.5-10.1 [facility] Chloride [Moles/Vol] 103 mmol/L 98-107 [facility] Cholesterol [Mass/Vol] 163 mg/dL <=200 [facility] Cholesterol in HDL [Mass/Vol] 62 mg/dL High 40-60 [facility] Comment on above: > or =60 mg/dl - LOW CARDIOVASCULAR RISK<40 mg/dl - HIGH CARDIOVASCULAR RISK CO2 [Moles/Vol] 30.1 mmol/L 21.0-32.0 [facility] Creatinine [Mass/Vol] 0.99 mg/dL 0.55-1.02 [facility] GFR/1.73 sq M.predicted MDRD (S/P/Bld) [Vol rate/Area] mL/min/{1.73_m2} >=60 [facility] Glucose [Mass/Vol] 91 mg/dL 74-106 [facility] Potassium [Moles/Vol] 4.1 mmol/L 3.5-5.1 [facility] Protein [Mass/Vol] 7.7 g/dL 6.4-8.2 [facility] Sodium [Moles/Vol] 139 mmol/L 136-145 [facility] Triglyceride [Mass/Vol] 91 mg/dL <=150 [facility] TSH Qn 2.666 m[IU]/L 0.358-3.740 [facility] Urea nitrogen [Mass/Vol] 17.0 mg/dL 7.0-18.0 [facility] Urea nitrogen/Creatinine [Mass ratio] 17.2 mg/mg [facility] Laboratory - Hematology and Cell countson 05-03-2024 Immature granulocytes/100 WBC (Bld) 0.2 % 0.0-0.5 [facility] Leukocytes [#/volume] correc alyssia for nucleated erythrocytes in Blood by Automated counon 05-03-2024 WBC corrected for nucl RBC Auto (Bld) [#/Vol] 8.2 10 3/uL 4.0-11.0 [facility] WBC corrected for nucl RBC Auto (Bld) [#/Vol] Leukocytes [#/volume] corrected for nucleated erythrocytes in Blood by Automated coun 4.0-11.0 [facility] Lymphocytes Auto (Bld) [#/Vo l]on 05-03-2024 Lymphocytes (Bld) [#/Vol] 2.5 10 3/uL 1.2-3.8 [facility] Lymphocytes (Bld) [#/Vol] Lymphocytes [#/volume] in Blood by Automated count 1.2-3.8 [facility] Lymphocytes/100 WBC Auto (Bl d)on 05-03-2024 Lymphocytes/100 WBC (Bld) 30.3 % 20.5-60.0 [facility] Lymphocytes/100 WBC (Bld) Lymphocytes/100 leukocytes in Blood by Automated count 20.5-60.0 [facility] MCH Auto (RBC) [Entitic mass ]on 05-03-2024 MCH (RBC) [Entitic mass] 30.1 pg 26.7-34.0 [facility] MCH (RBC) [Entitic mass] MCH [Entitic mass] by Automated count 26.7-34.0 [facility] MCHC Auto (RBC) [Mass/Vol]on 05-03-2024 MCHC (RBC) [Mass/Vol] 32.5 g/dL 29.9-35.2 [facility] MCHC (RBC) [Mass/Vol] MCHC [Mass/volume] by Automated count 29.9-35.2 [facility] MCV Auto (RBC) [Entitic vol] on 05-03-2024 MCV (RBC) [Entitic vol] 92.6 fL 81.0-99.0 [facility] MCV (RBC) [Entitic vol] MCV [Entitic volume] by Automated count 81.0-99.0 [facility] Monocytes Auto (Bld) [#/Vol] on 05-03-2024 Monocytes (Bld) [#/Vol] 0.5 10 3/uL 0.3-0.8 [facility] Monocytes (Bld) [#/Vol] Automated blood monocyte count 0.3-0.8 [facility] Monocytes/100 WBC Auto (Bld) on 05-03-2024 Monocytes/100 WBC (Bld) 5.9 % 1.7-12.0 [facility] Monocytes/100 WBC (Bld) Automated monocyte % 1.7-12.0 [facility] Neutrophils Auto (Bld) [#/Vo l]on 05-03-2024 Neutrophils (Bld) [#/Vol] 5.0 10 3/uL 1.4-6.5 [facility] Neutrophils (Bld) [#/Vol] Neutrophils [#/volume] in Blood by Automated count 1.4-6.5 [facility] Neutrophils/100 WBC Auto (Bl d)on 05-03-2024 Neutrophils/100 WBC (Bld) 61.5 % 43.0-75.0 [facility] Neutrophils/100 WBC (Bld) Automated neutrophil % 43.0-75.0 [facility] No Panel Informationon 05-03 Eosinophils # (Auto) 0.1 10 3/uL 0.0-0.7 [facility] Immature Granulocyte # (Auto) 0.02 10 3/uL 0.00-0.03 [facility] Platelet mean volume Auto (B ld) [Entitic vol]on 05-03-2024 Platelet mean volume (Bld) [Entitic vol] 9.7 fL 9.5-13.5 [facility] Platelet mean volume (Bld) [Entitic vol] Platelet mean volume [Entitic volume] in Blood by Automated count 9.5-13.5 [facility] Platelets Auto (Bld) [#/Vol] on 05-03-2024 Platelets (Bld) [#/Vol] 206 10 3/uL 150-450 [facility] Platelets (Bld) [#/Vol] Platelets [#/volume] in Blood by Automated count 150-450 [facility] RBC Auto (Bld) [#/Vol]on RBC (Bld) [#/Vol] 4.89 10 6/uL 4.20-5.40 [facility] RBC (Bld) [#/Vol] Erythrocytes [#/volume] in Blood by Automated count 4.20-5.40 [facility] Serum or plasma albumin/glob ulin mass ratioon 05-03-2024 Albumin/Globulin [Mass ratio] 1.1 {ratio} [facility] Albumin/Globulin [Mass ratio] Serum or plasma albumin/globulin mass ratio [facility] Serum or plasma anion gap de terminationon 05-03-2024 Anion gap [Moles/Vol] 10.0 mmol/L [facility] Anion gap [Moles/Vol] Serum or plasma anion gap determination [facility] Serum or plasma total choles terol/high density lipoprotein (HDL) cholesterol mass gloria 05-03-2024 Cholesterol.total/Ch olesterol in HDL [Mass ratio] 2.6 {ratio} [facility] Comment on above: 3.3 - 4.4 LOW RISK4. 4 - 7.1 AVERAGE RISK7.1 - 11.0 MODERATE RISK>11.0 HIGH RISK Cholesterol.total/Ch olesterol in HDL [Mass ratio] Serum or plasma total cholesterol/high density lipoprotein (HDL) cholesterol mass rat [facility] Comment on above: 3.3 - 4.4 LOW RISK4. 4 - 7.1 AVERAGE RISK7.1 - 11.0 MODERATE RISK>11.0 HIGH RISK MG MAMM SCREEN 3D EVAN CADon 06-26-2022 MG MAMM SCREEN 3D EVAN CAD Patient: KALANI FERNANDES Exam Date: 06/26/2022 : 1950 Gender:F Ordering : DR RENY SMITH M.D. Admission #: [id number] Family : Order #: [id number] CLICK HERE TO VIEW EXAM RADIOLOGY REPORT [...] Treatments None Family Cancers None LOCATION: [facility] BREAST COMPOSITION: Heterogeneously dense,which may obscure small [...] MD on 06/26/2022 at 08:44 Normal [facility] CBC AUTO DIFFon 05-13-2022 BASO # 0.0 103/ul Normal 0.0-0.1 [facility] Comment on above: Performed By: #### C BC #### [facility] [address] [place] [address] Dr. Christina Camarena Basophils/100 WBC (Bld) 0.3 % Normal 0.2-2.0 [facility] Comment on above: Performed By: #### C BC #### [facility] [address] [place] [address] Dr. Christina Camarena EO # 0.1 103/ul Normal 0.0-0.7 [facility] Comment on above: Performed By: #### C BC #### [facility] [address] [place] [address] Dr. Christina Camarena Eosinophils/100 WBC (Bld) 1.5 % Normal 0.9-7.0 [facility] Comment on above: Performed By: #### C BC #### [facility] [address] [place] [address] Dr. Christina Camarena Erythrocyte distribution width (RBC) [Ratio] 14.4 % Normal 11.0-15.0 [facility] Comment on above: Performed By: #### C BC #### [facility] [address] [place] [address] Dr. Christina Camarena Hematocrit (Bld) [Volume fraction] 46.5 % Normal 36.0-48.0 [facility] Comment on above: Performed By: #### C BC #### [facility] [address] [place] [address] Dr. Christina Camarena Hemoglobin (Bld) [Mass/Vol] 14.8 g/dL Normal 12.0-16.0 [facility] Comment on above: Performed By: #### C BC #### [facility] [address] [place] [address] Dr. Christina Camarena IG # 0.02 10e3/ul Normal 0.00-0.03 [facility] Comment on above: Performed By: #### C BC #### [facility] [address] [place] [address] Dr. Christina Camarena IG % 0.2 % Normal 0.0-0.5 [facility] Comment on above: Performed By: #### C BC #### [facility] [address] [place] [address] Dr. Christina Camarena LYMPH # 2.4 103/ul Normal 1.2-3.8 [facility] Comment on above: Performed By: #### C BC #### [facility] [address] [place] [address] Dr. Christina Camarena Lymphocytes/100 WBC (Bld) 26.2 % Normal 20.5-60.0 [facility] Comment on above: Performed By: #### C BC #### [facility] [address] [place] [address] Dr. Christina Camarena MANUAL DIFF REQ NO Normal [facility] Comment on above: Performed By: #### C BC #### [facility] [address] [place] [address] Dr. Christina Camarena MCH (RBC) [Entitic mass] 29.5 pg Normal 26.7-34.0 [facility] Comment on above: Performed By: #### C BC #### [facility] [address] [place] [address] Dr. Christina Camarena MCHC (RBC) [Mass/Vol] 31.8 g/dL Normal 29.9-35.2 [facility] Comment on above: Performed By: #### C BC #### [facility] [address] [place] [address] Dr. Christina Camarena MCV (RBC) [Entitic vol] 92.8 fL Normal 81.0-99.0 [facility] Comment on above: Performed By: #### C BC #### [facility] [address] [place] [address] Dr. Christina Camarena MONO # 0.6 103/ul Normal 0.3-0.8 [facility] Comment on above: Performed By: #### C BC #### [facility] [address] [place] [address] Dr. Christina Camarena Monocytes/100 WBC (Bld) 6.7 % Normal 1.7-12.0 [facility] Comment on above: Performed By: #### C BC #### [facility] [address] [place] [address] Dr. Christina Camarena NEUT # 5.9 103/ul Normal 1.4-6.5 [facility] Comment on above: Performed By: #### C BC #### [facility] [address] [place] [address] Dr. Christina Camarena Neutrophils/100 WBC (Bld) 65.1 % Normal 43.0-75.0 [facility] Comment on above: Performed By: #### C BC #### [facility] [address] [place] [address] Dr. Christina Camarena Platelet mean volume (Bld) [Entitic vol] 9.8 fL Normal 9.5-13.5 [facility] Comment on above: Performed By: #### C BC #### [facility] [address] [place] [address] Dr. Christina Camarena PLT 228 103/ul Normal 150-450 [facility] Comment on above: Performed By: #### C BC #### [facility] [address] [place] [address] Dr. Christina Camarena RBC 5.01 106/ul Normal 4.20-5.40 [facility] Comment on above: Performed By: #### C BC #### [facility] [address] [place] [address] Dr. Christina Camarena WBC 9.1 103/ul Normal 4.0-11.0 [facility] Comment on above: Performed By: #### C BC #### [facility] [address] [place] [address] Dr. Christina Camarena LIPID PROFILEon 05-13-2022 CHOL-HDL RATIO NORM SEE BELOW Normal [facility] Comment on above: Result Comment: 3.3 - 4.4 LOW RISK 4.4 - 7.1 AVERAGE RISK 7.1 - 11.0 MODERATE RISK >11.0 HIGH RISK Performed By: #### L IPID, CMP #### [facility] [address] [address] [address] Christina Camarena Cholesterol [Mass/Vol] 172 mg/dL Normal <=200 [facility] Comment on above: Performed By: #### L IPID, CMP #### [facility] [address] [address] [address] Christina Camarena Cholesterol in HDL [Mass/Vol] 55 mg/dL Normal 40-60 [facility] Comment on above: Performed By: #### L IPID, CMP #### [facility] [address] [address] [address] Christina Camarena Cholesterol in LDL [Mass/Vol] 76.8 mg/dL Normal [facility] Comment on above: Performed By: #### L IPID, CMP #### [facility] [address] [address] [address] Christina Camarena Cholesterol.total/Ch olesterol in HDL [Mass ratio] 3.1 {ratio} Normal [facility] Comment on above: Performed By: #### L IPID, CMP #### [facility] [address] [address] [address] Christina Camarena HDL NORMAL > or = 60 mg/dl - LOW CARDIOVASCULAR RISK <40 mg/dl - HIGH CARDIOVASCULAR RISK Normal [facility] Comment on above: Performed By: #### L IPID, CMP #### [facility] [address] [address] [address] Christina Camarena LDL CALC NORMAL SEE BELOW Normal [facility] Comment on above: Result Comment: <100 mg/dl OPTIMAL 100 - 129 mg/dl NEAR OR ABOVE OPTIMAL 130 - 159 mg/dl BORDERLINE HIGH 160 - 189 mg/dl HIGH >190 mg/dl VERY HIGH Performed By: #### L IPID, CMP #### [facility] [address] [address] [address] Christina Camarena Triglyceride [Mass/Vol] 201 mg/dL Critically high <=150 [facility] Comment on above: Performed By: #### L IPID, CMP #### [facility] [address] [place] [address] Dr. Christina Camarena VLDL CALC 40.2 mg/dL Normal [facility] Comment on above: Performed By: #### L IPID, CMP #### [facility] [address] [address] [address] Christina Camarena PROF 14(COMP METB)on 022 Albumin [Mass/Vol] 4.1 g/dL Normal 3.4-5.0 [facility] Comment on above: Performed By: #### L IPID, CMP #### [facility] [address] [place] [address] Dr. Christina Camarena Albumin/Globulin [Mass ratio] 1.1 {ratio} Normal [facility] Comment on above: Performed By: #### L IPID, CMP #### [facility] [address] [place] [address] Dr. Christina Camarena ALP [Catalytic activity/Vol] 99 U/L Normal 46-116 [facility] Comment on above: Performed By: #### L IPID, CMP #### [facility] [address] [place] [address] Dr. Christina Camarena ALT [Catalytic activity/Vol] 29 U/L Normal 14-59 [facility] Comment on above: Performed By: #### L IPID, CMP #### [facility] [address] [place] [address] Dr. Christina Camarena Anion gap [Moles/Vol] 13.7 mmol/L Normal [facility] Comment on above: Performed By: #### L IPID, CMP #### [facility] [address] [place] [address] Dr. Christina Camarena AST [Catalytic activity/Vol] 24 U/L Normal 15-37 [facility] Comment on above: Performed By: #### L IPID, CMP #### [facility] [address] [address] [address] Christina Camarena Bilirubin [Mass/Vol] 0.5 mg/dL Normal 0.2-1.0 [facility] Comment on above: Performed By: #### L IPID, CMP #### [facility] [address] [place] [address] Dr. Christina Camarena Calcium [Mass/Vol] 9.4 mg/dL Normal 8.5-10.1 [facility] Comment on above: Performed By: #### L IPID, CMP #### [facility] [address] [address] [address] Christina [place] Chloride [Moles/Vol] 104 mmol/L Normal 98-107 [facility] Comment on above: Performed By: #### L IPID, CMP #### [facility] [address] [place] [address] Dr. Christina Camarena CO2 [Moles/Vol] 25.4 mmol/L Normal 21.0-32.0 [facility] Comment on above: Performed By: #### L IPID, CMP #### [facility] [address] [place] [address] Dr. Christina Camarena Creatinine [Mass/Vol] 0.99 mg/dL Normal 0.55-1.02 [facility] Comment on above: Performed By: #### L IPID, CMP #### [facility] [address] [place] [address] Dr. Christina Camarena EGFR-AF BAHAMIAN >60 Normal >=60 [facility] Comment on above: Performed By: #### L IPID, CMP #### [facility] [address] [place] [address] Dr. Christina Camarena EGFR-NON AF BAHAMIAN 55 mL/min/1.73m2 Critically low >=60 [facility] Comment on above: Performed By: #### L IPID, CMP #### [facility] [address] [place] [address] Dr. Christina Camarena Globulin (S) [Mass/Vol] 3.8 g/dL Normal [facility] Comment on above: Performed By: #### L IPID, CMP #### [facility] [address] [address] [address] Christina Camarena Glucose [Mass/Vol] 98 mg/dL Normal 74-106 [facility] Comment on above: Performed By: #### L IPID, CMP #### [facility] [address] [address] [address] Christina Camarena Potassium [Moles/Vol] 4.1 mmol/L Normal 3.5-5.1 [facility] Comment on above: Performed By: #### L IPID, CMP #### [facility] [address] [address] [address] Christina Camarena Protein [Mass/Vol] 7.9 g/dL Normal 6.4-8.2 [facility] Comment on above: Performed By: #### L IPID, CMP #### [facility] [address] [address] [address] Christina Camarena Sodium [Moles/Vol] 139 mmol/L Normal 136-145 [facility] Comment on above: Performed By: #### L IPID, CMP #### [facility] [address] [address] [address] Christina Camarena Urea nitrogen [Mass/Vol] 20.0 mg/dL Critically high 7.0-18.0 [facility] Comment on above: Performed By: #### L IPID, CMP #### [facility] [address] [address] [address] Christina Camarena Urea nitrogen/Creatinine [Mass ratio] 20.2 mg/mg Normal [facility] Comment on above: Performed By: #### L IPID, CMP #### [facility] [address] [address] [address] Christina Camarena Coding Summary.on 02-05-2022 Coding Summary. [id number] Gh0bWw+PGhlYWQ+PE1FV KXxL15jxZSutA2BM5tYE A3NAIAFDJOMOI6ZEV8kd QC2YOoqS9JrprPa SwbczUJyYM51TRt5URZ8 nJxqFXysuC2jnOEsA5u2 AmEaXE55dZ88OYlqMMBc YeY1JfZtsubleFLx D6lzYjJyxVJfHql+PHRh YmxlIHdpZHRoPScxMDAl AdPxiLwgSP8hMj1jDRNt LWNvbGxhcHNlOiBj m5zxJZYcLImsWP6njTox M4PeiQW8TZEkd2i4Kx49 dHI+HHErZUZ8qDdpVFmc v674WmTad7naYKH9 yBJaKYdeMGI0O70ye6U2 SVDsFJUsKKM0iZI9cP2y aNrzyjivS7XkkZWyNxI6 GFB2yQPbvP4shBpo ytltiB4uCar+K67ZNP1F FSXEKY5WGsq7C3BnIxxz dHI+GP05TMSyIJ65vNFu xTUbp4hoeVq1EuEh GWDhTVO5cOxtKMiln5Qj NGWlN91qzKHgt4B3EXOo gEmspIUiSiHwzQL3kR4h NOenewhmr5wfwcsb Jjnik6qzwv04xC92R00x JMxaQALmNUC5DEVaLWNq wNbefq5jrQ4lEe9+IDxj y1dna9pceFi7MuUn TYHwfqSuvNqxQWR0h1Yq Wx18I6EwhPwef2RlLrg4 lb28bGOdy8G8oGS1VMmf SYAxeN3pVQupIuG8 XIWzKqAauZ03hWUwQOne Dl2iuBjbhYhoVC7qBCSg tdiiGWJqoP6hGAHboGMt yJsuUV3jOJXydipt k603TrKuVGB6EBTqvIOb Q0XisC8tQbAqUTIuLNLv H0IocQSvGNkcF057QInm PqX9TJRfctImO4Ii VPErsCdsMaJ5k0B4On4S l2EwkdxqDFG6UMzbLFA4 WeI9VlRvNmF2K2VqHan1 NPAhaPntVL2eY0Wg NQIyjvkrsucvcXJ8PQSw TCWkxB88gXNcFGboBo6k u4K2i953FOKyNKDjkJ97 Sk6poCqxPELurDUS xH9zgobir9dcikqeJfEq HJGsZXv1GWl8GUCmtIhz QlRkZTO0JbN2RSB4lHQf tL4dyNznnagwgD3r Oyc+C51lrL4iNYB6WBX5 uosxEMJgmgAmFL80ZB54 I1JrSqghvEOixHB+PGRp dfCpwUkeVL3qZcRb u4xdg1PfDBiiP4NiQJWr VPokIiq9NOHeYNC5hQS0 qQ4zOWMmCHbtt5U7pAO8 K0ItvqYjtf7tm9ji RKPpUSvoJ89msAJxm2X3 TEYjeSR2VOWwjYrtYzIm uY27Ert+GZNodQvml5Sg Lrkrb9yfo8sbmLs4 IjMwJSIgdmFsaWduPSJ0 m9PoFq68G32oOCsbMGPy BCBxRQImDNLmaAucif2w dA2iSd9+PGNvbCB3 lDQ3gP5yOSRkAoG1HQic N968LiIdrCEpTsayu6ie s1xhxAu8TkIaWKKylrKp rScbNBF5t6UmTz65 H60qJTtoNMMxLBHmLWUf VCPclUzlvy5bcI4dJs9+ BM6uy8pvtr20jZ99fCI+ FEMoBNU8tMerMOmw ONFjbY6qMAjnKxM1GSFn CnHmdZ07oESxXLrwYa0y tLrgqJmlIO2fMUSrivfn r840OyVdy7bpIJBw aMEaLYveEPE2A64zp9F5 HURxEMEnTAT3qDQ9cP2n bGlnbjogbGVmdDsgdmVy hNqeVInpQTdnA321 IHRvcDsnPlBhdGllbnQg QkEkHYg3B2OeCam6NIWb lNidCX0nwQLcUDzkHw7n wWxplKnhHE5fBNSr sbzxz542QdBzh8zmVELd gKUgDNhuGLL9Q23ge8P1 CLJpAZMxEJY6kNH4vV6s bGlnbjogbGVmdDsg uxPbsUtnNWblJXoeT181 IHRvcDsnPkJpcnRoIERh nER8DV74FH93cMTmk1V7 oDV2Q9LkNPNacrbx uwlddZR0RHRsQZJqtR49 Vs4ltQwePf9rRGQbSIQ5 MVAisGBiP5EmbC4nKzJq OUNzNQVlF4TvzLDh MBcjB805SPrjVeZ4IZTj idQaE3YcZCFhwFwvLuH3 l9I7Yq6DZ3K7HO20QP66 oJJzj1R9hAL4X1Kg ZHLtuwwggvtzmGF1UAYd PLZjoH84Pi2nrWoaEb8u EFRgITC1LWVwvIOsZ8Cf fQ5aRnQxRJOjCUFd C9VmsATzQLdcU963UPzc JxQ3OVVputLwG5JoJPRm eLvbZfN8m7C9Oy7HTIi8 IH65WY32vRVkm4L6 pPA3P3IsADTsaszhvoar iYP0HLQgRQWjhH52Sx7j tWkfLq6lFXZuRSJ2XDCw dJPyN3OtcT9fVvZq DYCdRFNzS2YcmYQjLWar V615AEafJgQ5YRVrwbNd I4CqNPFvqPlkLyH8g2U6 Kx5FWCBiUI81JLZ8 eRK3OH84MS86V1XdFbed dGFibGU+PHRhYmxlIHdp ZHRoPScxMDAlJyBzdHls RR4fJu1kLPEiPXVx jWjkcJXyBeEym9zoHQAs VAprEI0meQdyE5PigSS9 JNWkf2h8Kp59W46xV3Fz dXA+TNPorVN8jAW2 nX1uMjXoBfO4EJxkP975 SfWltOGdAsibf7mbz1zl aTs3WwJ7GSKboqPjhNpz ZRV4x4RiFs36M08a IHdpZHRoPSIxNSUiIHZh mPolie1qbN5xHv4+PGNv nHS3yRK8pE1fLgFzDdJ1 GLnuF217YzHunMFx Lycyd0ghn9tnvZi8QmYs LQCkknHlcOerHCU9y9Kb Ju56U7XwdXijb9VcVse4 wl02mJFem7D9tGU7 F2NcKIFjvubvoMDqwImi QZ8zQUNjlwjjORUjtD7a BJPsR0c1IjHeSyW0XCna C6BhibM9QJLndLZu ZZtvJFA5N60ck7T5OPVb IAIzQNT4sAG5xT2hrSax bjogbGVmdDsgdmVydGlj YNtcROqyE917JMRr yWwsQPNtaJ8vSRPpdOSr lGqbQH3tBKBmvjvjEaGY WFGUA6FoVIFOQfgRJigX OC57F9LhZsz1ANRc hLukMF3otVZhSLlnUg8g lEpkuHerPM5nUCZgbcdu ORLynH7yWBQkdJUyfGfm NJ3qYWOgirolr568 OwKiYLN8XMRyoUGkX0Ox xD4lQjKqHEPsGIEnB5Fz yWXzXNynA150LSayEsH3 IDQjfrYrJ3DzCAOs rJnnQnW2e7L7Bw0wIQ0h BB6fNXPxEG32CJ41cUEv l7P2fKH5S1HjHKLgrkvb cksoiMO7UZOvYINy tT33sREuTQknKm2zt8F1 o219FSSmFMJuxL21Gz3m fYbaNWIgpNTYkH5wkmll f5prdqtaPvYtHGZa RGv2MTn2RDFinTefTcVl FGM6InL4QHU1oTOalG2q pDllbswsaU7qHpt+Njkg DECqcuC4A6YzZfc4 FZOwsBfxHM7wzQOrFDoz Zi6omHkzoAjoNG3jVYYd qxxzRRBfaT3jAPHjoKSx mRwuAI7jNUIkigvu l335LtQjKGD9WHPadCQs K7RekD7mIgHmORBhUYIw D3XbzTNcEVveN102IChh BdR3BYWovfMuX2Fw GUOxeRzzEjI4z4X8Gt2N BK9mzPO2U9RaGjh6BDIv tJggRW1alOGqAItwYa0z pDtxyTruDF0iZLZr rvdtADQmtM7hEOZmlVLs kWxiMU7wOUUfoddyf116 UrRiAVD1GXPxfXPeQ5Su vR8aVqXkEMBjGIDt G0IblIZbETtoY809AZwh VzU9QENbnoPxE4EoBVTw tNeqVlD9z2K8Ab2JWMIj RBCqwNXcFoS6K9Ti PjwvdHI+EF08ZSXpXS07 hFQmmRKun2ulpFl9YiDo OYRiRVG9yGquPScyt3Md ZYYvU23vbDJgo8K9 IGNvbGxhcHNlOyBlbXB0 pX5gIMmyhpkyw8tevolb Onipy8cfvw03sZ91S13l IHdpZHRoPSIzMCUi RAHtwWwncz6ivN8wUm0+ JOClzKK6jXW0sH6hKqDg EyF9ZRkvE003PhLbmNYq Hfhqo2idh1tokJt2 IjIwJSIgdmFsaWduPSJ0 o7TyBj79R41xBMzdZHWo ZKXaJWQgUSXzxRaxvy2h iX2rCe4+YV8gd4zc gx37oE07jFI+PHRkIHN0 oVtwDXkoBHMtqI8xTHsf ZjC0XWLfFeXcqZ66iSUu HPvnBe0qxGnekZeu IJ1gCNJiudhhl373EpEd k5yzDUOsiGDwNJgbJFO0 W84qz9M2SJBfBOYpCUO1 hKV5uO6aaUlatmrm bGVmdDsgdmVydGljYWwt CHvhT725SMLogBpvDyAx pPTkB5ndvrJJUS6lLsca dGQ+OPKhBAI5aTdu AHgyECNzbM2vVKGfM6z5 LuTdRbW1CHpaP3JouuZ7 MWNttIBtGQStqYHWjN3q ihmvn4xwxbqsMrPr JTIzINd6ZKl3BIAueBcr YmRvKQH1EeH9XJP1qEEh qC7fdSyxsnqfvV7yEnn+ RklOOjwvdGQ+PHRk QPD1hNuhCKndJCAtuD1i EJWqF9i4LsWfFiM7JDrq S3BtryB2WHHqvAXjZGFj sZDHfI2nwanpn0wz hfnuIrKlMWEyVUl6UVv2 SBBipJpsMcLqAYJ8RqY4 TGW2gFVuiQ8svQdrqeni xM1mXui+TVJOOjwv dGQ+NMYcXBA3hTlaHHiq MZQakR6rEEGrF4o0QtLl KcM4GVvuX4ZufdZ3FXZg gOMzLIPuiGYQjY3e atrka6fefstuDnZxXCNc MZg8BVf0TMPahFkqVuFk NPA8NlU2YPR4mPIpbL2l lYeuyamqrA0tYcj+ WWD0BVX1GX11NL88N6Kg PjwvdGFibGU+PHRhYmxl IHdpZHRoPScxMDAlJyBz bQwqLK6dMr1yBFXc LWNv (more content not included)... Normal [facility] Physician Orderon 01-17-2022 Physician Order [id number] 7#[id number]:127 Normal [facility] Vital Signs Date Time Vital Sign Value Performing Clinician Facility 06-14-2024 14:25-0400 Body height 157.48 cm [facility] 06-14-2024 14:25-0400 Body mass index (BMI) [Ratio] 31.2 kg/m2 [facility] 06-14-2024 14:25-0400 Body temperature 99 [degF] [facility] 06-14-2024 14:25-0400 Body weight 77.56 kg [facility] 06-14-2024 14:25-0400 Diastolic blood pressure 72 mm[Hg] [facility] 06-14-2024 14:25-0400 Heart rate 77 /min [facility] 06-14-2024 14:25-0400 SaO2% (BldA) [Mass fraction] 94 % [facility] 06-14-2024 14:25-0400 Systolic blood pressure 138 mm[Hg] [facility] 05-03-2024 10:03-0400 Body height 157.48 cm [facility] 05-03-2024 10:03-0400 Body mass index (BMI) [Ratio] 31.2 kg/m2 [facility] 05-03-2024 10:03-0400 Body weight 77.56 kg [facility] 05-03-2024 10:03-0400 Diastolic blood pressure 71 mm[Hg] [facility] 05-03-2024 10:03-0400 Heart rate 62 /min [facility] 05-03-2024 10:03-0400 Systolic blood pressure 144 mm[Hg] [facility] 05-01-2023 10:00-0400 Body height 160.02 cm Reny Smith Other [facility] Other 05-01-2023 10:00-0400 Body mass index (BMI) [Ratio] 29.33 kg/m2 Reny Smith Other [facility] Other 05-01-2023 10:00-0400 Body weight 75.12 kg Reny Luis Other [facility] Other 05-01-2023 10:00-0400 Diastolic blood pressure 65 mm[Hg] Reny Luis Other [facility] Other 05-01-2023 10:00-0400 Systolic blood pressure 125 mm[Hg] Reny Luis Other [facility] [facility] Other Encounters Encounter Date Encounter Type Care Provider Facility Start: 08-13-2024 End: 08-13-2024 ambulatory [facility] Start: 08-05-2024 End: 08-05-2024 ambulatory [facility] Start: 07-14-2024 End: 07-14-2024 Peace Castanon Stepcandida DO Work Phone: [facility] Start: 07-14-2024 End: 07-14-2024 Peace Castanon Stepanic DO Work Phone: [facility] Start: 07-14-2024 End: 07-14-2024 Office outpatient visit 25 minutes Jr. Kelly Ospina DO Work Phone: [facility] Comment on above: Cyst of joint of rig ht hand (Primary Dx) Start: 07-14-2024 End: 07-14-2024 ambulatory KELLY ADAME STEPCANDIDA Not Available Start: 07-09-2024 End: 07-09-2024 ambulatory NON STAFF [facility] Work Phone: Start: 07-09-2024 End: 07-09-2024 Patient encounter procedure [facility] Work Phone: Start: 07-05-2024 End: 07-05-2024 ambulatory DOMINIC Sampson APLING Not Available Start: 06-28-2024 End: 06-28-2024 Bamboo flowsheet Dominic Montoya NATIONAL SALES EXECUTIVE Work Phone: [facility] Start: 06-28-2024 End: 06-28-2024 Bamboo flowsheet Dominic Montoya NATIONAL SALES EXECUTIVE Work Phone: [facility] Start: 06-28-2024 End: 06-28-2024 Office outpatient visit 15 minutes Dominic Montoya NATIONAL SALES EXECUTIVE Work Phone: [facility] Comment on above: Swelling of right ahn nd (Primary Dx); Right hand pain; Cyst of joint of right hand Start: 06-28-2024 End: 06-28-2024 ambulatory DOMINIC Sampson APLING Not Available Start: 06-14-2024 End: 06-14-2024 ambulatory NON STAFF [facility] Work Phone: Start: 06-14-2024 End: 06-14-2024 Patient encounter procedure [facility] Work Phone: Start: 05-06-2024 Non-patient / Non-visit [facility] Work Phone: Start: 05-03-2024 Patient encounter procedure [facility] Start: 05-03-2024 End: 05-03-2024 ambulatory NON STAFF [facility] Work Phone: Start: 05-03-2024 End: 05-03-2024 Patient encounter procedure [facility] Work Phone: Start: 07-28-2023 End: 07-28-2023 ambulatory DOMINIC Sampson APLING Not Available Start: 05-15-2023 End: 05-15-2023 ambulatory Reny Smith Other [facility] Other Start: 05-15-2023 Telephone encounter Reny Smith [facility] Start: 05-01-2023 End: 05-01-2023 ambulatory Reny Smith Other [facility] Other Start: 05-01-2023 Patient encounter procedure Reny Smith [facility] Start: 06-26-2022 End: 06-27-[address] LOTUS SERNA Facility:[facility] Start: 05-13-2022 End: 05-14-[address] RENY SMITH Facility:[facility] Procedures Date Procedure Procedure Detail Performing Clinician Start: 06-28-2024 Radex hand minimum 3 views Dominic Montoya NATIONAL SALES EXECUTIVE Work Phone: Plan of Treatment Date Care Activity Detail Author Start: 07-14-2024 End: 07-14-2024 Patient encounter procedure [facility] Comment on above: Arrived Start: 07-05-2024 End: 07-05-2024 Professional / ancillary services management 07/05/2024 8:30 AM EST Ancillary Procedure [facility] [address] [place] [id number] [facility] Start: 06-28-2024 End: 06-28-2025 Creatinine [Mass/volume] in Serum or Plasma Creatinine, Serum Lab Routine Swelling of right hand Right hand pain Expected: 06/28/2024 (Approximate), Expires: 06/28/2025 [facility] Comment on above: Expected: 06/28/2024 (Approximate), Expires: 06/28/2025 Start: 06-28-2024 End: 06-28-2025 MR Hand - right WO and W contrast IV MR hand right w and wo IV contrast Imaging Routine Swelling of right hand Right hand pain Expected: 06/28/2024 (Approximate), Expires: 06/28/2025 [facility] Work Phone: Comment on above: Expected: 06/28/2024 (Approximate), Expires: 06/28/2025 Start: 06-28-2024 End: 06-28-2024 Patient encounter procedure 06/28/2024 8:00 AM EST Office Visit [facility] [address] [place] [id number] Dominic Montoya NP [address] [place] [address] Swelling of right hand (Primary Dx) [facility] Comment on above: Swelling of right ahn nd (Primary Dx) Start: 05-03-2024 EKG 12 channel panel [facility] Start: 04-25-2024 Influenza vaccination Influenza Vacc ine (#1) [facility] Start: 1992 Screening for malign ant neoplasm of breast Mammogram [facility] Start: 1952 Screening for malign ant neoplasm of colon [facility] Comprehensive metabo lic 2000 panel - Serum or Plasma [facility] MG Breast - bilatera l Screening [facility] Immunizations Immunization Date Immunization Notes Care Provider Fa ysabelty 07-09-2024 influenza, high dose seasonal, preservative-free [facility] 05-01-2023 influenza virus vaccine, unspecified formulation [facility] 05-01-2023 influenza, high dose seasonal, preservative-free Reny Smith Other [facility] Other 06-24-2022 COVID-19 Pfizer (Pediatric) Reny Smith Other [facility] 06-24-2022 influenza virus vaccine, split virus (incl. purified surface antigen) Reny Smith Other [facility] Other 06-24-2022 influenza virus vaccine, unspecified formulation [facility] 11-14-2020 COVID-19 Vaccine Pfi zer - Documentation Purposes Only Reny Smith Other [facility] 04-26-2020 influenza virus vaccine, split virus (incl. purified surface antigen) Reny Smith Other [facility] Other 04-26-2020 influenza virus vaccine, unspecified formulation [facility] 04-26-2020 pneumococcal polysaccharide vaccine, 23 valent Reny Smith Other [facility] 04-20-2019 pneumococcal conjuga te vaccine, 13 valent Reny Smith Other [facility] Payers Date Payer Category Payer Self-pay 2022 Private Health Insurance [employer] [id number] 2017 Medicare MEDICARE [id number] 1959 Medicare [id number] 1959 Unknown [id number] 1952 Unknown [id number] 1952 Unknown [id number] 1952 Unknown [id number] 1259 1952 Unknown [id number] 1259 1952 Unknown [id number] 1259 1952 Unknown [id number] 1259 1952 Unknown [id number] [id number] Unknown [id number] Social History Date Type Detail Facility Start: 07-28-2023 End: 07-14-2024 Sex Assigned At [facility] [employer] Other Start: 01-30-2023 End: 05-03-2024 Tobacco smoking status NHIS Never smoked tobacco (finding) [facility] Start: 1950 Sex Assigned At Female F [facility] Start: 01-30-2023 Tobacco use and exposure Smokeless tobacco non-user [facility] Start: 07-28-2023 End: 07-14-2024 Alcoholic beverage intake Ex-drinker (finding) [facility] Start: 07-28-2023 End: 07-14-2024 History of Social function [facility] Start: 1950 Sex assigned at Not on file [facility] Start: 07-09-2024 Sex Female (finding) [facility] Clinical Notes 05-01-2023 to 08-30-2024 Jr. Kelly Ospina, - 07/14/2024 1:00 PM Chuck Montoya NP - 06/28/2024 8:00 AM EST Note Date & Type Note Facility 08-30-2024 Note Patient called back and said she'd like to go with [facility]. RX printed and faxed into [facility]. [facility] 08-13-2024 Note [place] [facility] Note Reason for cardiology [...] pacemaker and grandmother had a stroke and ID Cardiology ROS: GENERAL: Denies fever, chills, night [...] has a past medical history of Cancer (CMS/[facility]), Hyperlipidemia, Hypertension, and Sleep apnea. Surgical History [...] left upper ext (more content not included)... [facility] 08-05-2024 Note Patient ID: Kalani Fernandes is [...] to verify the correct patient, procedure, equipment, customer support specialist and site/side marked as required. Procedure Attestation Level of Attending Supervision for Procedure I was present for the frey and critical portions and I was otherwise immediately available to assist [facility] 08-05-2024 Note Orthopaedic Surgery Subjective Pain of [...] years. 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 wrist extension/flexion [...] to verify the correct patient, procedure, equipment, customer support specialist and site/side marked as required. Patient was [...] be an additional personal documentation from me. [facility] 07-14-2024 History of Present illness Narrative Images from the original note were not included. HISTORY OF PRESENT ILLNESS: EST PT Kalani Fernandes is an 74 y.o. @ female. (EST PT ; LAST APPT W/ MOR) RECHECK (R) HAND CYST ; HERE FOR MRI RESULTS 07/05/24 IN [facility] XRAYS 06/28/24 IN [facility] MRI 07/05/24 IN [facility] NO MDP / PREDNISONE NO CORTISONE INJ [...] requiring urgent evaluation. documented in this encounter [facility] 06-28-2024 History of Present illness Narrative Images from the original note were not included. Subjective Patient ID: Kalani Fernandes is a 74 y.o. female. RT Hand [...] noted. Impression [facility] arthritis Dominic Montoya TEA TASTER Assessment/Plan Encounter Diagnoses: ICD-10-CM 1. Swelling of [...] f/u s/p MRI to be done [facility] [place] documented in this encounter [facility] 05-03-2024 Evaluation note Diagnosis Onset Date Resolution Dyslipidemia acute April 9:55am Essential hypertension acute Se ptember 2023 9:55am Medicare annual wellness visit, subsequent acute May 03, 2 024 9:55am Palpitations acute April 9:55am Screening mammogram for breast cancer acute May 03, 2 024 9:55am Maxillary sinusitis, acute acute June 14 2:21pm [facility] Work Phone: 1(200) 218-197009-07-2023 Evaluation note* Encounter Date Diagnosis Assessment Notes [...] mammogram for breast cancer (ICD-10 - Z12.31) [facility] Other evaluation note* Diagnosis Onset Date Resolution Status Dyslipidemia acute Essential hypertension acute Palpitations acute Screening mammogram for breast cancer acute [facility] Work Phone: Evaluation note* Diagnosis Onset Date Resolution Status Dyslipidemia acute Essential hypertension acute Medicare annual wellness visit, subsequent acute Palpitations acute Screening mammogram for breast cancer acute [facility] Work Phone: Evaluation note* Diagnosis Onset Date Resolution Status Dyslipidemia acute Essential hypertension acute Medicare annual wellness visit, subsequent acute Palpitations acute Screening mammogram for breast cancer acute Maxillary sinusitis, acute a cute [facility] Work Phone: Evaluation note* Diagnosis Swelling of right hand- Primary Right hand pain Pain in soft tissues of limb Cyst of joint of right hand [facility] Cyst of joint of right hand- Primary documented [facility] this encounter [facility] N[facility]ative - Reported* Type Description Date Medical History Dyslipidemia Medical History Essential hypertension Medical History Major depressive disorder withou t psychotic features Medical History Personal history of malignant me lanoma of skin Surgical History Cholecystectomy Surgical History Wide excision of Melanoma 2012 Surgical History D&C Hospitalization History see surgical hx [employer] Other History general Narrative - Reported* Type Description Date Surgical History Cholecystectomy Surgical History Wide excision of Melanoma 2012 Surgical History D&C Hospitalization History see surgical hx [employer] Other Summary Purpose Family History No Family [...] and content) DATE CREATED AUTHOR 03/13/2022 [facility] DATE CREATED AUTHOR AUTHOR'S ORGANIZ ATION 07/30/2022 [facility] DATE CREATED AUTHOR AUTHOR'S ORGANIZ ATION 05/12/2024 [facility] DATE CREATED AUTHOR AUTHOR'S ORGANIZ ATION 07/05/2024 [facility] DATE CREATED AUTHOR AUTHOR'S ORGANIZ ATION 07/17/2024 [facility] EPIC DATE CREATED AUTHOR AUTHOR'S ORGANIZ ATION 09/02/2024 [facility] REASON FOR VISIT (unrecogniz ed section [...] End: June 14, 2024 Karis Pearl APRN [employer] Attending Provider Active Start: June 14, 2024 End: June 14, 2024 [employer] Relationship Specialty Start Date End Date Reny Smith MD [address] [place] [address] PCP - General Family Medicine 01/17/23 [employer] Relationship Specialty Start Date End Date Reny Smith MD [address] [place] [address] PCP - General Family Medicine 01/17/23 Team Status: Inactive Member Role Status Dates NON STAFF Primary Care Provider Active Start: July 09, 2024 End: July 09, 2024 Reny Smith MD Attending Provider Active St art: July 09, 2024 End: July 09, 2024 [employer] Operator Relationship Specialty Start Date End Date Reny Smith MD [address] [place] [id number] PCP - General Family Medicine 01/17/23 [employer] Operator Relationship Specialty Start Date End Date Reny Smith MD [address] [place] [id number] PCP - General Family Medicine 01/17/23 Goals [...] BE BASED ON THE PRIMARY CLINICAL RECORDS. [employer] [facility]. provides no warranty or guarantee of the accuracy or completeness of information in this document.
--- NOTE | 2024-09-24 18:10 | ED.GENADUL1 ---
HPI HPI - General Adult General Chief complaint: Chest Pain Stated complaint: Arrhythmia/Palpitations Time Seen by Provider: 09/24/24 18:09 Source: patient Mode of arrival: walk-in Limitations: no limitations History of Present Illness HPI narrative: Patient is a 74-year-old female who is presenting to the ER with palpitations. Patient started noticing her palpitations at approximately 10:50 AM. 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 Patient was hoping her palpitations would stop. They have not stopped, but patient was able to finish a stressful situation at work today, so therefore she come into the ER to be evaluated. Patient is with . Patient is on Eliquis. She also takes Norvasc. Patient sees Dr. Vila from [facility] as her primary immersion metal cleaner. Patient was going to be seeing Dr. Sawyer this week as well, but he was sick and the appointment was canceled. Patient did have a Holter monitor on in the fall. Patient has no cardiac history with cardiac stents or CT. Patient has said that she was told that she had a irregular heartbeat several times, but initially does not remember the words atrial fibrillation or atrial flutter. At the end of my HPI and physical exam, patient did ask so I am back in A-fib again? Patient has no chest pain, tightness, shortness of breath, nausea, vomiting, patient is less stressed at this time than she was earlier this morning. All systems are negative except as noted/marked. All systems reviewed and otherwise negative. Nurses note and vital signs reviewed and patient is not hypoxic. General: The patient appears well and in no apparent distress. Patient is resting comfortably on cart. Patient is not toxic, lethargic, or listless Skin: Warm, dry, no pallor noted. There is no rash noted. No petechiae, purpura. Head: Normocephalic, atraumatic Eye: Normal conjunctiva, no drainage, EOMI. PERRL Ears, Nose, Mouth, and Throat: oral mucosa is moist. Nares patent. Mouth without vesicles Cardiovascular: Irregular irregular Rate and Rhythm, no murmur, gallop, rub Respiratory: Patient is in no distress, no accessory muscle use, lungs are clear to auscultation, no wheezing, rales or rhonchi Back: non-tender, no CVA tenderness bilaterally to percussion. No CT LS midline pain GI: no tenderness to palpation, no masses appreciated. No rebound, guarding, or rigidity noted. No distention Musculoskeletal: Patient has full range of motion of all of the extremities, no motor, sensory, or focal neurological deficits Neurological: A&O x4, normal speech Psychiatric: Cooperative Related Data Home Medications ?Medication ?Instructions ?Recorded ?Confirmed amlodipine 10 mg tablet 10 mg PO DAILY 09/24/24 09/24/24 apixaban 5 mg tablet (Eliquis) 5 mg PO Q12H 09/24/24 09/24/24 atorvastatin 20 mg tablet 20 mg PO .QHS 09/24/24 09/24/24 furosemide 20 mg tablet 20 mg PO DAILY 09/24/24 09/24/24 sertraline 100 mg tablet 100 mg PO DAILY 09/24/24 09/24/24 spironolactone 25 mg tablet 25 mg PO DAILY 09/24/24 09/24/24 Allergies Allergy/AdvReac Type Severity Reaction Status Date / Time No Known Drug Allergies Allergy Verified 09/24/24 17:51 Opioid HPI Opioid Management Most Recent Opioid Data: No Data to Display PFSH PFSH Social History Little interest or pleasure in doing things: not at all Feeling down, depressed, or hopeless: not at all Exam Constitutional Vital Signs, click to edit/add: Last Vital Signs Temp 97.7 F 09/24/24 17:51 Pulse 121 H 09/24/24 18:49 Resp 18 09/24/24 18:49 BP 115/80 09/24/24 18:19 Pulse Ox 96 09/24/24 18:49 O2 Del Method Room Air 09/24/24 17:51 Course Vital Signs Vital signs: Vital Signs Temperature 97.7 F 09/24/24 17:51 Pulse Rate 156 H 09/24/24 17:51 Respiratory Rate 18 09/24/24 17:51 Blood Pressure 162/106 H 09/24/24 17:51 Pulse Oximetry 96 09/24/24 17:51 Oxygen Delivery Method Room Air 09/24/24 17:51 Temperature 97.7 F 09/24/24 17:51 Pulse Rate 121 H 09/24/24 18:49 Respiratory Rate 18 09/24/24 18:49 Blood Pressure 115/80 09/24/24 18:19 Pulse Oximetry 96 09/24/24 18:49 Oxygen Delivery Method Room Air 09/24/24 17:51 Medical Decision Making MDM Narrative Medical decision making narrative: 1840 patient was initially given Cardizem 15 mg bolus along with 1 L normal saline. After approximately 25 minutes, patient's heart rate did improve into the 110s 1 teens, but then it would go up in the 120s 130s. Patient was then given 500 mcg of digoxin. Second dose of Cardizem is considered, currently waiting to see if the IV fluids with digoxin will help the initial Cardizem bolus that did improve it from the 150s it down into an average of the 110s. 1899 patient will be transition to . He will repeat Cardizem bolus if needed, add additional medication if needed, and start IV drip if needed. I had discussed this case with Patria CARDENAS, nursing instrument maintenance supervisor. We do not have ICU bed or capacity to place patient in the ICU if needed, patient may need to stay in the ER if patient will be an ICU admission. Patient's immersion metal cleaner is Dr. Vila from [facility]. Patient does take Eliquis. Lab Data Labs: Lab Results 09/24/24 Range/Units 18:05 WBC 15.0 H (4.0-11.0) 10^3/uL RBC 5.71 H (4.20-5.40) 10^6/uL Hgb 16.9 H (12.0-16.0) g/dL Hct 51.1 H (36.0-48.0) % MCV 89.5 (81.0-99.0) fL MCH 29.6 (26.7-34.0) pg MCHC 33.1 (29.9-35.2) g/dL RDW 14.1 (11.0-15.0) % Plt Count 238 (150-450) 10^3/uL MPV 9.5 (9.5-13.5) fL Neut % (Auto) 75.3 H (43.0-75.0) % Lymph % (Auto) 16.6 L (20.5-60.0) % [place] % (Auto) 6.4 (1.7-12.0) % Eos % (Auto) 1.0 (0.9-7.0) % Baso % (Auto) 0.3 (0.2-2.0) % Neut # (Auto) 11.3 H (1.4-6.5) 10^3/uL Lymph # (Auto) 2.5 (1.2-3.8) 10^3/uL [place] # (Auto) 1.0 H (0.3-0.8) 10^3/uL Eos # (Auto) 0.2 (0.0-0.7) 10^3/uL Baso # (Auto) 0.1 (0.0-0.1) 10^3/uL Abs Immat Gran (auto) 0.06 H (0.00-0.03) 10^3/uL Imm/Tot Granulo (auto) 0.4 (0.0-0.5) % ECG Data Attestation: I personally reviewed and interpreted this ECG as follows: (EKG #1. EKG interpretation. Irregular irregular rhythm at 155 beats a minute. Normal axis deviation. Artifact noted, normal axis deviation. Diffuse mild ST depression, nonspecific ST changes, QTc of 431. Acute on chronic A-fib.) Interpretation: EKG #2. Second EKG done when patient's heart rate lowered. Irregular irregular rhythm at 77 beats a minute; patient is still in atrial fibrillation. QTc of 344. Diffuse ST depression, no axis deviation. Discharge Plan Discharge Patient Disposition: Still a Patient
[2024-09-24] MEDS: 0.9 % SODIUM CHLORIDE 1,000 ML 1000 ML IV (18:21)
[2024-09-24] MEDS: DILTIAZEM HCL 25 MG/5 ML VIAL 15 MG IV (18:22)
--- NOTE | 2024-09-24 18:33 | XR_ITS ---
[address] [address] Patient Name: PORFIRIO LAWSON MRN: [id number] date: 1950 Sex: F Assigned Patient Location: ER Current Patient Location: ED.MAIN Accession/Order Number: [id number] Exam Date: 09/24/2024 18:45 Report Date: 09/24/2024 20:22 At the request of: KRISH RED Procedure: XR chest 1V EXAMINATION: XR chest 1V, , 09/24/2024 3:45 PM PST INDICATION: Tachycardia HISTORY: Ordering Provider Reason for Exam: Tachycardia Technologist Note: Additional: COMPARISON: None. TECHNIQUE: Chest x-ray: One view. FINDINGS: No pneumothorax, pleural effusion or focal airspace consolidation. Enlarged cardiac silhouette. Bony thorax is unremarkable. XR/XR chest 1V IMPRESSION: No acute cardiopulmonary process. Electronically authenticated by: BENSON TONY Date: 09/24/2024 20:22
--- NOTE | 2024-09-24 18:33 | ECG_ITS ---
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
[2024-09-24 18:40] LABS: Basophils Absolute Auto 0.1 10^3/uL (0.0-0.1); Basophils Percent Auto 0.3 % (0.2-2.0); Eosinophils Absolute Auto 0.2 10^3/uL (0.0-0.7); Hematocrit 51.1 % (36.0-48.0); Hemoglobin 16.9 g/dL (12.0-16.0); Immature Granulocytes Abs Auto 0.06 10^3/uL (0.00-0.03); Immature Granulocytes Pct Auto 0.4 % (0.0-0.5); Lymphocytes Absolute Auto 2.5 10^3/uL (1.2-3.8); Lymphocytes Percent Auto 16.6 % (20.5-60.0); Mean Corpuscular HGB Conc 33.1 g/dL (29.9-35.2); Mean Corpuscular Hemoglobin 29.6 pg (26.7-34.0); Mean Corpuscular Volume 89.5 fL (81.0-99.0); Mean Platelet Volume 9.5 fL (9.5-13.5); Monocytes Percent Auto 6.4 % (1.7-12.0); Neutrophils Absolute Auto 11.3 10^3/uL (1.4-6.5); Neutrophils Percent Auto 75.3 % (43.0-75.0); Platelet Count 238 10^3/uL (150-450); Red Blood Count 5.71 10^6/uL (4.20-5.40); Red Cell Distribution Width 14.1 % (11.0-15.0)
[2024-09-24] MEDS: DIGOXIN 500 MCG/2 ML AMPUL IV (18:49)
--- NOTE | 2024-09-24 18:58 | ECG_ITS ---
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
[2024-09-24 19:01] LABS: Anion Gap 12.8; BUN Creatinine Ratio 20.9; Calcium 10.2 mg/dL (8.5-10.1); Carbon Dioxide 27.8 mmol/L (21.0-32.0); Chloride 103 mmol/L (98-107); Estimated GFR (African America 59 (>=60 mL/min/1.73m^2); Estimated GFR (Non-African Ame 49 (>=60 mL/min/1.73m^2); Glucose 97 mg/dL (74-106); Potassium 3.6 mmol/L (3.5-5.1); Sodium 140 mmol/L (136-145)
[2024-09-24 19:06] LABS: Troponin I High Sensitivity 138.6 pg/mL (4.0-51.3)
[2024-09-24] MEDS: DILTIAZEM HCL 25 MG/5 ML VIAL 20 MG IV (19:44)
[2024-09-24 20:03] LABS: Troponin I High Sensitivity 149.3 pg/mL (4.0-51.3)
[2024-09-24] MEDS: dilTIAZem HCL 125 MG in 0.9 % SODIUM CHLORIDE 100 ML IV (20:24)
--- NOTE | 2024-09-24 20:27 | ED_ITS ---
HPI HPI - General Adult General Chief complaint: Chest Pain Stated complaint: Arrhythmia/Palpitations Time Seen by Provider: 09/24/24 18:09 Source: patient Mode of arrival: walk-in Limitations: no limitations History of Present Illness HPI narrative: 74-year-old female initially seen by Dr. Edwards and signed out to me after discussing the case with him thoroughly. Please see his full history and physical exam. Related Data Home Medications ?Medication ?Instructions ?Recorded ?Confirmed amlodipine 10 mg tablet 10 mg PO DAILY 09/24/24 09/24/24 apixaban 5 mg tablet (Eliquis) 5 mg PO Q12H 09/24/24 09/24/24 atorvastatin 20 mg tablet 20 mg PO .QHS 09/24/24 09/24/24 furosemide 20 mg tablet 20 mg PO DAILY 09/24/24 09/24/24 sertraline 100 mg tablet 100 mg PO DAILY 09/24/24 09/24/24 spironolactone 25 mg tablet 25 mg PO DAILY 09/24/24 09/24/24 Allergies Allergy/AdvReac Type Severity Reaction Status Date / Time No Known Drug Allergies Allergy Verified 09/24/24 17:51 Opioid HPI Opioid Management Most Recent Opioid Data: No Data to Display PFSH PFSH Social History Little interest or pleasure in doing things: not at all Feeling down, depressed, or hopeless: not at all Exam Constitutional Vital Signs, click to edit/add: Last Vital Signs Temp 97.7 F 09/24/24 17:51 Pulse 121 H 09/24/24 18:49 Resp 18 09/24/24 18:49 BP 147/81 H 09/24/24 20:24 Pulse Ox 96 09/24/24 18:49 O2 Del Method Room Air 09/24/24 17:51 Course Vital Signs Vital signs: Vital Signs Temperature 97.7 F 09/24/24 17:51 Pulse Rate 156 H 09/24/24 17:51 Respiratory Rate 18 09/24/24 17:51 Blood Pressure 162/106 H 09/24/24 17:51 Pulse Oximetry 96 09/24/24 17:51 Oxygen Delivery Method Room Air 09/24/24 17:51 Temperature 97.7 F 09/24/24 17:51 Pulse Rate 121 H 09/24/24 18:49 Respiratory Rate 18 09/24/24 18:49 Blood Pressure 147/81 H 09/24/24 20:24 Pulse Oximetry 96 09/24/24 18:49 Oxygen Delivery Method Room Air 09/24/24 17:51 Medical Decision Making MDM Narrative Medical decision making narrative: She presented with atrial fibrillation with RVR. She was given 15 mg of Cardizem and then 500 mcg of digoxin. No significant change in her heart rate occurred. She was given 20 mg of Cardizem bolus and then placed on a drip at 5 and her heart rate seems to have come down appropriately. She is being admitted. Initial troponin 138 and the repeat is not significantly changed at 149. She is already on Eliquis. Treatment diagnosis and disposition were discussed with the patient. Differential Diagnosis Differential Diagnosis: Atrial fibrillation, atrial flutter Lab Data Lab results reviewed: Yes I reviewed the patient's lab results Labs: Lab Results 09/24/24 09/24/24 Range/Units 18:05 19:30 WBC 15.0 H (4.0-11.0) 10^3/uL RBC 5.71 H (4.20-5.40) 10^6/uL Hgb 16.9 H (12.0-16.0) g/dL Hct 51.1 H (36.0-48.0) % MCV 89.5 (81.0-99.0) fL MCH 29.6 (26.7-34.0) pg MCHC 33.1 (29.9-35.2) g/dL RDW 14.1 (11.0-15.0) % Plt Count 238 (150-450) 10^3/uL MPV 9.5 (9.5-13.5) fL Neut % (Auto) 75.3 H (43.0-75.0) % Lymph % (Auto) 16.6 L (20.5-60.0) % [place] % (Auto) 6.4 (1.7-12.0) % Eos % (Auto) 1.0 (0.9-7.0) % Baso % (Auto) 0.3 (0.2-2.0) % Neut # (Auto) 11.3 H (1.4-6.5) 10^3/uL Lymph # (Auto) 2.5 (1.2-3.8) 10^3/uL [place] # (Auto) 1.0 H (0.3-0.8) 10^3/uL Eos # (Auto) 0.2 (0.0-0.7) 10^3/uL Baso # (Auto) 0.1 (0.0-0.1) 10^3/uL Abs Immat Gran (auto) 0.06 H (0.00-0.03) 10^3/uL Imm/Tot Granulo (auto) 0.4 (0.0-0.5) % Sodium 140 (136-145) mmol/L Potassium 3.6 (3.5-5.1) mmol/L Chloride 103 (98-107) mmol/L Carbon Dioxide 27.8 (21.0-32.0) mmol/L Anion Gap 12.8 BUN 23.0 H (7.0-18.0) mg/dL Creatinine 1.10 H (0.55-1.02) mg/dL Est GFR ( Amer) 59 L (>=60 mL/min/1.73m^2) Est GFR (Non-Af Amer) 49 L (>=60 mL/min/1.73m^2) BUN/Creatinine Ratio 20.9 Glucose 97 (74-106) mg/dL Calcium 10.2 H (8.5-10.1) mg/dL Troponin I High Sens 138.6 H* 149.3 H* (4.0-51.3) pg/mL NT-Pro-B Natriuret Pep 1097.0 H (<=900.0) pg/mL Imaging Data Chest x-ray: Radiologist's impression: ITS Impressions Chest X-Ray 09/24/24 18:33 IMPRESSION: No acute cardiopulmonary process. Electronically authenticated by: BENSON TONY Date: 09/24/2024 20:22 Critical Care Time Critical Care Time Critical Care Time: Yes Total Critical Care Time: 35 Attestation: Due to the high probability of sudden and clinically significant deterioration in the patient's condition he/she required the highest level of my preparedness to intervene urgently I provided critical care time including documentation time, medication orders and management, reevaluation, vital sign assessment, ordering and reviewing of lab tests, ordering and reviewing of x-ray studies, and admission orders. Aggregate critical care time is 35 minutes including only time during which I was engaged in work directly related to his/her care and did not include time spent treating other patients simultaneously. Discharge Plan Discharge Chief Complaint: Chest Pain Clinical Impression: Atrial fibrillation with rapid ventricular response, Palpitations, Dehydration Patient Disposition: Admitted As Inpatient Time of Disposition Decision: 20:29 Condition: Fair
--- NOTE | 2024-09-24 20:52 | PC.NURSE ---
Pt provided regular hospital bed to board in ER for the night. Pt remains on Cardizem gtt at this time. Pt denies any further needs
[2024-09-24] MEDS: OMEPRAZOLE 20 MG CAPSULE.DR PO (21:27)
[2024-09-24] MEDS: ATORVASTATIN CALCIUM 20 MG TABLET PO (21:27)
[2024-09-24] MEDS: APIXABAN 5 MG TABLET PO (21:27)
[2024-09-25] VITALS (21 sets, daily range): BP systolic 104–154; BP diastolic 52–73; PULSE 54–75; O2SAT 93–98
--- NOTE | 2024-09-25 00:38 | ECG_ITS ---
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
[2024-09-25] MEDS: dilTIAZem HCL 125 MG in 0.9 % SODIUM CHLORIDE 100 ML IV (01:05)
[2024-09-25 01:13] LABS: Troponin I High Sensitivity 89.5 pg/mL (4.0-51.3)
[2024-09-25 06:43] LABS: Basophils Absolute Auto 0.1 10^3/uL (0.0-0.1); Basophils Percent Auto 0.5 % (0.2-2.0); Eosinophils Absolute Auto 0.2 10^3/uL (0.0-0.7); Eosinophils Percent Auto 1.4 % (0.9-7.0); Hematocrit 45.3 % (36.0-48.0); Hemoglobin 14.8 g/dL (12.0-16.0); Immature Granulocytes Abs Auto 0.04 10^3/uL (0.00-0.03); Immature Granulocytes Pct Auto 0.4 % (0.0-0.5); Lymphocytes Absolute Auto 2.1 10^3/uL (1.2-3.8); Mean Corpuscular HGB Conc 32.7 g/dL (29.9-35.2); Mean Corpuscular Hemoglobin 29.6 pg (26.7-34.0); Mean Corpuscular Volume 90.6 fL (81.0-99.0); Mean Platelet Volume 9.8 fL (9.5-13.5); Monocytes Absolute Auto 0.9 10^3/uL (0.3-0.8); Monocytes Percent Auto 8.2 % (1.7-12.0); Neutrophils Absolute Auto 8.1 10^3/uL (1.4-6.5); Neutrophils Percent Auto 71.5 % (43.0-75.0); Platelet Count 191 10^3/uL (150-450); Red Cell Distribution Width 14.3 % (11.0-15.0); White Blood Count 11.4 10^3/uL (4.0-11.0)
[2024-09-25 07:08] LABS: Alanine Aminotransferase 21 U/L (14-59); Albumin Level 3.5 g/dL (3.4-5.0); Alkaline Phosphatase 115 U/L (46-116); Anion Gap 12.7; Aspartate Amino Transferase 26 U/L (15-37); BUN Creatinine Ratio 21.1; Bilirubin Total 0.7 mg/dL (0.2-1.0); Calcium 9.1 mg/dL (8.5-10.1); Carbon Dioxide 26.5 mmol/L (21.0-32.0); Chloride 107 mmol/L (98-107); Estimated GFR (African America >60 (>=60 mL/min/1.73m^2); Estimated GFR (Non-African Ame 58 (>=60 mL/min/1.73m^2); Globulin 3.5 g/dL; Glucose 104 mg/dL (74-106); Magnesium 2.1 mg/dL (1.8-2.4); Potassium 4.2 mmol/L (3.5-5.1); Sodium 142 mmol/L (136-145)
[2024-09-25 07:12] LABS: Troponin I High Sensitivity 79.5 pg/mL (4.0-51.3)
[2024-09-25] MEDS: APIXABAN 5 MG TABLET PO (08:32)
[2024-09-25] MEDS: AMLODIPINE BESYLATE 5 MG TABLET 10 MG PO (08:32)
[2024-09-25] MEDS: FUROSEMIDE 20 MG TABLET PO (08:36)
[2024-09-25] MEDS: METOPROLOL TARTRATE 25 MG TABLET PO (09:29)
[2024-09-25] MEDS: SERTRALINE HCL 100 MG TABLET PO (09:29)
[2024-09-25] MEDS: SPIRONOLACTONE 25 MG TABLET PO (09:29)
--- OUTSIDE RECORDS SUMMARY | 2024-09-25 10:24 | XMS_ITS | CCD ---
Author Organization [facility] Care Team Providers Care Personnel Monitor Name Role Phone WEST, DR LOTUS Chester [...] Dr. Lee soon. She will look into [facility] for both Eliquis and Xarelto and let me know which one she wants us to fax into them. [facility] 36on 08-26-2024 36 Patient calling asking for echo results. It is scanned into media job titles for your review. Also, Eliquis is very expensive for her. She said her takes Xarelto and that is very expensive for them also. Can I send a referral to coumadin clinic or would you like something else? Please advise. Thanks. [facility] Office Visiton 08-13-2024 Follow-up visit [id number] Kalani Fernandes 1950 F Date Provider Department Center 08/13/2024 [id number] MARIE KIMBERLY Berg Family History Problem Relation Age of Onset Other Mother Atrial fibrillation Brother Stroke Maternal Grandmother Family Status - Relation Status Age at Mother Brother Maternal Grandmother Level of Service:45796 MO OFFICE/OUTPATIENT NEW MODERATE MDM 45 MINUTES Reason for Visit and Comments: Hypertension [695257] - Used to be on lisinopril but was recently switched to amlodipine 5mg daily. Denies swelling. Hyperlipidemia [182] - On atorvastatin Palpitations [673095] - Recently wore 30 day event monitor for palpitations, but hasn't had them recently. Sleep Apnea [348] - Compliant with bipap therapy. [facility] Orders Onlyon 08-13-2024 Orders Only [id number] Kalani Fernandes 1950 Provider Department Center 08/13/2024 928-KATERINA SAHNI KIMBERLY [facility] Family History Problem Relation Age of Onset Other Mother Atrial fibrillation Brother Stroke Maternal Grandmother Family Status - Relation Status Age at Mother Brother Maternal Grandmother [facility] 36on 08-12-2024 36 Patient was scheduled [facility] Orders Onlyon 08-12-2024 Orders Only [id number] Kalani Fernandes 1950 Provider Department [place] 08/12/2024 803-CATARINA CRANE MP ORTHO MPORTHO Family History Problem Relation Age of Onset Other Mother Atrial fibrillation Brother Stroke Maternal Grandmother Family Status - Relation Status Age at Mother Brother Maternal Grandmother [facility] 36on 08-11-2024 36 Patient was seen 08/05/24. She called stating that someone was suppose to call her to set up date and time for surgery. She states that she has not received a call. Please advise. Thank you. [facility] Office Visiton 08-05-2024 Follow-up visit [id number] Kalani Fernandes 1950 Provider Department Center 08/05/2024 [facility] No family history on file Level of Service:41160 MO OFFICE/OUTPATIENT NEW LOW MDM 30 MINUTES (GC,25) Reason for Visit and Comments: Pain [136] [facility] 36on 07-15-2024 36 Patient called to schedule a new patient appointment with our office. 08/05 Patient wants to be seen for: Cyst of joint of right hand Patient had MRI done at [facility] 07/05/24 Patient had Trigger Thumb done on 07/[address] Khan @ [facility] Patient saw Dr. Ospina for this issues. They were referred to us from this provider. This appointment is not a second opionion This appointment IS NOT related to a work related injury Normal [facility] MR HAND RIGHT W AND WO IV [...] 07-03-2024 Creatinine [Mass/Vol] 0.90 mg/dL Normal 0.60-1.00 [facility] Comment on above: Performed By: #### 3 75 #### [facility] [address], [address] [place] [id number] Paintings Restorer: Shiraz Regalado MD GFR/1.73 sq M.predicted among non-blacks MDRD (S/P/Bld) [Vol rate/Area] 68 mL/min/{1.73_m2} Normal > OR = 60 [facility] Comment on above: Performed By: #### 3 75 #### [facility] [address], [address] [place] [phone] Paintings Restorer: Shiraz Regalado MD XR Hand - right 3 [facility] Result: Xrays AP, LAT and OBL of the right hand performed on June 28, 2024 demonstrates Narrowing of the 1st carpometacarpal joint with adjacent sclerosis and slight subluxation consistent withfirst [facility] arthritis, no swelling or fractures noted. 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 Basophils (Bld) [#/Vol] Automated basophil count 0.0-0.1 [facility] Basophils/100 WBC Auto (Bld) on 05-03-2024 Basophils/100 WBC (Bld) 0.5 % 0.2-2.0 [facility] Basophils/100 WBC (Bld) Automated basophil % 0.2-2.0 [facility] Cholesterol in LDL Calc [Mas s/Vol]on 05-03-2024 Cholesterol in LDL [Mass/Vol] 83.0 mg/dL [facility] Comment on above: <100 mg/dl [id number] 0-129 mg/dl NEAR OR ABOVE [id number] mg/dl BORDERLINE [id number] mg/dl HIGH>190 mg/dl VERY HIGH Cholesterol in LDL [Mass/Vol] Cholesterol in LDL [Mass/volume] in Serum or Plasma by calculation [facility] Comment on above: <100 mg/dl [id number] 0-129 mg/dl NEAR OR ABOVE [id number] mg/dl BORDERLINE [id number] mg/dl HIGH>190 mg/dl VERY HIGH Cholesterol in VLDL Calc [Ma ss/Vol]on 05-03-2024 Cholesterol in VLDL [Mass/Vol] 18.2 mg/dL [facility] Cholesterol in VLDL [Mass/Vol] Cholesterol in VLDL [Mass/volume] in Serum or Plasma by calculation [facility] Eosinophils/100 WBC Auto (Bl d)on 05-03-2024 Eosinophils/100 WBC (Bld) 1.6 % 0.9-7.0 [facility] Eosinophils/100 WBC (Bld) Automated eosinophil % 0.9-7.0 [facility] Erythrocyte distribution wid th Auto (RBC) [Ratio]on 05-03-2024 Erythrocyte distribution width (RBC) [Ratio] 14.4 % 11.0-15.0 [facility] Erythrocyte distribution width (RBC) [Ratio] Erythrocyte distribution width [Ratio] by Automated count 11.0-15.0 [facility] Estimated glomerular filtrat ion rate (GFR) non- Americanon 05-03-2024 GFR/1.73 sq M.predicted among non-blacks MDRD (S/P/Bld) [Vol rate/Area] 55 mL/min/{1.73_m2} Low >=60 [facility] GFR/1.73 sq M.predicted among non-blacks MDRD (S/P/Bld) [Vol rate/Area] Estimated glomerular filtration rate (GFR) non- Low >=60 [facility] Globulin Calc (S) [Mass/Vol] on 05-03-2024 Globulin (S) [Mass/Vol] 3.7 g/dL [facility] Globulin (S) [Mass/Vol] Serum globulin measurement by calculation (mass/volume) [facility] Hematocrit Auto (Bld) [Volum e fraction]on 05-03-2024 Hematocrit (Bld) [Volume fraction] 45.3 % 36.0-48.0 [facility] Hematocrit (Bld) [Volume fraction] Hematocrit [Volume Fraction] of Blood by Automated count 36.0-48.0 [facility] Hemoglobin [Mass/volume] in Bloodon 05-03-2024 Hemoglobin (Bld) [Mass/Vol] 14.7 g/dL 12.0-16.0 [facility] Hemoglobin (Bld) [Mass/Vol] Hemoglobin [Mass/volume] in Blood 12.0-16.0 [facility] Laboratory - Chemistry and C hemistry - challengeon 05-03-2024 Albumin [Mass/Vol] 4.0 g/dL 3.4-5.0 [facility] ALP [Catalytic activity/Vol] 107 U/L 46-116 [facility] ALT [Catalytic activity/Vol] 29 U/L 14-59 [facility] AST [Catalytic activity/Vol] 23 U/L 15-37 [facility] Bilirubin [Mass/Vol] 0.4 mg/dL 0.2-1.0 [facility] Calcium [Mass/Vol] 9.7 mg/dL 8.5-10.1 [facility] Chloride [Moles/Vol] 103 mmol/L 98-107 [facility] Cholesterol [Mass/Vol] 163 mg/dL <=200 [facility] Cholesterol in HDL [Mass/Vol] 62 mg/dL High 40-60 [facility] Comment on above: > or =60 mg/dl - LOW CARDIOVASCULAR RISK<40 mg/dl - HIGH CARDIOVASCULAR RISK CO2 [Moles/Vol] 30.1 mmol/L 21.0-32.0 [facility] Creatinine [Mass/Vol] 0.99 mg/dL 0.55-1.02 [facility] GFR/1.73 sq M.predicted MDRD (S/P/Bld) [Vol rate/Area] mL/min/{1.73_m2} >=60 [facility] Glucose [Mass/Vol] 91 mg/dL 74-106 [facility] Potassium [Moles/Vol] 4.1 mmol/L 3.5-5.1 [facility] Protein [Mass/Vol] 7.7 g/dL 6.4-8.2 [facility] Sodium [Moles/Vol] 139 mmol/L 136-145 [facility] Triglyceride [Mass/Vol] 91 mg/dL <=150 [facility] TSH Qn 2.666 m[IU]/L 0.358-3.740 [facility] Urea nitrogen [Mass/Vol] 17.0 mg/dL 7.0-18.0 [facility] Urea nitrogen/Creatinine [Mass ratio] 17.2 mg/mg [facility] Laboratory - Hematology and Cell countson 05-03-2024 Immature granulocytes/100 WBC (Bld) 0.2 % 0.0-0.5 [facility] Leukocytes [#/volume] correc alyssia for nucleated erythrocytes in Blood by Automated counon 05-03-2024 WBC corrected for nucl RBC Auto (Bld) [#/Vol] 8.2 10 3/uL 4.0-11.0 [facility] WBC corrected for nucl RBC Auto (Bld) [#/Vol] Leukocytes [#/volume] corrected for nucleated erythrocytes in Blood by Automated coun 4.0-11.0 [facility] Lymphocytes Auto (Bld) [#/Vo l]on 05-03-2024 Lymphocytes (Bld) [#/Vol] 2.5 10 3/uL 1.2-3.8 [facility] Lymphocytes (Bld) [#/Vol] Lymphocytes [#/volume] in Blood by Automated count 1.2-3.8 [facility] Lymphocytes/100 WBC Auto (Bl d)on 05-03-2024 Lymphocytes/100 WBC (Bld) 30.3 % 20.5-60.0 [facility] Lymphocytes/100 WBC (Bld) Lymphocytes/100 leukocytes in Blood by Automated count 20.5-60.0 [facility] MCH Auto (RBC) [Entitic mass ]on 05-03-2024 MCH (RBC) [Entitic mass] 30.1 pg 26.7-34.0 [facility] MCH (RBC) [Entitic mass] MCH [Entitic mass] by Automated count 26.7-34.0 [facility] MCHC Auto (RBC) [Mass/Vol]on 05-03-2024 MCHC (RBC) [Mass/Vol] 32.5 g/dL 29.9-35.2 [facility] MCHC (RBC) [Mass/Vol] MCHC [Mass/volume] by Automated count 29.9-35.2 [facility] MCV Auto (RBC) [Entitic vol] on 05-03-2024 MCV (RBC) [Entitic vol] 92.6 fL 81.0-99.0 [facility] MCV (RBC) [Entitic vol] MCV [Entitic volume] by Automated count 81.0-99.0 [facility] Monocytes Auto (Bld) [#/Vol] on 05-03-2024 Monocytes (Bld) [#/Vol] 0.5 10 3/uL 0.3-0.8 [facility] Monocytes (Bld) [#/Vol] Automated blood monocyte count 0.3-0.8 [facility] Monocytes/100 WBC Auto (Bld) on 05-03-2024 Monocytes/100 WBC (Bld) 5.9 % 1.7-12.0 [facility] Monocytes/100 WBC (Bld) Automated monocyte % 1.7-12.0 [facility] Neutrophils Auto (Bld) [#/Vo l]on 05-03-2024 Neutrophils (Bld) [#/Vol] 5.0 10 3/uL 1.4-6.5 [facility] Neutrophils (Bld) [#/Vol] Neutrophils [#/volume] in Blood by Automated count 1.4-6.5 [facility] Neutrophils/100 WBC Auto (Bl d)on 05-03-2024 Neutrophils/100 WBC (Bld) 61.5 % 43.0-75.0 [facility] Neutrophils/100 WBC (Bld) Automated neutrophil % 43.0-75.0 [facility] No Panel Informationon 05-03 Eosinophils # (Auto) 0.1 10 3/uL 0.0-0.7 [facility] Immature Granulocyte # (Auto) 0.02 10 3/uL 0.00-0.03 [facility] Platelet mean volume Auto (B ld) [Entitic vol]on 05-03-2024 Platelet mean volume (Bld) [Entitic vol] 9.7 fL 9.5-13.5 [facility] Platelet mean volume (Bld) [Entitic vol] Platelet mean volume [Entitic volume] in Blood by Automated count 9.5-13.5 [facility] Platelets Auto (Bld) [#/Vol] on 05-03-2024 Platelets (Bld) [#/Vol] 206 10 3/uL 150-450 [facility] Platelets (Bld) [#/Vol] Platelets [#/volume] in Blood by Automated count 150-450 [facility] RBC Auto (Bld) [#/Vol]on RBC (Bld) [#/Vol] 4.89 10 6/uL 4.20-5.40 [facility] RBC (Bld) [#/Vol] Erythrocytes [#/volume] in Blood by Automated count 4.20-5.40 [facility] Serum or plasma albumin/glob ulin mass ratioon 05-03-2024 Albumin/Globulin [Mass ratio] 1.1 {ratio} [facility] Albumin/Globulin [Mass ratio] Serum or plasma albumin/globulin mass ratio [facility] Serum or plasma anion gap de terminationon 05-03-2024 Anion gap [Moles/Vol] 10.0 mmol/L [facility] Anion gap [Moles/Vol] Serum or plasma anion gap determination [facility] Serum or plasma total choles terol/high density lipoprotein (HDL) cholesterol mass gloria 05-03-2024 Cholesterol.total/Ch olesterol in HDL [Mass ratio] 2.6 {ratio} [facility] Comment on above: 3.3 - 4.4 LOW RISK4. 4 - 7.1 AVERAGE RISK7.1 - 11.0 MODERATE RISK>11.0 HIGH RISK Cholesterol.total/Ch olesterol in HDL [Mass ratio] Serum or plasma total cholesterol/high density lipoprotein (HDL) cholesterol mass rat [facility] Comment on above: 3.3 - 4.4 LOW RISK4. 4 - 7.1 AVERAGE RISK7.1 - 11.0 MODERATE RISK>11.0 HIGH RISK MG MAMM SCREEN 3D EVAN CADon 06-26-2022 MG MAMM SCREEN 3D EVAN CAD Patient: KALANI FERNANDES Exam Date: 06/26/2022 : 1950 Gender:F Ordering : DR RENY SMITH M.D. Admission #: [id number] Family : Order #: [id number] CLICK HERE TO VIEW EXAM RADIOLOGY REPORT [...] Treatments None Family Cancers None LOCATION: [facility] BREAST COMPOSITION: Heterogeneously dense,which may obscure [...] MD on 06/26/2022 at 08:44 Normal [facility] CBC AUTO DIFFon 05-13-2022 BASO # 0.0 103/ul Normal 0.0-0.1 [facility] Comment on above: Performed By: #### C BC #### [facility] [address] [place] [address] Dr. Christina Camarena Basophils/100 WBC (Bld) 0.3 % Normal 0.2-2.0 [facility] Comment on above: Performed By: #### C BC #### [facility] [address] [place] [address] Dr. Christina Camarena EO # 0.1 103/ul Normal 0.0-0.7 [facility] Comment on above: Performed By: #### C BC #### [facility] [address] [place] [address] Dr. Christina Camarena Eosinophils/100 WBC (Bld) 1.5 % Normal 0.9-7.0 [facility] Comment on above: Performed By: #### C BC #### [facility] [address] [place] [address] Dr. Christina Camarena Erythrocyte distribution width (RBC) [Ratio] 14.4 % Normal 11.0-15.0 [facility] Comment on above: Performed By: #### C BC #### [facility] [address] [place] [address] Dr. Christina Camarena Hematocrit (Bld) [Volume fraction] 46.5 % Normal 36.0-48.0 [facility] Comment on above: Performed By: #### C BC #### [facility] [address] [place] [address] Dr. Christina Camarena Hemoglobin (Bld) [Mass/Vol] 14.8 g/dL Normal 12.0-16.0 [facility] Comment on above: Performed By: #### C BC #### [facility] [address] [place] [address] Dr. Christina Camarena IG # 0.02 10e3/ul Normal 0.00-0.03 [facility] Comment on above: Performed By: #### C BC #### [facility] [address] [place] [address] Dr. Christina Camarena IG % 0.2 % Normal 0.0-0.5 [facility] Comment on above: Performed By: #### C BC #### [facility] [address] [place] [address] Dr. Christina Camarena LYMPH # 2.4 103/ul Normal 1.2-3.8 [facility] Comment on above: Performed By: #### C BC #### [facility] [address] [place] [address] Dr. Christina Camarena Lymphocytes/100 WBC (Bld) 26.2 % Normal 20.5-60.0 [facility] Comment on above: Performed By: #### C BC #### [facility] [address] [place] [address] Dr. Christina Camarena MANUAL DIFF REQ NO Normal [facility] Comment on above: Performed By: #### C BC #### [facility] [address] [place] [address] Dr. Christina Camarena MCH (RBC) [Entitic mass] 29.5 pg Normal 26.7-34.0 [facility] Comment on above: Performed By: #### C BC #### [facility] [address] [place] [address] Dr. Christina Camarena MCHC (RBC) [Mass/Vol] 31.8 g/dL Normal 29.9-35.2 [facility] Comment on above: Performed By: #### C BC #### [facility] [address] [place] [address] Dr. Christina Camarena MCV (RBC) [Entitic vol] 92.8 fL Normal 81.0-99.0 [facility] Comment on above: Performed By: #### C BC #### [facility] [address] [place] [address] Dr. Christina Camarena MONO # 0.6 103/ul Normal 0.3-0.8 [facility] Comment on above: Performed By: #### C BC #### [facility] [address] [place] [address] Dr. Christina Camarena Monocytes/100 WBC (Bld) 6.7 % Normal 1.7-12.0 [facility] Comment on above: Performed By: #### C BC #### [facility] [address] [place] [address] Dr. Christina Camarena NEUT # 5.9 103/ul Normal 1.4-6.5 [facility] Comment on above: Performed By: #### C BC #### [facility] [address] [place] [address] Dr. Christina Camarena Neutrophils/100 WBC (Bld) 65.1 % Normal 43.0-75.0 [facility] Comment on above: Performed By: #### C BC #### [facility] [address] [place] [address] Dr. Christina Camarena Platelet mean volume (Bld) [Entitic vol] 9.8 fL Normal 9.5-13.5 [facility] Comment on above: Performed By: #### C BC #### [facility] [address] [place] [address] Dr. Christina Camarena PLT 228 103/ul Normal 150-450 [facility] Comment on above: Performed By: #### C BC #### [facility] [address] [place] [address] Dr. Christina Camarena RBC 5.01 106/ul Normal 4.20-5.40 [facility] Comment on above: Performed By: #### C BC #### [facility] [address] [place] [address] Dr. Christina Camarena WBC 9.1 103/ul Normal 4.0-11.0 [facility] Comment on above: Performed By: #### C BC #### [facility] [address] [place] [address] Dr. Christina Camarena LIPID PROFILEon 05-13-2022 CHOL-HDL RATIO NORM SEE BELOW Normal [facility] Comment on above: Result Comment: 3.3 - 4.4 LOW RISK 4.4 - 7.1 AVERAGE RISK 7.1 - 11.0 MODERATE RISK >11.0 HIGH RISK Performed By: #### L IPID, CMP #### [facility] [address] [address] [address] Christina Camarena Cholesterol [Mass/Vol] 172 mg/dL Normal <=200 [facility] Comment on above: Performed By: #### L IPID, CMP #### [facility] [address] [address] [address] Christina Camarena Cholesterol in HDL [Mass/Vol] 55 mg/dL Normal 40-60 [facility] Comment on above: Performed By: #### L IPID, CMP #### [facility] [address] [address] [address] Christina Camarena Cholesterol in LDL [Mass/Vol] 76.8 mg/dL Normal [facility] Comment on above: Performed By: #### L IPID, CMP #### [facility] [address] [address] [address] Christina Camarena Cholesterol.total/Ch olesterol in HDL [Mass ratio] 3.1 {ratio} Normal [facility] Comment on above: Performed By: #### L IPID, CMP #### [facility] [address] [address] [address] Christina Camarena HDL NORMAL > or = 60 mg/dl - LOW CARDIOVASCULAR RISK <40 mg/dl - HIGH CARDIOVASCULAR RISK Normal [facility] Comment on above: Performed By: #### L IPID, CMP #### [facility] [address] [address] [address] Christina Camarena LDL CALC NORMAL SEE BELOW Normal [facility] Comment on above: Result Comment: <100 mg/dl OPTIMAL 100 - 129 mg/dl NEAR OR ABOVE OPTIMAL 130 - 159 mg/dl BORDERLINE HIGH 160 - 189 mg/dl HIGH >190 mg/dl VERY HIGH Performed By: #### L IPID, CMP #### [facility] [address] [address] [address] Christina Camarena Triglyceride [Mass/Vol] 201 mg/dL Critically high <=150 [facility] Comment on above: Performed By: #### L IPID, CMP #### [facility] [address] [place] [address] Dr. Christina Camarena VLDL CALC 40.2 mg/dL Normal [facility] Comment on above: Performed By: #### L IPID, CMP #### [facility] [address] [address] [address] Christina Camarena PROF 14(COMP METB)on 022 Albumin [Mass/Vol] 4.1 g/dL Normal 3.4-5.0 [facility] Comment on above: Performed By: #### L IPID, CMP #### [facility] [address] [place] [address] Dr. Christina Camarena Albumin/Globulin [Mass ratio] 1.1 {ratio} Normal [facility] Comment on above: Performed By: #### L IPID, CMP #### [facility] [address] [place] [address] Dr. Christina Camarena ALP [Catalytic activity/Vol] 99 U/L Normal 46-116 [facility] Comment on above: Performed By: #### L IPID, CMP #### [facility] [address] [place] [address] Dr. Christina Camarena ALT [Catalytic activity/Vol] 29 U/L Normal 14-59 [facility] Comment on above: Performed By: #### L IPID, CMP #### [facility] [address] [place] [address] Dr. Christina Camarena Anion gap [Moles/Vol] 13.7 mmol/L Normal [facility] Comment on above: Performed By: #### L IPID, CMP #### [facility] [address] [place] [address] Dr. Christina Camarena AST [Catalytic activity/Vol] 24 U/L Normal 15-37 [facility] Comment on above: Performed By: #### L IPID, CMP #### [facility] [address] [address] [address] Christina Camarena Bilirubin [Mass/Vol] 0.5 mg/dL Normal 0.2-1.0 [facility] Comment on above: Performed By: #### L IPID, CMP #### [facility] [address] [place] [address] Dr. Christina Camarena Calcium [Mass/Vol] 9.4 mg/dL Normal 8.5-10.1 [facility] Comment on above: Performed By: #### L IPID, CMP #### [facility] [address] [address] [address] Christina Camarena Chloride [Moles/Vol] 104 mmol/L Normal 98-107 [facility] Comment on above: Performed By: #### L IPID, CMP #### [facility] [address] [place] [address] Dr. Christina Camarena CO2 [Moles/Vol] 25.4 mmol/L Normal 21.0-32.0 [facility] Comment on above: Performed By: #### L IPID, CMP #### [facility] [address] [place] [address] Dr. Christina Camarena Creatinine [Mass/Vol] 0.99 mg/dL Normal 0.55-1.02 [facility] Comment on above: Performed By: #### L IPID, CMP #### [facility] [address] [place] [address] Dr. Christina Camarena EGFR-AF BENINESE >60 Normal >=60 [facility] Comment on above: Performed By: #### L IPID, CMP #### [facility] [address] [place] [address] Dr. Christina Camarena EGFR-NON AF BENINESE 55 mL/min/1.73m2 Critically low >=60 [facility] Comment on above: Performed By: #### L IPID, CMP #### [facility] [address] [place] [address] Dr. Christina Camarena Globulin (S) [Mass/Vol] 3.8 g/dL Normal [facility] Comment on above: Performed By: #### L IPID, CMP #### [facility] [address] [address] [address] Christina Camarena Glucose [Mass/Vol] 98 mg/dL Normal 74-106 [facility] Comment on above: Performed By: #### L IPID, CMP #### [facility] [address] [address] [address] Christina Camarena Potassium [Moles/Vol] 4.1 mmol/L Normal 3.5-5.1 [facility] Comment on above: Performed By: #### L IPID, CMP #### [facility] [address] [address] [address] Christina Camarena Protein [Mass/Vol] 7.9 g/dL Normal 6.4-8.2 [facility] Comment on above: Performed By: #### L IPID, CMP #### [facility] [address] [address] [address] Christina Camarena Sodium [Moles/Vol] 139 mmol/L Normal 136-145 [facility] Comment on above: Performed By: #### L IPID, CMP #### [facility] [address] [address] [address] Christina Camarena Urea nitrogen [Mass/Vol] 20.0 mg/dL Critically high 7.0-18.0 [facility] Comment on above: Performed By: #### L IPID, CMP #### [facility] [address] [address] [address] Christina Camarena Urea nitrogen/Creatinine [Mass ratio] 20.2 mg/mg Normal [facility] Comment on above: Performed By: #### L IPID, CMP #### [facility] [address] [address] [address] Christina Camarena Coding Summary.on 02-05-2022 Coding Summary. CD:[id number] Gh0bWw+PGhlYWQ+PE1FV WEqL80vpEUwgN8FU3kWS I9KJOLCABFEJT2SFK2qq OJ8NIyiP4KubfUq NfgbcSVfFT42DKv5YVW9 aHudPTzltG5piNJdX1h7 HpPiPH75bV72REkaPWXx AfA6IbXhhwaznHZg J1azAzSmdEOpTwm+PHRh YmxlIHdpZHRoPScxMDAl EfGkhQqdTP4cKl4bJUSo LWNvbGxhcHNlOiBj m8fbPHIdCLgtTV2mrPid H4VxuBQ7KXJbw3z4Tk47 dHI+TLJgYCG5fWjdGLxn x024UkWzf1lxEYR6 iQFtJZyrONH6N56ri6Q9 WDMqWUUqEGD0lXL6qS0g xVrpkgbiB1JglBPuJsW5 IRX0sDTglE2zmOud cmnbiP5mPbv+H60GXS6X LOLBRR4TMhz1O9MhUvfy dHI+SI93SFNjKY12gSKm pRSys4nnwAb3HiAw MGQcPMM1yGuiVNbib2Hs VFCeE68bjULaz0C6SIPh rFxnzDTsPiIelWL9gM4w HCkemjqcu6dulcnc Zkmbw5dzgr99rD97J01v UNyfCBKdGBL8PZLfENIt tXketc9qaS9wHf1+IDxj z1jrp8sipRi9IpAt YACicfIgcTawFQW1i6Ng Yn39T2UipEkni7UtIpn1 kp55fCClq1N6jAU7YFog XOHkgK8uJNamIeK3 CYWhIvUooJ07nJKuDZog St2fcQpfeYujEG9fLNJu swcuQYGcuW3pVPEspXDa aVzpDI9tBYFmlfny y508WbUkMXH7XKXxmNPv A2WgeK7lTiLdIJKuNCEu H3UfhQKaDOztK501GSnu OrU0PIEgnuAlQ3Ob TCHcfXikRiL4m2C0Qm4N j2PolgsrOVX0BFchGBH5 BrK4DzNsFtX5D7WuJmh5 AZHsrRnoPY0dY7Sl VNTixtaoyllvwXR8XRNd GJQuhW68fBWiCSihQn5f p1Q7t439LULlGNLewN16 Gq6qvHtpBYIatHPK aY3tpszbe4nmbnbnDnXp TNMwKLc7GTf5QFUudLuc DyLoAXY6WcC2RVD4qWXe xG4brFlyrlqopG4h Oyc+T66imY8sBWQ2IQT7 ypkqBRXieiVhWN15VE61 H6AhHpqjqRMtcYN+PGRp xiWqjEuyCL2rBqDu q6xyx4ZaVQnxJ2GmUHRi PZrfZbv1HUWhSUP4qCQ1 sC0sKYNhWGhiu2O4yMJ6 X1YzoyLjpt8iz3ok AZWjQVarA18cxIVrv1L4 SGCrlGO3FHYcbOozTtHf vF25Jik+ZOKopKesd3Nz Stxlt7kno7jkuQo8 IjMwJSIgdmFsaWduPSJ0 b9CcOx50A04pWVxuSFEp KXIvKMTaQULmaBpxsk1p nT9hBl9+PGNvbCB3 mPD1lP8mCEFmEzV4NXrv E733OzQmaZHbLzjru6vo b6kpdJc4DiVqYECefdQi tAdfEBV6j3QtKw92 K17fHSbgPHTpWXMjGUWp CYHfsQksde7feH4cZw1+ BX7cl8qdgo49oR67cJH+ HCCoFFA2qQqiJUsv GUTrjB2vVOypMdH6HEHn OcAbiA79hEAnNTlwRf5i sDmgqGavSE6rDZInrsuv e155CgGuy8qhCAQx eRTyHNisWXY3I39rt8P6 KKGyPZYnJCF5aHO6hL8b bGlnbjogbGVmdDsgdmVy cMkwTSpfRUheK034 IHRvcDsnPlBhdGllbnQg TzJpXKv3Z5FaLpo1BJKr bJlvHS8wzPWnNJugHq0t iYsfvJgwPJ4dNOYj lrjwr222WtPnr1ooBQDy gTMmPCpdVMA5B97om3U3 XHLyBEPyQXP2kKS3yK1c bGlnbjogbGVmdDsg rnAzbHybSLwqHDvwT468 IHRvcDsnPkJpcnRoIERh pPU3FL61HL91sWAnf4P8 aUS3H5InHDJubmfu cpdnsJN7BSMkUOObaY03 Al2siZwuBx8lGNRaAKX9 YZWpuOVgY2BqdX5gOlQh JDShHZMnX9NsyOGn YAxcK285GImiZxE9VRAp iiMbA1SwOELkrXexQuD9 u7H4Uz1CY5H1EL92BX93 rQWaj9D1kVD7O9Gc OUJiaymelnlkpZR0YEDa UNCpmP42Eg6gfLcjJw5k KJOqKTY4STCyzNBhP2Bq jU5lUhEuPRGmXXQc N2PtwKXjEDlkV860KYos VhF3MKTdvyNqH2HiFBDq hDasDsD8t1Q9Va0TAZt4 SW61OC18uODzd1T7 kIK4P4QoNVReppiwblkw hWI5SAZwEYKtxE56Ry7z jTweMd0cMICvGTI1HESr vIShI2XiaA1gPkLy SDAlTDLvC1EsoFMdTQhc A536LBrlEcL5EFDfaaPh Q3GzAZYxpOgiNlR7l2R0 Pk8FKBUtAY29DZN3 mER5GZ19VB51U0NkFepq dGFibGU+PHRhYmxlIHdp ZHRoPScxMDAlJyBzdHls RK7aPu4lGGCjMSRc rNvvjREsDzRje8caNWUq LBkvSU1dqGgtL7UyaWB1 DGGyk0w4Xq27R68sT7Rs dXA+RPSiiJD2xBQ5 cY4mJwNwQeG5QFqiU488 ExRypEHcBjrup4jmd0fk tFu9InS4PIChrcJxcYxd FZE8y9EdUv49V02b IHdpZHRoPSIxNSUiIHZh sIusur2tlW6jHl8+PGNv eBH1zKW7vO2tWxTuUpO3 AFgbV264CwEmmBVh Ugwja2oda5eexNu2OxBx DXZhukAotZhjTUY0q7Sd Os20E0JhaPxqe1EfQpk5 nj62wMArb6L0uLR1 B5FuDXPmbtnewYQcbSfi ER6mCLZyqaaiHSEgeK5a QYOtO4w1JlYnJiH2EVpp T4FgpuV0EMDrgLJo KUonQBY9W78kt1X3NZUu EPYtAXM1yGQ5wY9zrDav bjogbGVmdDsgdmVydGlj WAcmWQycP573AENx fXwmZJYzeX6fECEegPIg uDizKB4tMMDxslgiQfAW ORVHG3MdPYVKNvzNAqbA PE62W2MkSvx5IEPl uWknCD1jfZLcMHbwWd8v yLktfOvhCE1wTISpxdgi CQVmxP7hCPGwaJAfyGsz GF3hIXYzchgjv754 DpKpDCH4KAQbxLLpZ1Xv fM5lWyUpLLKvYCOwB5Xf kIUxHFqkZ125VMphKsA5 LANwwtJoY8RoXVJv cYpcTpJ7h2T8Ep9fSL6g VC5rITCxBE90LR53zTNb j9T2yFX1N9KxTYIkgzlt cbyoqWI3KWLsQINk tU68nRPfZDhtZy7ko9D2 k707LBImTTGoaB78Oy8t nAlvKMViiKWJuD1yufct c9luzyfhExXrDLZa FMr2JRm3EZJeoXdnWbXi MDA0RyE9BTR3wBLxgG1o vRwvzdkedZ4kFpd+Njkg KVAtlcL2I7KtKdc5 SJNkgCveUO9noNWlDYtv Yn3afDubdTymUK6fFLRp micgVXBloS4qCZOrtUJr zCsaVL1iSLUkygzy a564RiEcDMH2IRWkgMHd G7MpsJ0xPfIzGALlPEBr P6ZppHEaSHwpL944MMyp ZjT1KFQurjJaW9Am GHYraEtvLzH3y7Q7Bk2M NL9pwXB7U3UtDdw6YUCk wUqnQK0qsVBvNJmuGs8a rIugxHubNR2sIYYu lronBMBetF6aXJHlcSEm kMrzYM3wJRWqwducn032 YeMlXQE3EDDftKMwT7Uq rI3qYmFeEEToECWa F6RuyVMsVIvnF550EOjj AvI0GQSkvoHrC8SiJXQr mClnBhR0j9T0Mu6XJAOy ASQkvPAfSwF7B1Nc PjwvdHI+YF29KSQaIS64 vKJdfNPwr0ktoLx9RkVc CICyBUQ3dCskFWapw0Qk ZEXnN20mdDBiw1N4 IGNvbGxhcHNlOyBlbXB0 vP1vTJkxqbbhf1inpcru Hqdgi6gqfy09pJ67C39t IHdpZHRoPSIzMCUi ELUevUicwq3zkJ1bTh1+ PCKmsYQ2lNJ4aN4pJsXo IvO0CZimZ032UdOsjZSw Bvpwf8gmg6eohXp9 IjIwJSIgdmFsaWduPSJ0 w9HkSp54C08rMMgvMIKa JPDpKGVcVDVexTrjpa5p fP3pCf7+IU3ow2be wb04oE14qIB+PHRkIHN0 aVgeQBajDYWvpQ7xCCeg WsX4JHHpAuXrsB14oZDm GUfmLd3zyJgqdKhu KC1qYFBbvjwrm337OeJx o7oyDGCweCXgQAnbHCN3 I23gk4J6EVQbPNLzYSA5 eJJ5dA9cqEikauyp bGVmdDsgdmVydGljYWwt CGxkR675QACbmSvzNcRg lJSwU9ythmGMKH7jHbnl dGQ+EGIgBAS9vQak WCqrOVQszQ0rNUFtZ3i2 OtTeBpV6YMkuA3IwfkZ3 AJPtxOCmMDGhgEDLvO3j xgahc5nbtuejAhDd YEFjTKu6UIn1ZJOgbOac WxGnTWT8RgZ8ZSU3vPYp gZ2utThlsjtpxY9dWtk+ RklOOjwvdGQ+PHRk KNE9rTcoEXxwUCJipY2x EDTlT1c2LxNjZkB7TJye Z5DkcgD8DBWdaGCpDXNg yQISzI5yxaxyw5md eyhkEbAxMXKmVRj8ZWb3 ESItiQomXpPlFLF1TpQ8 NPR9bFElgS2rtCkypskm cC0gMfm+TVJOOjwv dGQ+EWUmQMQ6vVkzOGog RUFmxE7tAVPhC1k1SkRb IcP9DCseW7NmaeM3HKXd mKCxTTBslEDKnR7e mzxjm7yrcqklDhAnXGUn PDc0TUh4HFDzaJefGsNm LOS7XnF5EPQ4sSXkaE1y eFhgcpfrrR7kJoj+ VYS3PFN7NR87MG63G8Va PjwvdGFibGU+PHRhYmxl IHdpZHRoPScxMDAlJyBz hFphQT9xVx6dQOXh LWNv (more content not included)... Normal [facility] Physician Orderon 01-17-2022 Physician Order [id number] 7#[id number]:127 Normal [facility] Vital Signs Date Time Vital Sign Value Performing Clinician Facility 06-14-2024 14:25-0400 Body height 157.48 cm [facility] 06-14-2024 14:25-0400 Body mass index (BMI) [Ratio] 31.2 kg/m2 [facility] 06-14-2024 14:25-0400 Body temperature 99 [degF] [facility] 06-14-2024 14:25-0400 Body weight 77.56 kg [facility] 06-14-2024 14:25-0400 Diastolic blood pressure 72 mm[Hg] [facility] 06-14-2024 14:25-0400 Heart rate 77 /min [facility] 06-14-2024 14:25-0400 SaO2% (BldA) [Mass fraction] 94 % [facility] 06-14-2024 14:25-0400 Systolic blood pressure 138 mm[Hg] [facility] 05-03-2024 10:03-0400 Body height 157.48 cm [facility] 05-03-2024 10:03-0400 Body mass index (BMI) [Ratio] 31.2 kg/m2 [facility] 05-03-2024 10:03-0400 Body weight 77.56 kg [facility] 05-03-2024 10:03-0400 Diastolic blood pressure 71 mm[Hg] [facility] 05-03-2024 10:03-0400 Heart rate 62 /min [facility] 05-03-2024 10:03-0400 Systolic blood pressure 144 mm[Hg] [facility] 05-01-2023 10:00-0400 Body height 160.02 cm Reny Smith Other [employer] [facility] Other 05-01-2023 10:00-0400 Body mass index (BMI) [Ratio] 29.33 kg/m2 Reny Smith Other [facility] [facility] Other 05-01-2023 10:00-0400 Body weight 75.12 kg Reny Luis Other [facility] [facility] Other 05-01-2023 10:00-0400 Diastolic blood pressure 65 mm[Hg] Reny Luis Other [employer] [facility] [employer] Other 05-01-2023 10:00-0400 Systolic blood pressure 125 mm[Hg] Reny Luis Other [employer] Other Encounters Encounter Date Encounter Type Care Provider Facility Start: 08-13-2024 End: 08-13-2024 ambulatory [facility] Start: 08-05-2024 End: 08-05-2024 ambulatory [facility] Start: 07-14-2024 End: 07-14-2024 Peace Castanon Stepcandida DO Work Phone: [facility] Start: 07-14-2024 End: 07-14-2024 Peace Castanon Stepanic DO Work Phone: [facility] Start: 07-14-2024 End: 07-14-2024 Office outpatient visit 25 minutes Jr. Kelly Ospina DO Work Phone: [facility] Comment on above: Cyst of joint of rig ht hand (Primary Dx) Start: 07-14-2024 End: 07-14-2024 ambulatory KELLY ADAME STEPCANDIDA Not Available Start: 07-09-2024 End: 07-09-2024 ambulatory NON STAFF [facility] Work Phone: Start: 07-09-2024 End: 07-09-2024 Patient encounter procedure [facility] Work Phone: Start: 07-05-2024 End: 07-05-2024 ambulatory DOMINIC Sampson APLING Not Available Start: 06-28-2024 End: 06-28-2024 Bamboo flowsheet Dominic Montoya SPORTS PHYSICAL THERAPIST Work Phone: [facility] Start: 06-28-2024 End: 06-28-2024 Bamboo flowsheet Dominic Montoya SPORTS PHYSICAL THERAPIST Work Phone: [facility] Start: 06-28-2024 End: 06-28-2024 Office outpatient visit 15 minutes Dominic Montoya SPORTS PHYSICAL THERAPIST Work Phone: [facility] Comment on above: Swelling of right ahn nd (Primary Dx); Right hand pain; Cyst of joint of right hand Start: 06-28-2024 End: 06-28-2024 ambulatory DOMINIC Sampson APLING Not Available Start: 06-14-2024 End: 06-14-2024 ambulatory NON STAFF [facility] Work Phone: Start: 06-14-2024 End: 06-14-2024 Patient encounter procedure [facility] Work Phone: Start: 05-06-2024 Non-patient / Non-visit [facility] Work Phone: Start: 05-03-[address] [facility] Start: 05-03-2024 End: 05-03-2024 ambulatory NON STAFF [facility] Work Phone: Start: 05-03-2024 End: 05-03-2024 Patient encounter procedure [facility] Work Phone: Start: 07-28-2023 End: 07-28-2023 ambulatory DOMINIC Samspon APLING Not Available Start: 05-15-2023 End: 05-15-2023 ambulatory Reny Smith Other [employer] [employer] Other Start: 05-15-2023 Telephone encounter Reny Smith [facility] Start: 05-01-2023 End: 05-01-2023 ambulatory Reny Smith Other [employer] [facility] [employer] Other Start: 05-01-2023 Patient encounter procedure Reny Smith [facility] Start: 06-26-2022 End: 06-27-[address] LOTUS SERNA Facility:[facility] Start: 05-13-2022 End: 05-14-[address] RENY SMITH Facility:[facility] Procedures Date Procedure Procedure Detail Performing Clinician Start: 06-28-2024 Radex hand minimum 3 views Dominic Montoya SPORTS PHYSICAL THERAPIST Work Phone: Plan of Treatment Date Care Activity Detail Author Start: 07-14-2024 End: 07-14-2024 Patient encounter procedure [facility] Comment on above: Arrived Start: 07-05-2024 End: 07-05-2024 Professional / ancillary services management 07/05/2024 8:30 AM EST Ancillary Procedure [facility] [address] [place] [id number] [facility] Start: 06-28-2024 End: 06-28-2025 [...] [address] [place] [id number] Dominic Montoya NP [address] [place] [address] Swelling of right hand (Primary Dx) [facility] Comment on above: Swelling of right ahn nd (Primary Dx) Start: 05-03-2024 EKG 12 channel panel Fi [facility] Start: 04-25-2024 Influenza vaccination Influenza Vacc ine (#1) [facility] Start: 1992 Screening for malign ant neoplasm of breast Mammogram [facility] Start: 1950 Screening for malign ant neoplasm of colon [facility] Comprehensive metabo lic 2000 panel - Serum or Plasma [facility] Holter monitor [facility] MG Breast - bilatera l Screening [facility] Immunizations Immunization Date Immunization Notes Care Provider Fa ysabelty 07-09-2024 influenza, high dose seasonal, preservative-free [facility] 05-01-2023 influenza virus vaccine, unspecified formulation [facility] 05-01-2023 influenza, high dose seasonal, preservative-free Reny Smith Other [facility] [employer] Other 06-24-2022 COVID-19 Pfizer (Pediatric) Reny Smith Other [facility] 06-24-2022 influenza virus vaccine, split virus (incl. purified surface antigen) Reny Smith Other [facility] [employer] Other 06-24-2022 influenza virus vaccine, unspecified formulation [facility] 11-14-2020 COVID-19 Vaccine Pfi zer - Documentation Purposes Only Reny Smith Other [facility] 04-26-2020 influenza virus vaccine, split virus (incl. purified surface antigen) Reny Smith Other [facility] [employer] Other 04-26-2020 influenza virus vaccine, unspecified formulation [facility] 04-26-2020 pneumococcal polysaccharide vaccine, 23 valent Reny Smith Other [facility] 04-20-2019 pneumococcal conjuga te vaccine, 13 valent Reny Smith Other [facility] Payers Date Payer Category Payer Self-pay 2022 Private Health Insurance [employer] [id number] 2017 Medicare MEDICARE [id number] 1959 Medicare [id number] 1959 Unknown [id number] 1952 Unknown [id number] 1952 Unknown [id number] 1952 Unknown [id number] 1259 1952 Unknown [id number] 1259 1952 Unknown [id number] 1259 1952 Unknown [id number] 1259 1952 Unknown [id number] 1259 Unknown [id number] Social History Date Type Detail Facility Start: 07-28-2023 End: 07-14-2024 Sex Assigned At [facility] [employer] Other Start: 01-30-2023 End: 05-03-2024 Tobacco smoking status NHIS Never smoked tobacco (finding) [facility] Start: 1950 Sex Assigned At Female F [facility] Start: 01-30-2023 Tobacco use and exposure Smokeless tobacco non-user [facility] Start: 07-28-2023 End: 07-14-2024 Alcoholic beverage intake Ex-drinker (finding) [facility] Start: 07-28-2023 End: 07-14-2024 History of Social function [facility] Start: 1950 Sex assigned at Not on file [facility] Start: 07-09-2024 Sex Female (finding) [facility] Clinical Notes 05-01-2023 to 08-30-2024 Jr. Kelly Ospina, - 07/14/2024 1:00 PM Chuck Montoya NP - 06/28/2024 8:00 AM EST Note Date & Type Note Facility 08-30-2024 Note Patient called back and said she'd like to go with [facility]. RX printed and faxed into [facility]. [facility] 08-13-2024 Note [facility] Note Reason for cardiology [...] pacemaker and grandmother had a stroke and [facility] ROS: GENERAL: Denies fever, chills, night [...] has a past medical history of Cancer (CMS/[facility]), Hyperlipidemia, Hypertension, and Sleep apnea. Surgical History [...] left upper ext (more content not included)... [facility] 08-05-2024 Note Patient ID: Kalani Fernandes is [...] the correct patient, procedure, equipment, customer support associate and site/side marked as required. Procedure Attestation Level of Attending Supervision for Procedure I was present for the frey and critical portions and I was otherwise immediately available to assist [facility] 08-05-2024 Note Orthopaedic Surgery Subjective Pain of [...] years. 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 wrist extension/flexion [...] the correct patient, procedure, equipment, customer support associate and site/side marked as required. Patient was [...] be an additional personal documentation from me. [facility] 07-14-2024 History of Present illness Narrative Images from the original note were not included. HISTORY OF PRESENT ILLNESS: EST PT Kalani Fernandes is an 74 y.o. @ female. (EST PT ; LAST APPT W/ MOR) RECHECK (R) HAND CYST ; HERE FOR MRI RESULTS 07/05/24 [address] [facility] XRAYS 06/28/24 [address] [facility] MRI 07/05/24 IN [facility] NO MDP / PREDNISONE NO CORTISONE INJ [...] requiring urgent evaluation. documented in this encounter [facility] 06-28-2024 History of Present illness Narrative [...] noted. 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 Swelling of [...] f/u s/p MRI to be done at [facility] [place] documented in this encounter [facility] 05-03-2024 Evaluation note Diagnosis Onset Date Resolution Dyslipidemia acute April 9:55am Essential hypertension acute Se ptember 2023 9:55am Medicare annual wellness visit, subsequent acute May 03, 2 024 9:55am Palpitations acute April 9:55am Screening mammogram for breast cancer acute May 03, 2 024 9:55am Maxillary sinusitis, acute acute June 14 2:21pm [facility] Work Phone: [phone]) 175-822809-07-2023 Evaluation note* Encounter Date Diagnosis Assessment Notes [...] mammogram for breast cancer (ICD-10 - Z12.31) [facility] [employer] [facility] [employer] Other evaluation note* Diagnosis Onset Date Resolution Status Dyslipidemia acute Essential hypertension acute Palpitations acute Screening mammogram for breast cancer acute [facility] Work Phone: Evaluation note* Diagnosis Onset Date Resolution Status Dyslipidemia acute Essential hypertension acute Medicare annual wellness visit, subsequent acute Palpitations acute Screening mammogram for breast cancer acute [facility] Work Phone: Evaluation note* Diagnosis Onset Date Resolution Status Dyslipidemia acute Essential hypertension acute Medicare annual wellness visit, subsequent acute Palpitations acute Screening mammogram for breast cancer acute Maxillary sinusitis, acute a cute [facility] Work Phone: Evaluation note* Diagnosis Swelling [...] History D&C Hospitalization History see surgical hx [facility] [facility] Other History general Narrative - Reported* Type Description Date Surgical History Cholecystectomy Surgical History Wide excision of Melanoma 2012 Surgical History D&C Hospitalization History see surgical hx [employer] [facility] Other Summary Purpose Family History No Family [...] and content) DATE CREATED AUTHOR 03/13/2022 [facility] DATE CREATED AUTHOR AUTHOR'S ORGANIZ ATION 07/30/2022 [facility] DATE CREATED AUTHOR AUTHOR'S ORGANIZ ATION 05/12/2024 [facility] DATE CREATED AUTHOR AUTHOR'S ORGANIZ ATION 07/05/2024 [facility] DATE CREATED AUTHOR AUTHOR'S ORGANIZ ATION 07/17/2024 [facility] EPIC DATE CREATED AUTHOR AUTHOR'S ORGANIZ ATION 09/02/2024 [facility] REASON FOR VISIT (unrecogniz ed section [...] End: June 14, 2024 Karis Pearl APRN SPORTS PHYSICAL THERAPIST-C Attending Provider Active Start: June 14, 2024 End: June 14, 2024 Personnel Monitor Relationship Specialty Start Date End Date Reny Smith MD [address] [place] [address] PCP - General Family Medicine 01/17/23 Personnel Monitor Relationship Specialty Start Date End Date Reny Smith MD [address] [place] [address] PCP - General Family Medicine 01/17/23 Team Status: Inactive Member Role Status Dates NON STAFF Primary Care Provider Active Start: July 09, 2024 End: July 09, 2024 Reny Smith MD Attending Provider Active St art: July 09, 2024 End: July 09, 2024 Personnel Monitor Relationship Specialty Start Date End Date Reny Smith MD [address] [place] [address] PCP - General Family Medicine 01/17/23 Personnel Monitor Relationship Specialty Start Date End Date Reny Smith MD [address] [place] [id number] PCP - General Family Medicine 01/17/23 Goals [...] BE BASED ON THE PRIMARY CLINICAL RECORDS. [facility]. provides no warranty or guarantee of the accuracy or completeness of information in this document.
--- NOTE | 2024-09-25 12:49 | PM.HP ---
HPI H&P: HPI History of Present Illness Chief complaint: Arrhythmia/Palpitations AFIB RVR Narrative: 74 y/o to ER with palpitations. History of afib or flutter and following with cardiology. Reports increased stress at work over the past few days. Stressed out at work and felt heart racing. [place] like heart going fast and irregular and to ER. EGK showed rapid afib and give IV cardizem. Continued to have tachycardia and started cardizem drip. Admitted for treatment. Initially continued cardizem drip and converted to NSR. Drip stopped and remained in NSR with normal pulse. Feels well and no further symptoms. Opioid HPI Opioid Management Most Recent Pain and Opioid Data: No Data to Display Review of Systems ROS Constitutional Denies: fever, chills or fatigue Cardiovascular Reports: palpitations; Denies: chest pain, edema or lightheadedness Respiratory Denies: shortness of breath, cough or wheezing Gastrointestinal Denies: abdominal pain, nausea, vomiting or diarrhea Genitourinary Denies: painful urination [facility]SH [facility], [facility] Medical History (Updated 09/25/24 @ 08:54 by Anthony Roger MD) Palpitations ?R00.2 - Palpitations (ICD-10) Dehydration ?E86.0 - Dehydration (ICD-10) Social History Little interest or pleasure in doing things: not at all Feeling down, depressed, or hopeless: not at all Meds Home Medications and Allergies Home Medications ?Medication ?Instructions ?Recorded ?Confirmed ?Type amlodipine 10 mg tablet 10 mg PO DAILY 09/24/24 09/24/24 History apixaban 5 mg tablet (Eliquis) 5 mg PO Q12H 09/24/24 09/24/24 History atorvastatin 20 mg tablet 20 mg PO .QHS 09/24/24 09/24/24 History furosemide 20 mg tablet 20 mg PO DAILY 09/24/24 09/24/24 History sertraline 100 mg tablet 100 mg PO DAILY 09/24/24 09/24/24 History spironolactone 25 mg tablet 25 mg PO DAILY 09/24/24 09/24/24 History metoprolol tartrate 25 mg tablet 25 mg PO BID #60 tabs 09/25/24 Rx Allergies Allergy/AdvReac Type Severity Reaction Status Date / Time No Known Drug Allergies Allergy Verified 09/24/24 17:51 Exam Constitutional Vital Signs, click to edit/add: Last Vital Signs Temp 97.7 F 09/24/24 17:51 Pulse 75 09/25/24 09:30 Resp 19 09/25/24 09:30 BP 121/73 09/25/24 09:30 Pulse Ox 95 09/25/24 09:30 O2 Del Method Room Air 09/24/24 17:51 Documenting provider has reviewed patient's vital signs: yes Common normals: no apparent distress, oriented x3 and alert HENMT Common normals: normocephalic Eye Common normals: PERRL and EOMs intact bilaterally Respiratory Common normals: normal respiratory effort and clear to auscultation bilaterally Cardio Common normals: regular rate, regular rhythm, no gallops, no murmurs and no rub GI Common normals: Normal to inspection, nondistended, normoactive bowel sounds present and non-tender Extremity Common normals: no pedal edema Results Labs Labs: Short CBC 09/24/24 09/25/24 Range/Units 18:05 06:35 WBC 15.0 H 11.4 H (4.0-11.0) 10^3/uL Hgb 16.9 H 14.8 (12.0-16.0) g/dL Hct 51.1 H 45.3 (36.0-48.0) % Plt Count 238 191 (150-450) 10^3/uL BMP 09/24/24 09/25/24 18:05 06:35 Sodium 140 142 Potassium 3.6 4.2 Chloride 103 107 Carbon Dioxide 27.8 26.5 BUN 23.0 H 20.0 H Creatinine 1.10 H 0.95 Glucose 97 104 Calcium 10.2 H 9.1 Liver Function 09/25/24 Range/Units 06:35 Total Bilirubin 0.7 (0.2-1.0) mg/dL AST 26 (15-37) U/L ALT 21 (14-59) U/L Alkaline Phosphatase 115 (46-116) U/L Albumin 3.5 (3.4-5.0) g/dL Assessment and Plan Assessment and Plan (1) Atrial fibrillation with rapid ventricular response: (2) Type 2 WA (myocardial infarction): (3) Benign essential hypertension: (4) Chronic heart failure with preserved ejection fraction (HFpEF): Plan Presented with rapid afib and converted with cardizem. EF 08/19 normal. Add oral metoprolol. Discharge home. Continue Home medication without change including Eliquis. Follow up with cardiology as scheduled.
== END 2024-09-25 11:28 | disposition home or self-care (01) | DRG 281 ==
LOC: ER 09-25 08:51 → ICU 09-25 10:21
PROVIDERS: Emergency Medicine; Registered Nurse; Admitting Provider Family Medicine; Emergency Provider Emergency Medicine; PCP Family Medicine; Visit Provider Family Medicine
DX: I48.91 Unspecified atrial fibrillation (principal); I50.32 Chronic diastolic (congestive) heart failure; I21.A1 Myocardial infarction type 2; E86.0 Dehydration; Z79.01 Long term (current) use of anticoagulants; R00.2 Palpitations; I11.0 Hypertensive heart disease with heart failure
CPT/HCPCS: 36415; 71045; 80048; 80053; 83735; 83880; 84484; 85025; 93005; 96361; 96374; 96375; 96376; 99285; J1160

== ENCOUNTER 2024-10-07 13:57 | Emergency (ER) | payer MEDICARE, SELFPAY ==
[2024-10-07] VITALS (21 sets, daily range): BP systolic 121–155; BP diastolic 71–111; PULSE 85–148; TEMP 36.8; O2SAT 92–96; BMI 31.1
--- OUTSIDE RECORDS SUMMARY | 2024-10-07 14:05 | XMS_ITS | CCD ---
Author Organization [facility] Care Team Providers Care Field Superintendent Name Role Phone WEST, DR LOTUS Chester [...] Dr. Lee soon. She will look into [facility] for both Eliquis and Xarelto and let me know which one she wants us to fax into them. [facility] 36on 08-26-2024 36 Patient calling asking for echo results. It is scanned into multimedia authoring specialist for your review. Also, Eliquis is very expensive for her. She said her takes Xarelto and that is very expensive for them also. Can I send a referral to coumadin clinic or would you like something else? Please advise. Thanks. [facility] Office Visiton 08-13-2024 Follow-up visit [id number] Kalani Fernandes 1950 F Date Provider Department Center 08/13/2024 [id number]-ECPIUZSOL MARIE KIMBERLY Berg Family History Problem Relation Age of Onset Other Mother Atrial fibrillation Brother Stroke Maternal Grandmother Family Status - Relation Status Age at Mother Brother Maternal Grandmother Level of Service:36818 [place] OFFICE/OUTPATIENT NEW MODERATE MDM 45 MINUTES Reason for Visit and Comments: Hypertension [380917] - Used to be on lisinopril but was recently switched to amlodipine 5mg daily. Denies swelling. Hyperlipidemia [182] - On atorvastatin Palpitations [961533] - Recently wore 30 day event monitor for palpitations, but hasn't had them recently. Sleep Apnea [348] - Compliant with bipap therapy. [facility] Orders Onlyon 08-13-2024 Orders Only [id number] Kalani Fernandes 1950 Provider Department Center 08/13/2024 928-KATERINA SAHNI KIMBERLY Saldaña Hos Family History Problem Relation Age of Onset Other Mother Atrial fibrillation Brother Stroke Maternal Grandmother Family Status - Relation Status Age at Mother Brother Maternal Grandmother [facility] 36on 08-12-2024 36 Patient was scheduled [facility] Orders Onlyon 08-12-2024 Orders Only [id number] Kalani Fernandes 1950 Provider Department [place] 08/12/2024 803-CATARINA CRANE MP ORTHO MPORTHO Family History Problem Relation Age of Onset Other Mother Atrial fibrillation Brother Stroke Maternal Grandmother Family Status - Relation Status Age at Mother Brother Maternal Grandmother [facility] 36on 08-11-2024 36 Patient was seen 08/05/24. She called stating that someone was suppose to call her to set up date and time for surgery. She states that she has not received a call. Please advise. Thank you. [facility] Office Visiton 08-05-2024 Follow-up visit [id number] Kalani Fernandes 1950 Provider Department Center 08/05/2024 UDAY GAMING [facility] No family history on file Level of Service:79294 [place] OFFICE/OUTPATIENT NEW LOW MDM 30 MINUTES (GC,25) Reason for Visit and Comments: Pain [136] [facility] 36on 07-15-2024 36 Patient called to schedule a new patient appointment with our office. 08/05 Patient wants to be seen for: Cyst of joint of right hand Patient had MRI done at [facility] 07/05/24 Patient had Trigger Thumb done on 07/[address] Khan @ [facility] Patient saw Dr. Ospina for this issues. They were referred to us from this provider. This appointment is not a second opionion This appointment IS NOT related to a work related injury Normal [facility] MR HAND RIGHT W AND WO IV [...] 07-03-2024 Creatinine [Mass/Vol] 0.90 mg/dL Normal 0.60-1.00 [employer] Comment on above: Performed By: #### 3 75 #### [facility] [address], [address] [place] [id number] Work Order Clerk: Shiraz Regalado MD GFR/1.73 sq M.predicted among non-blacks MDRD (S/P/Bld) [Vol rate/Area] 68 mL/min/{1.73_m2} Normal > OR = 60 [facility] Comment on above: Performed By: #### 3 75 #### [facility] [address], [address] [place] [id number] Work Order Clerk: Shiraz Regalado MD XR Hand - right 3 [facility] Result: Xrays AP, LAT and OBL of the right hand performed on June 28, 2024 demonstrates Narrowing of the 1st carpometacarpal joint with adjacent sclerosis and slight subluxation consistent withfirst [facility] arthritis, no swelling or fractures noted. 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 [employer] Work Phone: Basophils Auto (Bld) [#/Vol] on 05-03-2024 Basophils (Bld) [#/Vol] 0.0 10 3/uL 0.0-0.1 [facility] Basophils (Bld) [#/Vol] Automated basophil count 0.0-0.1 [facility] Basophils/100 WBC Auto (Bld) on 05-03-2024 Basophils/100 WBC (Bld) 0.5 % 0.2-2.0 [facility] Basophils/100 WBC (Bld) Automated basophil % 0.2-2.0 [facility] Cholesterol in LDL Calc [Mas s/Vol]on 05-03-2024 Cholesterol in LDL [Mass/Vol] 83.0 mg/dL [facility] Comment on above: <100 mg/dl [id number] 0-129 mg/dl NEAR OR ABOVE [id number] mg/dl BORDERLINE [id number] mg/dl HIGH>190 mg/dl VERY HIGH Cholesterol in LDL [Mass/Vol] Cholesterol in LDL [Mass/volume] in Serum or Plasma by calculation [facility] Comment on above: <100 mg/dl [id number] 0-129 mg/dl NEAR OR ABOVE [id number] mg/dl BORDERLINE [id number] mg/dl HIGH>190 mg/dl VERY HIGH Cholesterol in VLDL Calc [Ma ss/Vol]on 05-03-2024 Cholesterol in VLDL [Mass/Vol] 18.2 mg/dL [facility] Cholesterol in VLDL [Mass/Vol] Cholesterol in VLDL [Mass/volume] in Serum or Plasma by calculation [facility] Eosinophils/100 WBC Auto (Bl d)on 05-03-2024 Eosinophils/100 WBC (Bld) 1.6 % 0.9-7.0 [facility] Eosinophils/100 WBC (Bld) Automated eosinophil % 0.9-7.0 [facility] Erythrocyte distribution wid th Auto (RBC) [Ratio]on 05-03-2024 Erythrocyte distribution width (RBC) [Ratio] 14.4 % 11.0-15.0 [facility] Erythrocyte distribution width (RBC) [Ratio] Erythrocyte distribution width [Ratio] by Automated count 11.0-15.0 [facility] Estimated glomerular filtrat ion rate (GFR) non- Americanon 05-03-2024 GFR/1.73 sq M.predicted among non-blacks MDRD (S/P/Bld) [Vol rate/Area] 55 mL/min/{1.73_m2} Low >=60 [facility] GFR/1.73 sq M.predicted among non-blacks MDRD (S/P/Bld) [Vol rate/Area] Estimated glomerular filtration rate (GFR) non- Low >=60 [facility] Globulin Calc (S) [Mass/Vol] on 05-03-2024 Globulin (S) [Mass/Vol] 3.7 g/dL [facility] Globulin (S) [Mass/Vol] Serum globulin measurement by calculation (mass/volume) [facility] Hematocrit Auto (Bld) [Volum e fraction]on 05-03-2024 Hematocrit (Bld) [Volume fraction] 45.3 % 36.0-48.0 [facility] Hematocrit (Bld) [Volume fraction] Hematocrit [Volume Fraction] of Blood by Automated count 36.0-48.0 [facility] Hemoglobin [Mass/volume] in Bloodon 05-03-2024 Hemoglobin (Bld) [Mass/Vol] 14.7 g/dL 12.0-16.0 [facility] Hemoglobin (Bld) [Mass/Vol] Hemoglobin [Mass/volume] in Blood 12.0-16.0 [facility] Laboratory - Chemistry and C hemistry - challengeon 05-03-2024 Albumin [Mass/Vol] 4.0 g/dL 3.4-5.0 [facility] ALP [Catalytic activity/Vol] 107 U/L 46-116 [facility] ALT [Catalytic activity/Vol] 29 U/L 14-59 [facility] AST [Catalytic activity/Vol] 23 U/L 15-37 [facility] Bilirubin [Mass/Vol] 0.4 mg/dL 0.2-1.0 [facility] Calcium [Mass/Vol] 9.7 mg/dL 8.5-10.1 [facility] Chloride [Moles/Vol] 103 mmol/L 98-107 [facility] Cholesterol [Mass/Vol] 163 mg/dL <=200 [facility] Cholesterol in HDL [Mass/Vol] 62 mg/dL High 40-60 [facility] Comment on above: > or =60 mg/dl - LOW CARDIOVASCULAR RISK<40 mg/dl - HIGH CARDIOVASCULAR RISK CO2 [Moles/Vol] 30.1 mmol/L 21.0-32.0 [facility] Creatinine [Mass/Vol] 0.99 mg/dL 0.55-1.02 [facility] GFR/1.73 sq M.predicted MDRD (S/P/Bld) [Vol rate/Area] mL/min/{1.73_m2} >=60 [facility] Glucose [Mass/Vol] 91 mg/dL 74-106 [facility] Potassium [Moles/Vol] 4.1 mmol/L 3.5-5.1 [facility] Protein [Mass/Vol] 7.7 g/dL 6.4-8.2 [facility] Sodium [Moles/Vol] 139 mmol/L 136-145 [facility] Triglyceride [Mass/Vol] 91 mg/dL <=150 [facility] TSH Qn 2.666 m[IU]/L 0.358-3.740 [facility] Urea nitrogen [Mass/Vol] 17.0 mg/dL 7.0-18.0 [facility] Urea nitrogen/Creatinine [Mass ratio] 17.2 mg/mg [facility] Laboratory - Hematology and Cell countson 05-03-2024 Immature granulocytes/100 WBC (Bld) 0.2 % 0.0-0.5 [facility] Leukocytes [#/volume] correc alyssia for nucleated erythrocytes in Blood by Automated counon 05-03-2024 WBC corrected for nucl RBC Auto (Bld) [#/Vol] 8.2 10 3/uL 4.0-11.0 [facility] WBC corrected for nucl RBC Auto (Bld) [#/Vol] Leukocytes [#/volume] corrected for nucleated erythrocytes in Blood by Automated coun 4.0-11.0 [facility] Lymphocytes Auto (Bld) [#/Vo l]on 05-03-2024 Lymphocytes (Bld) [#/Vol] 2.5 10 3/uL 1.2-3.8 [facility] Lymphocytes (Bld) [#/Vol] Lymphocytes [#/volume] in Blood by Automated count 1.2-3.8 [facility] Lymphocytes/100 WBC Auto (Bl d)on 05-03-2024 Lymphocytes/100 WBC (Bld) 30.3 % 20.5-60.0 [facility] Lymphocytes/100 WBC (Bld) Lymphocytes/100 leukocytes in Blood by Automated count 20.5-60.0 [facility] MCH Auto (RBC) [Entitic mass ]on 05-03-2024 MCH (RBC) [Entitic mass] 30.1 pg 26.7-34.0 [facility] MCH (RBC) [Entitic mass] MCH [Entitic mass] by Automated count 26.7-34.0 [facility] MCHC Auto (RBC) [Mass/Vol]on 05-03-2024 MCHC (RBC) [Mass/Vol] 32.5 g/dL 29.9-35.2 [facility] MCHC (RBC) [Mass/Vol] MCHC [Mass/volume] by Automated count 29.9-35.2 [facility] MCV Auto (RBC) [Entitic vol] on 05-03-2024 MCV (RBC) [Entitic vol] 92.6 fL 81.0-99.0 [facility] MCV (RBC) [Entitic vol] MCV [Entitic volume] by Automated count 81.0-99.0 [facility] Monocytes Auto (Bld) [#/Vol] on 05-03-2024 Monocytes (Bld) [#/Vol] 0.5 10 3/uL 0.3-0.8 [facility] Monocytes (Bld) [#/Vol] Automated blood monocyte count 0.3-0.8 [facility] Monocytes/100 WBC Auto (Bld) on 05-03-2024 Monocytes/100 WBC (Bld) 5.9 % 1.7-12.0 [facility] Monocytes/100 WBC (Bld) Automated monocyte % 1.7-12.0 [facility] Neutrophils Auto (Bld) [#/Vo l]on 05-03-2024 Neutrophils (Bld) [#/Vol] 5.0 10 3/uL 1.4-6.5 [facility] Neutrophils (Bld) [#/Vol] Neutrophils [#/volume] in Blood by Automated count 1.4-6.5 [facility] Neutrophils/100 WBC Auto (Bl d)on 05-03-2024 Neutrophils/100 WBC (Bld) 61.5 % 43.0-75.0 [facility] Neutrophils/100 WBC (Bld) Automated neutrophil % 43.0-75.0 [facility] No Panel Informationon 05-03 Eosinophils # (Auto) 0.1 10 3/uL 0.0-0.7 [facility] Immature Granulocyte # (Auto) 0.02 10 3/uL 0.00-0.03 [facility] Platelet mean volume Auto (B ld) [Entitic vol]on 05-03-2024 Platelet mean volume (Bld) [Entitic vol] 9.7 fL 9.5-13.5 [facility] Platelet mean volume (Bld) [Entitic vol] Platelet mean volume [Entitic volume] in Blood by Automated count 9.5-13.5 [facility] Platelets Auto (Bld) [#/Vol] on 05-03-2024 Platelets (Bld) [#/Vol] 206 10 3/uL 150-450 [facility] Platelets (Bld) [#/Vol] Platelets [#/volume] in Blood by Automated count 150-450 [facility] RBC Auto (Bld) [#/Vol]on RBC (Bld) [#/Vol] 4.89 10 6/uL 4.20-5.40 [facility] RBC (Bld) [#/Vol] Erythrocytes [#/volume] in Blood by Automated count 4.20-5.40 [facility] Serum or plasma albumin/glob ulin mass ratioon 05-03-2024 Albumin/Globulin [Mass ratio] 1.1 {ratio} [facility] Albumin/Globulin [Mass ratio] Serum or plasma albumin/globulin mass ratio [facility] Serum or plasma anion gap de terminationon 05-03-2024 Anion gap [Moles/Vol] 10.0 mmol/L [facility] Anion gap [Moles/Vol] Serum or plasma anion gap determination [facility] Serum or plasma total choles terol/high density lipoprotein (HDL) cholesterol mass gloria 05-03-2024 Cholesterol.total/Ch olesterol in HDL [Mass ratio] 2.6 {ratio} [facility] Comment on above: 3.3 - 4.4 LOW RISK4. 4 - 7.1 AVERAGE RISK7.1 - 11.0 MODERATE RISK>11.0 HIGH RISK Cholesterol.total/Ch olesterol in HDL [Mass ratio] Serum or plasma total cholesterol/high density lipoprotein (HDL) cholesterol mass rat [facility] Comment on above: 3.3 - 4.4 LOW RISK4. 4 - 7.1 AVERAGE RISK7.1 - 11.0 MODERATE RISK>11.0 HIGH RISK MG MAMM SCREEN 3D EVAN CADon 06-26-2022 MG MAMM SCREEN 3D EVAN CAD Patient: KALANI FERNANDES Exam Date: 06/26/2022 : 1950 Gender:F Ordering : DR RENY SMITH M.D. Admission #: [id number] Family : Order #: [id number] CLICK HERE TO VIEW EXAM RADIOLOGY REPORT [...] Treatments None Family Cancers None LOCATION: [facility] BREAST COMPOSITION: Heterogeneously dense,which may obscure [...] MD on 06/26/2022 at 08:44 Normal [facility] CBC AUTO DIFFon 05-13-2022 BASO # 0.0 103/ul Normal 0.0-0.1 [facility] Comment on above: Performed By: #### C BC #### [facility] [address] [place] [address] Dr. Christina Camarena Basophils/100 WBC (Bld) 0.3 % Normal 0.2-2.0 [facility] Comment on above: Performed By: #### C BC #### [facility] [address] [place] [address] Dr. Christina Camarena EO # 0.1 103/ul Normal 0.0-0.7 [facility] Comment on above: Performed By: #### C BC #### [facility] [address] [place] [address] Dr. Christina Camarena Eosinophils/100 WBC (Bld) 1.5 % Normal 0.9-7.0 [facility] Comment on above: Performed By: #### C BC #### [facility] [address] [place] [address] Dr. Christina Camarena Erythrocyte distribution width (RBC) [Ratio] 14.4 % Normal 11.0-15.0 [facility] Comment on above: Performed By: #### C BC #### [facility] [address] [place] [address] Dr. Christina Camarena Hematocrit (Bld) [Volume fraction] 46.5 % Normal 36.0-48.0 [facility] Comment on above: Performed By: #### C BC #### [facility] [address] [place] [address] Dr. Christina Camarena Hemoglobin (Bld) [Mass/Vol] 14.8 g/dL Normal 12.0-16.0 [facility] Comment on above: Performed By: #### C BC #### [facility] [address] [place] [address] Dr. Christina Camarena IG # 0.02 10e3/ul Normal 0.00-0.03 [facility] Comment on above: Performed By: #### C BC #### [facility] [address] [place] [address] Dr. Christina Camarena IG % 0.2 % Normal 0.0-0.5 [facility] Comment on above: Performed By: #### C BC #### [facility] [address] [place] [address] Dr. Christina Camarena LYMPH # 2.4 103/ul Normal 1.2-3.8 [facility] Comment on above: Performed By: #### C BC #### [facility] [address] [place] [address] Dr. Christina Camarena Lymphocytes/100 WBC (Bld) 26.2 % Normal 20.5-60.0 [facility] Comment on above: Performed By: #### C BC #### [facility] [address] [place] [address] Dr. Christina Camarena MANUAL DIFF REQ NO [facility] Comment on above: Performed By: #### C BC #### [facility] [address] [place] [address] Dr. Christina Camarena MCH (RBC) [Entitic mass] 29.5 pg Normal 26.7-34.0 [facility] Comment on above: Performed By: #### C BC #### [facility] [address] [place] [address] Dr. Christina Camarena MCHC (RBC) [Mass/Vol] 31.8 g/dL Normal 29.9-35.2 [facility] Comment on above: Performed By: #### C BC #### [facility] [address] [place] [address] Dr. Christina Camarena MCV (RBC) [Entitic vol] 92.8 fL Normal 81.0-99.0 [facility] Comment on above: Performed By: #### C BC #### [facility] [address] [place] [address] Dr. Christina Camarena MONO # 0.6 103/ul Normal 0.3-0.8 [facility] Comment on above: Performed By: #### C BC #### [facility] [address] [place] [address] Dr. Christina Camarena Monocytes/100 WBC (Bld) 6.7 % Normal 1.7-12.0 [facility] Comment on above: Performed By: #### C BC #### [facility] [address] [place] [address] Dr. Christina Camarena NEUT # 5.9 103/ul Normal 1.4-6.5 [facility] Comment on above: Performed By: #### C BC #### [facility] [address] [place] [address] Dr. Christina Camarena Neutrophils/100 WBC (Bld) 65.1 % Normal 43.0-75.0 [facility] Comment on above: Performed By: #### C BC #### [facility] [address] [place] [address] Dr. Christina Camarena Platelet mean volume (Bld) [Entitic vol] 9.8 fL Normal 9.5-13.5 [facility] Comment on above: Performed By: #### C BC #### [facility] [address] [place] [address] Dr. Christina Camarena PLT 228 103/ul Normal 150-450 [facility] Comment on above: Performed By: #### C BC #### [facility] [address] [place] [address] Dr. Christina Camarena RBC 5.01 106/ul Normal 4.20-5.40 [facility] Comment on above: Performed By: #### C BC #### [facility] [address] [place] [address] Dr. Christina Camarena WBC 9.1 103/ul Normal 4.0-11.0 [facility] Comment on above: Performed By: #### C BC #### [facility] [address] [place] [address] Dr. Christina Camarena LIPID PROFILEon 05-13-2022 CHOL-HDL RATIO NORM SEE BELOW Normal [facility] Comment on above: Result Comment: 3.3 - 4.4 LOW RISK 4.4 - 7.1 AVERAGE RISK 7.1 - 11.0 MODERATE RISK >11.0 HIGH RISK Performed By: #### L IPID, CMP #### [facility] [address] [address] [address] Christina Camarena Cholesterol [Mass/Vol] 172 mg/dL Normal <=200 [facility] Comment on above: Performed By: #### L IPID, CMP #### [facility] [address] [address] [address] Christina Camarena Cholesterol in HDL [Mass/Vol] 55 mg/dL Normal 40-60 [facility] Comment on above: Performed By: #### L IPID, CMP #### [facility] [address] [address] [address] Christina Camarena Cholesterol in LDL [Mass/Vol] 76.8 mg/dL Normal [facility] Comment on above: Performed By: #### L IPID, CMP #### [facility] [address] [address] [address] Christina Camarena Cholesterol.total/Ch olesterol in HDL [Mass ratio] 3.1 {ratio} Normal [facility] Comment on above: Performed By: #### L IPID, CMP #### [facility] [address] [address] [address] Christina Camarena HDL NORMAL > or = 60 mg/dl - LOW CARDIOVASCULAR RISK <40 mg/dl - HIGH CARDIOVASCULAR RISK Normal [facility] Comment on above: Performed By: #### L IPID, CMP #### [facility] [address] [address] [address] Christina Camarena LDL CALC NORMAL SEE BELOW Normal [facility] Comment on above: Result Comment: <100 mg/dl OPTIMAL 100 - 129 mg/dl NEAR OR ABOVE OPTIMAL 130 - 159 mg/dl BORDERLINE HIGH 160 - 189 mg/dl HIGH >190 mg/dl VERY HIGH Performed By: #### L IPID, CMP #### [facility] [address] [address] [address] Christina Camarena Triglyceride [Mass/Vol] 201 mg/dL Critically high <=150 [facility] Comment on above: Performed By: #### L IPID, CMP #### [facility] [address] [place] [address] Dr. Christina Camarena VLDL CALC 40.2 mg/dL Normal [facility] Comment on above: Performed By: #### L IPID, CMP #### [facility] [address] [address] [address] Christina Camarena PROF 14(COMP METB)on 022 Albumin [Mass/Vol] 4.1 g/dL Normal 3.4-5.0 [facility] Comment on above: Performed By: #### L IPID, CMP #### [facility] [address] [place] [address] Dr. Christina Camarena Albumin/Globulin [Mass ratio] 1.1 {ratio} Normal [facility] Comment on above: Performed By: #### L IPID, CMP #### [facility] [address] [place] [address] Dr. Christina Camarena ALP [Catalytic activity/Vol] 99 U/L Normal 46-116 [facility] Comment on above: Performed By: #### L IPID, CMP #### [facility] [address] [place] [address] Dr. Christina Camarena ALT [Catalytic activity/Vol] 29 U/L Normal 14-59 [facility] Comment on above: Performed By: #### L IPID, CMP #### [facility] [address] [place] [address] Dr. Christina Camarena Anion gap [Moles/Vol] 13.7 mmol/L Normal [facility] Comment on above: Performed By: #### L IPID, CMP #### [facility] [address] [place] [address] Dr. Christina Camarena AST [Catalytic activity/Vol] 24 U/L Normal 15-37 [facility] Comment on above: Performed By: #### L IPID, CMP #### [facility] [address] [address] [address] Christina Camarena Bilirubin [Mass/Vol] 0.5 mg/dL Normal 0.2-1.0 [facility] Comment on above: Performed By: #### L IPID, CMP #### [facility] [address] [place] [address] Dr. Christina Camarena Calcium [Mass/Vol] 9.4 mg/dL Normal 8.5-10.1 [facility] Comment on above: Performed By: #### L IPID, CMP #### [facility] [address] [address] [address] Christina Camarena Chloride [Moles/Vol] 104 mmol/L Normal 98-107 [facility] Comment on above: Performed By: #### L IPID, CMP #### [facility] [address] [place] [address] Dr. Christina Camarena CO2 [Moles/Vol] 25.4 mmol/L Normal 21.0-32.[address] [facility] Comment on above: Performed By: #### L IPID, CMP #### [facility] [address] [place] [address] Dr. Christina Camarena Creatinine [Mass/Vol] 0.99 mg/dL Normal 0.55-1.02 [facility] Comment on above: Performed By: #### L IPID, CMP #### [facility] [address] [place] [address] Dr. Christina Camarena EGFR-AF ETHIOPIAN >60 Normal >=60 [facility] Comment on above: Performed By: #### L IPID, CMP #### [facility] [address] [place] [address] Dr. Christina Camarena EGFR-NON AF ETHIOPIAN 55 mL/min/1.73m2 Critically low >=60 [facility] Comment on above: Performed By: #### L IPID, CMP #### [facility] [address] [place] [address] Dr. Christina Camarena Globulin (S) [Mass/Vol] 3.8 g/dL Normal [facility] Comment on above: Performed By: #### L IPID, CMP #### [facility] [address] [address] [address] Christina Camarena Glucose [Mass/Vol] 98 mg/dL Normal 74-106 [facility] Comment on above: Performed By: #### L IPID, CMP #### [facility] [address] [address] [address] Christina Camarena Potassium [Moles/Vol] 4.1 mmol/L Normal 3.5-5.1 [facility] Comment on above: Performed By: #### L IPID, CMP #### [facility] [address] [address] [address] Christina Camarena Protein [Mass/Vol] 7.9 g/dL Normal 6.4-8.2 [facility] Comment on above: Performed By: #### L IPID, CMP #### [facility] [address] [address] [address] Christina Camarena Sodium [Moles/Vol] 139 mmol/L Normal 136-145 [facility] Comment on above: Performed By: #### L IPID, CMP #### [facility] [address] [address] [address] Christina Camarena Urea nitrogen [Mass/Vol] 20.0 mg/dL Critically high 7.0-18.0 [facility] Comment on above: Performed By: #### L IPID, CMP #### [facility] [address] [address] [address] Christina Camarena Urea nitrogen/Creatinine [Mass ratio] 20.2 mg/mg Normal [facility] Comment on above: Performed By: #### L IPID, CMP #### [facility] [address] [address] [address] Christina Camarena Coding Summary.on 02-05-2022 Coding Summary. CD:[id number] Gh0bWw+PGhlYWQ+PE1FV SYnF63noZOfvV4BO8hJB G5KAZUCCGFOBW1UOY3bp BY0XNseO2AaxkHk VaogeYTyNJ63JTo6CAO1 yOdmOHkbhJ3atYHpH4j7 JfFiUV15vW16FRrjHJWx BsY3VdChsfrwlMJv A2utWvLadHDbLly+PHRh YmxlIHdpZHRoPScxMDAl FqNpmLqpCX5cXz5rJAUd LWNvbGxhcHNlOiBj q8qtZLCaMMihVU9edPrx F5TeaKU2KGLcs8o2Lx02 dHI+AXKlLKO9tAubMVpj v944PyTbl9shQHP0 lNOnEQrvEVO8B21ze2W5 KNRkLRQpCTF7tDY2pB4x iOawfrfyN7WqlOVcUoQ0 BIT6gQTysZ5lsEiw prnubB9yPaw+O79WSB5D BBBUSW6TOfw1O5OkDsak dHI+AT79KYPoLU42pWFk xOEeb5uklHj0LiSw LMSbGCD1xPklVJurb3De IOXtI83fxURxl2P4HNAq yFdpdPJvXbYveDM7qI9i ONvjzhets1pydzqa Dailm9ymby59bA15P06o CTziRFGmVXX0FOXyPOTl nRmynp3rtZ5oPf8+IDxj g9pux7sobGp6LvWb TRZivrJrlBsqEPR2b4Qo Ed89V8ScfGilb1WgFrp8 db13dLQca5L3kRY5TZfv DMSnbL7wHKauJgT7 DTZsUsVxvB87uFQiOYuj Of4klHnefFtmDQ4wCCKh enkuRRWprD5yWBLyxTGn uMgrYH6oWIKvmzas t778EwTyCEX1ULMsrXGm A5WwtV3vFpUoUDTkNQIp E0HizCKoPOkbI558OLiu KsC5PWWzrtBwM1Ir BTSmsXglHsN9j9S6Ng6Y k6ToqvqpXUN1OQpsGQR0 AfK1SaMuAgT1Y7GaZyc9 PIBrzKouUG8wC4Qv MHDcvkmcsqfpoAY4PXAw EBBabT54iOOgZAnvAn9i o0D7g608NCToSZOvnX90 Og3arPgpSAAdxTRA iF2pwkhgf0bwmrbcCvMg DNYdDRx5AHb3WJZeuEnq PjWcYMD6UdS2UBY3sWKl oH7xmVhbrmtccL2g Oyc+U11oqJ2pUUJ5UUR3 lwnsRLTcrcBvHR08YR04 C0YnOciuiFPafQS+PGRp ejSsqVcvXE2mOeCv v6alt5HeFFsnZ3XsIBJz RFcySus2VACrOEU7sJH1 uS0mVJJxCSnem7K3hON9 Q4TrdmZxip2qg9eg UTQvJPaxL82rmYXml2T4 CAEnkQC8VUSnwYytPrXo uQ73Zri+XBUmrLijx6Pn Aujgz9zcx9mmzSi1 IjMwJSIgdmFsaWduPSJ0 k9BtRx98S91nOYkqOTYe VVYtZPPpWWVkjJhhtl3l hU4qTn7+PGNvbCB3 yFA4pM8oHVViWiP0ZNxk V009UsQcjHUgUbfgf9qq f4bnhRn5YoDbJHUwtcAk mKrgQXY1b9AoWo40 N45kMNqqKOImZYBkFFLh DTIuyDzmtj7unV6sPr6+ ZG4et3aoob55sL98xAY+ FYPpLGS5oGabTPht ROFejM9wYXgoHdH3FSNm TaOumY15dFWsLRyfMn0d iJvlwGwyEF9tHGXgjasu f345ZwHfl7ixYMHl cBFdGSzsHJK7F21wl1X5 PLWoNTRiEBJ0lML8rZ4y bGlnbjogbGVmdDsgdmVy kWphVIbrSAlzO708 IHRvcDsnPlBhdGllbnQg WgUmHCv9Y0AjUbi1EVJk yUswCH4paQTeHYqlYv9s tVjocCszPB4vLFYn jxopd238HbQzq3coIQSw dMEpZTxkZMU0A51nn5V2 HCOvKYZnWIV1eVX6pB2z bGlnbjogbGVmdDsg fuLshKucSNbuWKtvV575 IHRvcDsnPkJpcnRoIERh tMU0ZE61FP39rMOwp2L6 bOB8U7XiTKEnwkoj sovfiYX3YLFgGRTbeP85 By9mfVkxYi8rEGMbISP2 CCXkgXGyU0QhcT9pCiJy FZRtFCKpG0PouZLs CBwxK483ASmcLaS6CGZa auTtH2MsYUXppGpuCcL1 q1C3Xt4PE2G6NX31VP89 kWGrq3K7vAB8S5Vm ZQYozzziqqmyfYR4GSZx STGvpO03Ry4wcUyqPh6y SZIpFUG3OMLbdTKnM1Vh aN9jCsHlDHHfYOIw L1YkvGZbYIjhZ679PBho UpQ5EQXdfuBoX4MiIHYg vXhaLwN6d9X3Fl4CNVl9 CP99ZE31rGHvk6T6 tHC3L3MhYASrbrcyfxnf dEN7FGWrKXXyxK90Tv5c hYksUq2sGKGwCJM0SXHd sNKfF4HaaV3gBtLh TPHqRQKoT1UayJOuKKlt J065HKllIzW9LNJghpYa U0JfYBSqfFurVzV0a9F3 Zq2NCLXpLN67CHE0 xXC5AN76TD83M1XvHfkz dGFibGU+PHRhYmxlIHdp ZHRoPScxMDAlJyBzdHls UK2nBz0hRNUnNFPy nPxghOSxMdTer7ozYGYw MUwyJO1raPhaQ7QbsBB6 PRXrq3w6Sc13M83tZ5Al dXA+FGDqhWP7tNO7 bZ8mCoSjLvY0QMyeX863 ThTirVKiEfnnc1ucb0ju hZm6UvQ3TGBdhiXjsTbd YXY4b6EnXp06L91g IHdpZHRoPSIxNSUiIHZh gWgiai8kvO2yIj2+PGNv eWE8lJI2tN0uXhLvVmC8 GWpdD800NdJnlJTb Nqnnj6guo0jxiHz5FkFm HITxxbXcyVqqMDK1h1Ty Cm94Q4HelBtky2BpPkh0 wl73yZPfe9C7rIK2 A0KqYORscwtnzVFpoYus GH6yTYSxlqihAFLfbK6z LKWmY8v5IgLzYgL5UEut B0HdohJ3ELHsnFUi LGyaCIH5Y45bp5U6BOAx XNVzDFE0wBA3zI2vvVyl bjogbGVmdDsgdmVydGlj VVgmUKmyP335FNCy rJtoWZAyjT2eFZKdpRUn qPqkIJ7cNSGmqqzsQmDN WHQGN0IqHXNJEadCGzxQ VK81L6TmEqy4QFWt oQtgJR8psRTtHOzdOh2q sQvvyUjoPO3nISDnnsdn BBKmgY3aNHWbiSAroWiy QP3zUGImrtqqo076 VnDuFSP6XBGlwNUgY1Hz rG7uPrZnQMLgAVOiZ2Wz hMFsKBvbY662OUuoOhR4 KIVzygVdL2CeQVLq jNopDvF6j6Y4By0iJA8h JA4aUNPaJU95OZ31aPUf l9K4hIP2R4MkCEMedzfy uttcgVI7DDTnVVKy jW62qHJmAQfkYr2ms3W1 h272ROUiVESswT78Oo8v lYrwUUIisDTHaB4ssrhs n2redflyCbZxIXQq TNl1MAx4EVWpxRflUcRs WYE1DpY9MVE5jKCptR2p vOljevwcsP1yTjt+Njkg GBRoenA3P9McUrr7 RQQwkEsqTR8owADnUVxw Qt4uyJwjnNqtFL8mJYGv wglrUFYjpV1eTQWanRVy qQzjOR0jCGUospbk p154PiEjEGJ3RTGfjVDq S2QjeP0sIuCfKXEmZUKz M5BigQPwTMrwX613FGwb KcK3GSZvvnLlL2Oi AWFtuJbqDyR1e1M6Fg7N TO5mnJU1B6NuBqd6KIKn yAaoTC1qpZIqMArwBj6l vNqwmZigBH1oHSUg zqsdBGRypX4cYEGegTGn gHmaBK9xPNPcvuecw668 NjKaCDM4VGWvlZSaG4Hr iT9mMlHkTBNlVAQr B6FdaMZnMSknX952SHci TgA6IDVmikBxQ2LdOMUw nTlrCgW2a2S1Ci1MVEXd UQOkdHRkHpN2V1Ku PjwvdHI+FY20GXRwPF15 mUPnvMJrm1kihIq5RbMz ZDIuBML9aKrmYQsbr8Hv LEJdW00heIFmh1P9 IGNvbGxhcHNlOyBlbXB0 eA0iXXqrdhtql0kialoo Fxmyk4cmnq60rO60O78e IHdpZHRoPSIzMCUi NSIljSszfe5npT5pCj1+ EYRwpPW7eHG2fM5hGoOc DvF1GStwW360QvJjpDKt Idlqk6oxt3kjnGv5 IjIwJSIgdmFsaWduPSJ0 k4DaQq39R30oVJaaWEKn GKYnOYIhWHMagBffoo7d sE4lPs1+NT6ly3vv ao44aO09dVH+PHRkIHN0 qSanMXiiCTQvtG5rNHji CxY2BFKiKfJijB85lUMs TQomHo4sxXsfhKkp IR4eRGFokhqmy567JmLs z6cuPKOdySIzIRnwFTW9 K38ss2J0CTPvCHJuIHU7 kYZ6nO2caWckjjhs bGVmdDsgdmVydGljYWwt FKjuV502ILAfjUbbMbXs tXSdY9xneoIVJM4sDzbg dGQ+JEJvTLI0nDgm JZzfQYAzcJ9cWKBuI6m4 TlKdTrG6XGbgN4ZzkeL4 RAZpbIUvMQZlhDKWkC4b mewnt3ailcbcZzKd JYEzUMt2VMb5JYHktYap DdIoIBP1WuV0PAJ4sYAr bY7zwTgkepgjxS5iZip+ RklOOjwvdGQ+PHRk BAY3rGoyKYdjLCQxiR1g WXTrM6b0AnBvJcT4BZuv P4BebcU4ZHIsbICyMAZp zAQAcJ1iqensf1so mrcsQwDiAYYtTRr4TYs9 GWFndLhlAtZhIJQ0MlX9 BQQ0eCDynO8slBvmcnfe dH3iFnk+TVJOOjwv dGQ+LZMdTCV3vHqaWBlb INXvdV7lNZIeC4b6BvFo FgC8STuoI9MojkD3FWSu cFBnTSGpgMDPbH3g lypys4ojoteqMoHwONMm DTp2KTn7RKAecBlsXnMq OBP7NlP5UMI2eLOiqP4m bUnrbwxfoV5lMjv+ HCR0RON2LS91DO11Z5Nn PjwvdGFibGU+PHRhYmxl IHdpZHRoPScxMDAlJyBz eKcgYQ1fWm8gWZYg LWNv (more content not included)... Normal [facility] Physician Orderon 01-17-2022 Physician Order [id number] [id number]:127 Normal [facility] Vital Signs Date Time Vital Sign Value Performing Clinician Facility 06-14-2024 14:25-0400 Body height 157.48 cm [facility] 06-14-2024 14:25-0400 Body mass index (BMI) [Ratio] 31.2 kg/m2 [facility] 06-14-2024 14:25-0400 Body temperature 99 [degF] [facility] 06-14-2024 14:25-0400 Body weight 77.56 kg [facility] 06-14-2024 14:25-0400 Diastolic blood pressure 72 mm[Hg] [facility] 06-14-2024 14:25-0400 Heart rate 77 /min [facility] 06-14-2024 14:25-0400 SaO2% (BldA) [Mass fraction] 94 % [facility] 06-14-2024 14:25-0400 Systolic blood pressure 138 mm[Hg] [facility] 05-03-2024 10:03-0400 Body height 157.48 cm [facility] 05-03-2024 10:03-0400 Body mass index (BMI) [Ratio] 31.2 kg/m2 [facility] 05-03-2024 10:03-0400 Body weight 77.56 kg [facility] 05-03-2024 10:03-0400 Diastolic blood pressure 71 mm[Hg] [facility] 05-03-2024 10:03-0400 Heart rate 62 /min [facility] 05-03-2024 10:03-0400 Systolic blood pressure 144 mm[Hg] [facility] 05-01-2023 10:00-0400 Body height 160.02 cm Reny Smith Other [employer] Other 05-01-2023 10:00-0400 Body mass index (BMI) [Ratio] 29.33 kg/m2 Reny Smith Other [employer] Other 05-01-2023 10:00-0400 Body weight 75.12 kg Reny Luis Other [employer] Other 05-01-2023 10:00-0400 Diastolic blood pressure 65 mm[Hg] Reny Luis Other [employer] Other 05-01-2023 10:00-0400 Systolic blood pressure 125 mm[Hg] Reny Luis Other [employer] Other Encounters Encounter Date Encounter Type Care Provider Facility Start: 08-13-2024 End: 08-13-2024 ambulatory [facility] Start: 08-05-2024 End: 08-05-2024 ambulatory [facility] Start: 07-14-2024 End: 07-14-2024 Peace Castanon Stepcandida DO Work Phone: [facility] Start: 07-14-2024 End: 07-14-2024 Peace Castanon Stepanic DO Work Phone: [facility] Start: 07-14-2024 End: 07-14-2024 Office outpatient visit 25 minutes Jr. Kelly Ospina DO Work Phone: [facility] Comment on above: Cyst of joint of rig ht hand (Primary Dx) Start: 07-14-2024 End: 07-14-2024 ambulatory KELLY ADAME STEPCANDIDA Not Available Start: 07-09-2024 End: 07-09-2024 ambulatory NON STAFF [facility] Work Phone: Start: 07-09-2024 End: 07-09-2024 Patient encounter procedure [facility] Work Phone: Start: 07-05-2024 End: 07-05-2024 ambulatory DOMINIC Sampson APLING Not Available Start: 06-28-2024 End: 06-28-2024 Bamboo flowsheet Dominic Montoya CONTROL PANEL OPERATOR [facility] Work Phone: [facility] Start: 06-28-2024 End: 06-28-2024 Bamboo flowsheet Dominic Montoya CONTROL PANEL OPERATOR [employer] Work Phone: [facility] Start: 06-28-2024 End: 06-28-2024 Office outpatient visit 15 minutes Dominic Montoya CONTROL PANEL OPERATOR [employer] Work Phone: [facility] Comment on above: Swelling of right ahn nd (Primary Dx); Right hand pain; Cyst of joint of right hand Start: 06-28-2024 End: 06-28-2024 ambulatory DOMINIC Sampson APLING Not Available Start: 06-14-2024 End: 06-14-2024 ambulatory NON STAFF [facility] Work Phone: Start: 06-14-2024 End: 06-14-2024 Patient encounter procedure [facility] Work Phone: Start: 05-06-2024 Non-patient / Non-visit [facility] Work Phone: Start: 05-03-2024 Patient encounter procedure [facility] Start: 05-03-2024 End: 05-03-2024 ambulatory NON STAFF [facility] Work Phone: Start: 05-03-2024 End: 05-03-2024 Patient encounter procedure [facility] Work Phone: Start: 07-28-2023 End: 07-28-2023 ambulatory DOMINIC Sampson APLING Not Available Start: 05-15-2023 End: 05-15-2023 ambulatory Reny Smith Other [employer] Other Start: 05-15-2023 Telephone encounter Reny Smith [facility] Start: 05-01-2023 End: 05-01-2023 ambulatory Reny Smith Other [employer] Other Start: 05-01-2023 Patient encounter procedure Reny Smith [facility] Start: 06-26-2022 End: 06-27-[address] LOTUS SERNA Facility:[facility] Start: 05-13-2022 End: 05-14-[address] RENY SMITH Facility:[facility] Procedures Date Procedure Procedure Detail Performing Clinician Start: 06-28-2024 Radex hand minimum 3 views Dominic Montoya CONTROL PANEL OPERATOR [employer] Work Phone: Plan of Treatment Date Care Activity Detail Author Start: 07-14-2024 End: 07-14-2024 Patient encounter procedure [facility] Comment on above: Arrived Start: 07-05-2024 End: 07-05-2024 Professional / ancillary services management 07/05/2024 8:30 AM EST Ancillary Procedure [facility] [address] [place] [id number] [facility] Start: 06-28-2024 End: 06-28-2025 [...] ORTHOPAEDICS [address] [place] [id number] Domniic Montoya NP [address] [place] [address] Swelling of right hand (Primary Dx) [facility] Comment on above: Swelling of right ahn nd (Primary Dx) Start: 05-03-2024 EKG 12 channel panel Fi [facility] Start: 04-25-2024 Influenza vaccination Influenza Vacc ine (#1) [facility] Start: 1992 Screening for malign ant neoplasm of breast Mammogram [facility] Start: 1950 Screening for malign ant neoplasm of colon [facility] Comprehensive metabo lic 2000 panel - Serum or Plasma [facility] MG Breast - bilatera l Screening [facility] Immunizations Immunization Date Immunization Notes Care Provider Fa ysabelty 07-09-2024 influenza, high dose seasonal, preservative-free [facility] 05-01-2023 influenza virus vaccine, unspecified formulation [facility] 05-01-2023 influenza, high dose seasonal, preservative-free Reny Smith Other [facility] Other 06-24-2022 COVID-19 Pfizer (Pediatric) Reny Smith Other [facility] 06-24-2022 influenza virus vaccine, split virus (incl. purified surface antigen) Reny Smith Other [facility] Other 06-24-2022 influenza virus vaccine, unspecified formulation [facility] 11-14-2020 COVID-19 Vaccine Pfi zer - Documentation Purposes Only Reny Smith Other [facility] 04-26-2020 influenza virus vaccine, split virus (incl. purified surface antigen) Reny Smith Other [facility] Other 04-26-2020 influenza virus vaccine, unspecified formulation [facility] 04-26-2020 pneumococcal polysaccharide vaccine, 23 valent Reny Smith Other [facility] 04-20-2019 pneumococcal conjuga te vaccine, 13 valent Reny Smith Other [facility] Payers Date Payer Category Payer Self-pay 2022 Private Health Insurance [employer] [id number] 2017 Medicare MEDICARE [id number] 1959 Medicare [id number] 1959 Unknown [id number] 1952 Unknown [id number] 1952 Unknown [id number] 1952 Unknown [id number] 1259 1952 Unknown [id number] [id number] 1952 Unknown [id number] 1259 1952 Unknown [id number] 1259 1952 Unknown [id number] [id number] Unknown [id number] Social History Date Type Detail Facility Start: 07-28-2023 End: 07-14-2024 Sex Assigned At [facility] [employer] Other Start: 01-30-2023 End: 05-03-2024 Tobacco smoking status NHIS Never smoked tobacco (finding) [facility] Start: 1950 Sex Assigned At Female [facility] Start: 01-30-2023 Tobacco use and exposure Smokeless tobacco non-user [facility] Start: 07-28-2023 End: 07-14-2024 Alcoholic beverage intake Ex-drinker (finding) [facility] Start: 07-28-2023 End: 07-14-2024 History of Social function [facility] Start: 1950 Sex assigned at Not on file [facility] Start: 07-09-2024 Sex Female (finding) [facility] Clinical Notes 05-01-2023 to 08-30-2024 Jr. Kelly Ospina, - 07/14/2024 1:00 PM Chuck Montoya NP - 06/28/2024 8:00 AM EST Note Date & Type Note Facility 08-30-2024 Note Patient called back and said she'd like to go with [facility]. RX printed and faxed into [facility]. [facility] 08-13-2024 Note [facility] [facility] Note Reason for cardiology [...] pacemaker and grandmother had a stroke and [place] Cardiology ROS: GENERAL: Denies fever, chills, night [...] has a past medical history of Cancer (CMS/[facility]), Hyperlipidemia, Hypertension, and Sleep apnea. Surgical History [...] left upper ext (more content not included)... [facility] 08-05-2024 Note Patient ID: Kalani Fernandes is [...] to verify the correct patient, procedure, equipment, business support liaison and site/side marked as required. Procedure Attestation Level of Attending Supervision for Procedure I was present for the frey and critical portions and I was otherwise immediately available to assist [facility] 08-05-2024 Note Orthopaedic Surgery Subjective Pain of [...] years. 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 wrist extension/flexion [...] to verify the correct patient, procedure, equipment, business support liaison and site/side marked as required. Patient was [...] be an additional personal documentation from me. [facility] 07-14-2024 History of Present illness Narrative Images from the original note were not included. HISTORY OF PRESENT ILLNESS: EST PT Kalani Fernandes is an 74 y.o. @ female. (EST PT ; LAST APPT W/ MOR) RECHECK (R) HAND CYST ; HERE FOR MRI RESULTS 07/05/24 IN [facility] XRAYS 06/28/24 IN [facility] MRI 07/05/24 IN [facility] NO MDP / PREDNISONE NO CORTISONE [...] requiring urgent evaluation. documented in this encounter [facility] 06-28-2024 History of Present illness Narrative Images [...] noted. Impression [facility] arthritis Dominic Montoya HEAD GAUGE UNIT OPERATOR Assessment/Plan Encounter Diagnoses: ICD-10-CM 1. Swelling of [...] f/u s/p MRI to be done at [facility] [place] documented in this encounter [facility] 05-03-2024 Evaluation note Diagnosis Onset Date Resolution Dyslipidemia acute April 9:55am Essential hypertension acute Se ptember 2023 9:55am Medicare annual wellness visit, subsequent acute May 03, 2 024 9:55am Palpitations acute April 9:55am Screening mammogram for breast cancer acute May 03, 2 024 9:55am Maxillary sinusitis, acute acute June 14 2:21pm [facility] Work Phone: 1(775) 725-762009-07-2023 Evaluation note* Encounter Date Diagnosis Assessment Notes [...] mammogram for breast cancer (ICD-10 - Z12.31) [facility] Other Evaluation [facility]No [facility] Other evaluation note* Diagnosis Onset Date Resolution Status Dyslipidemia acute Essential hypertension acute Palpitations acute Screening mammogram for breast cancer acute [facility] Work Phone: Evaluation note* Diagnosis Onset Date Resolution Status Dyslipidemia acute Essential hypertension acute Medicare annual wellness visit, subsequent acute Palpitations acute Screening mammogram for breast cancer acute [facility] Work Phone: Evaluation note* Diagnosis Onset Date Resolution Status Dyslipidemia acute Essential hypertension acute Medicare annual wellness visit, subsequent acute Palpitations acute Screening mammogram for breast cancer acute Maxillary sinusitis, acute a cute [facility] Work Phone: Evaluation note* Diagnosis Swelling [...] History [facility] Hospitalization History see surgical hx [employer] Other History general Narrative - Reported* Type Description Date Surgical History Cholecystectomy Surgical History Wide excision of Melanoma 2012 Surgical History [facility] Hospitalization History see surgical hx [employer] Other Summary Purpose Family History No Family [...] and content) DATE CREATED AUTHOR 03/13/2022 [employer] [facility] DATE CREATED AUTHOR AUTHOR'S ORGANIZ ATION 07/30/2022 [facility] DATE CREATED AUTHOR AUTHOR'S ORGANIZ ATION 05/12/2024 [facility] DATE CREATED AUTHOR AUTHOR'S ORGANIZ ATION 07/05/2024 [facility] DATE CREATED AUTHOR AUTHOR'S ORGANIZ ATION 07/17/2024 [facility] EPIC DATE CREATED AUTHOR AUTHOR'S ORGANIZ ATION 09/02/2024 [facility] REASON FOR VISIT (unrecogniz ed section and [...] End: June 14, 2024 Karis Pearl APRN CONTROL PANEL OPERATOR [employer] Attending Provider Active Start: June 14, 2024 End: June 14, 2024 Field Superintendent Relationship Specialty Start Date End Date Reny Smith MD [address] [place] [address] PCP - General Family Medicine 01/17/23 Field Superintendent Relationship Specialty Start Date End Date Reny Smith MD [address] [place] [address] PCP - General Family Medicine 01/17/23 Team Status: Inactive Member Role Status Dates NON STAFF Primary Care Provider Active Start: July 09, 2024 End: July 09, 2024 Reny Smith MD Attending Provider Active St art: July 09, 2024 End: July 09, 2024 Field Superintendent Relationship Specialty Start Date End Date Reny Smith MD [address] [place] [id number] PCP - General Family Medicine 01/17/23 Field Superintendent Relationship Specialty Start Date End Date Reny Smith MD [address] [place] [id number] PCP - General Family Medicine 01/17/23 Goals [...] BE BASED ON THE PRIMARY CLINICAL RECORDS. [facility]. provides no warranty or guarantee of the accuracy or completeness of information in this document.
--- NOTE | 2024-10-07 14:15 | ECG_ITS ---
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: : 1950 Requested By: Order Number: [id number] Reading MD: SHEREE ARTEAGA Measurements Intervals Copen Rate: 123 P: -11619 MT: -59526 QRS: 45 QRSD: 86 T: 196 QT: 306 QTc: 379 Interpretive Statements [id number] Atrial fibrillation with rapid ventricular response [address] depression, probably digitalis effect 82483 Twave abnormality, possible lateral ischemia or digitalis effect 22607 Twave abnormality, possible inferior ischemia or digitalis effect 9150 abnormal ECG Compared to ECG 09/25/2024 00:19:16 ST (T wave) deviation now present Possible ischemia now present Sinus rhythm no longer present Sinus arrhythmia no longer present Electronically Signed On 10-08-2024 5:28:21 EST by SHEREE ARTEAGA
--- NOTE | 2024-10-07 14:15 | XR_ITS ---
The [address] [address] Patient Name: PORFIRIO LAWSON MRN: [id number] date: 1950 Sex: F Assigned Patient Location: ER Current Patient Location: ED.MAIN Accession/Order Number: [id number] Exam Date: 10/07/2024 14:29 Report Date: 10/07/2024 15:04 At the request of: ANNI BETANCUR Procedure: XR chest 1V EXAMINATION: XR chest 1V HISTORY: HTN COMPARISON: XR chest 09/24/2024 FINDINGS: LUNGS: No significant pulmonary parenchymal abnormalities. VASCULATURE: No increased pulmonary vasculature. PLEURA: No pneumothorax, effusion, or pleural thickening. CARDIAC: No cardiomegaly or cardiac silhouette abnormality. MEDIASTINUM: No visible mass or adenopathy. BONES: No fracture or visible bone lesion. OTHER: Negative. XR/XR chest 1V IMPRESSION: 1. No acute cardiopulmonary process. Electronically authenticated by: ALONDRA MORALES Date: 10/07/2024 15:04
--- NOTE | 2024-10-07 14:16 | ED.ARRPALP1 ---
HPI - Arrhythmia/Palpitations General Chief Complaint: Arrhythmia/Palpitations Stated Complaint: HIGH BP AND PULSE Time Seen by Provider: 10/07/24 14:06 History of Present Illness HPI narrative: 74 year old female presents to the ED for palpitations, elevated BP. States she felt like her heart was racing today. She checked her pulse and blood pressure; both were elevated. 09/24/24 she was diagnosed with a-fib and placed on metoprolol upon discharge from the hospital. She takes Eliquis. Denies fever, chills, dizziness, SIEGEL. Denies CP, SOB, N/V/D. She has been under increased stress recently. Pt is tearful. States her grandson is moving to [place] today. Related Data Home Medications ?Medication ?Instructions ?Recorded ?Confirmed amlodipine 10 mg tablet 10 mg PO DAILY 09/24/24 10/07/24 apixaban 5 mg tablet (Eliquis) 5 mg PO Q12H 09/24/24 10/07/24 atorvastatin 20 mg tablet 20 mg PO .QHS 09/24/24 10/07/24 furosemide 20 mg tablet 20 mg PO DAILY 09/24/24 10/07/24 sertraline 100 mg tablet 100 mg PO DAILY 09/24/24 10/07/24 spironolactone 25 mg tablet 25 mg PO DAILY 09/24/24 10/07/24 doxepin 10 mg capsule 10 mg PO DAILY 10/07/24 10/07/24 Previous Rx's ?Medication ?Instructions ?Recorded metoprolol tartrate 25 mg tablet 25 mg PO BID #60 tabs 09/25/24 Allergies Allergy/AdvReac Type Severity Reaction Status Date / Time No Known Drug Allergies Allergy Verified 09/24/24 17:51 Review of Systems ROS Constitutional Denies: fever, chills or fatigue Ears, nose, mouth, and throat Denies: neck pain Cardiovascular Reports: palpitations; Denies: chest pain, edema, swelling of feet/ankles, lightheadedness or shortness of breath with exertion Respiratory Denies: shortness of breath or cough Gastrointestinal Denies: abdominal pain, nausea, vomiting or diarrhea Musculoskeletal Denies: back pain or neck pain Neurological Denies: headache, weakness in extremities or dizziness [facility] Medical History (Updated 10/07/24 @ 16:38 by Shelia العراقي) Benign essential hypertension ?I10 - Essential (primary) hypertension (ICD-10) Chronic heart failure with preserved ejection fraction (HFpEF) ?I50.32 - Chronic diastolic (congestive) heart failure (ICD-10) Atrial fibrillation with rapid ventricular response ?I48.91 - Unspecified atrial fibrillation (ICD-10) Palpitations ?R00.2 - Palpitations (ICD-10) Dehydration ?E86.0 - Dehydration (ICD-10) Social History Little interest or pleasure in doing things: not at all Feeling down, depressed, or hopeless: not at all Exam Constitutional Vital Signs, click to edit/add: Last Vital Signs Temp 98.3 F 10/07/24 14:06 Pulse 99 H 10/07/24 15:50 Resp 19 10/07/24 15:50 BP 126/84 10/07/24 16:19 Pulse Ox 96 10/07/24 15:50 O2 Del Method Room Air 10/07/24 14:06 Common normals: no apparent distress and oriented x3 General appearance: cooperative Eye Common normals: PERRL, conjunctivae normal and no scleral icterus Neck & C-Spine Common normals: supple Chest Chest: symmetrical chest wall rise Cardio Rate: tachycardic Rhythm: abnormal rhythm irregularly irregular Neuro Common normals: oriented x3 and moves all extremities Sensorium/orientation: awake and alert Speech: speech normal Psych Mood and affect: tearful Course Vital Signs Vital signs: Vital Signs Temperature 98.3 F 10/07/24 14:06 Pulse Rate 106 H 10/07/24 14:06 Respiratory Rate 18 10/07/24 14:06 Blood Pressure 155/111 H 10/07/24 14:06 Pulse Oximetry 95 10/07/24 14:06 Oxygen Delivery Method Room Air 10/07/24 14:06 Temperature 98.3 F 10/07/24 14:06 Pulse Rate 99 H 10/07/24 15:50 Respiratory Rate 19 10/07/24 15:50 Blood Pressure 126/84 10/07/24 16:19 Pulse Oximetry 96 10/07/24 15:50 Oxygen Delivery Method Room Air 10/07/24 14:06 MDM - Arrhythmia/Palpitations MDM Narrative Medical decision making narrative: Laboratory studies were unremarkable. Imaging was negative for acute findings. She was given Lopressor and Cardizem with improvement in her HR and BP. Findings were discussed. She was comfortable being discharged home. Follow up with cardiology as scheduled. Return precautions were discussed. Medical Records Attestation: I reviewed the patient's medical records. Lab Data Attestation: I reviewed the patient's lab results. Labs: Lab Results 10/07/24 10/07/24 Range/Units 14:19 14:43 WBC 13.8 H (4.0-11.0) 10^3/uL RBC 5.77 H (4.20-5.40) 10^6/uL Hgb 17.2 H (12.0-16.0) g/dL Hct 51.6 H (36.0-48.0) % MCV 89.4 (81.0-99.0) fL MCH 29.8 (26.7-34.0) pg MCHC 33.3 (29.9-35.2) g/dL RDW 14.2 (11.0-15.0) % Plt Count 270 (150-450) 10^3/uL MPV 10.7 (9.5-13.5) fL Neut % (Auto) 78.8 H (43.0-75.0) % Lymph % (Auto) 15.2 L (20.5-60.0) % [place] % (Auto) 4.6 (1.7-12.0) % Eos % (Auto) 0.5 L (0.9-7.0) % Baso % (Auto) 0.4 (0.2-2.0) % Neut # (Auto) 10.9 H (1.4-6.5) 10^3/uL Lymph # (Auto) 2.1 (1.2-3.8) 10^3/uL [place] # (Auto) 0.6 (0.3-0.8) 10^3/uL Eos # (Auto) 0.1 (0.0-0.7) 10^3/uL Baso # (Auto) 0.1 (0.0-0.1) 10^3/uL Abs Immat Gran (auto) 0.07 H (0.00-0.03) 10^3/uL Imm/Tot Granulo (auto) 0.5 (0.0-0.5) % Sodium 143 (136-145) mmol/L Potassium 3.6 (3.5-5.1) mmol/L Chloride 104 (98-107) mmol/L Carbon Dioxide 28.1 (21.0-32.0) mmol/L Anion Gap 14.5 BUN 20.0 H (7.0-18.0) mg/dL Creatinine 1.33 H (0.55-1.02) mg/dL Est GFR ( Amer) 48 L (>=60 mL/min/1.73m^2) Est GFR (Non-Af Amer) 39 L (>=60 mL/min/1.73m^2) BUN/Creatinine Ratio 15.0 Glucose 118 H (74-106) mg/dL Calcium 10.1 (8.5-10.1) mg/dL Total Bilirubin 0.7 (0.2-1.0) mg/dL AST 19 (15-37) U/L ALT 25 (14-59) U/L Alkaline Phosphatase 123 H (46-116) U/L Troponin I High Sens 12.8 (4.0-51.3) pg/mL Total Protein 8.2 (6.4-8.2) g/dL Albumin 4.2 (3.4-5.0) g/dL Globulin 4.0 g/dL Albumin/Globulin Ratio 1.0 ECG Data Attestation: ?I have reviewed the pertinent ECG results. Interpretation: Measurements Intervals [place] Rate: 123 P: [id number] ID: [id number] QRS: 45 QRSD: 86 T: 196 QT: 306 QTc: 379 Interpretive Statements 09547 Atrial fibrillation with rapid ventricular response [address] depression, probably digitalis effect 85495 Twave abnormality, possible lateral ischemia or digitalis effect 78072 Twave abnormality, possible inferior ischemia or digitalis effect 9150 abnormal ECG No previous ECG available for comparison Critical Care Time Critical Care Time Critical Care Time: Yes Total Critical Care Time: 30 Attestation: Due to the high probability of sudden and clinically significant deterioration in the patient's condition he required the highest level of my preparedness to intervene urgently. I provided critical care time including documentation time, medication orders and management, reevaluation, vital sign assessment, ordering and reviewing of lab tests, and ordering and reviewing of x-ray studies. Discharge Plan Discharge Chief Complaint: Arrhythmia/Palpitations Clinical Impression: Atrial fibrillation, Elevated blood pressure reading Patient Disposition: Home, Self-Care Time of Disposition Decision: 16:37 Condition: Good Mode of Transportation: Private Vehicle Prescriptions / Home Meds: No Action atorvastatin 20 mg tablet 20 mg PO .QHS sertraline 100 mg tablet 100 mg PO DAILY spironolactone 25 mg tablet 25 mg PO DAILY amlodipine 10 mg tablet 10 mg PO DAILY furosemide 20 mg tablet 20 mg PO DAILY Eliquis 5 mg tablet 5 mg PO Q12H metoprolol tartrate 25 mg Tablet 25 mg PO BID Qty: 60 0RF doxepin 10 mg capsule 10 mg PO DAILY Print Language: Luxembourger Instructions: A-fib (Atrial Fibrillation) (ED), Hypertension (ED) Additional Instructions: Follow up with cardiology as scheduled. Return to the ER for worsening symptoms. Referrals: SRAVAN SMITH [Primary Care Provider] - 1 week
[2024-10-07 14:27] LABS: Basophils Absolute Auto 0.1 10^3/uL (0.0-0.1); Basophils Percent Auto 0.4 % (0.2-2.0); Eosinophils Absolute Auto 0.1 10^3/uL (0.0-0.7); Eosinophils Percent Auto 0.5 % (0.9-7.0); Hematocrit 51.6 % (36.0-48.0); Hemoglobin 17.2 g/dL (12.0-16.0); Immature Granulocytes Abs Auto 0.07 10^3/uL (0.00-0.03); Immature Granulocytes Pct Auto 0.5 % (0.0-0.5); Lymphocytes Absolute Auto 2.1 10^3/uL (1.2-3.8); Lymphocytes Percent Auto 15.2 % (20.5-60.0); Mean Corpuscular HGB Conc 33.3 g/dL (29.9-35.2); Mean Corpuscular Hemoglobin 29.8 pg (26.7-34.0); Mean Corpuscular Volume 89.4 fL (81.0-99.0); Mean Platelet Volume 10.7 fL (9.5-13.5); Monocytes Absolute Auto 0.6 10^3/uL (0.3-0.8); Monocytes Percent Auto 4.6 % (1.7-12.0); Neutrophils Absolute Auto 10.9 10^3/uL (1.4-6.5); Neutrophils Percent Auto 78.8 % (43.0-75.0); Platelet Count 270 10^3/uL (150-450); Red Blood Count 5.77 10^6/uL (4.20-5.40); Red Cell Distribution Width 14.2 % (11.0-15.0); White Blood Count 13.8 10^3/uL (4.0-11.0)
[2024-10-07] MEDS: METOPROLOL TARTRATE 5 MG/5 ML VIAL IVP (14:37)
[2024-10-07 15:11] LABS: Alanine Aminotransferase 25 U/L (14-59); Albumin Level 4.2 g/dL (3.4-5.0); Alkaline Phosphatase 123 U/L (46-116); Anion Gap 14.5; Aspartate Amino Transferase 19 U/L (15-37); Bilirubin Total 0.7 mg/dL (0.2-1.0); Calcium 10.1 mg/dL (8.5-10.1); Carbon Dioxide 28.1 mmol/L (21.0-32.0); Chloride 104 mmol/L (98-107); Estimated GFR (African America 48 (>=60 mL/min/1.73m^2); Estimated GFR (Non-African Ame 39 (>=60 mL/min/1.73m^2); Glucose 118 mg/dL (74-106); Potassium 3.6 mmol/L (3.5-5.1); Sodium 143 mmol/L (136-145); Total Protein 8.2 g/dL (6.4-8.2); Troponin I High Sensitivity 12.8 pg/mL (4.0-51.3)
[2024-10-07] MEDS: DILTIAZEM HCL 25 MG/5 ML VIAL 10 MG IV (16:19)
== END 2024-10-07 16:58 | disposition home or self-care (01) ==
PROVIDERS: Nurse Practitioner Family; Emergency Provider Emergency Medicine; PCP Neurological Surgery
DX: I48.91 Unspecified atrial fibrillation (principal); R03.0 Elevated blood-pressure reading, without diagnosis of hypertension; I10 Essential (primary) hypertension; Z79.01 Long term (current) use of anticoagulants
CPT/HCPCS: 36415; 71045; 80053; 84484; 85025; 93005; 96374; 96375; 99285

== ENCOUNTER 2025-01-04 11:15 | Outpatient (OUT) | payer MEDICARE, SELFPAY ==
[2025-01-04 11:41] LABS: Basophils Percent Auto 0.3 % (0.2-2.0); Eosinophils Absolute Auto 0.1 10^3/uL (0.0-0.7); Eosinophils Percent Auto 1.3 % (0.9-7.0); Hematocrit 46.8 % (36.0-48.0); Hemoglobin 15.2 g/dL (12.0-16.0); Immature Granulocytes Abs Auto 0.04 10^3/uL (0.00-0.03); Immature Granulocytes Pct Auto 0.4 % (0.0-0.5); Lymphocytes Absolute Auto 2.3 10^3/uL (1.2-3.8); Lymphocytes Percent Auto 23.1 % (20.5-60.0); Mean Corpuscular HGB Conc 32.5 g/dL (29.9-35.2); Mean Corpuscular Hemoglobin 29.6 pg (26.7-34.0); Mean Corpuscular Volume 91.2 fL (81.0-99.0); Mean Platelet Volume 9.8 fL (9.5-13.5); Monocytes Absolute Auto 0.6 10^3/uL (0.3-0.8); Neutrophils Absolute Auto 6.8 10^3/uL (1.4-6.5); Neutrophils Percent Auto 68.9 % (43.0-75.0); Platelet Count 217 10^3/uL (150-450); Red Blood Count 5.13 10^6/uL (4.20-5.40); Red Cell Distribution Width 14.3 % (11.0-15.0); White Blood Count 9.8 10^3/uL (4.0-11.0)
[2025-01-04 11:50] LABS: Anion Gap 9.6; BUN Creatinine Ratio 13.1; Calcium 9.9 mg/dL (8.5-10.1); Carbon Dioxide 30.7 mmol/L (21.0-32.0); Chloride 102 mmol/L (98-107); Estimated GFR (African America 49 (>=60 mL/min/1.73m^2); Estimated GFR (Non-African Ame 40 (>=60 mL/min/1.73m^2); Glucose 104 mg/dL (74-106); Potassium 4.3 mmol/L (3.5-5.1); Sodium 138 mmol/L (136-145)
== END 2025-01-04 11:16 | disposition home or self-care (01) ==
LOC: LAB 11:18
PROVIDERS: PCP Neurological Surgery; Visit Provider Internal Medicine Cardiovascular Disease
DX: I48.0 Paroxysmal atrial fibrillation (principal)
CPT/HCPCS: 36415; 80048; 85025

== ENCOUNTER 2025-05-16 08:59 | Outpatient (OUT) | payer MEDICARE, OTHER, SELFPAY ==
--- OUTSIDE RECORDS SUMMARY | 2025-05-16 09:06 | XMS_ITS | Encounter Summary ---
Author Organization [facility] Address [address] [facility] [place] [address] Care Team Providers Care Lean Consultant Name Role Phone Reny Cabrera MD Primary Care Provider [phone] Sepideh Wu DO Unavailable [phone] Reny Cabrera MD Primary Care Provider [phone] Encounter Details Date Type Department Care Team (Late st Contact Info) Description 01/31/2023 Abstract [facility] [address] [facility] [address] [place] [id number] Jannet Montoya NP Social History Tobacco Use Types Packs/Day Years Used Date Smoking Tobacco: Never Smokeless Tobacco: Never Alcohol Use Standard Drinks/Week Comments Not Currently 0 (1 standard drink = 0.6 oz pur e alcohol) Comments Unknown Sex and Gender Information Value Date Recorded Sex Assigned at Not on file Legal Sex Female 8:31 PM EDT Gender Identity Not on file Sexual Orientation Not on file documented as of this encounter Plan of Treatment Not on file documented as of this encounter Visit Diagnoses Not on filedocumented in this encounter Care Teams Lean Consultant Relationship Specialty Start Date End Date Reny Cabrera MD PCP - General Family Medicine 01/17/23 04/12/25 Reny Cabrera MD [address] [facility] [place] [address] PCP - General Family Medicine 04/13/25 Sepideh Wu DO [address] [place] [address] Referring Physician Neurology 09/17/24 documented as of this encounter
--- OUTSIDE RECORDS SUMMARY | 2025-05-16 09:06 | XMS_ITS | Clinical Summary ---
Author Organization [facility] Address [address] [place] [address] Care Team Providers Care Child And Adolescent Psychologist Name Role Phone Reny Cabrera MD Primary Care Provider [phone] Allergies No known active allergies Medications atorvastatin (Lipitor) 20 mg tablet Take 20 mg by mouth at bedtime. Active sertraline (Zoloft) 100 mg tablet Take 100 mg by mouth at bedtime. 3 Active furosemide (Lasix) 20 mg tabletIndication s:Acute combined systolic and diastolic heart failure (CMS/HCC) Take 1 tablet (20 mg) by mouth in the morning. 90 tablet 3 5 08/30/19 26 Active Additional Information Patient not taking.Reported on 04/26/2025 rivaroxaban (Xarelto) 20 mg tabletIndication s:Paroxysmal atrial fibrillation (CMS/HCC) Take 1 tablet (20 mg) by mouth daily with evening meal. Take with food. 90 tablet 3 5 Active multivitamin tablet Take 1 tablet by mouth in the morning. Active CALCIUM ORAL Take by mouth. Ac tive glucosamine/itz dr celia Ruelas sod (OSTEO BI-FLEX ORAL) Take by mouth. Activ e docosahexaenoic acid/epa (FISH OIL ORAL) Take by mouth. Activ e famotidine (Pepcid) 20 mg tabletIndication s:Paroxysmal atrial fibrillation (CMS/HCC) Take 1 tablet (20 mg) by mouth two times daily. 60 tablet 5 Active Additional Information Patient not taking.Reported on 04/26/2025 lisinopril 5 mg tabletIndication s:Primary hypertension Take 1 tablet (5 mg) by mouth 2 times daily. 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 90 tablet 3 5 03/23/20 26 Active Active Problems Problem Noted Date Diagnosed Date Paroxysmal atrial fibrillation 11/02/2024 Atrial fibrillation with rapid ventricular respo nse 10/13/2024 Sinus bradycardia 10/13/2024 Chronic diastolic heart failure 10/13/2024 Pulmonary hypertension 10/13/2024 Chronic kidney disease 10/13/2024 Typical atrial flutter 08/14/2024 Pure hypercholesterolemia 08/14/2024 Class 1 obesity due to exces s calories without serious comorbidity with body mass index (BMI) of 31.0 to 31.9 in adult 08/14/2024 Obstructive sleep apnea 08/14/2024 Soft tissue mass 08/12/2024 Arthritis of carpometacarpal (CMC) joint of left thumb 01/30/2023 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 01/30/2023 Dermatochalasis of left upper eyelid 01/30/2023 Excess skin of eyelid 01/30/2023 Nuclear senile cataract 01/30/2023 Hypertension Encounters Date Type Department Care Team Description 04/26/2025 9:15 AM EDT Office Visit [facility] [address] [place] [address] Timi eLe MD Paroxysmal atrial fibrillation (CMS/HCC) (Primary Dx) 03/23/2025 Orders Only [facility] [address] [place] [phone] Yi Rios RN Primary hypertension; Acute combined systolic and diastolic heart failure (CMS/HCC) 02/18/2025 1:20 PM EDT Follow-Up [facility] [address] [place] [address] Sky Casillas CNP Paroxysmal atrial fibrillation (CMS/HCC) (Primary Dx); S/P ablation of atrial fibrillation; Chronic heart failure with preserved ejection fraction (CMS/HCC); Benign hypertensive heart disease with heart failure (CMS/HCC); Mixed hyperlipidemia 02/15/2025 Telephone [facility] [address] [place] [address] Yi Rios RN BP recordings 02/15/2025 Orders Only [facility] [place] [facility] [address] [place] [address] Yi Rios RN Primary hypertension from Last 3 Months Family History Medical History Relation Name Comments Atrial fibrillation Brother Parkinsonism Father Stroke Maternal Grandmother Coronary artery disease Mother pacemaker in situ Mother Relation Name Status Comments Brother Alive Father Maternal Grandmother Mother Sister Alive Social History Tobacco Use Types Packs/Day Years Used Date Smoking Tobacco: Never Smokeless Tobacco: Never Tobacco Cessation:Counseling Given: Not Answered Alcohol Use Standard Drinks/Week Comments Not Currently 0 (1 standard drink = 0.6 oz pur e alcohol) Comments Unknown Sex and Gender Information Value Date Recorded Sex Assigned at Female 04/21/2025 11:52 AM EDT Legal Sex Female 11:45 PM EDT Gender Identity Female 04/21/2025 11:52 AM EDT Sexual Orientation Heterosexual or Straight 03/26 11:52 AM EDT Last Filed Vital Signs Vital Sign Reading Time Taken Comments Blood Pressure 128/71 04/26/2025 9:03 AM EDT Pulse 65 04/26/2025 9:03 AM EDT Temperature 36.2 C (97.2 F) 01/20/2025 12:05 PM EDT Respiratory Rate 22 01/20/2025 3:50 PM EDT Oxygen Saturation 96% 04/26/2025 9:03 AM EDT Inhaled Oxygen Concentration - - Weight 82.6 kg (182 lb) 02/18/2025 1:25 PM EDT Height 157.5 cm (5' 2 ) 04/26/2025 9:03 AM EDT Body Mass Index 33.29 01/20/2025 7:36 AM EDT Plan of Treatment Health Maintenance Due Date Last Done Comments CT Colonography 1950 Colonoscopy 1950 Colorectal Cancer Screening 1950 FIT-DNA 1950 FIT 1950 FOBT 1950 Medicare Annual Wellness (AWV) 1950 Sigmoidoscopy 1950 Depression Screening 1964 Adult Tetanus 1974 Mammogram 1992 Zoster Vaccines (1 of 2) 2002 08/03/2012 Fall Risk Screening 2017 Pneumococcal Vaccine: 50+ Years (2 of 2 - PPSV23, PCV20, or PCV21) 06/15/2019 04/20/2019 COVID-19 Vaccine ( - season) 2025 06/24/2022, 07/11/2021, 11/14/2020, Additional history exists Influenza Vaccine (#1) 2025 , 06/24/2022, 07/11/2021 HIB Vaccines Aged Out No longer eligi ble based on patient's age to complete this topic HPV Vaccines Aged Out No longer eligi ble based on patient's age to complete this topic IPV Vaccines Aged Out No longer eligi ble based on patient's age to complete this topic Meningococcal B Vaccine Aged Out No l onger eligible based on patient's age to complete this topic Meningococcal Vaccine Aged Out No chris andrew eligible based on patient's age to complete this topic Rotavirus Vaccines Aged Out No longer eligible based on patient's age to complete this topic Procedures Procedure Name Priority Date/Time Associated Diagnosis Comments ECG 12 LEAD UNIT PERFORMED Routine 02/18/2025 1:23 PM EDT Paroxysmal atrial fibrillation (CMS/HCC) from Last 3 Months Results * ECG 12 lead unit performed (02/18/2025 1:23 PM EDT) Sky Casillas CNP ECG ORDERABLES Final Result from Last 3 Months Insurance [employer]ARE [employer] Advance Directives * Full Code (Latest Code Status on File) Date Activated Date Inactivated Comments 01/20/2025 12:52 PM 01/20/2025 6:47 PM * Full Code Date Activated Date Inactivated Comments 01/20/2025 12:52 PM 01/20/2025 12:52 PM Care Teams Child And Adolescent Psychologist Relationship Specialty Start Date End Date Reny Cabrera MD [address] [place] [address] PCP - General 08/05/24
--- OUTSIDE RECORDS SUMMARY | 2025-05-16 09:06 | XMS_ITS | Clinical Summary ---
Author Organization [facility] Address [address] [place] [address] Care Team Providers Care Draw Tender Name Role Phone BryceSepideh saini DO Unavailable Reny Cabrera MD Primary Care Provider [phone] Allergies No known active allergies Medications Calcium Carb-Cholecalci ferol (Calcium + Vitamin D3) 500-10 MG-MCG chewable tablet Calcium + Vitamin D3 Active atorvastatin (Lipitor) 20 MG tablet 1 (one) time each day at the same time. Active omega-3 (Fish Oil) 500 MG capsule 1 capsule every 12 (twelve) hours. Active Misc Natural Products (OSTEO BI-FLEX TRIPLE STRENGTH PO) Osteo Bi-Flex Triple Strength Active Multiple Vitamin (multivitamin) tablet Take 1 tablet by mouth in the morning. Active sertraline (Zoloft) 100 MG tablet 12/13/2022 Active rivaroxaban (Xarelto) 20 MG tablet Take by mouth Take with food. 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 01/30/2023 Dermatochalasis of left upper eyelid 01/30/2023 Excess skin of eyelid 01/30/2023 Nuclear senile cataract 01/30/2023 Encounters Date Type Department Care Team Description 04/13/2025 10:45 AM EDT Office Visit [facility] [address] [place] [address] Ang Ivan PA Finger pain, right (Primary Dx); Trigger middle finger of right hand 04/13/2025 Bamboo flowsheet [facility] [address] [place] [address] Ang Ivan PA 04/13/2025 Travel from Last 3 Months Family History Medical History Relation Name Comments Hypertension Mother Relation Name Status Comments Father Mother Social History Tobacco Use Types Packs/Day Years [...] on file Sexual Orientation Not on file Last Filed Vital Signs Vital Sign Reading Time Taken Comments Blood Pressure - - Pulse - - Temperature - - Respiratory Rate - - Oxygen Saturation - - Inhaled Oxygen Concentration - - Weight 73.5 kg (162 lb) 06/05/2023 9:51 AM EDT Height 157.5 cm (5' 2 ) 06/05/2023 9:51 AM EDT Body Mass Index 29.63 06/05/2023 9:51 AM EDT Plan of Treatment Health Maintenance Due Date Last Done Comments CT Colonography 1950 Colonoscopy 1950 Colorectal Cancer Screening 1950 FIT-DNA 1952 FIT 1952 FOBT 1950 Sigmoidoscopy 1952 Mammogram 1992 Pneumococcal Vaccine: 65+ Ye ars (2 of 2 - PPSV23) 04/20/2020 04/20/2019 Influenza Vaccine (#1) 2025 4, 06/24/2022, 07/11/2021 Procedures Procedure Name Priority Date/Time Associated Diagnosis Comments MN INJECTION 1 TENDON SHEATH/LIGAMENT APONEUROSIS Routine 04/13/2025 11:24 AM EDT Trigger middle finger of right hand from Last 3 Months Results * MN INJECTION 1 TENDON SHEATH/LIGAMENT APONEUROSIS (04/13/2025 11:24 AM EDT) Narrative Ang Ivan PA - 04/13/2025 11:24 AM EDT ALIN Bruner 04/13/2025 12:33 PM Tendon Sheath Inj (CPT 73002 Only): Whitney lerner A1 on 04/13/2025 11:24 AM Indications: pain, tendon swelling and diagnostic Details: 22 G needle, anterior approach Medications: 20 mg methylPREDNISolone Acetate 20 MG/ML; 0.5 mL bupivacaine PF 0.5 % Outcome: tolerated well, no immediate complications Procedure, treatment alternatives, risks and benefits explained, specific risks discussed. Consent was given by the patient. Patient was prepped and draped in the usual sterile fashion. us Ang OGDEN IN CLINIC/BEDSIDE PERFORMABLE S Final Result from Last 3 Months Insurance [employer]ARE [employer] Care Teams Draw Tender Relationship Specialty Start Date End Date Reny Cabrera MD [address] [place] [address] PCP - General Family Medicine 04/13/25 Sepideh Wu DO [address] [place] [address] Referring Physician Neurology 09/17/24
--- OUTSIDE RECORDS SUMMARY | 2025-05-16 09:06 | XMS_ITS | Encounter Summary ---
Author Organization [facility] Address [address] [place] [address] Care Team Providers Care Epic Prelude Analyst Name Role Phone Reny Cabrera MD Primary Care Provider [phone] Sepideh Wu DO Unavailable [phone] Reny Cabrera MD Primary Care Provider [phone] Encounter Details Date Type Department Care Team (Late st Contact Info) Description 07/27/2023 Abstract [facility] [address] [facility] [address] [place] [address] Jannet Montoya NP Social History Tobacco Use [...] on file Sexual Orientation Not on file COVID-19 Exposure Response Date Recorded In the last 10 days, have yo u been in contact with someone who was confirmed or suspected to have Coronavirus/COVID-19? No / Unsure 07/27/2023 7:40 PM EST documented as of this encounter Plan of Treatment Not on file documented as of this encounter Visit Diagnoses Not on filedocumented in this encounter Care Teams Epic Prelude Analyst Relationship Specialty Start Date End Date Reny Cabrera MD PCP - General Family Medicine 01/17/23 04/12/25 Reny Cabrera MD [address] [place] [address] PCP - General Family Medicine 04/13/25 Sepideh Wu DO [address] [place] [address] Referring Physician Neurology 09/17/24 documented as of this encounter
--- OUTSIDE RECORDS SUMMARY | 2025-05-16 09:14 | XMS_ITS | CCD ---
Author Organization [facility] Care Team Providers Care Warp Splitter Name Role Phone WEST, DR LOTUS Chester Consulting Unavailable LUIS, DR KAMI Montes Attending Unavailable LUIS, DR KAMI Montes Admitting Unavailable LUIS, DR KAMI Montes Primary Care Unavailable LUIS, DR KAMI Montes Consulting Unavailable LUIS, DR KAMI Montes Primary Care Unavailable LUIS, DR KAMI Montes Consulting Unavailable LUIS, DR KAMI Montes Attending Unavailable LUIS, DR KAMI Montes Admitting Unavailable Kami Smith Unavailable NON STAFF Primary Care Provider UnavailMD Kami Mendoza Attending Provider [phone] Kami Smith MD Primary Care Provider [phone] NON STAFF Primary Care Provider UnavailKami Mendoza MD Attending Provider [phone] Kami Smith MD Attending Provider [phone] Kami Smith Admitting Unavailable Kami Smith Attending Unavailable NON STAFF Primary Care Unavailable Kami Smith Attending Unavailable NON STAFF Primary Care Unavailable Kami Smith Admitting Unavailable Sepideh Wu DO Unavailable Kami Smith MD Primary Care Provider [phone] LEANNA IVAN Attending Unavailable APLJANNET CORTES Attending Unavailable APLJANNET CORTES Referring Unavailable JANNET MONTOYA Referring Unavailable JR. OSPINA GEORGE C Attending Unavaila TIMI Dominguez Attending Unavailable UDAY SANCHEZ Attending Unavailable KELLY OSPINA Referring Unavailable SOL MARIE Attending Unavailable TIMI LEE Admitting Unavailable TIMI LEE Attending Unavailable SOL MARIE Attending Unavailable TIMI LEE Referring Unavailable TIMI LEE Referring Unavailable TIMI LEE Attending Unavailable TIMI LEE Attending Unavailable UDAY SANCHEZ Referring Unavailable SKY PHILLIPS Attending Unavailable Kami Smith MD Primary Care Provider [phone] Kami Smith MD Attending Provider [phone] Medications Current Medications Medication Drug Class(es) Dates Sig (Normalized) Sig (Original) atorvastatin 20 mg oral tablet (20 sources) HMG-CoA Reductase Inhibitor Start: 05-04-2024 Atorvastatin 20 mg tablet Active 0 .ROUTE .COMPLEX May 04, 2024 8:36am TAKE 1 TABLET EVERY DAY Complies with drug therapy Start: 05-04-2024 Atorvastatin 2 0 mg tablet Active 0 .ROUTE .COMPLEX May 04, 2024 8:36am TAKE 1 TABLET EVERY DAY Start: 05-04-2024 Atorvastatin 2 0 mg tablet Active 0 .ROUTE .COMPLEX May 04, 2024 7:36am TAKE 1 TABLET EVERY DAY Start: 05-04-2024 Atorvastatin A ctive 0 .ROUTE .COMPLEX May 04, 2024 8:36am TAKE 1 TABLET EVERY DAY Start: 05-03-2024 End: 05-04-2024 take 1 tablet by mouth once daily Atorvastatin 20 mg tablet Discontinued 1 TAB PO Daily May 03, 2024 12:00am May 04, 2024 8:36am FreeTextSi tablet Orally Once a day; Note: Source Status: Refill; Refills: 3; Qty: 90 Tablet; Provider: Luis Montes calcium carbonate 1250 mg / cholecalciferol 0.01 mg chewable tablet (9 sources) Vitamin D Calcium Carb-Cholecalciferol (Calcium + Vitamin D3) 500-10 MG-MCG chewable tablet Calcium + Vitamin D3 Active Fish Oils (9 sources) take 1 capsule by mouth every twelve hours omega-3 (Fish Oil) 500 MG capsule 1 capsule every 12 (twelve) hours. Active fluticasone propionate 0.05 mg/actuat metered dose nasal spray (5 sources) Corticosteroid Start: 2023 take 1 spray(s) nasal route twice daily Fluticasone Propionate (Flonase Allergy Relief) 50 mcg/actuation spray,suspension Active 1 SPRAY INTRANASAL Twice daily June 14, 2024 12:00am administer into each nostril Complies with drug therapy lisinopril 5 mg oral tablet (20 sources) Angiotensin Converting Enzyme Inhibitor Start: 2024 take 1 tablet by mouth once daily Lisinopril 5 mg tablet Active 5 MG PO Daily May 06, 2025 12:00am Complies with drug therapy Start: 07-11-2022 End: 04-13-2025 take 1 tablet by mouth once daily Lisinopril 20 mg tablet Discontinued 20 MG PO Daily May 03, 2024 12:00am July 20, 2024 3:15pm FreeTextSig: TAKE 1 TABLET EVERY DAY; Note: Source Status: Start; Refills: 3; Qty: 90 Tablet; Provider: Luis Oglesby ( ) lisinopril 5 MG tablet Take by mouth Daily Active Misc Natural Products (OSTEO BI-FLEX TRIPLE STRENGTH PO) (9 sources) Misc Natural Products (OSTEO BI-FLEX TRIPLE STRENGTH PO) Osteo Bi-Flex Triple Strength Active Multiple Vitamin (multivitamin) tablet (9 sources) take 1 tablet by mouth in the morning Multiple Vitamin (multivitamin) tablet Take 1 tablet by mouth in the morning. Active rivaroxaban 20 mg oral tablet (3 sources) Factor Xa Inhibitor Start: take 1 tablet by mouth once daily at dinner Rivaroxaban (Xarelto) 20 mg tablet Active 20 MG PO Daily May 06, 2025 12:00am must administer with evening meal Complies with drug therapy rivaroxaban (Xar elto) 20 MG tablet Take by mouth Take with food. Active sertraline 100 mg oral tablet (20 sources) Serotonin Reuptake Inhibitor Start: 09-10-2024 End: 03-04-2025 Sertraline 100 mg tablet Active 0 .ROUTE .COMPLEX 90 March 04, 2025 8:13am TAKE 1 TABLET EVERY DAY Complies with drug therapy Start: 07-16-2022 End: 09-10-2024 take 1 tablet by mouth once daily Sertraline 100 mg tablet Discontinued 100 MG PO Daily May 03, 2024 12:00am September 10, 2024 12:51pm FreeTextSig: TAKE 1 TABLET EVERY DAY; Note: Source Status: Start; Refills: 3; Qty: 90 Tablet; Provider: Luis Oglesby ( ) spironolactone 25 mg oral tablet (3 sources) Aldosterone Antagonist Start: 05-06-2025 take 1 tablet by mouth once daily Spironolactone 25 mg tablet Active 25 MG PO Daily May 06, 2025 12:00am Complies with drug therapy spironolactone ( Aldactone) 25 MG tablet Take by mouth Daily Active Completed/Discontinued Medications Medication Drug Class(es) Dates Sig (Normalized) Sig (Original) amLODIPine 5 mg oral tablet (3 sources) Dihydropyridine Calcium Channel Kuldip Start: 07-20-2024 End: 05-06-2025 take 1 tablet by mouth once daily Amlodipine 5 mg tablet Discontinued 5 MG PO Daily July 20, 2024 1:00am May 06, 2025 8:59am amoxicillin 875 mg / clavulanate 125 mg oral tablet (5 sources) Penicillin-class Antibacterial Start: 06-14-2024 End: 07-20-2024 take 1 tablet by mouth twice daily Amoxicillin-Pot Clavulanate 875-125 mg tablet Discontinued 1 TAB PO Twice daily 14 June 14, 2024 12:00am July 20, 2024 2:58pm 5 ml bupivacaine hydrochloride 5 mg/ml injection (4 sources) Amide Local Anesthetic Start: 04-13-2025 End: 04-13-2025 bupivacaine PF (Marcaine) 0.5 % injection 0.5 mL Start: 04-13-2025 End: 04-13-2025 0.5 mL, Injection, Once PRN Procedure, Starting on Fri04/13/25 at 1124, For 1 dose methylPREDNISolone acetate 20 mg/ml injectable suspension (4 sources) Corticosteroid Start: 04-13-2025 End: 04-13-2025 methylPREDNISolone Acetate (DEPO-Medrol) injection 20 mg Start: 04-13-2025 End: 04-13-2025 20 mg, Once PRN Procedure, S tarting on Fri04/13/25 at 1124, For 1 dose sulfamethoxazole 800 mg / trimethoprim 160 mg oral tablet (3 sources) Dihydrofolate Reductase Inhibitor Antibacterial, Sulfonamide Antimicrobial Start: 01-24-2025 End: 05-06-2025 take 1 tablet by mouth twice daily Sulfamethoxazole-Trimethoprim 800-160 mg tablet Discontinued 1 TAB PO Twice daily January 24, 2025 12:00am May 06, 2025 8:57am Problems Active Problems Problem Classification Problem Date Documented Date Episodic/Chronic Cardiac dysrhythmias (6 sources) Paroxysmal atrial fibrillation; Translations: [Unspecified atrial fibrillation] Onset: 08-13-2024 Chronic Cardiac dysrhythmias (12 sources) Palpitations; Translations: [Palpitations] Onset: 05-03-2024 05-03-2024 Episodic Cataract (9 sources) Nuclear senile cataract; Translations: [Age-related nuclear cataract, unspecified eye] Onset: 01-30-2023 01-30-2023 Chronic Congestive heart failure; nonhypertensive (2 sources) Chronic diastolic (congestive) heart failure; Translations: [Chronic diastolic (congestive) heart failure] Onset: 02-18-2025 Chronic Diabetes mellitus without complication (2 sources) Increased glucose level; Translations: [Other abnormal glucose] 05-06-2025 Episodic Disorders of lipid metabolism (20 sources) Hyperlipidemia, unspecified; Translations: [Dyslipidemia] Onset: 05-13-2022 Chronic Essential hypertension (16 sources) Essential (primary) hypertension; Translations: [Essential hypertension] Onset: 05-14-2022 Chronic Genitourinary symptoms and ill-defined conditions (6 sources) Dysuria; Translations: [Dysuria] Onset: 01-24-2025 01-24-2025 Episodic Hypertension with complications and secondary hypertension (2 sources) Hypertensive heart disease with heart failure; Translations: [Hypertensive heart disease with heart failure] Onset: 02-18-2025 Chronic Immunizations and screening for infectious disease (3 sources) Patient encounter status; Translations: [Encounter for immunization] 07-09-2024 Episodic Melanomas of skin (2 sources) History of malignant melanoma of the skin; Translations: [Personal history of malignant melanoma of skin] Episodic Mood disorders (2 sources) Major depression, single episode; Translations: [Major depressive disorder, single episode, unspecified] Chronic Osteoarthritis (18 sources) Arthritis of first carpometacarpal joint of left hand; Translations: [Unilateral primary osteoarthritis of first carpometacarpal joint, left hand] Onset: 01-30-2023 01-30-2023 Chronic Other circulatory disease (2 sources) Personal history of other diseases of the circulatory system; Translations: [Personal history of other diseases of the circulatory system] Onset: 02-18-2025 Episodic Other connective tissue disease (4 sources) Pain in right hand; Translations: [Pain in right hand] 06-28-2024 Episodic Other connective tissue disease (2 sources) Pain in finger of right hand; Translations: [Pain in right finger(s)] 04-12-2025 Episodic Other connective tissue disease (2 sources) Triggering of digit; Translations: [Trigger finger, right middle finger] 04-13-2025 Episodic Other non-traumatic joint disorders (4 sources) Other specified joint disorders, right hand; Translations: [Other specified disorders of joint, hand] 06-28-2024 Episodic Other screening for suspected conditions (not mental disorders or infectious disease) (16 sources) Encounter for screening mammogram for malignant neoplasm of breast; Translations: [Patient encounter status] Onset: 06-26-2022 Episodic Other skin disorders (4 sources) Swelling of hand; Translations: [Other specified soft tissue disorders] 06-28-2024 Episodic Other upper respiratory infections (7 sources) Acute maxillary sinusitis; Translations: [Acute maxillary sinusitis, unspecified] 06-14-2024 Episodic Residual codes; unclassified (2 sources) Other specified postprocedural states; Translations: [Other specified postprocedural states] Onset: 02-18-2025 Episodic Past or Other Problems Problem Classification Problem Date Documented Date Episodic/Chronic Other connective tissue disease (2 sources) Pain in right hand; Translations: [Pain in right hand] Onset: 08-05-2024 Episodic Other eye disorders (9 sources) Dermatochalasis of left upper eyelid; Translations: [Dermatochalasis of left upper eyelid] Onset: 01-30-2023 01-30-2023 Episodic Other eye disorders (9 sources) Excess skin of eyelid; Translations: [Blepharochalasis unspecified eye, unspecified eyelid] Onset: 01-30-2023 01-30-2023 Episodic Residual codes; unclassified (2 sources) Pain; Translations: [Pain] Onset: 08-05-2024 Episodic Results Test Name Value Interpretation Reference Range Facility Office Visiton 04-26-2025 Follow-up visit [id number] Porfirio Fernandes 1950 F Date Provider Department Center 04/26/2025 TIMI ELLIS CARD [facility] Family History Problem Relation Age of Onset Other Mother Coronary artery disease Mother Parkinsonism Father Atrial fibrillation Brother Stroke Maternal Grandmother Family Status - Relation Status Age at Mother Father Sister Alive Brother Alive Maternal Grandmother Level of Service:50100 MI OFFICE/OUTPATIENT ESTABLISHED LOW MDM 20 MIN Normal [facility] No Panel Informationon 04-13 ALIN Bruner 04/13/2025 12:33 PM Tendon Sheath Inj (CPT 91123 Only): Whitney lerner A1 on 04/13/2025 11:24 [...] and draped in the usual sterile fashion. [facility] Orders Onlyon 03-23-2025 Orders Only [id number] Porfirio Fernandes Karena 1950 F Date Provider Department Center 03/23/20251986-BRITTNEY CALDERON [facility] Family History Problem Relation Age of Onset Other Mother Coronary artery disease Mother Parkinsonism Father Atrial fibrillation Brother Stroke Maternal Grandmother Family Status - Relation Status Age at Mother Father Sister Alive Brother Alive Maternal Grandmother Normal [facility] Follow-Upon 02-18-2025 Follow-Up [id number] Porfirio Fernandes Karena 1950 F Date Provider Department Center 02/18/2025 [id number], [facility] Family History Problem Relation Age of Onset Other Mother Coronary artery disease Mother Parkinsonism Father Atrial fibrillation Brother Stroke Maternal Grandmother Family Status - Relation Status Age at Mother Father Sister Alive Brother Alive Maternal Grandmother Level of Service:38457 MI OFFICE/OUTPATIENT ESTABLISHED MOD MDM 30 MIN Normal [facility] Orders Onlyon 02-15-2025 Orders Only [id number] Porfirio Fernandes Karena 1950 F Date Provider Department Center 02/15/20251986-BRITTNEY CALDERON [facility] Family History Problem Relation Age of Onset Other Mother Coronary artery disease Mother Parkinsonism Father Atrial fibrillation Brother Stroke Maternal Grandmother Family Status - Relation Status Age at Mother Father Sister Alive Brother Alive Maternal Grandmother Normal [facility] Telephoneon 02-15-2025 Telephone [id number] Porfirio Fernandes Karena 1950 F Date Provider Department Center 02/15/20251986-BRITTNEY CALDERON [facility] Family History Problem Relation Age of Onset Other Mother Coronary artery disease Mother Parkinsonism Father Atrial fibrillation Brother Stroke Maternal Grandmother Family Status - Relation Status Age at Mother Father Sister Alive Brother Alive Maternal Grandmother Reason for Visit and Comments: BP recordings [Other] [facility] Orders Onlyon 02-08-2025 Orders Only [id number] Porfirio Fernandes 1950 F Date Provider Department Center 02/08/2025 1987-BRITTNEY CALDERON [facility] Family History Problem Relation Age of Onset Other Mother Coronary artery disease Mother Parkinsonism Father Atrial fibrillation Brother Stroke Maternal Grandmother Family Status - Relation Status Age at Mother Father Sister Alive Brother Alive Maternal Grandmother Normal [facility] Telephoneon 02-08-2025 Telephone [id number] Porfirio Fernandes 1950 F Date Provider Department Center 02/08/20251986-BRITTNEY CALDERON [facility] Family History Problem Relation Age of Onset Other Mother Coronary artery disease Mother Parkinsonism Father Atrial fibrillation Brother Stroke Maternal Grandmother Family Status - Relation Status Age at Mother Father Sister Alive Brother Alive Maternal Grandmother Reason for Visit and Comments: BP recordings [Other] [facility] 36on 02-02-2025 36 Johnson ([facility]) called to make provider aware of medication interaction. Pt is on lisinopril 5mg tablet daily, and spironolactone (Aldactone) 25 mg 1 tablet daily.Pt's potassium could increase; pt should be monitored w/labs. Normal [facility] 36 Patient called with BP recordings, BP ranged from 130/60-154/71. HR ranged from 53-64. updated, ordered to stop metoprolol, continue to hold amiodarone, and begin lisinopril 5 mg everyday. Patient updated with new orders.Instructed to call back next week with new BP,HR recordings. Normal [facility] Orders Onlyon 02-02-2025 Orders Only [id number] Porfirio Fernandes 1950 F Date Provider Department Center 02/02/20251986-BRITTNEY CALDERON [facility] Family History Problem Relation Age of Onset Other Mother Coronary artery disease Mother Parkinsonism Father Atrial fibrillation Brother Stroke Maternal Grandmother Family Status - Relation Status Age at Mother Father Sister Alive Brother Alive Maternal Grandmother Normal [facility] Telephoneon 02-02-2025 Telephone [id number] Porfirio Fernandes 1950 Date Provider Department Center 02/02/2025 [id number] BERMAN [facility] Family History Problem Relation Age of Onset Other Mother Coronary artery disease Mother Parkinsonism Father Atrial fibrillation Brother Stroke Maternal Grandmother Family Status - Relation Status Age at Mother Father Sister Alive Brother Alive Maternal Grandmother Reason for Visit and Comments: Medication (Interaction) [Other] Normal [facility] Telephone [id number] Porfirio Fernandes 1950 Provider Department Center 02/02/2025 BRITTNEY MCGILL [facility] Family History Problem Relation Age of Onset Other Mother Coronary artery disease Mother Parkinsonism Father Atrial fibrillation Brother Stroke Maternal Grandmother Family Status - Relation Status Age at Mother Father Sister Alive Brother Alive Maternal Grandmother Reason for Visit and Comments: BP recordings [Other] Normal [facility] 36on 01-28-2025 36 c/o of feeling fatigued,HR between 40's-50's.called [place] [facility] and they were told jacklyn Lee to hold amiodarone.pt also on metoprolol,instructed to monitor Bp,HR until next week call with readings so new orders can be given.groin look good,taking blood thinners,eating and drinkin well. Normal [facility] Orders Onlyon 01-28-2025 Orders Only [id number] Porfirio Fernandes 1950 Date Provider Department Center 01/28/2025 TIMI ELLIS [facility] Family History Problem Relation Age of Onset Other Mother Coronary artery disease Mother Parkinsonism Father Atrial fibrillation Brother Stroke Maternal Grandmother Family Status - Relation Status Age at Mother Father Sister Alive Brother Alive Maternal Grandmother Normal [facility] Telephoneon 01-28-2025 Telephone [id number] Porfirio Fernandes 1950 Date Provider Department Center 01/28/2025 REYNA MCGILLISHA [facility] Family History Problem Relation Age of Onset Other Mother Coronary artery disease Mother Parkinsonism Father Atrial fibrillation Brother Stroke Maternal Grandmother Family Status - Relation Status Age at Mother Father Sister Alive Brother Alive Maternal Grandmother Reason for Visit and Comments: afib ablation f/u [Other] Normal [facility] 36on 01-25-2025 36 Patient called to [place] aware of problems she's been having s/p ablation performed last week. Urinating much more often than prior to ablation. C/o back pain and pain around the breast line - light tightness . Denies chest pain, SOB, and palpitations. I told her to call her PCP for possible UTI workup?? Spoke with patient and she said she did have UA and was started on antibiotic by Dr. Smith. Said she's feeling much better. Normal [facility] Telephoneon 01-24-2025 Telephone [id number] Porfirio Fernandes 1950 Date Provider Department Center 01/24/2025 CORRIE BAKER [facility] Family History Problem Relation Age of Onset Other Mother Coronary artery disease Mother Parkinsonism Father Atrial fibrillation Brother Stroke Maternal Grandmother Family Status - Relation Status Age at Mother Father Sister Alive Brother Alive Maternal Grandmother Normal [facility] Urine Cultureon 01-24-2025 Bacteria identified Cx Nom (U) No Growth 2 Days PERFORMED BY: [place] [address] PATHOLOGIST [employer] DIRECTOR NANI LOJA M.D. Normal [facility] Comment on above: Performed By: #### C UU #### [facility] [address] Anesthesiaon 01-20-2025 Anesthesia [id number] Porfirio Fernandes 1950 Date Provider Department Center 01/20/2025 CINDY PINTO [facility] Family History Problem Relation Age of Onset Other Mother Coronary artery disease Mother Parkinsonism Father Atrial fibrillation Brother Stroke Maternal Grandmother Family Status - Relation Status Age at Mother Father Sister Alive Brother Alive Maternal Grandmother Normal [facility] BILIRUBIN, DIRECTon 01-21-20 25 Magnesium [Mass/Vol] 0.1 mg/dL Normal 0-0.2 [facility] Comment on above: Performed By: #### L AB52 #### [facility] ([facility]) [address] [place] [address] BILIRUBIN, TOTALon Bilirubin [Mass/Vol] 0.7 mg/dL Normal 0.3-1.0 [facility] Comment on above: Performed By: #### L AB50 #### [facility] ([facility]) [address] [place] [address] HEMOGLOBINon 01-20-2025 Hemoglobin (Bld) [Mass/Vol] 13.9 g/dL Normal 12.0-15.0 [facility] Comment on above: Performed By: #### L [id number] #### [facility] ([facility]) [address] [place] [address] HPon 01-20-2025 [facility] Electrophysiology Consult Note Reason for visit: Afib 01/20/25 Pt here for Afib ablation. 01/04/25 Patient is here today for H & P for A-Fib ablation. Patient states every once in awhile she has some chest pain, sharp in nature and last about 3 to 5 minutes patient denies any other symptoms with episodes of chest pain. Patient denies leg swelling, dizziness, leg pain, or dyspnea with exertion. Review of Systems Cardiovascular: Positive for chest pain. HPI: Porfirio Fernandes is a 74 y.o. year old with past medical history of hypertension, hyperlipidemia, obesity, sleep apnea diagnosed recently April 2024 on CPAP, right hand and left upper arm lipoma. Patient states that she has been having [...] started on amlodipine and lisinopril was discontinued. She was seen by Dr AGUILA and seen by her in July, she had couple episodes of palpitations one of them was associated with atrial flutter and second one with atrial fibrillation with rapid ventricular rate. In the last episode she came to the hospital and she was started on metoprolol 25 mg twice daily. She has been tolerating it well and doing well. She feels when she is in A-fib and she feels little lightheaded with that. Otherwise she denies any chest pain or shortness of breath at rest or with exertion. She denies orthopnea or paroxysmal nocturnal dyspnea or legs edema or legs discomfort on exertion. She reports using the CPAP on daily basis and fee she feels much better. She does not drink much caffeine however she eats a lot of chocolate. She tries to drink enough water She never been a smoker. She denies alcohol and illicit drugs Regarding family history mother had a pacemaker and grandmother had a stroke and [place] PMH: Past Medical History: Diagnosis Date Abnormal ECG Afib (CMS/HCC) Arrhythmia Arthritis Atrial fibrillation (CMS/HCC) Cancer (CMS/HCC) melanoma back Chronic diastolic heart failure (CMS/HCC) Chronic kidney disease pt denies Hyperlipidemia Hypertension Obesity Pulmonary hypertension (CMS/HCC) Sleep apnea PSH: Past Surgical History: Procedure Laterality Date BLEPHAROPLASTY CARPAL TUNNEL RELEASE CHOLECYSTECTOMY SH: Social Determinants of Health Tobacco Use: Low Risk (01/20/2025) Patient History Smoking Tobacco Use: Never Smokeless Tobacco Use: Never Passive Exposure: Not on file Alcohol Use: Not on file Financial Resource Strain: Not on file Food Insecurity: Not on file Transportation Needs: Not on file Physical Activity: Not on file Stress: Not on file Social Connections: Not on file Intimate Partner Violence: Not on file Depression: Not on file Housing Stability: Not on file Utilities: Not on file Health Literacy: Not on file Allergies: No Known Allergies Weight: 83kg Visit Vitals BP 150/82 Pulse 79 Temp 36.2 ???C (97.2 ???F) (Temporal) Resp 18 Ht 1.575 m (5' 2 ) Wt 84 kg (185 lb 3 oz) SpO2 98% BMI 33.87 kg/m??? Smoking Status Never BSA 1.92 m??? Meds: No current facility-administered medications on file prior to encounter. Current Outpatient Medications on File Prior to Encounter Medication Sig Dispense Refill atorvastatin (Lipitor) 20 mg tablet Take 20 mg by mouth at bedtime. CALCIUM ORAL Take by mouth. docosahexaenoic acid/epa (FISH OIL ORAL) Take by mouth. furosemide (Lasix) 20 mg tablet Take 1 tablet (20 mg) by mouth in the morning. 90 tablet 3 glucosamine/chondr yang A sod (OSTEO BI-FLEX ORAL) Take by mouth. metoprolol tartrate (Lopressor) 25 mg tablet Take 1 tablet (25 mg) by mouth two times daily. 180 tablet 3 multivitamin tablet Take 1 tablet by mouth in the morning. rivaroxaban (Xarelto) 20 mg tablet Take 1 tablet (20 mg) by mouth daily with evening meal. Take with food. 90 tablet 3 sertraline (Zoloft) 100 mg tablet Take 100 mg by mouth at bedtime. spironolactone (Aldactone) 25 mg tablet Take 1 tablet (25 mg) by mouth in the morning. 90 tablet 3 Physical Exam: Constitutional General Appearance: well-nourished, well-developed, appears stated age Level of Distress: comfortable Eyes ALESIA Neck Neck: supple, trachea midline Carotid Arteries: bilateral normal upstroke, no bruits Jugular Veins: normal jugular venous pressure Thyroid: not enlarged Lungs Respiratory Effort: unlabored Chest Exam: normal curvature, no thoracic deformity Auscultation: clear, no wheezing, no rales, no rhonchi Cardiovascular Chest wall: Rate And Rhythm: regular Heart Sounds: normal S1, normal s2, no gallop Systolic Murmur: not heard Diastolic Murmur: not heard Extremities: no cyanosis, no edema, no peripheral (more content not included)... Normal [facility] LACTATE DEHYDROGENASEon 12-24 LACTATE DEHYDROGENASE (U/L) IN SER/PLAS BY LAC->PYR RXN 243 U/L Normal 140-271 [facility] Comment on above: Performed By: #### L [id number] #### [facility] (BEAKER) [address] [place] [address] NURSNOTEon 01-20-2025 NURSNOTE EKG is at bedside Normal [facility] POCT GLUCOSE METER UNSOLICIT ED RESULTSon 01-20-2025 Glucose [Mass/Vol] 100 mg/dL Normal 70-105 [facility] Comment on above: Order Comment: Waive d Testing in the ED is performed under the ED CLIA certificate #[id number]. Result Comment: dustin malorie2 Performed By: #### L [id number] #### [facility] ([employer]) [address] [place] [address] PROTIME-INRon 01-20-2025 INR IN PPP BY COAGULATION ASSAY 1.04 Normal 0.90-1.10 [facility] Comment on above: Result Comment: ACCC P RECOMMENDED INR FOR WARFARIN THERAPY CONDITION INR PROPHYLAXIS OF VENOUS THROMBOSIS 2-3 (HIGH-RISK SURGERY) TREATMENT OF VENOUS THROMBOSIS 2-3 TREATMENT OF PULMONARY EMBOLISM 2-3 PREVENTION OF SYSTEMIC EMBOLISM: 2-3 ACUTE MYOCARDIAL INFARCTION TISSUE HEART VALVES VALVULAR HEART DISEASE ATRIAL FIBRILLATION RECURRENT SYSTEMIC EMBOLISM MECHANICAL HEART VALVE 2.5-3.5 FROM: ORAL ANTICOAGULANTS. MECHANISM OF ACTION, CLINICAL EFFECTIVENESS, AND OPTIMAL THERAPEUTIC RANGE. CHEST 1995;108:231S-246S. Performed By: #### L [id number] ####[facility] (ELVER)[address] [place] [address] PROTHROMBIN TIME (PT) IN PPP BY COAGULATION ASSAY 13.6 Seconds Normal 12.3-14.8 [facility] Comment on above: Performed By: #### L [id number] ####[facility] (ELVER)[address] [place] [address] Prep for Procedureon 01-20- 025 Prep for Procedure [id number] Porfirio Fernandes 1950 F Date Provider Department Center 01/20/20251986-BRITTNEY CALDERON [facility] History Problem Relation Age of Onset Other Mother Coronary artery disease Mother Parkinsonism Father Atrial fibrillation Brother Stroke Maternal Grandmother Family Status - Relation Status Age at Mother Father Sister Alive Brother Alive Maternal Grandmother [facility] Office Visiton 01-04-2025 Follow-up visit [id number] Porfirio Fernandes 1950 F Date Provider Department Center 01/04/2025 Syed-HUSSAIN TIMI CARD [facility] Family History Problem Relation Age of Onset Other Mother Coronary artery disease Mother Parkinsonism Father Atrial fibrillation Brother Stroke Maternal Grandmother Family Status - Relation Status Age at Mother Father Sister Alive Brother Alive Maternal Grandmother Level of Service:85430 [place] OFFICE/OUTPATIENT ESTABLISHED HIGH MDM 40 MIN [facility] 12-29-2024 36 Patient called back to update me on her LE edema s/p stopping amlodipine. She states it went away as soon as she stopped taking it. BP is still very well controlled, 109/80. HR 82. She is scheduled to see Dr. Lee on Thursday 01/04 prior to afib ablation. Told her to continue to keep track of BP's. Patient verbalized understanding. [facility] 3612-23-2024 36 Patient called c/o L E edema, which she states is new. Said her BP has been around 106-116 systolic. HR no higher than 106. I advised her to hold amlodipine for a few days and see if the LE edema resolves. I asked her to call me back next week and let me know how she does. Any other suggestions? [facility] 36on 11-22-2024 36 Patient was called a nd cancelled surgery [facility] 36 Patient would like t o cancel the upcoming surgery for 12-15-24 as she is having heart issues. Please contact patient with any questions at [phone] [facility] 3611-16-2024 36 Regarding bp log fro m 11/01/2024 MD Edith Mcelroy MA BMP is good after adding Aldactone. Continue current management Left voice massage for patient to continue with current medication. [facility] Prep for Procedureon 03-18-2 025 Prep for Procedure [id number] Porfirio Fernandes 1950 F Date Provider Department Center 11/09/2024 1987-BRITTNEY CALDERON [facility] PA [facility] Family History Problem Relation Age of Onset Other Mother Atrial fibrillation Brother Stroke Maternal Grandmother Family Status - Relation Status Age at Mother Brother Maternal Grandmother Normal [facility] Office Visiton 11-02-2024 Follow-up visit [id number] Porfirio Fernandes 1950 Date Provider Department Center 11/02/2024 241-TIMI LEE CARD [facility] Family History Problem Relation Age of Onset Other Mother Atrial fibrillation Brother Stroke Maternal Grandmother Family Status - Relation Status Age at Mother Brother Maternal Grandmother Level of Service:63703 [place] OFFICE/OUTPATIENT NEW MODERATE MDM 45 MINUTES [facility] Orders Onlyon 11-02-2024 Orders Only [id number] Porfirio Fernandes 1950 Date Provider Department Center 11/02/2024 895-PINO SANDERS CARD [facility] Family History Problem Relation Age of Onset Other Mother Atrial fibrillation Brother Stroke Maternal Grandmother Family Status - Relation Status Age at Mother Brother Maternal Grandmother Normal [facility] Office Visiton 10-13-2024 Follow-up visit [id number] Porfirio Fernandes 1950 Date Provider Department Center 10/13/2024 [id number]-DCVLYJSOL MARIE CARD [facility] Family History Problem Relation Age of Onset Other Mother Atrial fibrillation Brother Stroke Maternal Grandmother Family Status - Relation Status Age at Mother Brother Maternal Grandmother Level of Service:29009 [place] OFFICE/OUTPATIENT ESTABLISHED MOD MDM 30 MIN Reason for Visit and Comments: Hypertension [828424] - Had echo in Jul 2024 after last apt. Atrial Fibrillation [80] - She presented to [facility] ED in Aug 2024 and again last week. She was started on metoprolol 25mg bid on 09/24/2024. Patient states sometimes HR is in the 40's. Hyperlipidemia [182] Atrial Flutter [101] Palpitations [158044] - Says metoprolol has helped. Normal [facility] 36on 08-30-2024 36 Regarding echo resul t from 08/19/2024: MD Pino Mcelroy MA Echo shows normal cardiac systolic function-contractility but there is significant diastolic dysfunction and [...] Dr. Lee soon. She will look into [facility] for both Eliquis and Xarelto and let me know which one she wants us to fax into them. [facility] 36on 08-26-2024 36 Patient calling vladimir root for echo results. It is scanned into [employer] for your review. Also, Eliquis is very expensive for her. She said her takes Xarelto and that is very expensive for them also. Can I send a referral to coumadin clinic or would you like something else? Please advise. Thanks. [facility] Office Visiton 08-13-2024 Follow-up visit [id number] Porfirio Fernandes 1950 Date Provider Department Center 08/13/2024 42361-WFAHRRSOL ROLLINS Family History Problem Relation Age of Onset Other Mother Atrial fibrillation Brother Stroke Maternal Grandmother Family Status - Relation Status Age at Mother Brother Maternal Grandmother Level of Service:06136 [place] OFFICE/OUTPATIENT NEW MODERATE MDM 45 MINUTES Reason for Visit and Comments: Hypertension [152936] - Used to be on lisinopril but was recently switched to amlodipine 5mg daily. Denies swelling. Hyperlipidemia [182] - On atorvastatin Palpitations [838801] - Recently wore 30 day event monitor for palpitations, but hasn't had them recently. Sleep Apnea [348] - Compliant with bipap therapy. [facility] Orders Onlyon 08-13-2024 Orders Only [id number] Porfirio Fernandes 1950 Date Provider Department Center 08/13/2024 928-KAITLYN, KATERINA BH CARD [facility] Family History Problem Relation Age of Onset Other Mother Atrial fibrillation Brother Stroke Maternal Grandmother Family Status - Relation Status Age at Mother Brother Maternal Grandmother [facility] 36on 08-12-2024 36 Patient was scheduled Normal [facility] Orders Onlyon 08-12-2024 Orders Only [id number] Porfirio Fernandes 1950 F Date Provider Department Center 08/12/2024 803-CATARINA CRANE ORTHO [facility] Family History Problem Relation Age of Onset Other Mother Atrial fibrillation Brother Stroke Maternal Grandmother Family Status - Relation Status Age at Mother Brother Maternal Grandmother Normal [facility] 36on 08-11-2024 36 Patient was seen 08/05/24. She called stating that someone was suppose to call her to set up date and time for surgery. She states that she has not received a call. Please advise. Thank you. [facility] Office Visiton 08-05-2024 Follow-up visit [id number] Porfirio Fernandes 1950 F Date Provider Department Center 08/05/2024 UDAY G[facility]ING [facility] No family history on file Level of Service:02250 [place] OFFICE/OUTPATIENT NEW LOW MDM 30 MINUTES (GC,25) Reason for Visit and Comments: Pain [136] [facility] 36on 07-15-2024 36 Patient called to schedule a new patient appointment with our office. 08/05 Patient wants to be seen for: Cyst of joint of right hand Patient had MRI done at [facility] 07/05/24 Patient had Trigger Thumb done on 07/[address] Khan @ [facility] Patient saw Dr. Ospina for this issues. They were referred to us from this provider. This appointment is not a second opionion This appointment IS NOT related to a work related injury [facility] MR HAND RIGHT W AND WO [...] By: #### 3 75 #### [facility] [address], [address] [place], [place] [address] Advertising Inserter: Shiraz Regalado MD GFR/1.73 sq M.predicted among non-blacks MDRD (S/P/Bld) [Vol rate/Area] 68 mL/min/{1.73_m2} Normal > OR = 60 [facility] Comment on above: Performed By: #### 3 75 #### [facility] [address], [address] [place], [place] [address] Advertising Inserter: Shiraz Regalado MD XR Hand - right 3 [facility] Result: Xrays AP, LAT and OBL of the right hand performed on June 28, 2024 demonstrates Narrowing of the 1st carpometacarpal joint with adjacent sclerosis and slight subluxation consistent withfirst [facility] arthritis, no swelling or fractures noted. Impression First [facility] arthritis Jannet Montoya DOOR SLINGER [facility] Radiology Study observation (narrative) [facility] XR Hand - right 3 ViewsOrder ed By: El Khan on 06-28-2024 [facility] [employer] Work Phone: Basophils Auto (Bld) [#/Vol] on 05-03-2024 Basophils (Bld) [#/Vol] 0.0 10 3/uL 0.0-0.1 [facility] Basophils (Bld) [#/Vol] Automated basophil count 0.0-0.1 [facility] Basophils/100 WBC Auto (Bld) on 05-03-2024 Basophils/100 WBC (Bld) 0.5 % 0.2-2.0 [facility] Basophils/100 WBC (Bld) Automated basophil % 0.2-2.0 [facility] Cholesterol in LDL Calc [Mas s/Vol]on 05-03-2024 Cholesterol in LDL [Mass/Vol] 83.0 mg/dL [facility] Comment on above: <100 mg/dl [id number] 0-129 mg/dl NEAR OR ABOVE [id number] mg/dl BORDERLINE [id number] mg/dl HIGH>190 mg/dl VERY HIGH Cholesterol in LDL [Mass/Vol] Cholesterol in LDL [Mass/volume] in Serum or Plasma by calculation [facility] Comment on above: <100 mg/dl [id number] 0-129 mg/dl NEAR OR ABOVE [id number] mg/dl BORDERLINE [id number] mg/dl HIGH>190 mg/dl VERY HIGH Cholesterol in VLDL Calc [Ma ss/Vol]on 05-03-2024 Cholesterol in VLDL [Mass/Vol] 18.2 mg/dL [facility] Cholesterol in VLDL [Mass/Vol] Cholesterol in VLDL [Mass/volume] in Serum or Plasma by calculation [facility] Eosinophils/100 WBC Auto (Bl d)on 05-03-2024 Eosinophils/100 WBC (Bld) 1.6 % 0.9-7.0 [facility] Eosinophils/100 WBC (Bld) Automated eosinophil % 0.9-7.0 [facility] Erythrocyte distribution wid th Auto (RBC) [Ratio]on 05-03-2024 Erythrocyte distribution width (RBC) [Ratio] 14.4 % 11.0-15.0 [facility] Erythrocyte distribution width (RBC) [Ratio] Erythrocyte distribution width [Ratio] by Automated count 11.0-15.0 [facility] Estimated glomerular filtrat ion rate (GFR) non- Americanon 05-03-2024 GFR/1.73 sq M.predicted among non-blacks MDRD (S/P/Bld) [Vol rate/Area] 55 mL/min/{1.73_m2} Low >=60 [facility] GFR/1.73 sq M.predicted among non-blacks MDRD (S/P/Bld) [Vol rate/Area] Estimated glomerular filtration rate (GFR) non- Low >=60 [facility] Globulin Calc (S) [Mass/Vol] on 05-03-2024 Globulin (S) [Mass/Vol] 3.7 g/dL [facility] Globulin (S) [Mass/Vol] Serum globulin measurement by calculation (mass/volume) [facility] Hematocrit Auto (Bld) [Volum e fraction]on 05-03-2024 Hematocrit (Bld) [Volume fraction] 45.3 % 36.0-48.0 [facility] Hematocrit (Bld) [Volume fraction] Hematocrit [Volume Fraction] of Blood by Automated count 36.0-48.0 [facility] Hemoglobin [Mass/volume] in Bloodon 05-03-2024 Hemoglobin (Bld) [Mass/Vol] 14.7 g/dL 12.0-16.0 [facility] Hemoglobin (Bld) [Mass/Vol] Hemoglobin [Mass/volume] in Blood 12.0-16.0 [facility] Laboratory - Chemistry and C hemistry - challengeon 05-03-2024 Albumin [Mass/Vol] 4.0 g/dL 3.4-5.0 [facility] ALP [Catalytic activity/Vol] 107 U/L 46-116 [facility] ALT [Catalytic activity/Vol] 29 U/L 14-59 [facility] AST [Catalytic activity/Vol] 23 U/L 15-37 [facility] Bilirubin [Mass/Vol] 0.4 mg/dL 0.2-1.0 [facility] Calcium [Mass/Vol] 9.7 mg/dL 8.5-10.1 [facility] Chloride [Moles/Vol] 103 mmol/L 98-107 [facility] Cholesterol [Mass/Vol] 163 mg/dL <=200 [facility] Cholesterol in HDL [Mass/Vol] 62 mg/dL High 40-60 [facility] Comment on above: > or =60 mg/dl - LOW CARDIOVASCULAR RISK<40 mg/dl - HIGH CARDIOVASCULAR RISK CO2 [Moles/Vol] 30.1 mmol/L 21.0-32.0 [facility] Creatinine [Mass/Vol] 0.99 mg/dL 0.55-1.02 [facility] GFR/1.73 sq M.predicted MDRD (S/P/Bld) [Vol rate/Area] mL/min/{1.73_m2} >=60 [facility] Glucose [Mass/Vol] 91 mg/dL 74-106 [facility] Potassium [Moles/Vol] 4.1 mmol/L 3.5-5.1 [facility] Protein [Mass/Vol] 7.7 g/dL 6.4-8.2 [facility] Sodium [Moles/Vol] 139 mmol/L 136-145 [facility] Triglyceride [Mass/Vol] 91 mg/dL <=150 [facility] TSH Qn 2.666 m[IU]/L 0.358-3.740 [facility] Urea nitrogen [Mass/Vol] 17.0 mg/dL 7.0-18.0 [facility] Urea nitrogen/Creatinine [Mass ratio] 17.2 mg/mg [facility] Laboratory - Hematology and Cell countson 05-03-2024 Immature granulocytes/100 WBC (Bld) 0.2 % 0.0-0.5 [facility] Leukocytes [#/volume] correc alyssia for nucleated erythrocytes in Blood by Automated counon 05-03-2024 WBC corrected for nucl RBC Auto (Bld) [#/Vol] 8.2 10 3/uL 4.0-11.0 [facility] WBC corrected for nucl RBC Auto (Bld) [#/Vol] Leukocytes [#/volume] corrected for nucleated erythrocytes in Blood by Automated coun .0-11.0 [facility] Lymphocytes Auto (Bld) [#/Vo l]on 05-03-2024 Lymphocytes (Bld) [#/Vol] 2.5 10 3/uL 1.2-3.8 [facility] Lymphocytes (Bld) [#/Vol] Lymphocytes [#/volume] in Blood by Automated count 1.2-3.8 [facility] Lymphocytes/100 WBC Auto (Bl d)on 05-03-2024 Lymphocytes/100 WBC (Bld) 30.3 % 20.5-60.0 [facility] Lymphocytes/100 WBC (Bld) Lymphocytes/100 leukocytes in Blood by Automated count 20.5-60.0 [facility] MCH Auto (RBC) [Entitic mass ]on 05-03-2024 MCH (RBC) [Entitic mass] 30.1 pg 26.7-34.0 [facility] MCH (RBC) [Entitic mass] MCH [Entitic mass] by Automated count 26.7-34.0 [facility] MCHC Auto (RBC) [Mass/Vol]on 05-03-2024 MCHC (RBC) [Mass/Vol] 32.5 g/dL 29.9-35.2 [facility] MCHC (RBC) [Mass/Vol] MCHC [Mass/volume] by Automated count 29.9-35.2 [facility] MCV Auto (RBC) [Entitic vol] on 05-03-2024 MCV (RBC) [Entitic vol] 92.6 fL 81.0-99.0 [facility] MCV (RBC) [Entitic vol] MCV [Entitic volume] by Automated count 81.0-99.0 [facility] Monocytes Auto (Bld) [#/Vol] on 05-03-2024 Monocytes (Bld) [#/Vol] 0.5 10 3/uL 0.3-0.8 [facility] Monocytes (Bld) [#/Vol] Automated blood monocyte count 0.3-0.8 [facility] Monocytes/100 WBC Auto (Bld) on 05-03-2024 Monocytes/100 WBC (Bld) 5.9 % 1.7-12.0 [facility] Monocytes/100 WBC (Bld) Automated monocyte % 1.7-12.0 [facility] Neutrophils Auto (Bld) [#/Vo l]on 05-03-2024 Neutrophils (Bld) [#/Vol] 5.0 10 3/uL 1.4-6.5 [facility] Neutrophils (Bld) [#/Vol] Neutrophils [#/volume] in Blood by Automated count 1.4-6.5 [facility] Neutrophils/100 WBC Auto (Bl d)on 05-03-2024 Neutrophils/100 WBC (Bld) 61.5 % 43.0-75.0 [facility] Neutrophils/100 WBC (Bld) Automated neutrophil % 43.0-75.0 [facility] No Panel Informationon 05-03 Eosinophils # (Auto) 0.1 10 3/uL 0.0-0.7 [facility] Immature Granulocyte # (Auto) 0.02 10 3/uL 0.00-0.03 [facility] Platelet mean volume Auto (B ld) [Entitic vol]on 05-03-2024 Platelet mean volume (Bld) [Entitic vol] 9.7 fL 9.5-13.5 [facility] Platelet mean volume (Bld) [Entitic vol] Platelet mean volume [Entitic volume] in Blood by Automated count 9.5-13.5 [facility] Platelets Auto (Bld) [#/Vol] on 05-03-2024 Platelets (Bld) [#/Vol] 206 10 3/uL 150-450 [facility] Platelets (Bld) [#/Vol] Platelets [#/volume] in Blood by Automated count 150-450 [facility] RBC Auto (Bld) [#/Vol]on RBC (Bld) [#/Vol] 4.89 10 6/uL 4.20-5.40 [facility] RBC (Bld) [#/Vol] Erythrocytes [#/volume] in Blood by Automated count 4.20-5.40 [facility] Serum or plasma albumin/glob ulin mass ratioon 05-03-2024 Albumin/Globulin [Mass ratio] 1.1 {ratio} [facility] Albumin/Globulin [Mass ratio] Serum or plasma albumin/globulin mass ratio [facility] Serum or plasma anion gap de terminationon 05-03-2024 Anion gap [Moles/Vol] 10.0 mmol/L [facility] Anion gap [Moles/Vol] Serum or plasma anion gap determination [facility] Serum or plasma total choles terol/high density lipoprotein (HDL) cholesterol mass gloria 05-03-2024 Cholesterol.total/C holesterol in HDL [Mass ratio] 2.6 {ratio} [facility] Comment on above: 3.3 - 4.4 LOW RISK4. 4 - 7.1 AVERAGE RISK7.1 - 11.0 MODERATE RISK>11.0 HIGH RISK Cholesterol.total/C holesterol in HDL [Mass ratio] Serum or plasma total cholesterol/high density lipoprotein (HDL) cholesterol mass [facility] Comment on above: 3.3 - 4.4 LOW RISK4. 4 - 7.1 AVERAGE RISK7.1 - 11.0 MODERATE RISK>11.0 HIGH RISK MG MAMM SCREEN 3D EVAN CADon 06-26-2022 MG MAMM SCREEN 3D EVAN CAD Patient: PORFIRIO FERNANDES Exam Date: 06/26/2022 : 1950 Gender:F Ordering : DR KAMI SMITH M.D. Admission #: [id number] Family : Order #: [id number] CLICK HERE TO VIEW EXAM RADIOLOGY REPORT [...] Treatments None Family Cancers None LOCATION: [facility] BREAST COMPOSITION: Heterogeneously dense,which may [...] MD on 06/26/2022 at 08:44 Normal [facility] CBC AUTO DIFFon 05-13-2022 BASO # 0.0 103/ul Normal 0.0-0.1 [facility] Comment on above: Performed By: #### C BC #### [facility] Laboratory [address] [place] [address] Dr. Christina Camarena Basophils/100 WBC (Bld) 0.3 % Normal 0.2-2.0 [facility] Comment on above: Performed By: #### C BC #### [facility] [address] [place] [address] Dr. Christina Camarena EO # 0.1 103/ul Normal 0.0-0.7 [facility] Comment on above: Performed By: #### C BC #### [facility] [address] [place] [address] Dr. Christina Camarena Eosinophils/100 WBC (Bld) 1.5 % Normal 0.9-7.0 [facility] Comment on above: Performed By: #### C BC #### [facility] [address] [place] [address] Dr. Christina Camarena Erythrocyte distribution width (RBC) [Ratio] 14.4 % Normal 11.0-15.0 [facility] Comment on above: Performed By: #### C BC #### [facility] [address] [place] [address] Dr. Christina Camarena Hematocrit (Bld) [Volume fraction] 46.5 % Normal 36.0-48.0 [facility] Comment on above: Performed By: #### C BC #### [facility] [address] [place] [address] Dr. Christina Camarena Hemoglobin (Bld) [Mass/Vol] 14.8 g/dL Normal 12.0-16.0 [facility] Comment on above: Performed By: #### C BC #### [facility] [address] [place] [address] Dr. Christina Camarena IG # 0.02 10e3/ul Normal 0.00-0.03 [facility] Comment on above: Performed By: #### C BC #### [facility] [address] [place] [address] Dr. Christina Camarena IG % 0.2 % Normal 0.0-0.5 [facility] Comment on above: Performed By: #### C BC #### [facility] [address] [place], [place] [address] Dr. Christina Camarena LYMPH # 2.4 103/ul Normal 1.2-3.8 [facility] Comment on above: Performed By: #### C BC #### [facility] [address] [place] [address] Dr. Christina Camarena Lymphocytes/100 WBC (Bld) 26.2 % Normal 20.5-60.0 [facility] Comment on above: Performed By: #### C BC #### [facility] [address] [place] [address] Dr. Christina Cmaarena MANUAL DIFF REQ NO Normal [facility] Comment on above: Performed By: #### C BC #### [facility] [address] [place] [address] Dr. Christina Camarena MCH (RBC) [Entitic mass] 29.5 pg Normal 26.7-34.0 [facility] Comment on above: Performed By: #### C BC #### [facility] [address] [place] [address] Dr. Christina Camarena MCHC (RBC) [Mass/Vol] 31.8 g/dL Normal 29.9-35.2 [facility] Comment on above: Performed By: #### C BC #### [facility] [address] [place] [address] Dr. Christina Camarena MCV (RBC) [Entitic vol] 92.8 fL Normal 81.0-99.0 [facility] Comment on above: Performed By: #### C BC #### [facility] [address] [place] [address] Dr. Christina Camarena MONO # 0.6 103/ul Normal 0.3-0.8 [facility] Comment on above: Performed By: #### C BC #### [facility] [address] [place] [address] Dr. Christina Camarena Monocytes/100 WBC (Bld) 6.7 % Normal 1.7-12.0 [facility] Comment on above: Performed By: #### C BC #### [facility] [address] [place] [address] Dr. Christina Camarena NEUT # 5.9 103/ul Normal 1.4-6.5 [facility] Comment on above: Performed By: #### C BC #### [facility] [address] [place] [address] Dr. Christina Camarena Neutrophils/100 WBC (Bld) 65.1 % Normal 43.0-75.0 [facility] Comment on above: Performed By: #### C BC #### [facility] [address] [place] [address] Dr. Christina Camarena Platelet mean volume (Bld) [Entitic vol] 9.8 fL Normal 9.5-13.5 [facility] Comment on above: Performed By: #### C BC #### [facility] [address] [place] [address] Dr. Christina Camarena PLT 228 103/ul Normal 150-450 [facility] Comment on above: Performed By: #### C BC #### [facility] [address] [place] [address] Dr. Christina Camarena RBC 5.01 106/ul Normal 4.20-5.40 [facility] Comment on above: Performed By: #### C BC #### [facility] [address] [place] [address] Dr. Christina Camarena WBC 9.1 103/ul Normal 4.0-11.0 [facility] Comment on above: Performed By: #### C BC #### [facility] [address] [place] [address] Dr. Christina Camarena LIPID PROFILEon 05-13-2022 CHOL-HDL RATIO NORM SEE BELOW Normal [facility] Comment on above: Result Comment: 3.3 - 4.4 LOW RISK 4.4 - 7.1 AVERAGE RISK 7.1 - 11.0 MODERATE RISK >11.0 HIGH RISK Performed By: #### L IPID, CMP #### [facility] [address] [place] [address] Dr. Christina Camarena Cholesterol [Mass/Vol] 172 mg/dL Normal <=200 [facility] Comment on above: Performed By: #### L IPID, CMP #### [facility] [address] [address] [address] Christina Camarena Cholesterol in HDL [Mass/Vol] 55 mg/dL Normal 40-60 [facility] Comment on above: Performed By: #### L IPID, CMP #### [facility] [address] [address] [address] Christina Camarena Cholesterol in LDL [Mass/Vol] 76.8 mg/dL Normal [facility] Comment on above: Performed By: #### L IPID, CMP #### [facility] [address] [place] [address] Dr. Christina Camarena Cholesterol.total/C holesterol in HDL [Mass ratio] 3.1 {ratio} Normal [facility] Comment on above: Performed By: #### L IPID, CMP #### [facility] [address] [address] [address] Christina Camarena HDL NORMAL > or = 60 mg/dl - LO W CARDIOVASCULAR RISK <40 mg/dl - HIGH CARDIOVASCULAR RISK Normal [facility] Comment on above: Performed By: #### L IPID, CMP #### [facility] [address] [place] [address] Dr. Christina Camarena LDL CALC NORMAL SEE BELOW Normal [facility] Comment on above: Result Comment: <100 mg/dl OPTIMAL 100 - 129 mg/dl NEAR OR ABOVE OPTIMAL 130 - 159 mg/dl BORDERLINE HIGH 160 - 189 mg/dl HIGH >190 mg/dl VERY HIGH Performed By: #### L IPID, CMP #### [facility] [address] [address] [address] Christina Camarena Triglyceride [Mass/Vol] 201 mg/dL Critically high <=150 [facility] Comment on above: Performed By: #### L IPID, CMP #### [facility] [address] [address] [address] Christina Camarena VLDL CALC 40.2 mg/dL Normal [facility] Comment on above: Performed By: #### L IPID, CMP #### [facility] [address] [address] [address] Christina Camarena PROF 14(COMP METB)on 022 Albumin [Mass/Vol] 4.1 g/dL Normal 3.4-5.0 [facility] Comment on above: Performed By: #### L IPID, CMP #### [facility] [address] [address] [address] Christina Camarena Albumin/Globulin [Mass ratio] 1.1 {ratio} Normal [facility] Comment on above: Performed By: #### L IPID, CMP #### [facility] [address] [address] [address] Christina Camarena ALP [Catalytic activity/Vol] 99 U/L Normal 46-116 [facility] Comment on above: Performed By: #### L IPID, CMP #### [facility] [address] [address] [address] Christina Camarena ALT [Catalytic activity/Vol] 29 U/L Normal 14-59 [facility] Comment on above: Performed By: #### L IPID, CMP #### [facility] [address] [address] [address] Christina Camarena Anion gap [Moles/Vol] 13.7 mmol/L Normal [facility] Comment on above: Performed By: #### L IPID, CMP #### [facility] [address] [address] [address] Christina Camarena AST [Catalytic activity/Vol] 24 U/L Normal 15-37 [facility] Comment on above: Performed By: #### L IPID, CMP #### [facility] [address] [address] [address] Christina Camarena Bilirubin [Mass/Vol] 0.5 mg/dL Normal 0.2-1.0 [facility] Comment on above: Performed By: #### L IPID, CMP #### [facility] [address] [address] [address] Christina Camarena Calcium [Mass/Vol] 9.4 mg/dL Normal 8.5-10.1 [facility] Comment on above: Performed By: #### L IPID, CMP #### [facility] [address] [address] [address] Christina Camarena Chloride [Moles/Vol] 104 mmol/L Normal 98-107 [facility] Comment on above: Performed By: #### L IPID, CMP #### [facility] [address] [address] [address] Christina Camarena CO2 [Moles/Vol] 25.4 mmol/L Normal 21.0-32.0 [facility] Comment on above: Performed By: #### L IPID, CMP #### [facility] [address] [address] [address] Christina Camarena Creatinine [Mass/Vol] 0.99 mg/dL Normal 0.55-1.02 [facility] Comment on above: Performed By: #### L IPID, CMP #### [facility] [address] [address] [address] Christina Camarena EGFR-AF ERITREAN >60 Normal >=60 [facility] Comment on above: Performed By: #### L IPID, CMP #### [facility] [address] [address] [address] Christina Camarena EGFR-NON AF ERITREAN 55 mL/min/1.73m2 Critically low >=60 [facility] Comment on above: Performed By: #### L IPID, CMP #### [facility] [address] [address] [address] Christina Camarena Globulin (S) [Mass/Vol] 3.8 g/dL Normal [facility] Comment on above: Performed By: #### L IPID, CMP #### [facility] [address] [address] [address] Christina Camarena Glucose [Mass/Vol] 98 mg/dL Normal 74-106 [facility] Comment on above: Performed By: #### L IPID, CMP #### [facility] [address] [address] [address] Christina Camarena Potassium [Moles/Vol] 4.1 mmol/L Normal 3.5-5.1 [facility] Comment on above: Performed By: #### L IPID, CMP #### [facility] [address] [address] [address] Christina Camarena Protein [Mass/Vol] 7.9 g/dL Normal 6.4-8.2 [facility] Comment on above: Performed By: #### L IPID, CMP #### [facility] [address] [address] [address] Christina Camarena Sodium [Moles/Vol] 139 mmol/L Normal 136-145 [facility] Comment on above: Performed By: #### L IPID, CMP #### [facility] [address] [place] [address] Dr. Christina Camarena Urea nitrogen [Mass/Vol] 20.0 mg/dL Critically high 7.0-18.0 [facility] Comment on above: Performed By: #### L IPID, CMP #### [facility] [address] [address] [address] Christina Camarena Urea nitrogen/Creatinine [Mass ratio] 20.2 mg/mg Normal [facility] Comment on above: Performed By: #### L IPID, CMP #### [facility] [address] [place] [address] Dr. Christina Camarena Coding Summary.on 02-05-2022 Coding Summary. CD:[id number] Gh 0bWw+PGhlYWQ+BR0ITHSfX 37duVRllX7ZV1aVCJ5OZDP IEONIBN7GLM2gyBN8UVkkW 2VybiAv PewniWLlRZ87MFg4WTU0yM rdKZhncP0fkMDkF2t6HoNp LU88bG04EKsaJGMsGfI0Om ZpbjsgbWFy D0rrTpCxwMGlXxu+PHRhYm xlIHdpZHRoPScxMDAlJyBz wOpgZU8vOu7iZJWyCBPuvS xhcHNlOiBj d2rfYBMvHCvwIV1rpCutB2 CcuRK8AYLcc7y0Xg51yBY+ YVWgCNG1xKfpUCrjf028Xc Xvx7zfMDG8 wZFhLZocZWI1K05jf1F9BX JpDOEhOMG1rPK1xT4pfQgw wvnrM5UghQEfOpS9RGQ4lK CpnX0xjZgx qjpuqZ1sFnc+U18MGU6CLC HQXF0BAgk5L1NgEqxzuKU+ JC57IIOvHD73qJXwrICwf1 huxIy6MqSz CGNmZZN7tLnuGIvvp4SuNQ XrF74xgTKul4T7GMXugDpy cRGlYdVhfCT6nX6cNHdyfq akq4ktbtqm Dynpz7fqyb21pZ55K29pYD rwZXWyFEF9AKAgMNKycSkr bn3rhR0wNg9+YQtzw6fwb7 txiRw6GiFm RTNxdbBzyMrdWFR7i0YzIh 31V4UegCyoe6YhPay9ru08 dRMsv6B1uAU2XUlvHZZihQ 0yQWmoYiD1 QJYjGbJofH84jWTqRZrrWm 8feMmvuDkrSN2bPAZskiwm NYXxvF7wRHTqgMJllVpzQX 4wNTBpbjtm v381CjChYKA9RSEgzEVrP3 HsbY2dZmOrOHYfVQCjU2Wk fVWdDAivN353UMntQgP8JE RjwqAgR1Jj MZPthQpdThU7p4G1Ze6Cc3 FvnexhKAO5GFltQMK8ZvM1 UwWjAxZ6X7LpJry0TNZkpV yzZY6aX5Qv BHYngkuekgjalWA6BCYsIX AkoT92jFMxPRwnIn4uv5X5 n943PASrXAVymR81Zy4vbF ogMTBwdCBU bX9jejony1vknzatLmJkPP EzPBs4IBu0JNXrsXqzPsCa ACJ3OvZ8DXE1cBAuyX3bhY edasrbtA1y Oyc+W35yuM4nWUM0PCB3vn nqCXWkkbSzXH03UQ10B4Qt PjwvdGFibGU+PGRpdiBzdH wsOL4vBdJb l8mch2CyAVklG0EzUNKiFE kfMpu6CXHgGSM1bVD6rP6l QKDeHBcln9X2zXU3J9Etgs Cqox0sr6ej LVJpLBhtB56qgUZdk8S3JK JuzZY2PQCcfYehVqIkpA28 Oyc+UYUdtCkzk7GgUbzgz4 uaa2whtRf6 UwGgXOKdenFdgIbpYXS2v8 NcAv42D86oGOidNZFaAAFc OOYeRBAoeHnsor1ewA0nIb 8+PGNvbCB3 eCK2aZ1qJWKxOuP4ZIcoZ2 91UeYldONgYpcvm3evi1kx nXj9UwEgNEOjdoTtyXchDE S0d6LwDh45 Q82tSHmeNBLiHPMtKZUlJL WbbQidls8xgH2oRa3+PC9j o0newm88jL89zTS+PHRkIH H5tDguFYir FJGobZ7sMKqeMwJ5UBCuTx KcaS15zYOvVCkuDu0auOyt aUwtSP1rCLSqumswh666Kr Hda0sgPUZl tQSyOOnwIXV4W19ny9U1BK YkACIzMXD6hKN8oH9spLlj bjogbGVmdDsgdmVydGljYW foTBkwD392 IHRvcDsnPlBhdGllbnQgTm AuBXn1S1KnAka4CGEnnQsl RB1xpBAuRSkzCd8pnMnwiM leVN4pWPGf jipwv666PxApj8qrCQXohG UkLNzwTBN1Q99jg2H2SJUl MWVjQBH0sIR0zP0nrLrekt ogbGVmdDsg xiZzfSjkFOdyFDsgQ739EP RvcDsnPkJpcnRoIERhdGU6 JO28KN22wPGiv4N5hKX6V7 BhZGRpbmct qvhtsAG3EXTxZJIksM16Sx 8dfXqlEx4dSGUpAQP1LDVv gLChG9XtpM6cTbLzABGtMI NkG6EsoGLi DEyoK941PCyiUpY5MRJqhj HfZ6SrOSLdmNztOhI4t2I1 Vm1WQ2P7EP55YS15kVZqi4 K6dPL8D7Tx RHJzshdddmivjBC3OJBtZA ZvnC09Wc2dgDhhRh6aMLUg ALA9ASCgbRSiF3RrlK8pZd AjMDAwMDAw M6KrhHTuTKztN722VEkoWn U5LLXtkpKfM7JfCFBpuQdc IiW2w5Z1Sh7WDFs8DU03KO 34vREno3D5 pAE9H2JbFMRhhshkvwjocH O6MDEpPGCbuO82Sp8zrHhd Vb6dEZChSQP8VFXflGYjN4 UjaM8cXiZc PLPmIPIqU2HqvNUjMSqsK0 93QRnqKcP7OAJbndMoI0Zy FNQowQekDdQ4i3R7Pp7UHP ZtPT43CLK2 rEN3PR68UY60N3GmWxjcvD FibGU+PHRhYmxlIHdpZHRo QIozYKQvGyEtfUwkTZ5kCo 9yZGVyLWNv eFwjkBHiRjYos3owULIxIG qgET4gjVqsK2DfqHH4CMEk d7d0Sg10W54vD8UosUX+PG KtzML4gGL4 yG7bLoTkOmM5LHfdO602Tm MppEJoLcqrx3rhe2razKw5 UpA4JVTpmiPgiGihJOV6o6 IfSb84L54v IHdpZHRoPSIxNSUiIHZhbG znkb3ryA5oJa4+PGNvbCB3 pMZ0qR5tPtPcZcP5OApuY5 49InRvcCIv Qlups1asq1knbRp9BuDaVP LuweGoxXrqTJF6p8SuRg98 R0PhjXihx6OdRlk6ma61gL Uai3W2xKW9 R0KhJDVkddzctLJnsSicCJ 0zJVGcqpesBAJfwV2lBNPw B2b8FuCgYuX5NIltR7Dtry N4BXAfgIGo LQrnVTE4C68jb8P4JILiYS JbHHZ4kQD9tX5nvKpofrrb bGVmdDsgdmVydGljYWwtYW qcG321YDSl aGnuBYEqeS0vYLZmjIZjuH vyNZ9hUMZxlwxfZsANLERD Q2LyHKJVAeiYKnpNSW35R0 EmNeb3ESPr nRblTZ4alDMmHBxhFa0kiA ratExlIO6cWJEapcdeOKBn fP1zAWOsuFDgfUjhSV1vYM Kurkces553 OsTxPVR0APKtdHWlU3FztE 7sZqMqOIReHNKvE4LkmXRb WLejR356IQwjHwR7VWOzbo RdP2FnVJQy oNgtDoI2z3M8Lt3cBB3mYP 3tQIVpAG35TT91pECtc2X6 uSH2T6SqVEWpsnlpbqajvR B1WQQvWYTl oX92tHXtSIykUb6ee1F6o1 37KUBlLCSfqF70Ru0jlLqx ZITekVLNdH9jvzjai1mayv ogIzAwMDAw DMp7VSd7WJRoqQdhIyGvHN O4YpU6CUC4pLLnuW5pcNhu ffsqbW4pWsa+NjkgWWVhcn Q4K1RrOrp0 QNLiaKncSY1voZXoLWhtFg 4hgElxlOqhTQ9uEZBbcuaj NJAqpA0gGCUcwARzeYfkOK 4wNTBpbjtm f254LqZgZFX8STYffITvT5 IzdT6xWoQhTCDtXLXzH3Jh pLYmUNfyG283WMkgKoJ7US RaetXdB3Rz ACUigPrxWjD3k9Z9Of1MAW 0bwBB0D1XdQcl7LEAulJna AX5ykYSgZTslIv6itYbiuO yxFA5vBUEi oglaEWTdrI1tAUMniAQwcH srNM8xXCRvigkbt209BqZe NSE5VMQifOAzI9RjgV4sBh AjMDAwMDAw T1QwpJOiHDlxV089EJrjNp I2EJGnziFuJ7KkVBIywBty WwQ4a2M1Cm8KYCErBCMxdO HlPyX9U5Qw PjwvdHI+UL62NYLiUN75qW MyaRCpz7aqhKm6OxOyDZLr AAI5kOnoMPeia4ImUPJhN4 4puRLmn3V3 IZQqkFtpmDJkNqHshSX2lR 9rXZjdpyupg7fguxjkBxkw r0pmwr33nW00K51oVLsdJE RoPSIzMCUi JCSuiFpckz3olP9qBe5+PG TgrVR9rNA9mD0kFmFmFxE5 ESiqQ892SqEvjOAyBfflr6 jds1whfLb9 HtCkXKFqebTfiBpbNNB9q4 MnBm95P85gHDpjVYBtXPPo IPHxKZLavNhhya1gcS1sYo 8+CL0su7wg uz64yE33jJJ+NOJoHRO6uZ hgHWvdSBUflV0tTTptRgC3 MBJzCbAegA99fGFeEXaiVe 1yaWdodDog EV2rIVPwgpxre620RlQif6 mhWYIsvBMoEFdyHCP7G27p f6H4QIRvDQQtBAC5gOL2oU 1hbGlnbjog bGVmdDsgdmVydGljYWwtYW ixU277NMMalPmjHaNztUXc S5xoqbUHMW6pJqiemZK+PH OfESJ7xJdt CRjnTTHzhN6kOOMfI8n6Tx XnYxG2RWpiO3HcpjQ0ICDr pQByDDXsnWURrK5rkhulg9 xvcjogIzAw SLMtFRc5MDw2UNNzrElrBe CeUBJ4FwC7KIN7hFMkfA2w bPftebboyA3qDrc+RklOOj wvdGQ+PHRk FTG2mEujVMzlIQDfeC0tVF CeN6d2YtBqCtF1KJimR0Za kkF0CMJyiHSlMBFyxWEWhS 7aloybi6fj atflErUcKLJtTLd8PJh6OE YrnLedEmPdUYI0TiL4KHC1 gABmiI0qxHidzgerxM7hLn c+TVJOOjwv dGQ+SHKlZON9tRjbOUtcTN KahG8oQMZvD4l1MxPqMpM3 SDpkR1StutF0RCNhuNUcPS VwsHNXkF2t smvzu4kpfgauLhLxFDAdCQ m8KNk3QLAlmUtpVxKjHRG1 EwD2VFG1wZIpjC0xzRlcbm fbcC6rMqq+ UKA3ENE3GM43LR83M9ExFf wvdGFibGU+PHRhYmxlIHdp ZHRoPScxMDAlJyBzdHlsZT 5rGv0bRRMg LWNv (more content not included)... Normal [facility] Physician Orderon 01-17-2022 Physician Order [id number]. 00CD:127 Normal [facility] Vital Signs Date Time Vital Sign Value Performing Clinician Facility 05-06-2025 08:57-0400 Body height 157.48 cm Kami Smith MD Work Phone: [facility] 05-06-2025 08:57-0400 Body mass index (BMI) [Ratio] 33.3 kg/m2 Kami Smith MD Work Phone: [facility] 05-06-2025 08:57-0400 Body weight 82.55 kg Kami Smith MD Work Phone: [facility] 05-06-2025 08:57-0400 Diastolic blood pressure 72 mm[Hg] Kami Smith MD Work Phone: [facility] 05-06-2025 08:57-0400 Heart rate 65 /min Kami Smith MD Work Phone: [facility] 05-06-2025 08:57-0400 Respiratory rate 12 /min Kami Smith MD Work Phone: [facility] 05-06-2025 08:57-0400 SaO2% (BldA) [Mass fraction] 98 % Kami Smith MD Work Phone: [facility] 05-06-2025 08:57-0400 Systolic blood pressure 132 mm[Hg] Kami Smith MD Work Phone: [facility] 06-14-2024 14:25-0400 Body height 157.48 cm [place] 06-14-2024 14:25-0400 Body mass index (BMI) [Ratio] 31.2 kg/m2 [facility] 06-14-2024 14:25-0400 Body temperature 99 [degF] [facility] 06-14-2024 14:25-0400 Body weight 77.56 kg [place] 06-14-2024 14:25-0400 Diastolic blood pressure 72 mm[Hg] [facility] 06-14-2024 14:25-0400 Heart rate 77 /min [place] 06-14-2024 14:25-0400 SaO2% (BldA) [Mass fraction] 94 % [facility] 06-14-2024 14:25-0400 Systolic blood pressure 138 mm[Hg] [facility] 05-03-2024 10:03-0400 Body height 157.48 cm [place] 05-03-2024 10:03-0400 Body mass index (BMI) [Ratio] 31.2 kg/m2 [facility] 05-03-2024 10:03-0400 Body weight 77.56 kg [place] 05-03-2024 10:03-0400 Diastolic blood pressure 71 mm[Hg] [facility] 05-03-2024 10:03-0400 Heart rate 62 /min [place] 05-03-2024 10:03-0400 Systolic blood pressure 144 mm[Hg] [facility] 05-01-2023 10:00-0400 Body height 160.02 cm Kami Smith Other [employer] [facility] [employer] Other 05-01-2023 10:00-0400 Body mass index (BMI) [Ratio] 29.33 kg/m2 Kami Smith Other [employer] Other 05-01-2023 10:00-0400 Body weight 75.12 kg Kami Smith Other [employer] Other 05-01-2023 10:00-0400 Diastolic blood pressure 65 mm[Hg] Kami Smith Other [employer] Other 05-01-2023 10:00-0400 Systolic blood pressure 125 mm[Hg] Kami Smith Other [employer] Other Encounters Encounter Date Encounter Type Care Provider Facility Start: 05-06-2025 End: 05-06-2025 ambulatory Kami Smith MD Work Phone: [facility] Work Phone: Start: 05-06-2025 End: 05-06-2025 Patient encounter procedure Kami Smith MD -[facility] Work Phone: Start: 04-26-2025 End: 04-26-2025 ambulatory [facility] Start: 04-13-2025 End: 04-13-2025 Bamboo flowsheet Leanna OGDEN Work Phone: [facility] Start: 04-13-2025 End: 04-13-2025 Bamboo flowsheet Leanna OGDEN Work Phone: [facility] Start: 04-13-2025 End: 04-13-2025 Office outpatient visit 15 minutes Leanna OGDEN Work Phone: [facility] Comment on above: Finger pain, right ( Primary Dx); Trigger middle finger of right hand Start: 04-13-2025 End: 04-13-2025 ambulatory LEANNA IVAN Not Available Start: 02-18-2025 End: 02-18-2025 ambulatory [facility] Start: 01-24-2025 End: 01-24-2025 Patient encounter procedure [facility] Work Phone: Start: 01-24-2025 End: 01-24-2025 ambulatory Kami Smith [facility] Work Phone: Start: 01-24-2025 End: 01-24-2025 Departed Referred Kami Smith MD Work Phone: [facility] Work Phone: Start: 01-20-2025 ambulatory [facility] Start: 01-20-2025 End: 01-20-2025 ambulatory [facility] Start: 01-04-2025 End: 01-04-2025 ambulatory [facility] Start: 11-02-2024 End: 11-02-2024 ambulatory [facility] Start: 10-13-2024 End: 10-13-2024 ambulatory [facility] Start: 08-13-2024 End: 08-13-2024 ambulatory [facility] Start: 08-05-2024 End: 08-05-2024 ambulatory UDAY SANCHEZ [facility] Start: 07-14-2024 End: 07-14-2024 Bamboo flowsheet Jr. Kelly Ospina DO Work Phone: [facility] Start: 07-14-2024 End: 07-14-2024 Bamboo flowsheet Jr. Kelly Castanon Stepanic DO Work Phone: [facility] Start: 07-14-2024 End: 07-14-2024 Office outpatient visit 25 minutes Jr. Kelly Ospina DO Work Phone: [facility] Comment on above: Cyst of joint of rig ht hand (Primary Dx) Start: 07-14-2024 End: 07-14-2024 ambulatory KELLY ADAME Not Available Start: 07-09-2024 End: 07-09-2024 ambulatory NON STAFF [facility] Work Phone: Start: 07-09-2024 End: 07-09-2024 Patient encounter procedure [facility]ly [facility] Work Phone: Start: 07-05-2024 End: 07-05-2024 ambulatory JANNET Sampson APLING Not Available Start: 06-28-2024 End: 06-28-2024 Bamboo flowsheet Jannet Sampson Apling [employer]LOOR [employer]NER Work Phone: [facility] Start: 06-28-2024 End: 06-28-2024 Bamboo flowsheet Jannet Adrián Apling FLOOR RUNNER Work Phone: [facility] Start: 06-28-2024 End: 06-28-2024 Office outpatient visit 15 minutes Jannet Sampson Aplgermán FLOOR RUNNER Work Phone: [facility] Comment on above: Swelling of right ahn nd (Primary Dx); Right hand pain; Cyst of joint of right hand Start: 06-28-2024 End: 06-28-2024 ambulatory JANNET Sampson APLING Not Available Start: 06-14-2024 End: 06-14-2024 ambulatory NON STAFF [facility] Work Phone: Start: 06-14-2024 End: 06-14-2024 Patient encounter procedure [facility] Work Phone: Start: 05-06-2024 Non-patient / Non-visit [facility] Work Phone: Start: 05-03-2024 Patient encounter procedure [facility] Start: 05-03-2024 End: 05-03-2024 ambulatory NON STAFF [facility] Work Phone: Start: 05-03-2024 End: 05-03-2024 Patient encounter procedure [facility] Work Phone: Start: 05-15-2023 End: 05-15-2023 ambulatory Kami Smith Other [facility] Other Start: 05-15-2023 Telephone encounter Kami Smith [facility] Start: 05-01-2023 End: 05-01-2023 ambulatory Kami Smith Other [facility] Other Start: 05-01-2023 Patient encounter procedure Kami Smith [facility] Start: 06-26-2022 End: 06-27-[address] LOTUS SERNA Facility:[facility] Start: 05-13-2022 End: 05-14-[address] KAMI SMITH Facility:[facility] Procedures Date Procedure Procedure Detail Performing Clinician Start: 04-13-2025 Injection 1 tendon sheath/ligament aponeurosis Leanna Ivan PA Work Phone: Start: 06-28-2024 Radex hand minimum 3 views Jannet Montoya NP Work Phone: Plan of Treatment Date Care Activity Detail Author Start: 04-25-2025 Influenza vaccination Influenza Vacc ine (#1) [facility] Start: 04-13-2025 End: 04-13-2025 Patient encounter procedure 04/13/2025 10:45 AM EDT Office Visit [facility] [address] [place] [address] Leanna Ivan PA [address] [place] [address] Finger pain, right (Primary Dx) [facility] Comment on above: Finger pain, right ( Primary Dx) Start: 01-24-2025 Bacteria identified in Urine by Culture Urine Culture [facility] Start: 01-24-2025 End: 01-24-2025 Urine culture [facility] Start: 07-14-2024 End: 07-14-2024 Patient encounter procedure [facility] Comment on above: Arrived Start: 07-05-2024 End: 07-05-2024 Professional / ancillary services management 07/05/2024 8:30 AM EST Ancillary Procedure [facility] [address] [facility] [address] [place] [address] [facility] Start: 06-28-2024 End: 06-28-2025 Creatinine [Mass/volume] in Serum or Plasma Creatinine, Serum Lab Routine Swelling of right hand Right hand pain Expected: 06/28/2024 (Approximate), Expires: 06/28/2025 [facility] Comment on above: Expected: 06/28/2024 (Approximate), [...] 06/28/2024 8:00 AM EST Office Visit [facility] [address] [place] [id number] Jannet Montoya NP [address] [place] [address] Swelling of right hand (Primary Dx) [facility] Comment on above: Swelling of right ahn nd (Primary Dx) Start: 05-03-2024 EKG 12 channel panel Fi [facility] Start: 04-25-2024 Influenza vaccination Influenza Vacc ine (#1) [facility] Start: 04-20-2020 Pneumococcal Vaccine : 65+ Years (2 of 2 - PPSV23) Pneumococcal Vaccine: 65+ Years (2 of 2 - PPSV23) [facility] Start: 1992 Screening for malign ant neoplasm of breast Mammogram [facility] Start: 1950 Screening for malign ant neoplasm of colon [facility] metabo lic 1999 panel - Serum or Plasma [facility] Comprehensive metabo lic 1999 panel - Serum or Plasma [facility] Holter monitor study [facility] MG Breast - bilatera l Screening [facility] Immunizations Immunization Date Immunization Notes Care Provider Fa cility 05-06-2025 influenza, high dose seasonal, preservative-free Kami Smith MD Work Phone: [facility] 07-09-2024 influenza, high dose seasonal, preservative-free [facility] 07-09-2024 influenza virus vaccine, unspecified formulation Leanna OGDEN Work Phone: [facility] 05-01-2023 influenza virus vaccine, unspecified formulation [facility] 05-01-2023 influenza, high dose seasonal, preservative-free Kami Smith Other [facility] Other 06-24-2022 COVID-19 Pfizer (Pediatric) Kami Smith Other [facility] 06-24-2022 influenza virus vaccine, split virus (incl. purified surface antigen) Kami Smith Other [facility] Other 06-24-2022 influenza virus vaccine, unspecified formulation [facility] 11-14-2020 COVID-19 Vaccine Pfi zer - Documentation Purposes Only Kami Luis Other [facility] 04-26-2020 influenza virus vaccine, split virus (incl. purified surface antigen) Kami Luis Other [facility] Other 04-26-2020 influenza virus vaccine, unspecified formulation [facility] 04-26-2020 pneumococcal polysaccharide vaccine, 23 valent Kamipan Smith Other [facility] 04-20-2019 pneumococcal conjuga te vaccine, 13 valent Kamipan Smith Other [facility] Payers Date Payer Category Payer Self-pay 2022 Private Health Insurance [employer] [id number] 2017 Medicare MEDICARE [id number] 1959 Medicare [id number] 1959 Unknown [id number] 1950 Unknown [id number] 1952 Unknown [id number] 593 1950 Unknown [id number] 1259 1950 Unknown [id number] 1259 1952 Unknown [id number] 1259 1952 Unknown [id number] 1259 1952 Unknown [id number] 1259 Unknown [id number] 531 Unknown [id number] 531 Social History Date Type Detail Facility Start: 07-28-2023 End: 04-13-2025 Sex Assigned At [facility] Other Start: 01-30-2023 End: 05-03-2024 Tobacco smoking status NHIS Never smoked tobacco (finding) [facility] Start: 1950 Sex Assigned At Female F [facility] Start: 01-30-2023 Tobacco use and exposure Smokeless tobacco non-user [facility] Start: 07-28-2023 End: 04-13-2025 Alcoholic beverage intake Ex-drinker (finding) [facility] Start: 07-28-2023 End: 04-13-2025 History of Social function [facility] Start: 1950 Sex assigned at Not on file [facility] Start: 07-09-2024 End: 01-25-2025 Sex Female (finding) [facility] Clinical Notes 05-01-2023 to 04-26-2025 ALIN Bruner - 04/13/2025 10:45 AM EDT Note Date & Type Note Facility 04-26-2025 Note [facility] Reason for visit: Afib 04/26/2025 Patient is here today for A-Fib management per Sky Phillips CNP. Patient states she feels wonderful states compared to 12/02 before. Patient states every once in awhile she feels a flutter. Patient denies SOB, [place], lightheaded/dizziness, or leg swelling. Patient denies any cardiac symptoms at this. Review of Systems Constitutional: Negative. 01/04/25 Patient is here today for H & P for A-Fib ablation. Patient states every once in awhile she has some chest pain, sharp in nature and last about 3 to 5 minutes patient denies any other symptoms with episodes of chest pain. Patient denies leg swelling, dizziness, leg pain, or dyspnea with exertion. HPI: Porfirio Fernandes is a 75 y.o. year old with past medical history of hypertension, hyperlipidemia, obesity, sleep apnea diagnosed recently April 2024 on CPAP, right hand and left upper arm lipoma. Patient states that she has been having [...] started on amlodipine and lisinopril was discontinued. She was seen by Dr AGUILA and seen by her in July, she had couple episodes of palpitations one of them was associated with atrial flutter and second one with atrial fibrillation with rapid ventricular rate. In the last episode she came to the hospital and she was started on metoprolol 25 mg twice daily. She has been tolerating it well and doing well. She feels when she is in A-fib and she feels little lightheaded with that. Otherwise she denies any chest pain or shortness of breath at rest or with exertion. She denies orthopnea or paroxysmal nocturnal dyspnea or legs edema or legs discomfort on exertion. She reports using the CPAP on daily basis and fee she feels much better. She does not drink much caffeine however she eats a lot of chocolate. She tries to drink enough water She never been a smoker. She denies alcohol and illicit drugs Regarding family history mother had a pacemaker and grandmother had a stroke and [place] PMH: Past Medical History: Diagnosis Date Abnormal ECG Afib (CMS/HCC) Arrhythmia Arthritis Atrial fibrillation (CMS/HCC) Cancer (CMS/HCC) melanoma back Chronic diastolic heart failure (CMS/HCC) Chronic kidney disease pt denies Hyperlipidemia Hypertension Obesity Pulmonary hypertension (CMS/HCC) Sleep apnea PSH: Past Surgical History: Procedure Laterality Date ABLATION OF DYSRHYTHMIC FOCUS BLEPHAROPLASTY CARPAL TUNNEL RELEASE CHOLECYSTECTOMY SH: Social Drivers of Health Tobacco Use: Low Risk (04/26/2025) Patient History Smoking Tobacco Use: Never Smokeless Tobacco Use: Never Passive Exposure: Not on file Alcohol Use: Not on file Financial Resource Strain: Not on file Food Insecurity: Not on file Transportation Needs: Not on file Physical Activity: Not on file Stress: Not on file Social Connections: Not on file Intimate Partner Violence: Not on file Depression: Not on file Housing Stability: Not on file Utilities: Not on file Health Literacy: Not on file Allergies: No Known Allergies Weight: No weight available Visit Vitals BP 128/71 (BP Location: Right arm, Patient Position: Sitting) Pulse 65 Ht 1.575 m (5' 2 ) SpO2 96% BMI 33.29 kg/m??? Smoking Status Never BSA 1.9 m??? Meds: Current Outpatient Medications on File Prior to Visit Medication Sig Dispense Refill atorvastatin (Lipitor) 20 mg tablet Take 20 mg by mouth at bedtime. CALCIUM ORAL Take by mouth. docosahexaenoic acid/epa (FISH OIL ORAL) Take by mouth. glucosamine/chondr yang A sod (OSTEO BI-FLEX ORAL) Take by mouth. lisinopril 5 mg tablet Take 1 tablet (5 mg) by mouth 2 times daily. 60 tablet 3 multivitamin tablet Take 1 tablet by mouth in the morning. rivaroxaban (Xarelto) 20 mg tablet Take 1 tablet (20 mg) by mouth daily with evening meal. Take with food. 90 tablet 3 sertraline (Zoloft) 100 mg tablet Take 100 mg by mouth at bedtime. spironolactone (Aldactone) 25 mg tablet Take 1 tablet (25 mg) by mouth in the morning. 90 tablet 3 famotidine (Pepcid) 20 mg tablet Take 1 tablet (20 mg) by mouth two times daily. (Patient not taking: Reported on 04/26/2025) 60 tablet 0 furosemide (Lasix) 20 mg tablet Take 1 tablet (20 mg) by mouth in the morning. (Patient not taking: Reported on 04/26/2025) 90 tablet 3 No current facility-administered medications on file prior to visit. Physical Exam: Constitutional General Appearance: well-nourished, well-developed, appears stated age Level of Distress: comfortable Eyes ALESIA Neck Neck: supple, trachea midline Carotid Arteri (more content not included)... [facility] 04-13-2025 History of Present illness Narrative Associated Order(s): Tendon Sheath Inj (CPT 81084 Only): R long A1 Post-Procedure Diagnose(s): Trigger middle finger of right hand Images from the original note were not included. Orthopedic Office note: NAME: Porfirio Frenandes : 1950 EST PT WITH NEW C/O RT MF TRIGGER FINGER- NOTE SYMPTOMS ~9MO- DENIES INJURY - PT WAS TX BY DR SANCHEZ WITH CORTISONE INJ; GREAT RELIEF UNTIL ~1-2 MO AGO- WE HAD REFERRED PT TO DR SANCHEZ FOR CYST REMOVAL ON HAND; SURGERY WAS CX DUE TO A-FIB (PT DOES NOT WISH TO RESCHEDULE) HX CORTISONE INJ 08/05/2024 DR SANCHEZ NOTES PAIN - LIMITED ROM- INCREASE LOCKING- +TYLENOL -PT IS RT HAND DOMINANT PT IS ON XARELTO Physical Exam General Appearance: Normal. Respiratory: No acute distress. Cardiovascular: Radial pulse is 2+. Musculoskeletal: Mild degenerative changes with few Heberden nodules noted on the right hand. A soft tissue mass about nickel size, dome shaped, soft and mobile, consistent with a possible lipoma, is present along the head, neck region, palmar aspect of the fifth metacarpal ray. Middle finger shows catching and locking at the A1 eduin, palpable. Slight flexion contracture at the PIP joint but passive extension is still achieved. Able to oppose thumb to all digits. Compartments are soft. Full motion otherwise. Skin: Warm and dry, no rash. Neurological: No paresthesias with capillary refill less than 2 seconds. Soft tissue mass MCP 5th Nickel size. ( Lipoma.) Orders Placed This Encounter Procedures Tendon Sheath Inj (CPT 41285 Only): R long A1 This order was created via procedure documentation Tendon Sheath Inj (CPT 54167 Only): Whitney Stroud on 04/13/2025 11:24 AM Indications: pain, tendon swelling and diagnostic Details: 22 G needle, anterior approach Medications: 20 mg methylPREDNISolone Acetate 20 MG/ML; 0.5 mL bupivacaine PF 0.5 % Outcome: tolerated well, no immediate complications Procedure, treatment alternatives, risks and benefits explained, specific risks discussed. Consent was given by the patient. Patient was prepped and draped in the usual sterile fashion. Results ICD-10-CM 1. Finger pain, right M79.644 2. Trigger middle finger of right hand M65.331 Tendon Sheath Inj (CPT 70880 Only): Whitney Stroud Assessment & Plan Right hand trigger finger, right middle finger Symptoms have recently returned after a tendon sheath injection approximately 9 months ago. Pain and catching are worse in the mornings. She is requesting a cortisone injection today given the relief experienced in the past and is not yet ready for surgery. There is a soft tissue mass on the ulnar aspect of her palm at the MCP joint, likely a lipoma, which she would consider having excised if surgery on the finger becomes necessary. She will follow up with her hand specialist for this. Diagnostic plan: Follow-up with her hand specialist for further evaluation of the soft tissue mass and potential surgical options. Treatment plan: A cortisone injection was administered to the right middle finger. She was advised to monitor for any signs of infection or increased pain and to avoid strenuous activities with the affected hand for the next few days. She was informed that if symptoms persist or worsen, surgical intervention may be reconsidered. Clinical decision making: The risks and benefits of the injection, including post-injection pain, were discussed. She expressed gratitude, had no further concerns or questions, and tolerated the procedure well. Follow-up: Follow-up with her hand specialist for further evaluation of the soft tissue mass and potential surgical options. PROCEDURE Procedure Performed Cortisone injection for right hand trigger finger Questions answered in laymen terms at the bedside. The diagnosis, home exercise plan and any ongoing restrictions/ recommendations reviewed. If unable to be reached in office, I recommend evaluation at nearest Emergency Room if any symptoms worsened or new symptoms develop for requiring urgent evaluation. 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 documented in this encounter [facility] 02-18-2025 Note SUBJECTIVE Reason for Visit: Porfirio Fernandes is a 74 y.o. year old female patient being seen for status post A-fib ablation. HPI: Porfirio Fernandes is a 74 y.o. year old female with significant medical history of hypertension, hyperlipidemia, obesity, sleep apnea diagnosed recently April 2024 on CPAP, right hand and left upper arm lipoma. Patient states that she has been having [...] started on amlodipine and lisinopril was discontinued. She was seen by Dr AGUILA and seen by her in July, she had couple episodes of palpitations one of them was associated with atrial flutter and second one with atrial fibrillation with rapid ventricular rate. In the last episode she came to the hospital and she was started on metoprolol 25 mg twice daily. She has been tolerating it well and doing well. She feels when she is in A-fib and she feels little lightheaded with that. Otherwise she denies any chest pain or shortness of breath at rest or with exertion. She denies orthopnea or paroxysmal nocturnal dyspnea or legs edema or legs discomfort on exertion. She reports using the CPAP on daily basis and fee she feels much better. She does not drink much caffeine however she eats a lot of chocolate. She tries to drink enough water. She never been a smoker. She denies alcohol and illicit drugs Regarding family history mother had a pacemaker and grandmother had a stroke and [place] She is status post A-fib ablation 01/20/[address] Lee 02/18/2025 office visit: Patient seen and evaluated in the office today status post A-fib ablation, she is accompanied by her . She reports doing very well overall. Twelve-lead ECG today shows sinus rhythm. Manual palpation of pulses very regular consistent with sinus rhythm. She denies chest pain, palpitations, lightheadedness dizziness, or lower extremity edema. She inquired about taking her Lasix. She has no limitations on activities, she has no lower extremity edema. I have mentioned that she can take it on an as needed basis but please call the office for a weight gain of 2 more pounds in 1 day or 5 pounds in 1 week. She was instructed to take daily weights and she agrees with the treatment plan. Medical History[1] Surgical History[2] Problem List[3] family history includes Atrial fibrillation in her brother; Coronary artery disease in her mother; Parkinsonism in her father; Stroke in her maternal grandmother; pacemaker in situ in her mother. Social History[4] OBJECTIVE Visit Vitals Smoking Status Never Physical Exam Constitutional: General Appearance: well-developed, appears stated age. Level of Distress: no acute distress. Neck: Jugular Veins: normal jugular venous pressure. Lungs: Auscultation: no rales or rhonchi and normal breath sounds. Cardiovascular: Rate And Rhythm: regular Heart Sounds: normal S1 and s2; Systolic Murmur: not heard. Diastolic Murmur: not heard. Extremities: no edema Peripheral Pulses: Pulses: full and equal in all extremities except if noted. Abdomen: Inspection and Palpation: non distended or tender and soft. Musculoskeletal: Inspection: no joint tenderness or swelling. Neurologic: Gait: normal gait. Psychiatric: Mental Status: alert and normal affect. Skin: Inspection and Palpation: warm and dry. Allergies: Allergies[5] Outpatient Medications: Current Outpatient Medications Medication Instructions atorvastatin (LIPITOR) 20 mg, oral, Nightly CALCIUM ORAL oral docosahexaenoic acid/epa (FISH OIL ORAL) oral famotidine (PEPCID) 20 mg, oral, 2 times daily furosemide (LASIX) 20 mg, oral, Daily glucosamine/chondr yang A sod (OSTEO BI-FLEX ORAL) oral lisinopril 5 mg, oral, 2 times daily multivitamin tablet 1 tablet, oral, Daily rivaroxaban (XARELTO) 20 mg, oral, Daily with evening meal, Take with food. sertraline (ZOLOFT) 100 mg, oral, Nightly spironolactone (ALDACTONE) 25 mg, oral, Daily Recent Labs: Admission on 01/20/2025, Discharged on 01/20/2025 Component Date Value Hemoglobin 01/20/2025 13.9 Bilirubin, Direct 01/20/2025 0.1 Total Bilirubin 01/20/2025 0.7 LD 01/20/2025 243 Haptoglobin 01/20/2025 161.0 Protime 01/20/2025 13.6 INR 01/20/2025 1.04 Ventricular Rate 01/20/2025 71 Atrial Rate 01/20/2025 288 QRS DURATION 01/20/2025 92 QT Interval 01/20/2025 392 QTC CALCULATION(BAZETT) 01/20/2025 425 P [place] 01/20/2025 107 R-[place] 01/20/2025 36 T Wave [place] 01/20/2025 42 Glucose POC 01/20/2025 100 Ventricular Rate 01/20/2025 60 Atrial Rate 01/20/2025 60 MI Interval 01/20/2025 168 QRS DURATION 01/20/2025 90 QT Interval 01/20/2025 436 QTC CALCULATION(BAZETT) 01/20 (more content not included)... [facility] 02-18-2025 Note Patient here s/p A-f ib ablation. Patient states she is doing well. Review of Systems Constitutional: Negative. [facility] 01-28-2025 Note Pt has nina. Will stop amio Uni versity [facility] 01-24-2025 Evaluation note Diagnosis Onset Date Resolution Dysuria acute January 24, 2025 9:44am [facility] Work Phone: [phone]) 484-510405-29-2025 NotePatient: Deepika Fernandes Procedure Summary Date: 01/20/25 Room / Location: [facility] ARCHITECTURAL SUPERINTENDENT 1 EP / [facility] HV VASCULAR LAB (Cath) Anesthesia Start: 826 Anesthesia Stop: 1158 Procedure: Ablation a-fib paroxysmal Diagnosis: Paroxysmal atrial fibrillation (CMS/HCC) (Paroxysmal atrial fibrillation (CMS/HCC) [I48.0]) Providers: Timi Lee MD Responsible Provider: Constantin Crockett MD Anesthesia Type: general ASA Status: 4 Anesthesia Type: general Vitals Value Taken Time BP 127/67 01/20/25 1447 Temp 36.2 ???C (97.2 ???F) 01/20/25 1205 Pulse 68 01/20/25 1446 Resp 16 01/20/25 1446 SpO2 94 % 01/20/25 1446 Vitals shown include unfiled device data. Anesthesia Post Evaluation Patient location during evaluation: PACU Patient participation: complete - patient participated Level of consciousness: awake Pain score: 0 Pain management: adequate Airway patency: patent Cardiovascular status: stable Respiratory status: acceptable Hydration status: balanced Patient is hemodynamically stable and is able to be discharged from PACU per anesthesia protocol. There were no known notable events for this encounter.[facility]05-29-2025 NoteATRIAL FIBRILLATION ABLATION PROCEDURE NOTE DATE OF PROCEDURE: 01/20/2025 PERFORMING PHYSICIAN: Dr. Timi Lee PULP OPERATOR: TOMMIE CONSENT: Patient NAME OF THE PROCEDURE: Pulmonary Vein Isolation and Comprehensive EP study. INDICATIONS FOR PROCEDURE: 1. Persistent atrial fibrillation. PROCEDURES PERFORMED: 1. Sonosite guided venous access as noted below and images stored. 2. Comprehensive EP study and catheter ablation for persistent atrial fibrillation through the pulmonary vein isolation technique. This includes right atrial recording and pacing, His bundle recording and right ventricular recording and pacing. 3. Intracardiac EP 3D mapping. 4. Intracardiac echocardiogram 5. Left atrial and coronary sinus recording and pacing to assess ablation results. 6. Left heart pressure measurements and LV pacing and recording. 7. Induction of arrhythmia and testing of ablation results using intravenous adenosine infusion. 8. Fluroscopy. 9. CTI ablation. FLUROSCOPY: 26.2min/ 189mGray EBL: 25cc PROCEDURE NOTE: Pt was brought to EP lab and she was in Afib. Thereafter, we proceeded to do atrial fibrillation ablation. Both the groins were then prepared and draped. Ultrasound was used to determine the course and patency of the femoral veins on both sides and they were noted to be patent and the image stored in PACS. After infiltration with 1% lidocaine, 3 venous sheaths were placed in the right as noted below and right sided radial arterial access was placed. RFV: 8Fx1 CS Catheter (EZ Steer) 9Fx1: ICE catheter. 8F -->17F: Faradrive sheath for PFA catheter Heparin bolus was given followed by additional bolus and continuous intravenous drip to target ACT around 350. An intracardiac ultrasound catheter was inserted into the right atrium to examine the right atrial anatomy, atrial septum, pulmonary vein anatomy and to monitor for pericardial effusion and guide transseptal access. ICE revealed that the patient had a moderatly dilated right atrium and left atrium and mild pericardial effusion with no SEE thrombus. At this point I decided to proceed with the transseptal puncture to perform A. fib ablation. Single transseptal access technique was used to cross to the left side. Following the first transeptal access, which was achieved via puncture of the thinner aspect of the septum using Sapphire needle, Octoray catheter was placed in the left atrium. Pulmonary vein and left atrial anatomic mapping were performed using a 3-D CARTO computer-based mapping system. Identification of the pulmonary vein ostia was assisted by the left atrial signals on the ablation catheter, the ICE catheter and the Octoray catheter placed in the individual pulmonary veins. I then proceeded to exchange the SL1 for 17F Faradrive sheath. Farawave multipolar catheter was advanced over a wire with negative aspiration in periodic fashion to avoid any air bubbles. Thereafter the catheter was advanced to each of the veins over the wire to maintain coaxial placement of catheter.2 PFA energy pulses were given in each position and then position rotated to 36degrees to get new location and repeat PFA energy were provided. Then this process was repeated in the flower configuration in each veins. Additional energy lesions were given to ensure there was good isolation. Given the persistent nature of atrial fibrillation I proceeded to perform posterior wall isolation. Catheter was placed in fluoroscopy configuration to the posterior wall and ablation performed to cover the entire posterior LA between the pulmonary veins. With applications done entrance block was noted. DCCV converted to sinus. Mapping was done this revealed some signals in the anterior aspect of RSPV. Repeat PFA ablation was performed and then exit block verified with pacing from each vein as well as different locations in the posterior wall. I decided to proceed to the right atrium and then proceeded to perform CTI ablation in a lateral aspect to avoid right coronary artery. NTG was given ahead and ablation performed to complete CTI line. Bidirectional block was demonstrated with pacing revealing a timing of 154ms. I performed voltage mapping which revealed CTI block also. The ICE catheter was used to reexamine the intracardiac anatomy and this showed mild pericardial effusion, same as baseline. ICE catheter and all catheters were removed. Venous sheaths were pulled, and hemostasis achieved with Perclose sutures and Vascade XL occlusion device. She was transferred to observation bay and then to hospital room for observation. LA baseline (mmHg) 1st and 2nd 20/12 HR 106bpm Afib LA 600ms pacing (mmHg) NA LA 400ms pacing (mmHg) NA AHms 154 HVms 53 VERPms 600/310, VA condunction+ AV Wenkebach ms 430ms AH jump ms NA AVNERP ms 600/290 AERP ms 600/210 POST PROCEDURE DIAGNOSIS 1. Persistent atrial fibrillation s/p PVI + Posterior wall isolation w (more content not included)...[facility]05-29-2025 Note Arterial Line: Date/Time: 01/20/2025 8:14 AM An arterial line was placed Procedure performed using ultrasound guidance.in the PACU for the following indication(s): continuous blood pressure monitoring and blood sampling needed. A 20 G (size), 2 inch (length), Angiocath (type) catheter was placed, Seldinger technique used , into the Left radial artery, secured by tape and Tegaderm. Events: patient tolerated procedure well with no complications. Staffing Performed: resident/COMPUTER NETWORK SPECIALIST/CAA and anesthesiologist Anesthesiologist: Constantin Crockett MD Resident/COMPUTER NETWORK SPECIALIST: Cindy Sparks MD Performed by: Cindy Sparks MD Authorized by: Constantin Crockett MDUnTuscarawas Hospital05-29-2025 NoteAirway Date/Time: 01/20/2025 8:48 AM Urgency: elective Airway not difficult General Information and Staff Patient location during procedure: OR Anesthesiologist: Constantin Crockett MD Resident/COMPUTER NETWORK SPECIALIST/CAA: Cindy Sparks MD Performed: resident/COMPUTER NETWORK SPECIALIST/CAA Indications and Patient Condition Indications for airway management: anesthesia Spontaneous Ventilation: absent Sedation level: deep Preoxygenated: yes Patient position: sniffing Mask difficulty assessment: 1 - vent by mask Planned trial extubation Final Airway Details Final airway type: endotracheal airway Successful airway: ETT Cuffed: yes Successful intubation technique: video laryngoscopy Facilitating devices/methods: intubating stylet and cricoid pressure Endotracheal tube insertion site: oral Blade: Mckeon Blade size: #3 ETT size (mm): 7.5 Cormack-Lehane Classification: grade I - full view of glottis Placement verified by: capnometry Cuff volume (mL): 8 Measured from: lips ETT to lips (cm): 22 Number of attempts at approach: 1 Number of other approaches attempted: 0UnT[facility] 01-20-2025 NotePatient: Deepika Fernandes Procedure Information Date/Time: 01/20/25 0830 Procedure: Ablation a-fib paroxysmal Location: [facility] ARCHITECTURAL SUPERINTENDENT 1 EP / [facility] (Cath) Providers: Timi Lee MD Relevant Problems Anesthesia (+) Obstructive sleep apnea Cardio (+) Atrial fibrillation with rapid ventricular response (CMS/HCC) (+) Hypertension (+) Paroxysmal atrial fibrillation (CMS/HCC) (+) Pulmonary hypertension (CMS/HCC) (+) Sinus bradycardia (+) Typical atrial flutter (CMS/HCC) /Renal (+) Chronic kidney disease Other (+) Arthritis of carpometacarpal (CMC) joint of left thumb (+) 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 Echo07/2024: LVEF 55-60%. No RV systolic function. Mild-moderate bi-atrial dilation. Grade 3 diastolic dysfunction. No significant valvular dysfunction. RVSP 60 mmHg. No results found for: WBC , HGB , HCT , MCV , PLT Chemistry No results found for: NA , K , CL , CO2 , BUN , CREATININE , GLU No results found for: CALCIUM , ALKPHOS , AST , ALT , BILITOT Clinical information reviewed: Tobacco Allergies Meds Med Hx Surg Hx Fam Hx Soc Hx Physical Exam Airway Mallampati: II TM distance: >3 FB Neck ROM: full Cardiovascular Rate: normal Dental - normal exam Pulmonary - normal exam Abdominal - normal exam Anesthesia Plan ASA 4 general The patient is not a current smoker. Patient did not smoke on day of procedure. Education provided regarding risk of obstructive sleep apnea. intravenous induction Postoperative administration of opioids is intended. Anesthetic plan and risks discussed with patient. Use of blood products discussed with patient who consented to blood products. Plan discussed with attending. Additional [facility]sUniversity [facility] Note PA Electrophysiology Consult Note PA Cardiology - [facility] Reason for visit: Afib 01/04/25 Patient is here today for H & P for A-Fib ablation. Patient states every once in awhile she has some chest pain, sharp in nature and last about 3 to 5 minutes patient denies any other symptoms with episodes of chest pain. Patient denies leg swelling, dizziness, leg pain, or dyspnea with exertion. Review of Systems Cardiovascular: Positive for chest pain. HPI: Porfirio Fernandes is a 74 y.o. year old with past medical history of hypertension, hyperlipidemia, obesity, sleep apnea diagnosed recently April 2024 on CPAP, right hand and left upper arm lipoma. Patient states that she has been having [...] started on amlodipine and lisinopril was discontinued. She was seen by Dr AGUILA and seen by her in July, she had couple episodes of palpitations one of them was associated with atrial flutter and second one with atrial fibrillation with rapid ventricular rate. In the last episode she came to the hospital and she was started on metoprolol 25 mg twice daily. She has been tolerating it well and doing well. She feels when she is in A-fib and she feels little lightheaded with that. Otherwise she denies any chest pain or shortness of breath at rest or with exertion. She denies orthopnea or paroxysmal nocturnal dyspnea or legs edema or legs discomfort on exertion. She reports using the CPAP on daily basis and fee she feels much better. She does not drink much caffeine however she eats a lot of chocolate. She tries to drink enough water She never been a smoker. She denies alcohol and illicit drugs Regarding family history mother had a pacemaker and grandmother had a stroke and [place] PMH: Past Medical History: Diagnosis Date Abnormal ECG Arrhythmia Atrial fibrillation (CMS/HCC) Cancer (CMS/HCC) Hyperlipidemia Hypertension Sleep apnea PSH: Past Surgical History: Procedure Laterality Date CARPAL TUNNEL RELEASE CHOLECYSTECTOMY SH: Social Determinants of Health Tobacco Use: Low Risk (01/04/2025) Patient History Smoking Tobacco Use: Never Smokeless Tobacco Use: Never Passive Exposure: Not on file Alcohol Use: Not on file Financial Resource Strain: Not on file Food Insecurity: Not on file Transportation Needs: Not on file Physical Activity: Not on file Stress: Not on file Social Connections: Not on file Intimate Partner Violence: Not on file Depression: Not on file Housing Stability: Not on file Utilities: Not on file Health Literacy: Not on file Allergies: No Known Allergies Weight: 83kg Visit Vitals BP 111/69 (BP Location: Left arm, Patient Position: Sitting) Pulse 82 Ht 1.575 m (5' 2 ) Wt 83 kg (183 lb) SpO2 97% BMI 33.47 kg/m??? Smoking Status Never BSA 1.91 m??? Meds: Current Outpatient Medications on File Prior to Visit Medication Sig Dispense Refill atorvastatin (Lipitor) 20 mg tablet Take 20 mg by mouth at bedtime. furosemide (Lasix) 20 mg tablet Take 1 tablet (20 mg) by mouth in the morning. 90 tablet 3 metoprolol tartrate (Lopressor) 25 mg tablet Take 1 tablet (25 mg) by mouth two times daily. 180 tablet 3 rivaroxaban (Xarelto) 20 mg tablet Take 1 tablet (20 mg) by mouth daily with evening meal. Take with food. 90 tablet 3 sertraline (Zoloft) 100 mg tablet Take 100 mg by mouth in the morning. spironolactone (Aldactone) 25 mg tablet Take 1 tablet (25 mg) by mouth in the morning. 90 tablet 3 amLODIPine (Norvasc) 10 mg tablet Take 1 tablet (10 mg) by mouth once daily as directed. (Patient not taking: Reported on 01/04/2025) 90 tablet 3 No current facility-administered medications on file prior to visit. Physical Exam: Constitutional General Appearance: well-nourished, well-developed, appears stated age Level of Distress: comfortable Eyes ALESIA Neck Neck: supple, trachea midline Carotid Arteries: bilateral normal upstroke, no bruits Jugular Veins: normal jugular venous pressure Thyroid: not enlarged Lungs Respiratory Effort: unlabored Chest Exam: normal curvature, no thoracic deformity Auscultation: clear, no wheezing, no rales, no rhonchi Cardiovascular Chest wall: Rate And Rhythm: regular Heart Sounds: normal S1, normal s2, no gallop Systolic Murmur: not heard Diastolic Murmur: not heard Extremities: no cyanosis, no edema, no peripheral signs of emboli Peripheral Pulses Radial Pulse: normal Abdomen Inspection and Palpation: soft, non distended, no bruit, non tender Neurologic Gait: normal gait Labs: @LABRESULTS@ No results found for: CHOLESTEROL TOTAL , HDL , LDL CALC (more content not included)...[facility]03-11-2025 NoteUT Electrophysiology Consult Note PA Cardiology [facility] Reason for visit: Afib HPI: Porfirio Fernandes is a 74 y.o. year old with past medical history of hypertension, hyperlipidemia, obesity, sleep apnea diagnosed recently April 2024 on CPAP, right hand and left upper arm lipoma. Patient states that she has been having [...] started on amlodipine and lisinopril was discontinued. She was seen by Dr AGUILA and seen by her in July, she had couple episodes of palpitations one of them was associated with atrial flutter and second one with atrial fibrillation with rapid ventricular rate. In the last episode she came to the hospital and she was started on metoprolol 25 mg twice daily. She has been tolerating it well and doing well. She feels when she is in A-fib and she feels little lightheaded with that. Otherwise she denies any chest pain or shortness of breath at rest or with exertion. She denies orthopnea or paroxysmal nocturnal dyspnea or legs edema or legs discomfort on exertion. She reports using the CPAP on daily basis and fee she feels much better. She does not drink much caffeine however she eats a lot of chocolate. She tries to drink enough water She never been a smoker. She denies alcohol and illicit drugs Regarding family history mother had a pacemaker and grandmother had a stroke and [place] PMH: Past Medical History: Diagnosis Date Abnormal ECG Arrhythmia Atrial fibrillation (CMS/HCC) Cancer (CMS/HCC) Hyperlipidemia Hypertension Sleep apnea PSH: Past Surgical History: Procedure Laterality Date CARPAL TUNNEL RELEASE CHOLECYSTECTOMY SH: Social Determinants of Health Tobacco Use: Low Risk (11/02/2024) Patient History Smoking Tobacco Use: Never Smokeless Tobacco Use: Never Passive Exposure: Not on file Alcohol Use: Not on file Financial Resource Strain: Not on file Food Insecurity: Not on file Transportation Needs: Not on file Physical Activity: Not on file Stress: Not on file Social Connections: Not on file Intimate Partner Violence: Not on file Depression: Not on file Housing Stability: Not on file Utilities: Not on file Health Literacy: Not on file Allergies: No Known Allergies Weight: 79.4kg Visit Vitals BP 142/73 (BP Location: Left arm, Patient Position: Sitting) Pulse 51 Ht 1.575 m (5' 2 ) Wt 79.4 kg (175 lb) SpO2 97% BMI 32.01 kg/m??? Smoking Status Never BSA 1.86 m??? Meds: Current Outpatient Medications on File Prior to Visit Medication Sig Dispense Refill amLODIPine (Norvasc) 10 mg tablet Take 1 tablet (10 mg) by mouth once daily as directed. 90 tablet 3 atorvastatin (Lipitor) 20 mg tablet Take 20 mg by mouth at bedtime. furosemide (Lasix) 20 mg tablet Take 1 tablet (20 mg) by mouth in the morning. 90 tablet 3 metoprolol tartrate (Lopressor) 25 mg tablet Take 1 tablet (25 mg) by mouth two times daily. 180 tablet 3 rivaroxaban (Xarelto) 20 mg tablet Take 1 tablet (20 mg) by mouth daily with evening meal. Take with food. 90 tablet 3 sertraline (Zoloft) 100 mg tablet Take 100 mg by mouth in the morning. spironolactone (Aldactone) 25 mg tablet Take 1 tablet (25 mg) by mouth in the morning. 90 tablet 3 No current facility-administered medications on file prior to visit. ROS: Review of Systems Cardiovascular: Positive for irregular heartbeat and palpitations. Neurological: Positive for light-headedness. All other systems reviewed and are negative. Physical Exam: Constitutional General Appearance: well-nourished, well-developed, appears stated age Level of Distress: comfortable Eyes ALESIA Neck Neck: supple, trachea midline Carotid Arteries: bilateral normal upstroke, no bruits Jugular Veins: normal jugular venous pressure Thyroid: not enlarged Lungs Respiratory Effort: unlabored Chest Exam: normal curvature, no thoracic deformity Auscultation: clear, no wheezing, no rales, no rhonchi Cardiovascular Chest wall: Rate And Rhythm: regular Heart Sounds: normal S1, normal s2, no gallop Systolic Murmur: not heard Diastolic Murmur: not heard Extremities: no cyanosis, no edema, no peripheral signs of emboli Peripheral Pulses Radial Pulse: normal Abdomen Inspection and Palpation: soft, non distended, no bruit, non tender Neurologic Gait: normal gait Labs: @LABRESULTS@ No results found for: CHOLESTEROL TOTAL , HDL , LDL CALC , LDL DIRECT , TRIGLYCERIDES , TSH , T3 TOTAL , T4 TOTAL , THYROID PEROXIDASE AB , BNP EKG: Encounter Date: 10/13/24 ECG 12 lead Narrative Sinus bradycardia/low atrial rhythm with premature supraventricular (more content not included)...[facility]02-19-2025 Note [place] [facility] Note Reason for cardiology visit: Follow-up on atrial fibrillation HPI: 10/13/2024 Since I saw her last that she had couple episodes of palpitations one of them was associated with atrial flutter and second one with atrial fibrillation with rapid ventricular rate. In the last episode she came to the hospital and she was started on metoprolol 25 mg twice daily. She has been tolerating it well and doing well. She feels when she is in A-fib and she feels little lightheaded with that. Otherwise she denies any chest pain or shortness of breath at rest or with exertion. She denies orthopnea or paroxysmal nocturnal dyspnea or legs edema or legs discomfort on exertion. She reports using the CPAP on daily basis and fee she feels much better 08/13/2024 Deepika Fernandes is a 74 y.o. female [...] pacemaker and grandmother had a stroke and [place] ROS: All systems were reviewed and they were negative except for the positive findings noted above in the history Past Medical History She has a past medical history of Abnormal ECG, Arrhythmia, Atrial fibrillation (CMS/HCC), Cancer (CMS/HCC), Hyperlipidemia, Hypertension, and Sleep apnea. [...] allergies. Medications Current Outpatient Medications: amLODIPine (Norvasc) 10 mg tablet, Take 1 tablet (10 mg) by mouth once daily as directed., Disp: 90 tablet, Rfl: 3 atorvastatin (Lipitor) 20 mg tablet, Take 20 mg by mouth at bedtime., Disp: , Rfl: furosemide (Lasix) 20 mg tablet, Take 1 tablet (20 mg) by mouth in the morning., Disp: 90 tablet, Rfl: 3 metoprolol tartrate (Lopressor) 25 mg tablet, Take 25 mg by mouth two times daily., Disp: , Rfl: rivaroxaban (Xarelto) 20 mg tablet, Take 1 tablet (20 mg) by mouth daily with evening meal. Take with food., Disp: 90 tablet, Rfl: 3 sertraline (Zoloft) 100 mg tablet, Take 100 mg by mouth in the morning., Disp: , Rfl: spironolactone (Aldactone) 25 mg tablet, Take 1 tablet (25 mg) by mouth in the morning., Disp: 90 tablet, Rfl: 3 Last Recorded Vitals Visit Vitals BP 142/78 (BP Location: Right arm, Patient Position: Sitting) Pulse 56 Ht 1.575 m (5' 2 ) Wt 78 kg (172 lb) SpO2 96% BMI 31.46 kg/m??? Smoking Status Never BSA 1.85 m??? Physical Examination: GENERAL: alert and oriented x3, well developed, in no acute distress. HEAD: atraumatic, normocephalic. EYES: JOHN, EOMI. NECK: trachea midline, no JVD present, no carotid bruits present. CARDIAC: S1, S2 present. RRR. No murmur, rubs, or gallops. RESPIRATORY: CTAB, no increased effort of breathing, no rales, rhonchi, or wheezing. ABDOMEN: soft, nontender, nondistended. EXTREMITIES: no lower extremity edema. No rash/skin discoloration present. NEURO: strength/sensation equal and symmetric in bilateral upper and lower extremities. PSYCH: appropriate mood, affect, and judgement. Labs: 10/07/2024 White blood count 13.8, hemoglobin 17, hematocrit 51.6, platelets 270 Sodium 143, potassium 3.6, BUN 20, creatinine 1.33, GFR 48, glucose 118, calcium 10.1 Total bilirubin 0.7, AST 19, ALT 25, alk phos 123, total protein 8.2, albumin 4.2 05/03/2024 White blood count 8.2, hemoglobin 14.7, hematocrit 45.3, platelets 206 Sodium 139, potassium 4.1, BUN 17, creatinine 0.99, GFR above 60 glucose 91, calcium 9.7 Total bilirubin 0.4, AST 23, ALT 29, alk phos 107, total protein 7.7, albumin 4 Triglyceride 91, cholesterol 163, LDL 83, HDL 62 TSH 2.66 Last Images: (more content not included)...[facility]01-06-2025 Note Patient called back and said she'd like to go with [facility]. RX printed and faxed into [facility]12-20-2024 Note [place] [facility] Note Reason for cardiology [...] pacemaker and grandmother had a stroke and [place] Cardiology ROS: GENERAL: Denies fever, chills, night [...] and left upper ext (more content not included)...[facility]12-12-2024 NoteOrthopaedic Surgery Subjective Pain of the Right Hand 08/05/24 Porfirio Fernandes is a 74 y.o. RHD female [...] years. 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 wrist extension/flexion [...] to verify the correct patient, procedure, equipment, systems support officer and site/side marked as required. Patient was prepped and draped in the usual sterile fashion. Assessment/Plan Porfirio Fernandes is a 74 y.o. RHD female [...] may be an additional personal documentation from me.[facility]12-12-2024 NotePatient ID: Porfirio Fernandes is a 74 y.o. female. Steroid [...] to verify the correct patient, procedure, equipment, systems support officer and site/side marked as required. Procedure Attestation Level of Attending Supervision for Procedure I was present for the frey and critical portions and I was otherwise immediately available to assistUniversity Hospitals Samaritan Medical Center11-20-2024 History of Present illness Narrative* Jr. Kelly Ospina, DO - 07/14/2024 1:00 PM EST Images from the original note were not included. HISTORY OF PRESENT ILLNESS: EST PT Porfirio Fernandes is an 74 y.o. @ female. (EST PT ; LAST APPT W/ MOR) RECHECK (R) HAND CYST ; HERE FOR MRI RESULTS 07/05/24 IN [facility] XRAYS 06/28/24 IN [facility] MRI 07/05/24 IN [facility] NO MDP / PREDNISONE NO CORTISONE INJ NO PHYSICAL THERAPY NO PAIN MGMT NOTES INTERMITTENT DISCOMFORT WITH ACTIVITY / MOVEMENT / LIFTING - PT STATES LUMP IS GROWING LARGER- LOCATED BETWEEN 4TH / 5TH MCP JOINT ; PALMAR ASPECT. NOTES LIMITED ROM ; SOME WEAKNESS. NO N/T. TAKING IBUPROFEN. PREVIOUS (R) THUMB TRIGGER RELEASE 06/2023 - DR KHAN ALLERGIES: No Known Allergies HOME MEDICATIONS: Current Outpatient Medications Medication Instructions atorvastatin (Lipitor) 20 MG tablet Every 24 hours Calcium Carb-Cholecalciferol (Calcium + Vitamin D3) 500-10 MG-MCG chewable tablet Calcium + VitaminD3 lisinopril 20 MG tablet Daily Misc Natural [...] over the swelling, trace firmness, the cyst ismoveable, the cyst does not move when the 4th and 5th finger is extended or flexed, no erythema, nowarmth, no Pulsation, no locking or triggering, there [...] We have discussed her MRI with her atlength including the possibility of lipoma versus liposarcoma. [...] for requiring urgent evaluation. documented in this encounterPutnam County Memorial [id number] History of Present illness Narrative* Jannet Mnotoya NP - 06/28/2024 8:00 AM EST Images from the original note were not included. Subjective Patient ID: Porfirio Fernandes is a 74 y.o. female. RT [...] Denies pain meds. Has tried heat w/o relief.Denies ice or creams. Denies waking at night. [...] over the swelling, trace firmness, the cyst ismoveable, the cyst does not move when the 4th and 5th finger is extended or flexed, no erythema, nowarmth, no locking or triggering, there is clicking [...] on June 28, 2024 demonstrates Narrowing of the1st carpometacarpal joint with adjacent sclerosis and slight subluxation consistent withfirst CMC arthritis, no swelling or fractures noted. Impression First CMC arthritis Jannet Montoya DOOR SLINGER Assessment/Plan Encounter Diagnoses: ICD-10-CM 1. Swelling of [...] f/u s/p MRI to be done at [facility] in [place] documented in this encounterPutnam County Memorial [id number] Evaluation note* Diagnosis Onset Date Resolution Status Admit Date Dyslipidemia acute April 9:55am Essential hypertension acute Se ptember 2023 9:55am Medicare annual wellness visit, subsequent acute May 03, 2024 9:55am Palpitations acute April 9:55am Screening mammogram for [facility] cancer acute May 03 9:55am Maxillary sinusitis, acute acute June 14, 2024 2:21pm [facility] Work Phone: [phone] 226-161109-07-2023 Evaluation note* Encounter Date Diagnosis Assessment Notes [...] mammogram for breast cancer (ICD-10 - Z12.31) [facility] [employer] Other evaluation noteNo InformationNortValley Forge Medical Center & Hospital [employer] Other evaluation note* Diagnosis Onset Date Resolution Status Dyslipidemia acute Essential hypertension acute Palpitations acute Screening mammogram for breast cancer acute [facility] Work Phone: evaluation note* Diagnosis Onset Date Resolution Status Dyslipidemia acute Essential hypertension acute Medicare annual wellness visit, subsequent acute Palpitations acute Screening mammogram for breast cancer acute [facility] Work Phone: evaluation note* Diagnosis Onset Date Resolution Status Dyslipidemia acute Essential hypertension acute Medicare annual wellness visit, subsequent acute Palpitations acute Screening mammogram for breast cancer acute Maxillary sinusitis, acute a cute [facility] Work Phone: Evaluation note* Diagnosis Swelling of right hand- Primary Right hand pain Pain in soft tissues of limb Cyst of joint of right hand [facility] Diagnosis Cyst of joint of right hand- Primary [facility]* Diagnosis Onset Date Resolution Status Admit Date Dysuria acute January 24, 2025 9:44am [facility] Work Phone: Evaluation note* Diagnosis Finger pain, right- Primary Pain in soft tissues of limb Trigger middle finger of right hand [facility]* Diagnosis Onset Date Resolution Status Admit Date Dyslipidemia acute May 062024 8:53am Elevated glucose acute Septembe r 2024 8:53am Essential hypertension acute Se ptember 2024 8:53am Medicare annual wellness visit, subsequent acute April 8:53am [facility] Work Phone: History general Narrative - Reported* Type Description Date Medical History Dyslipidemia Medical History Essential hypertension Medical History Major depressive disorder withou t psychotic features Medical History Personal history of malignant me lanoma of skin Surgical History Cholecystectomy Surgical History Wide excision of Melanoma 2012 Surgical History [facility] Hospitalization History see surgical SETiT Other History general Narrative - Reported* Type Description Date Surgical History Cholecystectomy Surgical History Wide excision of Melanoma 2012 Surgical History [facility] Hospitalization History see surgical SETiT Other Reason for referral (narrative)No reason for referral information availableEast [facility] Work Phone: Summary Purpose Family History Relationship Condition Age at Onset Recorded Date/T smiley mother Family history of thyroid disease Unknown History of stroke Unknown Advance Directives Advance Directive Response Recorded Date/ Time Advance [...] Maxillary sinusitis, acute June 14, 2024 2:21pm Chief Complaint Admit Date UA, burning, frequency, back pain January 242024 9:44am Reason for Visit Admit Date Dysuria January 24, 2025 9:44a m Chief Complaint Admit Date Wellness May 06, 2025 8:53am Reason for Visit Admit Date Dyslipidemia May 06, 2025 8:53am Elevated glucose May 06, 2025 8:53am Essential hypertension May 06 8:53am Medicare annual wellness visit, subseque nt May 06, 2025 8:53am Additional Source Comments INFORMATION SOURCE (unrecogn ized section and content) DATE CREATED AUTHOR 03/13/2022 [facility] DATE CREATED AUTHOR AUTHOR'S ORGANIZ ATION 07/30/2022 [facility] DATE CREATED AUTHOR AUTHOR'S ORGANIZ ATION 07/05/2024 [facility] DATE CREATED AUTHOR AUTHOR'S ORGANIZ ATION 02/01/2025 [facility] DATE CREATED AUTHOR AUTHOR'S ORGANIZ ATION 04/15/2025 [facility] EPIC DATE CREATED AUTHOR AUTHOR'S ORGANIZ ATION 04/26/2025 [facility] REASON FOR VISIT (unrecogniz ed section and content) Reason Comments Pain Reason Comments Pain Care Teams (unrecognized sec tion and content) Team Status: Active Member Role Status Dates NON STAFF Primary Care Provider Active Team Status: Inactive Member Role Status Dates NON STAFF Primary Care Provider Active Start: May 03, 2024 End: May 03, 2024 Kami Smith MD Attending Provider Active St art: May 03, 2024 End: May 03, 2024 Team Status: Active Member Role Status Dates NON STAFF Primary Care Provider Active Start: May 03, 2024 Kami Smith MD Attending Provider Active St art: May 03, 2024 Team Status: Active Member Role Status Dates NON STAFF Primary Care Provider Active Start: May 06, 2024 Rodríguez Chavez DO Attending Provider Active Sta rt: May 06, 2024 Team Status: Inactive Member Role Status Dates NON STAFF Primary Care Provider Active Start: June 14, 2024 End: June 14, 2024 Karis Pearl APRN FLOOR RUNNER-C Attending Provider Active Start: June 14, 2024 End: June 14, 2024 Warp Splitter Relationship Specialty Start Date End Date Kami Smith MD [address] [facility] [id number] PCP - General Family Medicine 01/17/23 Warp Splitter Relationship Specialty Start Date End Date Kami Smith MD [address] [facility] [address] PCP - General Family Medicine 01/17/23 Team Status: Inactive Member Role Status Dates NON STAFF Primary Care Provider Active Start: July 09, 2024 End: July 09, 2024 Kami Smith MD Attending Provider Active St art: July 09, 2024 End: July 09, 2024 Warp Splitter Relationship Specialty Start Date End Date Kami Smith MD [address] [facility] [address] PCP - General Family Medicine 01/17/23 Warp Splitter Relationship Specialty Start Date End Date Kami Smith MD [address] [facility] [address] PCP - General Family Medicine 01/17/23 Team Status: Inactive Member Role Status Dates NON STAFF Primary Care Provider Active Start: January 24, 2025 End: January 24, 2025 Kami Smith MD Attending Provider Active St art: January 24, 2025 End: January 24, 2025 Team Status: Inactive Member Role Status Dates Kami Smith MD Attending Provider Active St art: January 24, 2025 End: January 24, 2025 Warp Splitter Relationship Specialty Start Date End Date Kami Smith MD [address] [facility] [address] PCP - General Family Medicine 04/13/25 Sepideh Wu DO [address] [place] [address] Referring Physician Neurology 09/17/24 Warp Splitter Relationship Specialty Start Date End Date Kami Smith MD [address] [facility] [place] [address] PCP - General Family Medicine 04/13/25 Sepideh Wu DO [address] [place] [address] Referring Physician Neurology 09/17/24 Team Status: Active Member Role Status Dates Kami Smith MD Primary Care Provider Active Team Status: Inactive Member Role Status Dates Kami Smith MD Primary Care Provider Active Start: May 06, 2025 End: May 06, 2025 Kami Smith MD Attending Provider Active St art: May 06, 2025 End: May 06, 2025 Goals (unrecognized section and content) Goals may [...] BE BASED ON THE PRIMARY CLINICAL RECORDS. [employer] [facility]. provides no warranty or guarantee of the accuracy or completeness of information in this document.
[2025-05-16 09:44] LABS: Hematocrit 45.0 % (36.0-48.0); Hemoglobin 14.8 g/dL (12.0-16.0); Immature Granulocytes Abs Auto 0.03 10^3/uL (0.00-0.03); Immature Granulocytes Pct Auto 0.3 % (0.0-0.5); Lymphocytes Absolute Auto 2.1 10^3/uL (1.2-3.8); Mean Corpuscular HGB Conc 32.9 g/dL (29.9-35.2); Mean Corpuscular Hemoglobin 29.5 pg (26.7-34.0); Mean Corpuscular Volume 89.8 fL (81.0-99.0); Platelet Count 204 10^3/uL (150-450); Red Blood Count 5.01 10^6/uL (4.20-5.40); White Blood Count 9.0 10^3/uL (4.0-11.0)
[2025-05-16 10:01] LABS: Alanine Aminotransferase 33 U/L (14-59); Albumin Globulin Ratio 1.0; Albumin Level 4.1 g/dL (3.4-5.0); Alkaline Phosphatase 114 U/L (46-116); Anion Gap 14.5; Aspartate Amino Transferase 28 U/L (15-37); Blood Urea Nitrogen 21.0 mg/dL (7.0-18.0); Calcium 9.3 mg/dL (8.5-10.1); Carbon Dioxide 26.0 mmol/L (21.0-32.0); Chloride 103 mmol/L (98-107); Cholesterol 173 mg/dL (<=200); Estimated GFR (African America >60 (>=60 mL/min/1.73m^2); Estimated GFR (Non-African Ame 53 (>=60 mL/min/1.73m^2); Globulin 4.1 g/dL; Glucose 101 mg/dL (74-106); HDL Cholesterol 59 mg/dL (40-60); Potassium 4.5 mmol/L (3.5-5.1); Sodium 139 mmol/L (136-145); TSH W/ REFLEX FT4 3.557 uIU/mL (0.358-3.740); Total Protein 8.2 g/dL (6.4-8.2); Triglycerides 150 mg/dL (<=150); VLDL CHOLESTEROL 30.0 mg/dL
== END 2025-05-16 09:00 | disposition home or self-care (01) ==
LOC: LAB 09:04
PROVIDERS: PCP Family Medicine; Visit Provider Family Medicine
DX: Z00.00 Encounter for general adult medical examination without abnormal findings (principal); E78.5 Hyperlipidemia, unspecified; I10 Essential (primary) hypertension; R73.09 Other abnormal glucose
CPT/HCPCS: 36415; 80053; 80061; 83036; 84443; 85025

== ENCOUNTER 2025-06-30 10:09 | Outpatient (OUT) | payer MEDICARE, OTHER, SELFPAY ==
--- OUTSIDE RECORDS SUMMARY | 2025-06-30 10:14 | XMS_ITS | Clinical Summary ---
Author Organization [facility] Address [address] [place] [address] Care Team Providers Care Supervisor Home Energy Consultant Name Role Phone Reny Cabrera MD Primary Care Provider [phone] Allergies No known active allergies Medications MedicationSigDispense QuantityRefillsLast FilledStart DateEnd DateStatus atorvastatin (Lipitor) 20 mg tablet Take 20 mg by mouth at bedtime.Active sertraline (Zoloft) 100 mg tablet Take 100 mg by mouth at bedtime.12/13/2022ctive furosemide (Lasix) 20 mg tablet Indications:Acute combined systolic and diastolic heart failure (CMS/HCC)Take 1 tablet (20 mg) by mouth in the morning. 90 tablet 5008/30/2025ctive Additional Information Patient not taking.Reported on 04/26/2025 multivitamin tablet Take 1 tablet by mouth in the morning.Active CALCIUM ORAL Take by mouth.Active glucosamine/chondr yang A sod (OSTEO BI-FLEX ORAL) Take by mouth.Active docosahexaenoic acid/epa (FISH OIL ORAL) Take by mouth.Active famotidine (Pepcid) 20 mg tablet Indications:Paroxysmal atrial fibrillation (CMS/HCC)Take 1 tablet (20 mg) by mouth two times daily. 60 tablet 5Active Additional Information Patient not taking.Reported on 04/26/2025 spironolactone (Aldactone) 25 mg tablet Indications:Acute combined systolic and diastolic heart failure (CMS/HCC)Take 1 tablet (25 mg) by mouth in the morning. 90 tablet //[id number]/6Active rivaroxaban (Xarelto) 20 mg tablet Indications:Paroxysmal atrial fibrillation (CMS/HCC)Take 1 tablet (20 mg) by mouth daily with evening meal. Take with food. 90 tablet 5Active lisinopril 5 mg tablet Indications:Primary hypertensionTAKE 1 TABLET TWICE DAILY 180 tablet 5Active lisinopril 5 mg tablet Indications:Primary hypertensionTake 1 tablet (5 mg) by mouth 2 times daily. 60 tablet Discontinued Active Problems ProblemNoted DateDiagnosed DateParoxysmal atrial musowfybmtqn44/11/2025trial fibrillation with rapid ventricular conydhwz69/19/2025Sinus bradycardia 10/13/2024hronic diastolic heart kfpsdyo8210/13/2024Pulmonary hypertension 10/13/2024hronic kidney ecsjzcn2810/13/2024Typical atrial vfxjttf0108/14/2024ure dljqqwrsbkhrnrogfasc71/21/2024lass 1 obesity due to excess calories without serious comorbidity with body mass index (BMI) of 31.0 to 31.9 in adult 08/14/2024Obstructive sleep apnea08/14/2024Soft tissue mass4Arthritis of carpometacarpal (CMC) joint of left thumb01/30/2023egenerative arthritis of interphalangeal joint of left thumb01/30/2023ermatochalasis of left upper vnbsev9101/30/2023Excess skin of fuijwm3001/30/2023Nuclear senile diirgjyz59/08/2023 Hypertension Encounters DateTypeDepartmentCare EokxAjhukkgmbjm67/11/20[facility] [address] [place] [place] [address] Timi Lee MD Primary cspdawgtgjov99/03/2025[facility] [address] [place] [place] [address] Johanna Dias MA Paroxysmal atrial fibrillation (CMS/HCC)04/26/2025 9:15 AM EDTOffice Visit [facility] [address] [place] [place] [address] Timi Lee MD Paroxysmal atrial fibrillation (CMS/HCC) (Primary Dx)from Last 3 Months Family History Medical HistoryRelationNameCommentsAtrial fibrillationBrotherParkinsonismFather StrokeMaternal GrandmotherCoronary artery diseaseMotherpacemaker in situMother RelationNameStatusCommentsBrotherAliveFatherDeceasedMaternal GrandmotherMother DeceasedSisterAlive Social History Tobacco UseTypesPacks/DayYears UsedDateSmoking Tobacco: NeverSmokeless Tobacco: Never Tobacco Cessation:Counseling Given: Not Answered Alcohol UseStandard Drinks/WeekCommentsNot Currently0 (1 standard drink = 0.6 oz pure alcohol)CommentsUnknownSex and Gender InformationValueDate Recorded Sex Assigned at NrtiwRtzvji28/28/2025 11:52 AM EDTLegal MfxRrdxoi86/29/2022 11:45 PM EDTGender IcwzehlqNnhzoj14/28/2025 11:52 AM EDTSexual Orientation Heterosexual or Aaxkripx92/28/2025 11:52 AM EDT Last Filed Vital Signs Vital SignReadingTime TakenCommentsBlood Dzwgzvto679/7109 9:03 AM EDT Nyyjv038104/26/2025 9:03 AM ZFCLztcvyaipmm69.2 ??C (97.2 ??F)01/20/2025 12:05 PM EDTRespiratory Esma586001/20/2025 3:50 PM EDTOxygen Pqsodollxe78%04/26/2025 9:03 AM EDTInhaled Oxygen Concentration--Lvzjza47.6 kg (182 lb)02/18/2025 1:25 PM EDT Yfnguw827.5 cm (5' 2 )04/26/2025 9:03 AM EDTBody Mass Index33.29001/20/2025 7:36 AM EDT Plan of Treatment Health MaintenanceDue DateLast DoneCommentsCT Emhsfkwkobna1952Colonoscopy 1950FIT1952FOBT1952Medicare Annual Wellness (AWV)1950 Ggngupupilixt1952Depression Hfhnvgbei69/10/1964Adult Ptpdwxq8104/03/1974 Pcfengmsu74/10/1992Zoster Vaccines (1 of 2)Fall Risk Iazcislbr07/10/2017Pneumococcal Vaccine: 50+ Years (2 of 2 - PPSV23, PCV20, or PCV21)Colorectal Cancer Haqtpfokt89/20/2024FIT-DNA05/14/2024 05/14/2021OVID-19 Vaccine ( - season), 07/11/2021, 11/14/2020, Additional history existsInfluenza Vaccine (#1)/, 06/24/2022, 07/11/2021HIB VaccinesAged OutNo longer eligible based on patient's age to complete this topicHPV VaccinesAged OutNo longer eligible based on patient's age to complete this topicIPV VaccinesAged OutNo longer eligible based on patient's age to complete this topicMeningococcal B VaccineAged OutNo longer eligible based on patient's age to complete this topicMeningococcal VaccineAged OutNo longer eligible based on patient's age to complete this topicRotavirus VaccinesAged OutNo longer eligible based on patient's age to complete this topic Insurance * Guarantor: Kalani Fernandes TypeRelation to PatientDate of PhoneBilling AddressPersonal/QjqzmiDwvm1950 [id number] [address] Advance Directives * Full Code (Latest Code Status on File) Date ActivatedDate InactivatedComments01/20/2025 12:52 PM01/20/2025 6:47 PM * Full Code Date ActivatedDate InactivatedComments01/20/2025 12:52 PM01/20/2025 12:52 PM Care Teams Team MemberRelationshipSpecialtyStart DateEnd Date Reny Cabrera MD [address] [facility] [place] [address] [facility] - Flguenh83/12/24
--- OUTSIDE RECORDS SUMMARY | 2025-06-30 10:14 | XMS_ITS | Clinical Summary ---
Author Organization [facility] Address [address] [place] [address] Care Team Providers Care R Programmer Name Role Phone Sepideh Wu DO Unavailable [phone] Reny Cabrera MD Primary Care Provider Allergies No known active allergies Medications MedicationSigDispense QuantityRefillsLast FilledStart DateEnd DateStatus Calcium Carb-Cholecalciferol (Calcium + Vitamin D3) 500-10 MG-MCG chewable tablet Calcium + Vitamin L7Fudlgs atorvastatin (Lipitor) 20 MG tablet 1 (one) time each day at the same time.Active omega-3 (Fish Oil) 500 MG capsule 1 capsule every 12 (twelve) hours.Active Misc Natural Products (OSTEO BI-FLEX TRIPLE STRENGTH PO) Osteo Bi-Flex Triple StrengthActive Multiple Vitamin (multivitamin) tablet Take 1 tablet by mouth in the morning.Active sertraline (Zoloft) 100 MG tablet 12/13/2022ctive rivaroxaban (Xarelto) 20 MG tablet Take by mouth Take with food.Active lisinopril 5 MG tablet Take by mouth DailyActive spironolactone (Aldactone) 25 MG tablet Take by mouth DailyActive Active Problems ProblemNoted DateDiagnosed DateArthritis of carpometacarpal (CMC) joint of left thumb01/30/2023egenerative arthritis of interphalangeal joint of left thumb 01/30/2023ermatochalasis of left upper dultch9801/30/2023Excess skin of eyelid 01/30/2023Nuclear senile xqqfuetq69/08/2023 Encounters DateTypeDepartmentCare MzsgZadqqzzgyfm03/20/2025 10:45 AM EDTOffice Visit [facility] [address] [place] [address] Ang Ivan PA Finger pain, right (Primary Dx); Trigger middle finger of right hand04/13/2025amboo flowsheet [facility] [address] [place] [address] Ang Ivan PA 04/13/2025Travelfrom Last 3 Months Family History Medical HistoryRelationNameCommentsHypertensionMotherRelationNameStatusComments FatherDeceasedMotherDeceased Social History Tobacco UseTypesPacks/DayYears UsedDateSmoking Tobacco: NeverSmokeless Tobacco: Never Tobacco Cessation:Counseling Given: Not Answered Alcohol UseStandard Drinks/WeekCommentsNot Currently0 (1 standard drink = 0.6 oz pure alcohol)CommentsUnknownSex and Gender InformationValueDate Recorded Sex Assigned at BirthNot on fileLegal OzfEfrgok93/01/2023 8:31 PM EDTGender IdentityNot on fileSexual OrientationNot on file Last Filed Vital Signs Vital SignReadingTime TakenCommentsBlood Pressure--Pulse--Temperature-- Respiratory Rate--Oxygen Saturation--Inhaled Oxygen Concentration--Kmzzox42.5 kg (162 lb)06/05/2023 9:51 AM LLJAvharn688.5 cm (5' 2 )06/05/2023 9:51 AM EDTBody Mass Index29.6306/05/2023 9:51 AM EDT Plan of Treatment Health MaintenanceDue DateLast DoneCommentsCT Rxzijkrmbbix1952Colonoscopy 2Colorectal Cancer Tqclwnvkj1952FIT-DNA1952FIT1950 FOBT1950 7115Tsvzwfvzgdkue78/10/2844Lvmsognlz79/10/1992Pneumococcal Vaccine: 65+ Years (2 of 2 - PCV20 or PCV21)COVID-19 Vaccine ( - 2024- season), 11/14/2020, 10/24/2020Influenza Vaccine (#1)/, 06/24/2022, 07/11/2021 Procedures Procedure NamePriorityDate/TimeAssociated DiagnosisCommentsPR INJECTION 1 TENDON SHEATH/LIGAMENT YCTEVTAYWSTElunitd02/20/2025 11:24 AM EDT Trigger middle finger of right hand from Last 3 Months Results * [place] INJECTION 1 TENDON SHEATH/LIGAMENT APONEUROSIS (04/13/2025 11:24 AM EDT) Narrative Ang Ivan PA - 04/13/2025 11:24 AM EDT ALIN Bruner 04/13/2025 12:33 PM Tendon Sheath Inj (CPT 40989 Only): Whitney eduarda A1 on 04/13/2025 11:24 AM Indications: pain, tendon swelling and diagnostic Details: 22 G needle, anterior approach Medications: 20 mg methylPREDNISolone Acetate 20 MG/ML; 0.5 mL bupivacaine PF 0.5 % Outcome: tolerated well, no immediate complications Procedure, treatment alternatives, risks and benefits explained, specific risks discussed. Consent was given by the patient. Patient was prepped and draped in the usual sterile fashion. Authorizing ProviderResult TypeResult StatusMattgina Ivan PAIN CLINIC/BEDSIDE PERFORMABLESFinal Result from Last 3 Months Insurance * Guarantor: Kalani Fernandes TypeRelation to PatientDate of PhoneBilling AddressPersonal/GgqevwEysk1950 [id number] [place] [phone] Care Teams Team MemberRelationshipSpecialtyStart DateEnd Reny Cabrera MD [address] [place] [address] PCP - GeneralFamily Medicine04/13/25 Sepideh Wu DO [address] [place] [address] Referring PhysicianNeurology1
--- OUTSIDE RECORDS SUMMARY | 2025-06-30 10:21 | XMS_ITS | CCD ---
Author Organization [facility] Care Team Providers Care Powder And Primer Canning Leader Name Role Phone WEST, DR LOTUS Chester [...] Care Provider UnavailMD Kami Mendoza Attending Provider [phone] Kami Smith MD Primary Care Provider NON STAFF Primary Care Provider UnavailKami Mendoza MD Attending Provider [phone] Kami Smith MD Attending Provider Kami Smith Admitting Unavailable Kami Smith Attending Unavailable NON STAFF Primary Care Unavailable Kami Smith Attending Unavailable NON STAFF Primary Care Unavailable Kami Smith Admitting Unavailable Sepideh Wu DO Unavailable Kami Smith MD Primary Care Provider LEANNA IVAN Attending Unavailable APLJANNET CORTES Attending Unavailable APLJANNET CORTES Referring Unavailable JANNET MONTOYA Referring Unavailable JR. OSPINA GEORGE C Attending Unavaila TIMI Dominguez Attending Unavailable UDAY SANCHEZ Attending Unavailable KELLY OSPINA Referring Unavailable SOL MARIE Attending Unavailable TIMI NIXON Admitting Unavailable TIMI NIXON Attending Unavailable SOL MARIE Attending Unavailable TIMI NIXON Referring Unavailable TIMI NIXON Referring Unavailable TIMI NIXON Attending Unavailable TIMI NIXON Attending Unavailable UDAY SANCHEZ Referring Unavailable SKY PHILLIPS Attending Unavailable Kami Smith MD Primary Care Provider Kami Smith MD Attending Provider Medications Current Medications MedicationDrug Class(es)DatesSig (Normalized)Sig (Original)atorvastatin 20 mg oral tablet (20 sources)HMG-CoA Reductase InhibitorStart: 98-51-5151Gwzleytrbjii 20 mg tablet Active 0 .ROUTE .COMPLEX May 04, 2024 8:36am TAKE 1 TABLET EVERY DAY Complies with drug therapyStart: 33-68-9458Xewlvnouopdx 20 mg tablet Active 0 .ROUTE .COMPLEX May 04, 2024 8:36am TAKE 1 TABLET EVERY DAY Start: 96-36-8720Byqtjqoggloq 20 mg tablet Active 0 .ROUTE .COMPLEX May 04, 2024 7:36am TAKE 1 TABLET EVERY DAYStart: 03-27-2671Wjkenzrqtrjx Active 0 .ROUTE .COMPLEX May 04, 2024 8:36am TAKE 1 TABLET EVERY DAYStart: 05-03-2024 End: 91-24-8445ohpr 1 tablet by mouth once dailyAtorvastatin 20 mg tablet Discontinued 1 TAB PO Daily May 03, 2024 12:00am May 04, 2024 8:36am FreeTextSi tablet Orally Once a day; Note: Source Status: Refill; Refills: 3; Qty: 90Tablet; Provider: Luis Oglesby Ecalcium carbonate 1250 mg / cholecalciferol 0.01 mg chewable tablet (9 sources)Vitamin DCalcium Carb-Cholecalciferol (Calcium + Vitamin D3) 500-10 MG-MCG chewable tablet Calcium + VitaminD3 ActiveFish Oils (9 sources)take 1 capsule by mouth every twelve hoursomega-3 (Fish Oil) 500 MG capsule 1 capsule every 12 (twelve) hours. Activefluticasone propionate 0.05 mg/actuat metered dose nasal spray (5 sources)CorticosteroidStart: 36-36-3897nqzh 1 spray(s) nasal route twice dailyFluticasone Propionate (Flonase Allergy Relief) 50 mcg/actuation spray,suspension Active 1 SPRAY INTRANASAL Twice daily June 14, 2024 12:00am administer into each nostril Complies with drug therapylisinopril 5 mg oral tablet (20 sources)Angiotensin Converting Enzyme InhibitorStart: 16-58-0469ujvf 1 tablet by mouth once dailyLisinopril 5 mg tablet Active 5 MG PO Daily May 06, 2025 12:00am Complies with drug therapyStart: 07-11-2022 End: 38-02-7143hzhj 1 tablet by mouth once dailyLisinopril 20 mg tablet Discontinued 20 MG PO Daily May 03, 2024 12:00am July 20, 2024 3:15pm FreeTextSig: TAKE 1 TABLET EVERY DAY; Note: Source Status: Start; Refills: 3; Qty: 90 Tablet; Provider: Luis Oglesby ( )lisinopril 5 MG tablet Take by mouth Daily ActiveMisc Natural Products (OSTEO BI-FLEX TRIPLE STRENGTH PO) (9 sources)Misc Natural Products (OSTEO BI-FLEX TRIPLE STRENGTH PO) Osteo Bi- Flex Triple Strength ActiveMultiple Vitamin (multivitamin) tablet (9 sources)take 1 tablet by mouth in the morningMultiple Vitamin (multivitamin) tablet Take 1 tablet by mouth in the morning. Activerivaroxaban 20 mg oral tablet (3 sources)Factor Xa InhibitorStart: 19-62-9723fmrr 1 tablet by mouth once daily at dinnerRivaroxaban (Xarelto) 20 mg tablet Active 20 MG PO Daily May 06, 2025 12:00am must administer with evening meal Complies with drug therapy rivaroxaban (Xarelto) 20 MG tablet Take by mouth Take with food. Active sertraline 100 mg oral tablet (20 sources)Serotonin Reuptake InhibitorStart: 09-10-2024 End: 83-68-3968Pttpupeyyt 100 mg tablet Active 0 .ROUTE .COMPLEX 90 March 04, 2025 8:13am TAKE 1 TABLET EVERY DAYComplies with drug therapyStart: 07-16-2022 End: 60-49-1685eldk 1 tablet by mouth once dailySertraline 100 mg tablet Discontinued 100 MG PO Daily May 03, 2024 12:00am September 10, 2024 12:51pm FreeTextSig: TAKE 1 TABLET EVERY DAY; Note: Source Status: Start; Refills: 3; Qty: 90 Tablet; Provider: Luis Oglesby ( ) spironolactone 25 mg oral tablet (3 sources)Aldosterone AntagonistStart: 67-76-5171shhq 1 tablet by mouth once dailySpironolactone 25 mg tablet Active 25 MG PO Daily May 06, 2025 12:00am Complies with drug therapyspironolactone (Aldactone) 25 MG tablet Take by mouth Daily Active Completed/Discontinued Medications MedicationDrug Class(es)DatesSig (Normalized)Sig (Original)amLODIPine 5 mg oral tablet (3 sources)Dihydropyridine Calcium Channel BlockerStart: 07-20-2024 End: 38-60-1716pjlc 1 tablet by mouth once dailyAmlodipine 5 mg tablet Discontinued 5 MG PO Daily July 20, 2024 1:00am May 06, 2025 8:59amamoxicillin 875 mg / clavulanate 125 mg oral tablet (5 sources)Penicillin-class AntibacterialStart: 06-14-2024 End: 97-90-1341jxfo 1 tablet by mouth twice dailyAmoxicillin-Pot Clavulanate 875-125 mg tablet Discontinued 1 TAB PO Twice daily 14 June 14, 2024 12:00am July 20, 2024 2:58pm5 ml bupivacaine hydrochloride 5 mg/ml injection (4 sources)Amide Local AnestheticStart: 04-13-2025 End: 22-03-3551dxwshmyaumb PF (Marcaine) 0.5 % injection 0.5 mLStart: 04-13-2025 End: 50.5 mL, Injection, Once PRN Procedure, Starting on Fri04/13/25 at 1124, For 1 dosemethylPREDNISolone acetate 20 mg/ml injectable suspension (4 sources)CorticosteroidStart: 04-13-2025 End: 88-62-1192grfghpEKYRXRFidofo Acetate (DEPO-Medrol) injection 20 mgStart: 04-13-2025 End: 75-45-936055 mg, Once PRN Procedure, Starting on Fri04/13/25 at 1124, For 1 dosesulfamethoxazole 800 mg / trimethoprim 160 mg oral tablet (3 sources)Dihydrofolate Reductase Inhibitor Antibacterial, Sulfonamide AntimicrobialStart: 01-24-2025 End: 59-89-6330cjox 1 tablet by mouth twice dailySulfamethoxazole-Trimethoprim 800-160 mg tablet Discontinued 1 TAB PO Twice daily January 242:00am May 06, 2025 8:57am Problems Active Problems Problem ClassificationProblemDateDocumented DateEpisodic/ChronicCardiac dysrhythmias (6 sources)Paroxysmal atrial fibrillation; Translations: [Unspecified atrial fibrillation]Onset: 79-03-7907PknqdauAxflbpn dysrhythmias (12 sources)Palpitations; Translations: [Palpitations]Onset: 05-03-2024 47-07-5473HwkpthgjJatxsbnc (9 sources)Nuclear senile cataract; Translations: [Age-related nuclear cataract, unspecified eye]Onset: 417250-89-3604AmwgoogZsnwqmozgh heart failure; nonhypertensive (2 sources)Chronic diastolic (congestive) heart failure; Translations: [Chronic diastolic (congestive) heart failure]Onset: 73-31-0624ApphxlmWginldjh mellitus without complication (2 sources)Increased glucose level; Translations: [Other abnormal glucose] 38-76-9548JeabdkjwQltoyryof of lipid metabolism (20 sources)Hyperlipidemia, unspecified; Translations: [Dyslipidemia]Onset: 89-28-5216BmzcjknBvfdfophc hypertension (16 sources)Essential (primary) hypertension; Translations: [Essential hypertension]Onset: 98-32-2874NujwumyTtswsipgbenec symptoms and ill-defined conditions (6 sources)Dysuria; Translations: [Dysuria]Onset: 507226-98-8784Qtqallxb Hypertension with complications and secondary hypertension (2 sources)Hypertensive heart disease with heart failure; Translations: [Hypertensive heart disease with heartfailure]Onset: 44-64-5931Jyffjzu Immunizations and screening for infectious disease (3 sources)Patient encounter status; Translations: [Encounter for immunization] 01-56-8304LkkckxhcLaoxtzybk of skin (2 sources)History of malignant melanoma of the skin; Translations: [Personal history of malignant melanoma ofskin]EpisodicMood disorders (2 sources)Major depression, single episode; Translations: [Major depressive disorder, single episode, unspecified]ChronicOsteoarthritis (18 sources)Arthritis of first carpometacarpal joint of left hand; Translations: [Unilateral primary osteoarthritis of first carpometacarpal joint, left hand] Onset: 070805-92-4266IfbkwdoRteqi circulatory disease (2 sources)Personal history of other diseases of the circulatory system; Translations: [Personal history of other diseases of the circulatory system] Onset: 67-16-8833CoguoewlUkcnf connective tissue disease (4 sources)Pain in right hand; Translations: [Pain in right hand]06-28-2024 EpisodicOther connective tissue disease (2 sources)Pain in finger of right hand; Translations: [Pain in right finger(s)] 11-88-3975IpvjtbhlFpocf connective tissue disease (2 sources)Triggering of digit; Translations: [Trigger finger, right middle finger]53-36-0486XirppuqrVqnaa non-traumatic joint disorders (4 sources)Other specified joint disorders, right hand; Translations: [Other specified disorders of joint, hand]70-82-9440CqwfycnaBaqxe screening for suspected conditions (not mental disorders or infectious disease) (16 sources)Encounter for screening mammogram for malignant neoplasm of breast; Translations: [Patient encounter status]Onset: 74-87-4811IlnognrnYimuz skin disorders (4 sources)Swelling of hand; Translations: [Other specified soft tissue disorders]36-70-3088LqkgzxvbKyirm upper respiratory infections (7 sources)Acute maxillary sinusitis; Translations: [Acute maxillary sinusitis, unspecified]48-52-4945EyxkusaaVmqywvyi codes; unclassified (2 sources)Other specified postprocedural states; Translations: [Other specified postprocedural states]Onset: 59-47-6562Ceceumls Past or Other Problems Problem ClassificationProblemDateDocumented DateEpisodic/ChronicOther connective tissue disease (2 sources)Pain in right hand; Translations: [Pain in right hand]Onset: 29-97-8959TsgbbwdfQragl eye disorders (9 sources)Dermatochalasis of left upper eyelid; Translations: [Dermatochalasis of left upper eyelid]Onset: 438850-58-4506NcmrxzfyUodcu eye disorders (9 sources)Excess skin of eyelid; Translations: [Blepharochalasis unspecified eye, unspecified eyelid]Onset: 636269-56-0584XklxlfrvAtjcykxq codes; unclassified (2 sources)Pain; Translations: [Pain]Onset: 86-31-3195Qtvqcnah Results Test NameValueInterpretationReference RangeFacilityOffice Visiton 04-26-2025 Follow-up [id number] Porfirio Fernandes 1950 F Date Provider Department Center 04/26/2025 241-TIMI NIXON KIMBERLY [facility] Family History Problem Relation Age of Onset Other Mother Coronary artery disease Mother Parkinsonism Father Atrial fibrillation Brother Stroke Maternal Grandmother Family Status - Relation Status Age at Mother Father Sister Alive Brother Alive Maternal Grandmother Level of Service:87692 MS OFFICE/OUTPATIENT ESTABLISHED LOW MDM 20 [facility]No Panel Informationon 72-69-3213FyqrnjsALIN Bruner 04/13/2025 12:33 PM Tendon Sheath Inj (CPT 74511 Only): R long A1 on 04/13/2025 11:24 AM Indications: pain, tendon swelling and diagnostic Details: 22 G needle, anterior approach Medications: 20 mg methylPREDNISolone Acetate 20 MG/ML; 0.5 mL bupivacaine PF 0.5 % Outcome: tolerated well, no immediate complications Procedure, treatment alternatives, risks and benefits explained, specific risks discussed. Consent was given by the patient. Patient was prepped and draped in the usual sterile fashion. [facility]oirOrders Onlyon 05-03-2792Xyrkpt [id number] Porfirio Fernandes 1950 F Date Provider Department Center 03/23/2025 1987-BRITTNEY CALDERON [facility] [place] [facility] Family History Problem Relation Age of Onset Other Mother Coronary artery disease Mother Parkinsonism Father Atrial fibrillation Brother Stroke Maternal Grandmother Family Status - Relation Status Age at Mother Father Sister Alive Brother Alive Maternal GrandmotherNTrumbull Memorial HospitalFollow-Upon 51-42-1369Srbbhs-[id number] Porfirio Fernandes 1950 F Date Provider Department Center 02/18/2025 84278-UBSBXI, ADAM KIMBERLY Berg Family History Problem Relation Age of Onset Other Mother Coronary artery disease Mother Parkinsonism Father Atrial fibrillation Brother Stroke Maternal Grandmother Family Status - Relation Status Age at Mother Father Sister Alive Brother Alive Maternal Grandmother Level of Service:85901 MS OFFICE/OUTPATIENT ESTABLISHED MOD MDM 30 [facility] HospitalOrders Onlyon 87-30-2825Lovunq [id number] Porfirio Fernandes 1950 F Date Provider Department Center 02/15/20251986-BRITTNEY CALDERON [facility] [place] [facility] Family History Problem Relation Age of Onset Other Mother Coronary artery disease Mother Parkinsonism Father Atrial fibrillation Brother Stroke Maternal Grandmother Family Status - Relation Status Age at Mother Father Sister Alive Brother Alive Maternal GrandmotherNTrumbull Memorial HospitalTelephoneon [id number] Porfirio Fernandes 1950 F Date Provider Department Center 02/15/20251986-BRITTNEY CALDERON [facility] [place] [facility] Family History Problem Relation Age of Onset Other Mother Coronary artery disease Mother Parkinsonism Father Atrial fibrillation Brother Stroke Maternal Grandmother Family Status - Relation Status Age at Mother Father Sister Alive Brother Alive Maternal Grandmother Reason for Visit and Comments: BP recordings [Other][facility] HospitalOrders Onlyon 37-74-7903Gbzudi [id number] Porfirio Fernandes 1950 F Date Provider Department Center 02/08/20251986-BRITTNEY CALDERON [facility] [place] [facility] Family History Problem Relation Age of Onset Other Mother Coronary artery disease Mother Parkinsonism Father Atrial fibrillation Brother Stroke Maternal Grandmother Family Status - Relation Status Age at Mother Father Sister Alive Brother Alive Maternal GrandmotherNTrumbull Memorial HospitalTelephoneon [id number] Porfirio Fernandes 1950 F Date Provider Department Center 02/08/20251986-BRITTNEY CALDERON [facility] [place] [facility] Family History Problem Relation Age of Onset Other Mother Coronary artery disease Mother Parkinsonism Father Atrial fibrillation Brother Stroke Maternal Grandmother Family Status - Relation Status Age at Mother Father Sister Alive Brother Alive Maternal Grandmother Reason for Visit and Comments: BP recordings [Other][facility]36on Johnson ([facility]) called to make provider aware of medication interaction. Pt is on lisinopril 5mg tablet daily, and spironolactone (Aldactone) 25 mg 1 tablet daily.Pt's potassium could increase; pt should be monitored w/labs.[facility]36Patient called with BP recordings, BP ranged from 130/60-154/71. HR ranged from 53-64. updated, ordered to stop metoprolol, continue to hold amiodarone, and begin lisinopril 5 mg everyday. Patient updated with new orders.Instructed to call back next week with new BP,HR recordings.Normal [facility] HospitalOrders Onlyon 16-52-8126Pomoyy [id number] Porfirio Fernandes 1950 F Date Provider Department Center 02/02/20251986-BRITTNEY CALDERON [facility] [facility] Family History Problem Relation Age of Onset Other Mother Coronary artery disease Mother Parkinsonism Father Atrial fibrillation Brother Stroke Maternal Grandmother Family Status - Relation Status Age at Mother Father Sister Alive Brother Alive Maternal GrandmotherNTrumbull Memorial HospitalTelephoneon [id number] Porfirio Fernandes 1950 Date Provider Department Center 02/02/2025 65022-BDFSIHDFRANCISCA BERMAN [facility] [place] [facility] Family History Problem Relation Age of Onset Other Mother Coronary artery disease Mother Parkinsonism Father Atrial fibrillation Brother Stroke Maternal Grandmother Family Status - Relation Status Age at Mother Father Sister Alive Brother Alive Maternal Grandmother Reason for Visit and Comments: Medication (Interaction) [Other][facility] [id number] Porfirio Fernandes 1950 Date Provider Department Center 02/02/20251986-BRITTNEY CALDERON [facility] [facility] Family History Problem Relation Age of Onset Other Mother Coronary artery disease Mother Parkinsonism Father Atrial fibrillation Brother Stroke Maternal Grandmother Family Status - Relation Status Age at Mother Father Sister Alive Brother Alive Maternal Grandmother Reason for Visit and Comments: BP recordings [Other][facility]36 c/o of feeling fatigued,HR between 40's-50's.called vince office and they were told per Jesus to hold amiodarone.pt also on metoprolol,instructed to monitor Bp,HR until next week call with readings so new orders can be given.groin look good,taking blood thinners,eating and drinkin well.[facility] HospitalOrders Onlyon 09-20-2435Xsjefv [id number] Porfirio Fernandes 1950 F Date Provider Department Center 01/28/2025 TIMI ELLIS [facility] [place] [facility] Family History Problem Relation Age of Onset Other Mother Coronary artery disease Mother Parkinsonism Father Atrial fibrillation Brother Stroke Maternal Grandmother Family Status - Relation Status Age at Mother Father Sister Alive Brother Alive Maternal GrandmotherNormalMercy Memorial HospitalTelephoneon [id number] Porfirio Fernnades 1950 F Date Provider Department Center 01/28/2025 Laney-BRITTNEY CALDERON [facility] [facility] Family History Problem Relation Age of Onset Other Mother Coronary artery disease Mother Parkinsonism Father Atrial fibrillation Brother Stroke Maternal Grandmother Family Status - Relation Status Age at Mother Father Sister Alive Brother Alive Maternal Grandmother Reason for Visit and Comments: afib ablation f/u [Other][facility]36on 63-18-011849Etnhttt called to make you aware of problems she's been having s/p [...] by Dr. Smith. Said she's feeling much better.[facility] HospitalTelephoneon [id number] Porfirio Fernandes 1950 F Date Provider Department Center 01/24/2025 CORRIE BAKER [facility] [facility] Family History Problem Relation Age of Onset Other Mother Coronary artery disease Mother Parkinsonism Father Atrial fibrillation Brother Stroke Maternal Grandmother Family Status - Relation Status Age at Mother Father Sister Alive Brother Alive Maternal GrandmotherNTrumbull Memorial HospitalUrine Cultureon 77-89-6964Gdpbhdlq identified Cx Nom (U)No Growth 2 Days PERFORMED BY: [facility] [address] [place] [address] PATHOLOGIST PARKING METER COLLECTOR NANI LOJA M.D.[facility] Physician GroupComment on above: Performed By: #### CUU #### [facility] [address] [place] [address] USAAnesthesiaon [id number] Porfirio Fernandes 1950 F Date Provider Department Center 01/20/2025 47513-FGAHICINDY SPARKS [facility] [facility] Family History Problem Relation Age of Onset Other Mother Coronary artery disease Mother Parkinsonism Father Atrial fibrillation Brother Stroke Maternal Grandmother Family Status - Relation Status Age at Mother Father Sister Alive Brother Alive Maternal GrandmotherNormalUnAdena Fayette Medical CenterBILIRUBIN, DIRECTon 43-40-6770Nbxvajpli [Mass/Vol]0.1 mg/dLNormal0-0.2UnAdena Fayette Medical CenterComment on above:Performed By: #### LAB52 #### [facility] (BEAKER) [address] [place], [place] [address]NHGCATVEQ, TOTALon 24-70-7113Btsfjgjxd [Mass/Vol]0.7 mg/dLNormal 0.3-1.0UnAdena Fayette Medical CenterComment on above:Performed By: #### LAB50 #### [facility] (BEAKER) [address] [place], [place] [address]IVGPTXCDWGat 41-07-3692Vxpzukcori (Bld) [Mass/Vol]13.9 g/dL Lxnatk65.0-15.0UnAdena Fayette Medical CenterComment on above:Performed By: #### [id number] #### [facility] ([facility]) [address] [place], [place] [address]XVjd 73-94-2812WEIP Electrophysiology Consult Note Reason for visit: Afib [...] pacemaker and grandmother had a stroke and CA PMH: Past Medical History: Diagnosis Date Abnormal [...] edema, no peripheral (more content not included)... NormalUnAdena Fayette Medical CenterLACTATE DEHYDROGENASEon 01-20-2025 LACTATE DEHYDROGENASE (U/L) IN SER/PLAS BY LAC->PYR YET224 U/CAmhtlv926-896 [facility] HospitalComment on above:Performed By: #### LAB96 #### [facility] (BEAKER) [address] [place], [place] [address]XDPGUHLVmr 59-17-3157KZUWZUKCSOQ is at bedsideNormalUniversAkron Children's HospitalPOCT GLUCOSE METER UNSOLICITED RESULTSon 01-20-2025 Glucose [Mass/Vol]100 mg/kPOjyjoq62-114VlttbqgcgvMercy Memorial Hospital Comment on above:Order Comment: Waived Testing in the ED is performed under the ED CLIA certificate #[id number].Result Comment: qgnpwfh6Fghheelqs By: #### [id number] #### [facility] (BEAKER) [address] [place], [place] [address]JRPZLVX-XNNhk 35-50-9434EHQ IN PPP BY COAGULATION ASSAY1.04 Normal0.90-1.10UnAdena Fayette Medical CenterComment on above:Result Comment: ACC RECOMMENDED INR FOR WARFARIN THERAPY CONDITION INR PROPHYLAXIS OF VENOUS THROMBOSIS 2-3 (HIGH-RISK SURGERY) TREATMENT OF VENOUS THROMBOSIS 2-3 TREATMENT OF PULMONARY EMBOLISM 2-3 PREVENTION OF SYSTEMIC EMBOLISM: 2-3 ACUTE MYOCARDIAL INFARCTION TISSUE HEART VALVES VALVULAR HEART DISEASE ATRIAL FIBRILLATION RECURRENT SYSTEMIC EMBOLISM MECHANICAL HEART VALVE 2.5-3.5 FROM: ORAL ANTICOAGULANTS. MECHANISM OF ACTION, CLINICAL EFFECTIVENESS, AND OPTIMAL THERAPEUTIC RANGE. CHEST 1995;108:231S-246S.Performed By: #### [id number] ####[facility] LAB (ELVRE)[address] [place], [place] [address]ZSBIEVZDPJH TIME (PT) IN PPP BY COAGULATION ASSAY13.6 RpapkxxBpwsyd67.3-14.8[facility] HospitalComment on above:Performed By: #### [id number] ####[facility] (BEAKER)[address] [place], [place] [address]Jtcq for Procedureon 78-10-2911Nyvg for [id number] Porfirio Fernandes 1950 F Date Provider Department Center 01/20/2025 Laney-BRITTNEY CALDERON [facility] [place] [facility] Family History Problem Relation Age of Onset Other Mother Coronary artery disease Mother Parkinsonism Father Atrial fibrillation Brother Stroke Maternal Grandmother Family Status - Relation Status Age at Mother Father Sister Alive Brother Alive Maternal GrandmotherNormalMercy Memorial HospitalOffice Visiton 76-66-7320Jntggx-up [id number] Porfirio Fernandes 1950 F Date Provider Department Center 01/04/2025 241-TIMI NIXON KIMBERLY Berg Family History Problem Relation Age of Onset Other Mother Coronary artery disease Mother Parkinsonism Father Atrial fibrillation Brother Stroke Maternal Grandmother Family Status - Relation Status Age at Mother Father Sister Alive Brother Alive Maternal Grandmother Level of Service:71546 MS OFFICE/OUTPATIENT ESTABLISHED HIGH MDM 40 [facility]36on [id number] called back to update me on her LE edema s/p stopping amlodipine. She states it went away as soon as she stopped taking it. BP is still very well controlled, 109/80. HR 82. She is scheduled to see Dr. Nixon on Thursday 01/04 prior to afib ablation. Told her to continue to keep track of BP's. Patient verbalized understanding.[facility]36on 94-33-401380Oofkted called c/o LE edema, which she states is new. Said her BP has been around 106-116 systolic. HR no higher than 106. I advised her to hold amlodipine for a few days and see if the LE edema resolves. I asked her to call me back next week and let me know how she does. Any other suggestions?[facility]36on 66-30-100067Enhzjcn was called and cancelled surgeryNormalUThe Christ Hospital36Patient would like to cancel the upcoming surgery for 12-15-24 as she is having heart issues. Please contact patient with any questions at [phone] Health St. [facility] Hospital36on [id number] bp log from 11/01/2024 MD Edith Mcelroy MA BMP is good after adding Aldactone. Continue current management Left voice massage for patient to continue with current medication.Normal [facility] HospitalPrep for Procedureon 34-95-9588Uenk for [id number] Porfirio Fernandes 1950 F Provider Department Center 11/09/2024 1987-BRITTNEY CALDERON [facility] VASC LAB UT HeartVAS Family History Problem Relation Age of Onset Other Mother Atrial fibrillation Brother Stroke Maternal Grandmother Family Status - Relation Status Age at Mother Brother Maternal GrandmotherNTrumbull Memorial HospitalOffice Visiton 60-85-9961Swpgwn-up [id number] FernandesPorfirio 1950 Provider Department Center 11/02/2024 241-TIMI NIXON KIMBERLY Berg Family History Problem Relation Age of Onset Other Mother Atrial fibrillation Brother Stroke Maternal Grandmother Family Status - Relation Status Age at Mother Brother Maternal Grandmother Level of Service:31475 MS OFFICE/OUTPATIENT NEW MODERATE MDM 45 MINUTESNormal [facility] HospitalOrders Onlyon 48-01-4331Mywvdm [id number] Porfirio Fernandes 1950 Provider Department Center 11/02/2024 Renetta-PINO SANDERS KIMBERLY Berg Family History Problem Relation Age of Onset Other Mother Atrial fibrillation Brother Stroke Maternal Grandmother Family Status - Relation Status Age at Mother Brother Maternal GrandmotherNTrumbull Memorial HospitalOffice Visiton 27-36-7130Cnabzr-up [id number] Porfirio Fernandes 1950 F Date Provider Department Center 10/13/2024 47918-LCMSYZSOL MARIE BH KIMBERLY Saldaña Hos Family History Problem Relation Age of Onset Other Mother Atrial fibrillation Brother Stroke Maternal Grandmother Family Status - Relation Status Age at Mother Brother Maternal Grandmother Level of Service:28397 MS OFFICE/OUTPATIENT ESTABLISHED MOD MDM 30 MIN Reason for Visit and Comments: Hypertension [208005] - Had echo in Jul 2024 after last apt. Atrial Fibrillation [80] - She presented to [facility] ED in Aug 2024 and again last week. She was started on metoprolol 25mg bid on 09/24/2024. Patient states sometimes HR is in the 40's. Hyperlipidemia [182] Atrial Flutter [101] Palpitations [416493] - Says metoprolol has helped.[facility]36on [id number] echo result from 08/19/2024: MD iPno Mcelroy MA Echo shows normal cardiac systolic [...] log with her when she sees Dr. Nixon soon. She will look into [employer] [facility] for both Eliquis and Xarelto and let me know which one she wants us to fax into them.[facility]36on [id number] calling asking for echo results. It is scanned into social media job titles for your review. Also, Eliquis is very expensive for her. She said her takes Xarelto and that is very expensive for them also. Can I send a referral to coumadin clinic or would you like something else? Please advise. Thanks.[facility] HospitalOffice Visiton 44-07-7638Nfttjn-up [id number] Porfirio Fernandes 1950 F Date Provider Department Center 08/13/2024 52038-AGKWTNSOL MARIE KIMBERLY Berg Family History Problem Relation Age of Onset Other Mother Atrial fibrillation Brother Stroke Maternal Grandmother Family Status - Relation Status Age at Mother Brother Maternal Grandmother Level of Service:45331 MS OFFICE/OUTPATIENT NEW MODERATE MDM 45 MINUTES Reason for Visit and Comments: Hypertension [769065] - Used to be on lisinopril but was recently switched to amlodipine 5mg daily. Denies swelling. Hyperlipidemia [182] - On atorvastatin Palpitations [651682] - Recently wore 30 day event monitor for palpitations, but hasn't had them recently. Sleep Apnea [348] - Compliant with bipap therapy.[facility] HospitalOrders Onlyon 97-22-8433Ugnpfd [id number] Porfirio Fernandes 1950 Date Provider Department Center 08/13/2024 928-KATERINA SAHNI KIMBERLY Berg Family History Problem Relation Age of Onset Other Mother Atrial fibrillation Brother Stroke Maternal Grandmother Family Status - Relation Status Age at Mother Brother Maternal GrandmotherNTrumbull Memorial Hospital36on Patient was scheduledNormalUniKettering Health Greene MemorialOrders Onlyon 73-50-3049Nsgqir [id number] Porfirio Fernandes 1950 Provider Department Center 08/12/2024 803-CATARINA CRANE MP ORTHO MPORTHO Family History Problem Relation Age of Onset Other Mother Atrial fibrillation Brother Stroke Maternal Grandmother Family Status - Relation Status Age at Mother Brother Maternal GrandmotherNTrumbull Memorial Hospital36on Patient was seen 08/05/24. She called stating that someone was suppose to call her to set up date and time for surgery. She states that she has not received a call. Please advise. Thank you.[facility] HospitalOffice Visiton 46-49-4014Hbvxcp-up [id number] Porfirio Fernandes 1950 F Date Provider Department Center 08/05/2024 UDAY GAMING [facility] No family history on file Level of Service:45009 MS OFFICE/OUTPATIENT NEW LOW MDM 30 MINUTES (GC,25) Reason for Visit and Comments: Pain [136]NormalUnAdena Fayette Medical Center36on [id number] called to schedule a new patient appointment with our office. 08/05 Patient wants to be seen for: Cyst of joint of right hand Patient had MRI done at [facility] 07/05/24 Patient had Trigger Thumb done on 07/[address] Khan @ [facility] Patient saw Dr. Ospina for this issues. They were referred to us from this provider. This appointment is not a second opionion This appointment IS NOT related to a work related injuryNormalUniversAkron Children's HospitalMR HAND RIGHT W AND WO IV CONTRASTon 19-40-1505AQ HAND RIGHT W AND WO IV CONTRASTEXAMINATION: MR HAND RIGHT W AND WO IV [...] palmar soft tissues at the level of thefourth and fifth metacarpal heads is an ovoid [...] low-grade liposarcoma. ELECTRONICALLY SIGNED BY: Bart Hernández, GermánmalNot AvailableCREATININEon 23-24-0899Cuosrvrjua [Mass/Vol]0.90 mg/dLNormal0.60-1.00Quest DiagnosticsComment on above:Performed By: #### 375 #### [facility] [address], [address] [place] [address] Flagsetter: Shiraz Regalado MDGFR/1.73 sq M.predicted among non-blacks MDRD (S/P/Bld) [Vol rate/Area]68 mL/min/{1.73_m2}Normal> OR = 60[facility] Comment on above:Performed By: #### 375 #### [facility] [address], [address] [place] [address] Flagsetter: Shiraz Regalado MDXR Hand - right 3 Viewson 69-77-9712Xzagzlz Result: Xrays AP, LAT and OBL of the right hand performed on June 28, 2024 demonstrates Narrowing of the 1st carpometacarpal joint with adjacent sclerosis and slight subluxation consistent withfirst CMC arthritis, no swelling or fractures noted. Impression First CMC arthritis Jannet Montoya FNPNOMS HealthcareRadiology Study observation (narrative)NOMS HealthcareXR Hand - right 3 ViewsOrdered By: El Khan on 15-86-5467YQKY Ubalo Work Phone: Basophils Auto (Bld) [#/Vol]on 66-28-9733Cdnavwmlr (Bld) [#/Vol]0.0 10 3/uL0.0-0.1FFlower HospitalBasophils (Bld) [#/Vol]Automated basophil count0.0-0.1FFlower Hospital Basophils/100 WBC Auto (Bld)on 29-40-9584Whdescgse/100 WBC (Bld)0.5 %0.2-2.0 [facility] HospitalBasophils/100 WBC (Bld)Automated basophil % 0.2-2.0C[facility] HospitalCholesterol in LDL Calc [Mass/Vol]on 10-59-9063Ujobjvkufng in LDL [Mass/Vol]83.0 mg/dLCherrington HospitalComment on above:<100 mg/dl MEAXCFO768-327 mg/dl NEAR OR ABOVE XLQJEYG218- 159 mg/dl BORDERLINE ERIZ523-923 mg/dl HIGH>190 mg/dl VERY HIGHCholesterol in LDL [Mass/Vol]Cholesterol in LDL [Mass/volume] in Serum or Plasma by calculation [facility] HospitalComment on above:<100 mg/dl WVSDTQJ407-873 mg/dl NEAR OR ABOVE ZLIFEYU820-203 mg/dl BORDERLINE TWTO781-100 mg/dl HIGH>190 mg/dl VERY HIGHCholesterol in VLDL Calc [Mass/Vol]on 47-68-1196Fwmwsrcyyiv in VLDL [Mass/Vol]18.2 mg/dLCherrington HospitalCholesterol in VLDL [Mass/Vol]Cholesterol in VLDL [Mass/volume] in Serum or Plasma by calculation [facility]rington HospitalEosinophils/100 WBC Auto (Bld)on 05-03-2024 Eosinophils/100 WBC (Bld)1.6 %0.9-7.0[facility] Eosinophils/100 WBC (d)Automated eosinophil %0.9-7.0C[facility]rington HospitalErythrocyte distribution width Auto (RBC) [Ratio]on 44-35-5669Rriffhbazfq distribution width (RBC) [Ratio]14.4 %11.0-15.0C[facility] HospitalErythrocyte distribution width (RBC) [Ratio]Erythrocyte distribution width [Ratio] by Automated count11.0-15.0C[facility] HospitalEstimated glomerular filtration rate (GFR) non- Americanon 76-53-9398NYZ/1.73 sq M.predicted among non-blacks MDRD (S/P/Bld) [Vol rate/Area]55 mL/min/{1.73_m2} Low>=60C[facility]rington HospitalGFR/1.73 sq M.predicted among non-blacks MDRD (S/P/Bld) [Vol rate/Area]Estimated glomerular filtration rate (GFR) non- AmericanLow>=60C[facility]rington HospitalGlobulin Calc (S) [Mass/Vol]on 90-00-4903Ryinhyuj (S) [Mass/Vol]3.7 g/dLCherrington HospitalGlobulin (S) [Mass/Vol]Serum globulin measurement by calculation (mass/volume)C[facility] HospitalHematocrit Auto (Bld) [Volume fraction]on 63-90-1770Tqbbkcgnwq (Bld) [Volume fraction]45.3 %36.0-48.0C[facility] HospitalHematocrit (Bld) [Volume fraction]Hematocrit [Volume Fraction] of Blood by Automated count36.0-48.0[facility] Hemoglobin [Mass/volume] in Bloodon 10-56-4434Pyiyviujwg (Bld) [Mass/Vol]14.7 g/dL12.0-16.0C[facility]rington HospitalHemoglobin (Bld) [Mass/Vol] Hemoglobin [Mass/volume] in Blood12.0-16.0[facility] Laboratory - Chemistry and Chemistry - challengeon 05-01-4286Dwtiwml [Mass/Vol] 4.0 g/dL3.4-5.0[facility] HospitalALP [Catalytic activity/Vol]107 U/P07-674ErjmibgtgCherrington HospitalALT [Catalytic activity/Vol]29 U/L 14-59C[facility]rington HospitalAST [Catalytic activity/Vol]23 U/L15-37 [facility] HospitalBilirubin [Mass/Vol]0.4 mg/dL0.2-1.0[facility] HospitalCalcium [Mass/Vol]9.7 mg/dL8.5-10.1FFlower HospitalChloride [Moles/Vol]103 mmol/A06-975YbexaatxcCherrington HospitalCholesterol [Mass/Vol]163 mg/dL<=200[facility] Cholesterol in HDL [Mass/Vol]62 mg/vVZcfc88-58GfffgvrmiCherrington Hospital Comment on above:> or =60 mg/dl - LOW CARDIOVASCULAR RISK<40 mg/dl - HIGH CARDIOVASCULAR RISKCO2 [Moles/Vol]30.1 mmol/L21.0-32.0C[facility]rington HospitalCreatinine [Mass/Vol]0.99 mg/dL0.55-1.02[facility] GFR/1.73 sq M.predicted MDRD (S/P/Bld) [Vol rate/Area]mL/min/{1.73_m2}>=60 [facility] HospitalGlucose [Mass/Vol]91 mg/lZ46-775FtbuigxetCherrington HospitalPotassium [Moles/Vol]4.1 mmol/L3.5-5.1FFlower HospitalProtein [Mass/Vol]7.7 g/dL6.4-8.2FFlower Hospital Sodium [Moles/Vol]139 mmol/Y815-992SempsurooCherrington HospitalTriglyceride [Mass/Vol]91 mg/dL<=150Cherrington HospitalTS Qn2.666 m[IU]/L 0.358-3.740C[facility]rington HospitalUrea nitrogen [Mass/Vol]17.0 mg/dL 7.0-18.0C[facility]rington HospitalUrea nitrogen/Creatinine [Mass ratio] 17.2 mg/mgCherrington HospitalLaboratory - Hematology and Cell countson 14-75-8111Qcczeiot granulocytes/100 WBC (Bld)0.2 %0.0-0.5FFlower HospitalLeukocytes [#/volume] corrected for nucleated erythrocytes in Blood by Automated counon 63-09-9220EKK corrected for nucl RBC Auto (Bld) [#/Vol]8.2 10 3/uL4.0-11.0C[facility] HospitalWBC corrected for nucl RBC Auto (Bld) [#/Vol]Leukocytes [#/volume] corrected for nucleated erythrocytes in Blood by Automated coun4.0-11.0C[facility]rington HospitalLymphocytes Auto (Bld) [#/Vol]on 42-57-8815Htsgwljesns (Bld) [#/Vol]2.5 10 3/uL1.2-3.8C[facility]rington HospitalLymphocytes (Bld) [#/Vol]Lymphocytes [#/volume] in Blood by Automated count1.2-3.8Cherrington HospitalLymphocytes/100 WBC Auto (Bld)on 05-03-2024 Lymphocytes/100 WBC (Bld)30.3 %20.5-60.0[facility] Lymphocytes/100 WBC (Bld)Lymphocytes/100 leukocytes in Blood by Automated count 20.5-60.0C[facility]rington HospitalMCH Auto (RBC) [Entitic mass]on 17-90-8350UJU (RBC) [Entitic mass]30.1 pg26.7-34.0[facility] (RBC) [Entitic mass]MCH [Entitic mass] by Automated count26.7-34.0 [facility] HospitalMCHC Auto (RBC) [Mass/Vol]on 22-73-8600YICC (RBC) [Mass/Vol]32.5 g/dL29.9-35.2FFlower HospitalMCHC (RBC) [Mass/Vol]MCHC [Mass/volume] by Automated count29.9-35.2FFlower HospitalMCV Auto (RBC) [Entitic vol]on 57-30-6656GVY (RBC) [Entitic vol] 92.6 fL81.0-99.0[facility] HospitalV (RBC) [Entitic vol]MCV [Entitic volume] by Automated count81.0-99.0[facility] Monocytes Auto (Bld) [#/Vol]on 39-17-9264Thycmgtpy (Bld) [#/Vol]0.5 10 3/uL 0.3-0.8C[facility]rington HospitalMonocytes (Bld) [#/Vol]Automated blood monocyte count0.3-0.8C[facility]rington HospitalMonocytes/100 WBC Auto (Bld)on 16-52-1421Zonypbnsb/100 WBC (Bld)5.9 %1.7-12.0C[facility] HospitalMonocytes/100 WBC (Bld)Automated monocyte %1.7-12.0C[facility] HospitalNeutrophils Auto (Bld) [#/Vol]on 27-35-0059Yvmhsfzfwnd (Bld) [#/Vol]5.0 10 3/uL1.4-6.5FFlower HospitalNeutrophils (Bld) [#/Vol]Neutrophils [#/volume] in Blood by Automated count1.4-6.5FFlower HospitalNeutrophils/100 WBC Auto (Bld)on 05-03-2024 Neutrophils/100 WBC (Bld)61.5 %43.0-75.0[facility] Neutrophils/100 WBC (Bld)Automated neutrophil %43.0-75.0C[facility]rington HospitalNo Panel Informationon 36-60-2733Yhcnumeanxp # (Auto)0.1 10 3/uL 0.0-0.7FFlower HospitalImmature Granulocyte # (Auto)0.02 10 3/uL0.00-0.03C[facility]rington HospitalPlatelet mean volume Auto (Bld) [Entitic vol]on 35-69-8079Mipehwjd mean volume (Bld) [Entitic vol]9.7 fL9.5-13.5 Cherrington HospitalPlatelet mean volume (Bld) [Entitic vol] Platelet mean volume [Entitic volume] in Blood by Automated count9.5-13.5 [facility]rington HospitalPlatelets Auto (Bld) [#/Vol]on 05-03-2024 Platelets (Bld) [#/Vol]206 10 3/qV620-532CbmdzfjdlCherrington Hospital Platelets (Bld) [#/Vol]Platelets [#/volume] in Blood by Automated -983 [facility]rington HospitalRBC Auto (Bld) [#/Vol]on 79-62-8260EJJ (Bld) [#/Vol]4.89 10 6/uL4.20-5.40C[facility]rington HospitalRBC (Bld) [#/Vol] Erythrocytes [#/volume] in Blood by Automated count4.20-5.40[facility] Northerum or plasma albumin/globulin mass ratioon 05-03-2024 Albumin/Globulin [Mass ratio]1.1 {ratio}[facility] Albumin/Globulin [Mass ratio]Serum or plasma albumin/globulin mass ratio [facility] Northerum or plasma anion gap determinationon 88-55-0436Gxflz gap [Moles/Vol]10.0 mmol/LFFlower HospitalAnion gap [Moles/Vol]Serum or plasma anion gap determinationPremier Health Miami Valley Hospital Northerum or plasma total cholesterol/high density lipoprotein (HDL) cholesterol mass gloria 77-83-5858Ryuudphtrwr.total/Cholesterol in HDL [Mass ratio]2.6 {ratio}[facility] HospitalComment on above:3.3 - 4.4 LOW RISK4.4 - 7.1 AVERAGE RISK7.1 - 11.0 MODERATE RISK>11.0 HIGH RISK Cholesterol.total/Cholesterol in HDL [Mass ratio]Serum or plasma total cholesterol/high density lipoprotein (HDL) cholesterol mass ratAultman Hospital Medical CenterComment on above:3.3 - 4.4 LOW RISK4.4 - 7.1 AVERAGE RISK7.1 - 11.0 MODERATE RISK>11.0 HIGH RISKMG MAMM SCREEN 3D EVAN CADon 12-37-0539AU MAMM SCREEN 3D EVAN CADPatient: PORFIRIO FERNANDES Exam Date: 06/26/2022 : 1950 Gender:F Ordering : DR KAMI SMITH M.D. Admission #: [id number] Family : Order #: [id number] CLICK HERE TO VIEW EXAM RADIOLOGY REPORT [...] Treatments None Family Cancers None LOCATION: [facility] BREAST COMPOSITION: Heterogeneously dense,which may obscure [...] LUMP SHOULD BE BIOPSIED. Dictated by: Lotus Sheldon MD on 06/26/2022 at 08:27 Approved by: Lotus Sheldon MD on 06/26/2022 at 08:44NoSelect Medical [facility] [place] AUTO DIFFon 78-05-7306DDPS #0.0 103/ulNormal0.0-0.1[facility] HospitalComment on above:Performed By: #### CBC #### [facility] [address] [address] [address] Christina Pérezsophils/100 WBC (Bld)0.3 %Normal0.2-2.0[facility] Comment on above:Performed By: #### CBC #### [facility] [address] [address] [address] Christina Landaverde #0.1 103/ulNormal0.0-0.7The [facility]'S HospitalComment on above: Performed By: #### CBC #### [facility] [address] [place] [address] Dr. Christina Arguetaosinophils/100 WBC (Bld)1.5 %Normal0.9-7.0[facility] Comment on above:Performed By: #### CBC #### [facility] [address] [place] [address] Dr. Christina Arguetarythrocyte distribution width (RBC) [Ratio]14.4 %Fagzai03.0-15.0 [facility] HospitalComment on above:Performed By: #### CBC #### [facility] [address] [place] [address] Dr. Christina CamarenaHematocrit (Bld) [Volume fraction]46.5 %Svjtba55.0-48.0The [facility] HospitalComment on above:Performed By: #### CBC #### [facility] [address] [place] [address] Dr. Christina CamarenaHemoglobin (Bld) [Mass/Vol]14.8 g/jECzlxsr40.0-16.0The [facility] HospitalComment on above:Performed By: #### CBC #### [facility] [address] [place] [address] Dr. Christina Buck #0.02 10e3/ulNormal0.00-0.03The [facility]'S HospitalComment on above:Performed By: #### CBC #### [facility] [address] [place] [address] Dr. Christina Buck %0.2 %Normal0.0-0.5The [facility]'S HospitalComment on above: Performed By: #### CBC #### [facility] [address] [place] [address] Dr. Christina DiazH #2.4 103/ulNormal1.2-3.8The [facility]S HospitalComment on above:Performed By: #### CBC #### [facility] [address] [place] [address] Dr. Christina Lazcanomphocytes/100 WBC (Bld)26.2 %Mvqzhq69.5-60.0The [facility]S HospitalComment on above:Performed By: #### CBC #### [facility] [address] [place] [address] Dr. Christina OroscoUAL DIFF REQNONormalThe [facility]'S HospitalComment on above: Performed By: #### CBC #### [facility] [address] [place] [address] Dr. Christina Francois (RBC) [Entitic mass]29.5 gnCxtitz48.7-34.0The [facility]S HospitalComment on above:Performed By: #### CBC #### [facility] [address] [place] [address] Dr. Christina Francois (RBC) [Mass/Vol]31.8 g/tYEfpjlj26.9-35.2The [facility]S HospitalComment on above:Performed By: #### CBC #### [facility] [address] [place] [address] Dr. Christina Francois (RBC) [Entitic vol]92.8 oGPweaeu43.0-99.0The [facility]S HospitalComment on above:Performed By: #### CBC #### [facility] [address] [place] [address] Dr. Christina Coley #0.6 103/ulNormal0.3-0.8The [facility]S HospitalComment on above:Performed By: #### CBC #### [facility] [address] [place] [address] Dr. Christina Ottoocytes/100 WBC (Bld)6.7 %Normal1.7-12.0[facility] Comment on above:Performed By: #### CBC #### [facility] [address] [place] [address] Dr. Christina Hare #5.9 103/ulNormal1.4-6.5The [facility] HospitalComment on above:Performed By: #### CBC #### [facility] [address] [place] [address] Dr. Christina Mcgillutrophils/100 WBC (Bld)65.1 %Knnssx66.0-75.0The [facility]S HospitalComment on above:Performed By: #### CBC #### [facility] [address] [place] [address] Dr. Christina Traceylet mean volume (Bld) [Entitic vol]9.8 fLNormal9.5-13.5The [facility]S HospitalComment on above:Performed By: #### CBC #### [facility] [address] [place] [address] Dr. Christina CamarenaPLT228 103/aaYsgqmk709-468Vne [facility] HospitalComment on above: Performed By: #### CBC #### [facility] [address] [place] [address] Dr. Christina CamarenaRBC5.01 106/ulNormal4.20-5.40The [facility]S HospitalComment on above:Performed By: #### CBC #### [facility] [address] [place] [address] Dr. Christina CamarenaWBC9.1 103/ulNormal4.0-11.0The [facility]S HospitalComment on above: Performed By: #### CBC #### [facility] [address] [place] [address] Dr. Christina RandhawaID PROFILEon 92-80-9607LFEQ-HDL RATIO NORMSKettering Health – Soin Medical CenterComment on above:Result Comment: 3.3 - 4.4 LOW RISK 4.4 - 7.1 AVERAGE RISK 7.1 - 11.0 MODERATE RISK >11.0 HIGH RISKPerformed By: #### LIPID, CMP #### [facility] [address] [place] [address] Dr. Christina CamarenaCholesterol [Mass/Vol]172 mg/dLNormal<=200The [facility] Comment on above:Performed By: #### LIPID, CMP #### [facility] [address] [place] [address] Dr. Christina Kingesterol in HDL [Mass/Vol]55 mg/kACazurm63-20UevWayne Hospital on above:Performed By: #### LIPID, CMP #### [facility] [address] [place] [address] Dr. Christina CamarenaCholesterol in LDL [Mass/Vol]76.8 mg/dLNoProtestant Hospital on above:Performed By: #### LIPID, CMP #### [facility] [address] [place] [address] Dr. Christina Kingesterbebe.total/Cholesterol in HDL [Mass ratio]3.1 {ratio} NormalThe [facility] on above:Performed By: #### LIPID, CMP #### [facility] [address] [place] [address] Dr. Christina Schwartz NORMAL> or = 60 mg/dl - LOW CARDIOVASCULAR RISK <40 mg/dl - HIGH CARDIOVASCULAR RISKNoMemorial Health System Marietta Memorial HospitalCommary free bed rehabilitation hospital on above:Performed By: #### LIPID, CMP #### [facility] [address] [place] [address] Dr. Christina Alvarado CALC NORMALSEE BELOWMount Carmel Health SystemCommary free bed rehabilitation hospital on above:Result Comment: <100 mg/dl OPTIMAL 100 - 129 mg/dl NEAR OR ABOVE OPTIMAL 130 - 159 mg/dl BORDERLINE HIGH 160 - 189 mg/dl HIGH >190 mg/dl VERY HIGH Performed By: #### LIPID, CMP #### [facility] [address] [place] [address] Dr. Christina CamarenaTriglyceride [Mass/Vol]201 mg/dLCritically high<=150The [facility] on above:Performed By: #### LIPID, CMP #### [facility] [address] [place] [address] Dr. Christina CamarenaVLDL CALC40.2 mg/dLNoMemorial Health System Marietta Memorial HospitalCommary free bed rehabilitation hospital on above: Performed By: #### LIPID, CMP #### [facility] [address] [place] [address] Dr. Christina CamarenaPROF 14(COMP METB)on 26-83-6014Dguvawd [Mass/Vol]4.1 g/dLNormal 3.4-5.0The [facility] HospitalComment on above:Performed By: #### LIPID, CMP #### [facility] [address] [place] [address] Dr. Christina CamarenaAlbumin/Globulin [Mass ratio]1.1 {ratio}NormalThe [facility]'S HospitalComment on above:Performed By: #### LIPID, CMP #### [facility] [address] [place] [address] Dr. Christina BertrandP [Catalytic activity/Vol]99 U/SSjbvhd93-008Swi [facility] HospitalComment on above:Performed By: #### LIPID, CMP #### [facility] [address] [place] [address] Dr. Christina Adame [Catalytic activity/Vol]29 U/UGdotgg23-01Swc [facility] HospitalComment on above:Performed By: #### LIPID, CMP #### [facility] [address] [place] [address] Dr. Christina Stahl gap [Moles/Vol]13.7 mmol/LNormalThe [facility] Comment on above:Performed By: #### LIPID, CMP #### [facility] [address] [place] [address] Dr. Christina CamarenaAST [Catalytic activity/Vol]24 U/ZXxrcid79-76Cgm [facility] HospitalComment on above:Performed By: #### LIPID, CMP #### [facility] [address] [place] [address] Dr. Christina CamarenaBilirubin [Mass/Vol]0.5 mg/dLNormal0.2-1.0[facility] Comment on above:Performed By: #### LIPID, CMP #### [facility] [address] [place] [address] Dr. Christina CamarenaCalcium [Mass/Vol]9.4 mg/dLNormal8.5-10.1[facility] Comment on above:Performed By: #### LIPID, CMP #### [facility] [address] [place] [address] Dr. Christina CamarenaChloride [Moles/Vol]104 mmol/VEcjwld57-450Okc [facility] Comment on above:Performed By: #### LIPID, CMP #### [facility] [address] [address] [address] Christina CamarenaCO2 [Moles/Vol]25.4 mmol/YAgllkq12.0-32.0[facility] Comment on above:Performed By: #### LIPID, CMP #### [facility] [address] [place] [address] Dr. Christina CamarenaCreatinine [Mass/Vol]0.99 mg/dLNormal0.55-1.02The [facility] HospitalComment on above:Performed By: #### LIPID, CMP #### [facility] [address] [place] [address] Dr. Vasquez ChangEGFR-AF ZAMBIAN>60Normal>=60The [facility] HospitalComment on above:Performed By: #### LIPID, CMP #### [facility] [address] [place] [address] Dr. Christina ArguetaGFR-NON AF GKBXWMOB40 mL/min/1.27c6Tmstefleuz low>=60The [facility] HospitalComment on above:Performed By: #### LIPID, CMP #### [facility] [address] [place] [address] Dr. Christina CamarenaGlobulin (S) [Mass/Vol]3.8 g/dLNormalThe [facility] HospitalComment on above:Performed By: #### LIPID, CMP #### [facility] [address] [place] [address] Dr. Christina CamarenaGlucose [Mass/Vol]98 mg/qDBktttl46-624Unf [facility] Comment on above:Performed By: #### LIPID, CMP #### [facility] [address] [place] [address] Dr. Christina CamarenaPotassium [Moles/Vol]4.1 mmol/LNormal3.5-5.1[facility] Comment on above:Performed By: #### LIPID, CMP #### [facility] [address] [place] [address] Dr. Christina CamarenaProtein [Mass/Vol]7.9 g/dLNormal6.4-8.2[facility] Comment on above:Performed By: #### LIPID, CMP #### [facility] [address] [id number] [address] Christina CamarenaSodium [Moles/Vol]139 mmol/IXxpxwt922-209Jei [facility] Comment on above:Performed By: #### LIPID, CMP #### [facility] [address] [address] [address] Christina CamarenaUrea nitrogen [Mass/Vol]20.0 mg/dLCritically high7.0-18.0The [facility] HospitalComment on above:Performed By: #### LIPID, CMP #### [facility] [address] [address] [address] Christina Kearns nitrogen/Creatinine [Mass ratio]20.2 mg/mgNormalThe [facility]S HospitalComment on above:Performed By: #### LIPID, CMP #### [facility] [address] [address] [address] Christina Whelan Summary.on 50-17-0945Abghou Summary. CD:[id number]:[id number]+PGhlYWQ+WI9HTFVcG00wjFNekD6KG2nQLD0FVLLQNSQDTE2GDA4ok KP5WPjaP4SzbzJt [file] LWNv (more content not included)...NormalPike Community HospitalPhysician Orderon 44-79-8580Xvcipppzj Order [id number]:127NoSt. John of God [facility] Vital Signs Date TimeVital SignValuePerforming HwusliimuCxvtexuo70-47-1534 08:57-0400Body eincge246.48 cmKami Smith MD Work Phone: [facility]09-12-2025 08:57-0400 Body mass index (BMI) [Ratio]33.3 kg/t3RbgfuvKami Smith MD Work Phone: [phone]09-12-2025 08:57-0400 Body qlmofj36.55 kgKami Smith MD Work Phone: [phone]71[facility]09-12-2025 08:57-0400 Diastolic blood pbhznoht20 mm[Hg]Kami Smith MD Work Phone: [phone]09-12-2025 08:57-0400 Heart rate65 /Pawel Smith MD Work Phone: [phone]09-12-2025 08:57-0400 Respiratory rate12 /Pawel Smith MD Work Phone: [phone]09-12-2025 08:57-0400 SaO2% (BldA) [Mass fraction]98 %Kami Smith MD Work Phone: [phone]09-12-2025 08:57-0400 Systolic blood wmdfugie371 mm[Hg]Kami Smith MD Work Phone: [phone]10-21-2024 14:25-0400 Body gnfdob185.48 cmCherrington Hospital10-21-2024 14:25-0400Body mass index (BMI) [Ratio]31.2 kg/v5WfbzerjvzC[facility]rington Hospital10-21-2024 14:25-0400Body acipcvmtsil93 [degF][facility]10-21-2024 14:25-0400Body autako65.56 kgC[facility]rington Hospital10-21-2024 14:25-0400Diastolic blood gpaeuvcf11 mm[Hg][facility] 06-14-2024 14:25-0400Heart rate77 /[facility] 06-14-2024 14:25-9614JkJ5% (BldA) [Mass fraction]94 %[facility]10-21-2024 14:25-0400Systolic blood kstsvqiq496 mm[Hg][facility]09-09-2024 10:03-0400Body aywbhp953.48 cmC[facility]rington Hospital09-09-2024 10:03-0400Body mass index (BMI) [Ratio]31.2 kg/m2 [facility]09-09-2024 10:03-0400Body ewyohu66.56 kg [facility]09-09-2024 10:03-0400Diastolic blood xqseikmu53 mm[Hg][facility]09-09-2024 10:03-0400Heart rate62 /min [facility]09-09-2024 10:03-0400Systolic blood hiaydgsn466 mm[Hg][facility]09-07-2023 10:00-0400Body tgjyyl883.02 cmKami Smith Other [employer] Other 09-07-2023 10:00-0400Body mass index (BMI) [Ratio] 29.33 kg/h6OajbdzKami Smith Other [employer] Other 09-07-2023 10:00-0400Body rrjtin94.12 kgKami Smith Other [employer] Other 09-07-2023 10:00-0400Diastolic blood wmoymsto07 mm[Hg] Kami Smith Other [employer] Other 09-07-2023 10:00-0400Systolic blood dmbktgdi915 mm[Hg] Kami Smith Other [employer] Other Encounters Encounter DateEncounter TypeCare ProviderFacilityStart: 05-06-2025 End: 13-25-4366vhbsyyecdxOnwmdh E Braun MD Work Phone: [facility] Work Phone: Start: 05-06-2025 End: 93-03-2046Ovcduyu encounter procedureKami Smith MD-[facility] Work Phone: Start: 04-26-2025 End: 29-01-4890kvhjahwxbhLHPW [facility]tart: 04-13-2025 End: 76-07-5436Exevcc flowsGeorgette OGDEN Work Phone: [facility]Start: 04-13-2025 End: 74-56-8816Envoqf flowsGeorgette OGDEN Work Phone: [facility]edicsStart: 04-13-2025 End: 29-08-0757Oczddv outpatient visit 15 minutesMaelvi OGDEN Work Phone: [facility] OrthopaedicsComment on above:Finger pain, right (Primary Dx); Trigger middle finger of right handStart: 04-13-2025 End: 84-46-5542yurlborfafRVCXGXN J MEYERNot AvailableStart: 02-18-2025 End: 48-37-8750jglxbmqxczRMEL SNSouthview Medical Centertart: 01-24-2025 End: 37-68-3740Almqckd encounter procedureAt[facility] Work Phone: Start: 01-24-2025 End: 97-79-1011knwfymrhfjMqvslb E [facility] Work Phone: Start: 01-24-2025 End: 99-93-2935Qiuydmlb Miranda Smith MD Work Phone: [facility] [place] Work Phone: Start: 31-90-1655umjavgmlfvKVQZ [facility]: 01-20-2025 End: 12-33-3256dwosqiwqtnQLDG [facility]: 01-04-2025 End: 76-24-9620fsphfuwrgwXDTPMedina Hospitaltart: 11-02-2024 End: 84-24-4227wvybixpkazKSKP [facility]: 10-13-2024 End: 44-04-5735oejcruwfswOPGIAThe Christ Hospitaltart: 08-13-2024 End: 75-26-3457dgysupjofmUYIGLThe Christ Hospitaltart: 08-05-2024 End: 85-74-7783tpzykafsqtNFQPVR [facility]: 07-14-2024 End: 98-72-3644Rjtmub flowsheetJr. Kelly Ospina DO Work Phone: [facility] SWS ORTHOStart: 07-14-2024 End: 46-24-0090Ztggnv flowsheetJr. Kelly Ospina DO Work Phone: [facility] ORTHOStart: 07-14-2024 End: 32-52-9700Oveogm outpatient visit 25 minutesJr. Kelly Ospina DO Work Phone: [facility] SWS ORTHOComment on above:Cyst of joint of right hand (Primary Dx)Start: 07-14-2024 End: 89-27-6960kvidhslizeEI., KELLY OSPINANot AvailableStart: 07-09-2024 End: 17-47-6142ycrswewmbuOCU [facility] Work Phone: Start: 07-09-2024 End: 79-16-9991Mywwkfp encounter [facility] Work Phone: Start: 07-05-2024 End: 11-24-5845cvzyxssqjaSMTNW B APLINGNot AvailableStart: 06-28-2024 End: 95-36-9148Klnorr flowsheetMaria B Apling STUDENT UNION CONSULTANT Work Phone: [facility] ORTHOPAEDICSStart: 06-28-2024 End: 00-61-7151Yuwavh flowsheetMaria B Apling STUDENT UNION CONSULTANT Work Phone: [facility] ORTHOPAEDICSStart: 06-28-2024 End: 52-16-7450Rjzxxx outpatient visit 15 minutesMaria B Apling STUDENT UNION CONSULTANT Work Phone: [facility] CI ORTHOPAEDICSComment on above:Swelling of right hand (Primary Dx); Right hand pain; Cyst of joint of right handStart: 06-28-2024 End: 92-91-5085tqdkicvzbmIMWPM B APLINGNot AvailableStart: 06-14-2024 End: 58-84-7751mojlnjojazLWG [facility] Work Phone: Start: 06-14-2024 End: 16-48-6424Betgyhu encounter procedureAt[facility] Work Phone: Start: 01-18-2642Bai-patient / Non-visitAtrium Health [facility] Phys[facility] Work Phone: Start: 66-83-8048Nuqolmh encounter procedurePremier Health [facility] Hospital Northtart: 05-03-2024 End: 88-83-8120ttypritqwiJZROhioHealth Sout[facility] Work Phone: Start: 05-03-2024 End: 88-48-8868Ykrskil encounter procedureAtrium Health [facility] Work Phone: Start: 05-15-2023 End: 56-92-0355ocdubvldjhRrpkjm Braun Other [employer] Other Start: 57-46-2200Wsaxsxfka encounterMarcia [facility] Hospitaltart: 05-01-2023 End: 35-21-3160olupbomkjrXjttpr Luis Other [employer] Other Start: 84-42-7616Ryqhguc encounter procedureMarcia [facility] Hospitaltart: 06-26-2022 End: 02-49-5566tbfkbsqipmMD LOTUS Chester WESTFacility:U7Asibc: 05-13-2022 End: 28-67-3462amernxhfmjTC KAMI Montes BRAUNFacility:H1 Procedures DateProcedureProcedure DetailPerforming ClinicianStart: 86-69-3417Sjelvkasu 1 tendon sheath/ligament aponeurosisMatthew Jose OGDEN Work Phone: Start: 73-22-3875Jouxt hand minimum 3 viewsMaria B Jan FRANCOIS Work Phone: Plan of Treatment DateCare ActivityDetailAuthorStart: 42-23-6664Qsylujcaq vaccinationInfluenza Vaccine (#1)[facility] HealthcareStart: 04-13-2025 End: 41-63-8269Pegajpq encounter honknwpbl50/20/2025 10:45 AM EDT Office Visit [facility] [address] [place] [address] Leanna Ivan PA [address] [place] [address] Finger pain, right (Primary Dx)[facility] Comment on above:Finger pain, right (Primary Dx)Start: 23-58-1078Kwesbmli identified in Urine by CultureAdena [facility]ike [facility] Start: 01-24-2025 End: 61-32-1406DhhztMiddletown Hospitaltart: 07-14-2024 End: 45-78-7668Kskixol encounter procedureNOMS SWS ORTHOComment on above:Arrived Start: 07-05-2024 End: 21-08-4160Beoadnhfktwj / ancillary services ztcuegxuyt06/11/2024 8:30 AM EST Ancillary Procedure [facility] [address] [place] [address] [facility] FNR MRStart: 06-28-2024 End: 80-08-4948Hucihxdxmy [Mass/volume] in Serum or PlasmaCreatinine, Serum Lab Routine Swelling of right hand Right hand pain Expected: 06/28/2024 (Approxima te), Expires: 06/28/2025[facility] HealthcareComment on above:Expected: 06/28/2024 (Approximate), Expires: 06/28/2025Start: 06-28-2024 End: 74-44-1966ON Hand - right WO and W contrast IVMR hand right w and wo IV contrast Imaging Routine Swelling of right hand Right hand pain Expected: 06/28/2024 (Approximate), Expires: 06/28/2025[facility] Work Phone: Comment on above:Expected: 06/28/2024 (Approximate), Expires: 06/28/2025Start: 06-28-2024 End: 99-55-7526Mcosjch encounter /04/2024 8:00 AM EST Office Visit [facility] [address] [place] [address] Jannet Montoya NP [address] [place] [address] Swelling of right hand (Primary Dx)[facility] CI ORTHOPAEDICSComment on above:Swelling of right hand (Primary Dx)Start: 51-03-3002NLU 12 channel [facility] Hospitaltart: 04-25-2024 Influenza vaccinationInfluenza Vaccine (#1)[facility] HealthcareStart: 04-20-2020 Pneumococcal Vaccine: 65+ Years (2 of 2 - PPSV23)Pneumococcal Vaccine: 65+ Years (2 of 2 - PPSV23)NOM HealthcareStart: 79-55-6123Odpemdfpx for malignant neoplasm of breastMammogramNOMS HealthcareStart: 97-23-8607Xujkhviur for malignant neoplasm of colonNOMS HealthcareComprehensive metabolic 1999 panel - Serum or PlasmaCherrington HospitalComprehensive metabolic 1999 panel - Serum or PlasmaCherrington HospitalHolter monitor study [facility] HospitalMG Breast - bilateral ScreeningOrlando Health [facility] Immunizations Immunization DateImmunizationNotesCare MakegwgiQvdyhxwx57-64-6159dwrjtrbvk, high dose seasonal, preservative-freeKami Smith MD Work Phone: [facility]11-15-2024influenza, high dose seasonal, preservative-freeC[facility]rington Hospital11-15-2024 influenza virus vaccine, unspecified formulationMatthew Ivan PA Work Phone: [facility] CenterXjeitlzibg23-73-3846dhdqjurxc virus vaccine, unspecified formulationC[facility] Hospital09-07-2023influenza, high dose seasonal, preservative-freeKami Smith Other [employer] Other 10501633-73-7916IRRQP-59 Pfizer (Pediatric)Kami Smith Other [facility]10-31-2022influenza virus vaccine, split virus (incl. purified surface antigen)Kami Smith Other [employer] Other [id number] virus vaccine, unspecified formulationC[facility] Hospital03-23-2021COVID-19 Vaccine Pfizer - Documentation Purposes OnlyKami Smith Other [facility]09-02-2020influenza virus vaccine, split virus (incl. purified surface antigen)Kami Smith Other [employer] Other 09196841-72-6069shcpgtqwa virus vaccine, unspecified formulationC[facility]rington Hospital09-02-2020pneumococcal polysaccharide vaccine, 23 valentYazmina Smith Other [facility]08-27-2019 pneumococcal conjugate vaccine, 13 valentLindacia Smith Other [facility] Payers DatePayer CategoryPayerPolicy [id number] Health InsuranceSELECT MEDICAL SPECIALTY [facility]CAL M[facility]UAL Member Subscriber Plan / Payer (Effective 2022- Present) Name: Porfirio Fernandes Relation to Subscriber: Self Name: Porfirio Fernandes Payer ID: Not on file Type: Not on file Address: [address] [place], [place] [id number] 2017MedicareMEDICARE Member Subscriber Plan / Payer (Effective 2017- Present) Name: Porfirio Fernandes Member ID: [id number] Relation to Subscriber: Self Name: Porfirio Fernandes Subscriber ID: [id number] Payer ID: STATE Group ID: Not on file Type: Medicare Address: [facility] [place] [id number] 1960Medicare [id number] 2..1.171438.3.57[id number] 2..1.647254.3.57[id number] 2..1.470560.3.57[id number] 2..1.293027.3.57[id number] 2..1.813381.3.57[id number] 2.0.1.993395.3.57[id number] 2.0.1.96[id number] 2.0.1.191839.3.579.2.531 [id number] 2.0.1.441225.3.579.2.531 Social History DateTypeDetailFacilityStart: 07-28-2023 End: 05-85-7225Dfe Assigned At [facility] [employer] Other Start: 01-30-2023 End: 00-13-4854Rktxaib smoking status NHISNever smoked tobacco (finding) [facility] Northtart: 50-76-6584Jjm Assigned At [facility] University CityFeHarrison Community Hospitaltart: 14-43-0449Xikpyfl use and exposure Smokeless tobacco non-userNOMS HealthcareStart: 07-28-2023 End: 70-48-3754Yrxdbcdwi beverage intakeEx-drinker (finding)[facility] Start: 07-28-2023 End: 71-63-7215Kijdhuo of Social functionNONY HealthcareStart: 27-74-7610Ium assigned at birthNot on fileMCKAY-DEE HOSPITAL CENTER HealthcareStart: 07-09-2024 End: 68-49-3399GriDpcfqq (finding)[facility] Clinical Notes 05-01-2023 to 04-26-2025 Note Date & MumfJqgoLtgtkxve30-29-0641 NoteUT Electrophysiology Consult Note [place] [facility] Reason for visit: Afib 04/26/2025 [...] pacemaker and grandmother had a stroke and CA PMH: Past Medical History: Diagnosis Date Abnormal [...] trachea midline Carotid Arteri (more content not included)...[facility] 04-13-2025 History of Present illness Narrative* ALIN Bruner - 04/13/2025 10:45 AM EDTAssociated Order(s): Tendon Sheath Inj (CPT 77345 Only): R long A1 Post-Procedure Diagnose(s): Trigger middle finger of right hand Images from the original note were not included. Orthopedic Office note: NAME: Porfirio Fernandes : 1950 EST PT WITH NEW C/O [...] and mobile, consistent with a possible lipoma, ispresent along the head, neck region, palmar aspect of the fifth metacarpal ray. Middle finger showscatching and locking at the A1 eduin, palpable. [...] This Encounter Procedures Tendon Sheath Inj (CPT 68058 Only): Whitney Stroud This order was created via procedure documentation Tendon Sheath Inj (CPT 93468 Only): Whitney Stroud on 04/13/2025 11:24 AM [...] right hand M65.331 Tendon Sheath Inj (CPT 03065 Only): Whitney Stroud Assessment & Plan Right hand trigger finger, right middle finger Symptoms have recently returned after a tendon sheath injection approximately 9 months ago. Pain and catching are worse in the mornings. She is requesting a cortisone injection today given the reliefexperienced in the past and is not yet [...] requiring urgent evaluation. Visit was preformed using [employer]-airline pilot/first officer speech recognition. documented in this encounterMercy Hospital South, formerly St. [facility]'s Medical CenterCgkxvfqvyf79-35-4341 NoteSUBJECTIVE Reason for Visit: Porfirio Fernandes is a [...] pacemaker and grandmother had a stroke and CA She is status post A-fib ablation 01/20/[address] Nixon 02/18/2025 office visit: Patient seen and evaluated [...] 01/20/2025 392 QTC CALCULATION(BAZETT) 01/20/2025 425 P York 01/20/2025 107 R-York 01/20/2025 36 T Wave York 01/20/2025 42 Glucose POC 01/20/2025 100 Ventricular Rate 01/20/2025 60 Atrial Rate 01/20/2025 60 MS Interval 01/20/2025 168 QRS DURATION 01/20/2025 90 QT Interval 01/20/2025 436 QTC CALCULATION(BAZETT) 01/20 (more content not included)...[facility]06-27-2025 NotePatient here s/p A-fib ablation. Patient states she is doing well. Review of Systems Constitutional: Negative.[facility]06-06-2025 NotePt has nina. Will stop amioUnAdena [facility]ayette Medical Center06-02-2025 Evaluation note* Diagnosis Onset Date Resolution Status Admit Date Dysuria acuteJune 2024 9:44am [facility] Work Phone: 1(370) 178-754005-29-2025 NotePatient: Deepika Fernandes Procedure Summary Date: 01/20/25 Room / Location: [facility] STAKES PLAYER 1 EP / [facility] HV VASCULAR LAB (Cath) Anesthesia Start: 826 Anesthesia Stop: 1158 Procedure: Ablation a-fib paroxysmal Diagnosis: Paroxysmal atrial fibrillation (CMS/HCC) (Paroxysmal atrial fibrillation (CMS/HCC) [I48.0]) Providers: Timi Nixon MD Responsible Provider: Constantin Crockett MD Anesthesia [...] were no known notable events for this encounter.[facility]05-29-2025 NoteATRIAL FIBRILLATION ABLATION PROCEDURE NOTE DATE OF PROCEDURE: 01/20/2025 PERFORMING PHYSICIAN: Dr. Timi Nixon MARKET SUPERINTENDENT: TOMMIE CONSENT: Patient NAME OF THE PROCEDURE: [...] Posterior wall isolation w (more content not included)...[facility]05-29-2025 Note Arterial Line: Date/Time: 01/20/2025 8:14 AM [...] procedure well with no complications. Staffing Performed: resident/AIR POLLUTION AUDITOR/CAA and anesthesiologist Anesthesiologist: Constantin Crockett MD Resident/AIR POLLUTION AUDITOR: Cindy Sparks MD Performed by: Cindy Sparks MD Authorized by: Constantin Crockett MDMercy Memorial Hospital05-29-2025 NoteAirway Date/Time: 01/20/2025 8:48 AM Urgency: elective Airway not difficult General Information and Staff Patient location during procedure: [place] Anesthesiologist: Constantin Crockett MD Resident/AIR POLLUTION AUDITOR/CAA: Cindy Sparks MD Performed: resident/AIR POLLUTION AUDITOR/CAA Indications and Patient Condition Indications for airway [...] approach: 1 Number of other approaches attempted: 0UnAdena F[facility] Medical Center 01-20-2025 NotePatient: Deepika Fernandes Procedure Information Date/Time: 01/20/25 0830 Procedure: Ablation a-fib paroxysmal Location: [facility] STAKES PLAYER 1 EP / [facility] HVC VASCULAR LAB (Cath) Providers: Timi Nixon MD Relevant Problems Anesthesia (+) Obstructive sleep [...] products. Plan discussed with attending. Additional Equipment RequestsMercy Memorial Hospital05-13-2025 Note [place] [facility] Consult [place] [facility] Reason for visit: Afib 01/04/25 Patient [...] pacemaker and grandmother had a stroke and CA PMH: Past Medical History: Diagnosis Date Abnormal [...] HDL , LDL CALC (more content not included)...[facility]03-11-2025 NoteUT Electrophysiology Consult Note [place] [facility] - [facility] Reason for visit: Afib HPI: [...] pacemaker and grandmother had a stroke and CA PMH: Past Medical History: Diagnosis Date Abnormal [...] rhythm with premature supraventricular (more content not included)...[facility]02-19-2025 Note [place] [facility] Note Reason for cardiology [...] pacemaker and grandmother had a stroke and CA ROS: All systems were reviewed and they [...] TSH 2.66 Last Images: (more content not included)...[facility]01-06-2025 Note Patient called back and said she'd like to go with Xarelto. RX printed and faxed into [employer].[facility]12-20-2024 Note [place] [facility] Note Reason [...] pacemaker and grandmother had a stroke and CA Cardiology ROS: GENERAL: Denies fever, chills, night [...] and left upper ext (more content not included)...[facility]12-12-2024 NoteOrthopaedic Surgery Subjective Pain of the Right [...] years. 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 wrist extension/flexion [...] to verify the correct patient, procedure, equipment, client support representative and site/side marked as required. Patient was [...] may be an additional personal documentation from me.[facility]12-12-2024 NotePatient ID: Porfirio Fernandes is a 74 [...] to verify the correct patient, procedure, equipment, client support representative and site/side marked as required. Procedure Attestation Level of Attending Supervision for Procedure I was present for the frey and critical portions and I was otherwise immediately available to assistUnAdena [facility] Medical Center11-20-2024 History of Present illness Narrative* Jr. Kelly Ospina, - 07/14/2024 1:00 PM EST Images from the original note were not included. HISTORY OF PRESENT ILLNESS: EST PT Porfirio Fernandes is an 74 y.o. @ female. (EST PT ; LAST APPT W/ MOR) RECHECK (R) HAND CYST ; HERE FOR MRI RESULTS 07/05/24 IN [facility] XRAYS 06/28/24 IN [facility] MRI 07/05/24 IN [facility] NO MDP / PREDNISONE NO CORTISONE [...] for requiring urgent evaluation. documented in this encounterMercy Hospital South, formerly St. [facility]'s [facility] [id number] History of Present illness Narrative* Jannet Montoya, ALESSANDRO - 06/28/2024 8:00 AM EST Images from [...] noted. Impression [facility] arthritis Jannet Montoya MICROPALEONTOLOGIST Assessment/Plan Encounter Diagnoses: ICD-10-CM 1. Swelling of [...] f/u s/p MRI to be done at [facility] [place] documented in this encounterMercy Hospital South, formerly [facility] [id number] Evaluation note* Diagnosis Onset Date Resolution Status Admit Date Dyslipidemia acuteSept2023 9:55amEssential hypertensionacuteSept2023 9:55amMedicare annual wellness visit, subsequentacuteSept2023 9:55am PalpitationsacuteSept2023 9:55amScreening mammogram for breast cancer acuteSept2023 9:55amMaxillary sinusitis, acuteacuteOctober 2023 2:21pm [facility] Work Phone: [phone]) 778-466409-07-2023 Evaluation note* Encounter Date Diagnosis Assessment Notes [...] reviewed and amended by provider signed below. Apr,yslipidemia (ICD-10 - E78.5)Chronic problem, due for labs Apr,Essential hypertension (ICD-10 - I10)Chronic problem, due for labs Apr,Screening mammogram for breast cancer (ICD-10 - Z12.31) [facility] Other Evaluation noteNo InformationNortMain Line Health/[facility] Other Evaluation note* Diagnosis Onset Date Resolution Status Dyslipidemia acuteEssential hypertensionacutePalpitationsacuteScreening mammogram for breast canceracute [facility] Work Phone: Evaluation note* Diagnosis Onset Date Resolution Status Dyslipidemia acuteEssential hypertensionacuteMedicare annual wellness visit, subsequentacute PalpitationsacuteScreening mammogram for breast canceracute [facility] Work Phone: Evaluation note* Diagnosis Onset Date Resolution Status Dyslipidemia acuteEssential hypertensionacuteMedicare annual wellness visit, subsequentacute PalpitationsacuteScreening mammogram for breast canceracuteMaxillary sinusitis, acuteacute [facility] Work Phone: Evaluation note* Diagnosis Swelling of right hand- Primary Right hand pain Pain in soft tissues of limb Cyst of joint of right hand [facility] Diagnosis Cyst of joint of right hand- Primary [facility]* Diagnosis Onset Date Resolution Status Admit Date Dysuria acuteJune 2024 9:44am [facility] Work Phone: Evaluation note* Diagnosis Finger pain, right- Primary Pain in soft tissues of limb Trigger middle finger of right hand [facility] Diagnosis Onset Date Resolution Status Admit Date Dyslipidemia acuteSeptember 2024 8:53amElevated glucoseacuteSeptember 2024 8:53am Essential hypertensionacuteSeptember 2024 8:53amMedicare annual wellness visit, subsequentacuteSeptember 2024 8:53am [facility] Work Phone: History general Narrative - Reported* Type Description Date Medical History Dyslipidemia Medical HistoryEssential hypertensionMedical HistoryMajor depressive disorder without psychotic featuresMedical HistoryPersonal history of malignant melanoma of skinSurgical HistoryCholecystectomySurgical HistoryWide excision of Melanoma 2013Surgical HistoryD&CHospitalization Historysee surgical hx [employer] Other History general Narrative - Reported* Type Description Date Surgical History Cholecystectomy Surgical HistoryWide excision of Melanoma 2013Surgical HistoryD&CHospitalization Historysee surgical hx [employer] Other Reason for referral (narrative)No reason for referral information availableMer[facility] Work Phone: Summary Purpose Family History Relationship Condition Age at Onset Recorded Date/T smiley mother Family history of thyroid disease Unknown History of strokeUnknown Advance Directives Advance Directive Response Recorded Date/ [...] breast cancer Chief Complaint wellness R00.2 head congestionReason for VisitDyslipidemia Essential hypertension Medicare annual wellness visit, subsequent [...] section and content) DATE CREATED AUTHOR 03/13/2022 [facility] DATE CREATED AUTHOR AUTHOR'S ORGANIZ ATION 07/30/2022 [facility] DATE CREATED AUTHOR AUTHOR'S ORGANIZ ATION 07/05/2024 [facility] DATE CREATED AUTHOR AUTHOR'S ORGANIZ ATION 02/01/2025 [facility] DATE CREATED AUTHOR AUTHOR'S ORGANIZ ATION 04/15/2025 [facility] EPIC DATE CREATED AUTHOR AUTHOR'S ORGANIZ ATION 04/26/2025 [facility] REASON FOR VISIT (unrecogniz ed section and content) ReasonCommentsPainReasonCommentsPain Care Teams (unrecognized sec tion and content) Team Status: Active Member Role Status Dates NON STAFF Primary Care Provider Active Team Status: Inactive Member Role Status Dates NON STAFF Primary Care Provider Active Start: May 03, 2024 End: May 03, 2024Linnea Ko ProviderActiveStart: May 03, 2024 End: May 03, 2024 Team Status: Active Member Role Status Dates NON STAFF Primary Care Provider Active Start: May 03, 2024 Linnea Ko ProviderActiveStart: May 03, 2024 Team Status: Active Member Role Status Dates NON STAFF Primary Care Provider Active Start: May 06, 2024 Melchor Regan ProviderActiveStart: May 06, 2024 Team Status: Inactive Member Role Status Dates NON STAFF Primary Care Provider Active Start: June 14, 2024 End: June 14, 2024Karis Pearl APRN [employer]ENT [employer] CONSULTANT-CAttending ProviderActive Start: June 14, 2024 End: June 14, 2024Team MemberRelationshipSpecialtyStart DateEnd Date Kami Smith MD [address] [place] [phone] PCP - GeneralFamily Medicine01/17/23Team MemberRelationshipSpecialtyStart DateEnd Date Kami Smith MD [address] [place] [facility] [place] [address] PCP - Generalmily Medicine01/17/23 Team Status: Inactive Member Role Status Dates NON STAFF Primary Care Provider Active Start: July 09, 2024 End: July 09, 2024Linnea Ko ProviderActiveStart: July 09, 2024 End: July 09, 2024Team MemberRelationshipSpecialtyStart DateEnd Date Kami Smith MD [address] [place] [facility] [place] [phone] PCP - GeneralFamily Medicine01/17/23Team MemberRelationshipSpecialtyStart DateEnd Date Kami Smith MD [address] [place] [facility] [place] [phone] [facility]01/17/23 Team Status: Inactive Member Role Status Dates NON STAFF Primary Care Provider Active Start: January 24, 2025 End: January 24, 2025Linnea Ko ProviderActiveStart: January 24, 2025 End: January 24, 2025 Team Status: Inactive Member Role Status Dates Kami Smith MD Attending Provider Active St art: January 24, 2025 End: January 24, 2025Team MemberRelationshipSpecialtyStart DateEnd Date Kami Smith MD [address] [place] [facility] [place] [phone] PCP - GeneralFamily Medicine04/13/25 Sepideh Wu DO [address] [place] [address] Referring PhysicianNeurolog09/17/24Team MemberRelationshipSpecialtyStart DateEnd Date Kami Smith MD [address] [place] [address] PCP - GeneralFamily Medicine04/13/25 Sepideh Wu DO [address] [place] [address] Referring PhysicianNeurolog09/17/24 Team Status: Active Member Role Status Dates Kami Smith MD Primary Care Provider Active Team Status: Inactive Member Role Status Dates Kami Smith MD Primary Care Provider Active Start: May 06, 2025 End: May 06, 2025Marjada Smith MDAttending ProviderActiveStart: May 06, 2025 End: May 06, 2025 [...] BE BASED ON THE PRIMARY CLINICAL RECORDS. [facility]. provides no warranty or guarantee of the accuracy or completeness of information in this document.
--- NOTE | 2025-06-30 10:45 | MM_ITS ---
Patient Name: PORFIRIO LAWSON MR#: [id number] : 1950 Exam Date: 06/30/2025 Ordering Doctor: DR KAMI SMITH M.D. RADIOLOGY REPORT PROCEDURE: MM TOMOSYNTHESIS SCREENING BI COMPARISON: MM TOMOSYNTHESIS SCREENING BI, 06/29/2024. MM TOMOSYNTHESIS SCREENING BI, 06/27/2023. MG MAMM SCREEN 3D EVAN CAD, 06/26/2022. MG MAMM EVAN SCRN W CAD DIG, 03/18/2013. INDICATIONS: Screening Calculator Name NCI Breast Cancer Risk Assessment Tool 5 Year Breast Cancer Risk 1.90% Lifetime Breast Cancer Risk 4.60% Personal Breast Cancer No Personal Ovarian Cancer No Treatments None Family Cancers None LOCATION: [facility] BREAST COMPOSITION: The breasts are heterogeneously dense, which may obscure small masses. FINDINGS: RIGHT BREAST: No significant suspicious finding. Benign-appearing lymph nodes are noted along the right chest wall. Benign-appearing calcifications are present. LEFT BREAST: There is a new 7 mm focal asymmetry in the left breast 7 cm from the nipple at the junction of middle and posterior depth slightly inferiorly at the 6 to 7 o'clock position . Benign-appearing calcifications are present. There is a similar biopsy clip in the left breast. DIAGNOSTIC CATEGORY 0--INCOMPLETE: NEED ADDITIONAL IMAGING EVALUATION. RECOMMENDATIONS: ADDITIONAL MAMMOGRAPHIC VIEWS REQUIRED: LEFT BREAST - spot LS views of the left breast with ultrasound if necessary is recommended. Dictated by: Kody Corey MD on 06/30/2025 at 13:41 Approved by: Kody Corye MD on 06/30/2025 at 13:51
== END 2025-06-30 10:10 | disposition home or self-care (01) ==
LOC: MAMMO 10:09
PROVIDERS: PCP Family Medicine; Visit Provider Family Medicine
DX: Z12.31 Encounter for screening mammogram for malignant neoplasm of breast (principal); Z78.0 Asymptomatic menopausal state; R92.8 Other abnormal and inconclusive findings on diagnostic imaging of breast; M85.88 Other specified disorders of bone density and structure, other site
CPT/HCPCS: 77063; 77067; 77080

== ENCOUNTER 2025-07-19 09:37 | Outpatient (OUT) | payer MEDICARE, OTHER, SELFPAY ==
--- NOTE | 2025-07-19 09:41 | US_ITS ---
Patient Name: PORFIRIO LAWSON MR#: [id number] : 1950 Exam Date: 07/19/2025 Ordering Doctor: DR KAMI SMITH M.D. RADIOLOGY REPORT PROCEDURE: US BREAST LT LIMITED, 07/19/2025, 10:26 MM TOMOSYNTHESIS DIAGNOSTIC LT, 07/19/2025, 09:43 COMPARISON: Mammogram June 30, 2025 as well as others. INDICATIONS: Abnormal Mammogram TECHNIQUE: Breast ultrasound was performed, with evaluation focusing only on specific areas of concern. FINDINGS: The left breast is composed of scattered fibroglandular densities. The previously identified focal asymmetry partially compresses out on the spot compression views. Ultrasound at the 6 o'clock position of the left breast approximately 3.6 cm from the nipple demonstrates a simple appearing cyst measuring 6 x 5 x 4 mm straight no solid component. DIAGNOSTIC CATEGORY 2--BENIGN FINDING: RECOMMENDATIONS: ROUTINE MAMMOGRAM AND CLINICAL EVALUATION IN 12 MONTHS. PLEASE NOTE: A NORMAL ULTRASOUND EXAMINATION DOES NOT EXCLUDE THE POSSIBILITY OF BREAST CANCER. A CLINICALLY SUSPICIOUS PALPABLE LUMP SHOULD BE BIOPSIED. Dictated by: Davion Blas DO on 07/19/2025 at 10:41 Approved by: Davion Blas DO on 07/19/2025 at 10:47
--- OUTSIDE RECORDS SUMMARY | 2025-07-19 09:42 | XMS_ITS | CCD ---
Author Organization [facility] Care Team Providers Care Group Sales Coordinator Name Role Phone WEST, DR LOTUS Chester [...] Care Provider UnavailMD Kami Mendoza Attending Provider [phone] Kami Smith MD Primary Care Provider NON STAFF Primary Care Provider UnavailKami Mendoza MD Attending Provider Kami Smith MD Attending Provider [phone] Kami Smith Admitting Unavailable Kami Smith Attending [...] mg oral tablet (20 sources)HMG-CoA Reductase InhibitorStart: 65-24-3773Oixlqbeoihie 20 mg tablet Active 0 .ROUTE .COMPLEX May 04, 2024 8:36am TAKE 1 TABLET EVERY DAY Complies with drug therapyStart: 23-58-2467Vlhyuicykeuz 20 mg tablet Active 0 .ROUTE .COMPLEX May 04, 2024 8:36am TAKE 1 TABLET EVERY DAY Start: 48-15-8269Lvjdbaylpbng 20 mg tablet Active 0 .ROUTE .COMPLEX May 04, 2024 7:36am TAKE 1 TABLET EVERY DAYStart: 06-17-2190Zpdjkqaaklay Active 0 .ROUTE .COMPLEX May 04, 2024 8:36am TAKE 1 TABLET EVERY DAYStart: 05-03-2024 End: 43-93-8321fujf 1 tablet by mouth once dailyAtorvastatin 20 mg tablet Discontinued 1 TAB PO Daily May 03, 2024 12:00am May 04, 2024 8:36am FreeTextSi tablet Orally Once a day; Note: Source Status: Refill; Refills: 3; Qty: 90Tablet; Provider: Luis Olgesby Ecalcium carbonate 1250 mg / cholecalciferol 0.01 mg chewable tablet (9 sources)Vitamin DCalcium Carb-Cholecalciferol (Calcium + Vitamin D3) 500-10 MG-MCG chewable tablet Calcium + VitaminD3 ActiveFish Oils (9 sources)take 1 capsule by mouth every twelve hoursomega-3 (Fish Oil) 500 MG capsule 1 capsule every 12 (twelve) hours. Activefluticasone propionate 0.05 mg/actuat metered dose nasal spray (5 sources)CorticosteroidStart: 03-12-7357ekey 1 spray(s) nasal route twice dailyFluticasone Propionate (Flonase Allergy Relief) 50 mcg/actuation spray,suspension Active 1 SPRAY INTRANASAL Twice daily June 14, 2024 12:00am administer into each nostril Complies with drug therapylisinopril 5 mg oral tablet (20 sources)Angiotensin Converting Enzyme InhibitorStart: 36-53-2083kjbo 1 tablet by mouth once dailyLisinopril 5 mg tablet Active 5 MG PO Daily May 06, 2025 12:00am Complies with drug therapyStart: 07-11-2022 End: 07-94-3146hexp 1 tablet by mouth once dailyLisinopril 20 mg tablet Discontinued 20 MG PO Daily May 03, 2024 12:00am July 20, 2024 3:15pm FreeTextSig: TAKE 1 TABLET EVERY DAY; Note: Source Status: Start; Refills: 3; Qty: 90 Tablet; Provider: Luis Oglebsy ( )lisinopril 5 MG tablet Take by [...] mg oral tablet (3 sources)Factor Xa InhibitorStart: 75-88-7458xpua 1 tablet by mouth once daily at dinnerRivaroxaban (Xarelto) 20 mg tablet Active 20 MG PO Daily May 06, 2025 12:00am must administer with evening meal Complies with drug therapy rivaroxaban (Xarelto) 20 MG tablet Take by mouth Take with food. Active sertraline 100 mg oral tablet (20 sources)Serotonin Reuptake InhibitorStart: 09-10-2024 End: 15-45-3921Vtjyrhttyt 100 mg tablet Active 0 .ROUTE .COMPLEX 90 March 04, 2025 8:13am TAKE 1 TABLET EVERY DAYComplies with drug therapyStart: 07-16-2022 End: 78-31-4031rckn 1 tablet by mouth once dailySertraline 100 mg tablet Discontinued 100 MG PO Daily May 03, 2024 12:00am September 10, 2024 12:51pm FreeTextSig: TAKE 1 TABLET EVERY DAY; Note: Source Status: Start; Refills: 3; Qty: 90 Tablet; Provider: Luis Oglesby ( ) spironolactone 25 mg oral tablet (3 sources)Aldosterone AntagonistStart: 48-10-2144feum 1 tablet by mouth once dailySpironolactone 25 mg tablet Active 25 MG PO Daily May 06, 2025 12:00am Complies with drug therapyspironolactone (Aldactone) 25 MG tablet Take by mouth Daily Active Completed/Discontinued Medications MedicationDrug Class(es)DatesSig (Normalized)Sig (Original)amLODIPine 5 mg oral tablet (3 sources)Dihydropyridine Calcium Channel BlockerStart: 07-20-2024 End: 38-79-0690tnew 1 tablet by mouth once dailyAmlodipine 5 mg tablet Discontinued 5 MG PO Daily July 20, 2024 1:00am May 06, 2025 8:59amamoxicillin 875 mg / clavulanate 125 mg oral tablet (5 sources)Penicillin-class AntibacterialStart: 06-14-2024 End: 48-29-0869jwtw 1 tablet by mouth twice dailyAmoxicillin-Pot Clavulanate 875-125 mg tablet Discontinued 1 TAB PO Twice daily 14 June 14, 2024 12:00am July 20, 2024 2:58pm5 ml bupivacaine hydrochloride 5 mg/ml injection (4 sources)Amide Local AnestheticStart: 04-13-2025 End: 60-90-1417ncbutoknmws PF (Marcaine) 0.5 % injection 0.5 mLStart: 04-13-2025 End: 50.5 mL, Injection, Once PRN Procedure, Starting on Fri04/13/25 at 1124, For 1 dosemethylPREDNISolone acetate 20 mg/ml injectable suspension (4 sources)CorticosteroidStart: 04-13-2025 End: 45-28-9431dtayorODTVHLZtenvy Acetate (DEPO-Medrol) injection 20 mgStart: 04-13-2025 End: 38-58-969544 mg, Once PRN Procedure, Starting on Fri04/13/25 at 1124, For 1 dosesulfamethoxazole 800 mg / trimethoprim 160 mg oral tablet (3 sources)Dihydrofolate Reductase Inhibitor Antibacterial, Sulfonamide AntimicrobialStart: 01-24-2025 End: 27-94-2140roar 1 tablet by mouth twice dailySulfamethoxazole-Trimethoprim 800-160 mg tablet Discontinued 1 TAB PO Twice daily January 242:00am May 06, 2025 8:57am Problems Active Problems Problem ClassificationProblemDateDocumented DateEpisodic/ChronicCardiac dysrhythmias (6 sources)Paroxysmal atrial fibrillation; Translations: [Unspecified atrial fibrillation]Onset: 09-76-5189AoduqhhOzlzukk dysrhythmias (12 sources)Palpitations; Translations: [Palpitations]Onset: 05-03-2024 53-52-8330CvnjjgrrAfjqfznq (9 sources)Nuclear senile cataract; Translations: [Age-related nuclear cataract, unspecified eye]Onset: 050056-98-3361LajivcpMxxnzbhwtj heart failure; nonhypertensive (2 sources)Chronic diastolic (congestive) heart failure; Translations: [Chronic diastolic (congestive) heart failure]Onset: 04-37-4166JzkkvjsGiyenwoc mellitus without complication (2 sources)Increased glucose level; Translations: [Other abnormal glucose] 64-40-0457ZaipyrmfFuwzwsbev of lipid metabolism (20 sources)Hyperlipidemia, unspecified; Translations: [Dyslipidemia]Onset: 22-49-4466QqqunbiRtdnmsvor hypertension (16 sources)Essential (primary) hypertension; Translations: [Essential hypertension]Onset: 65-14-3755ZtbzbfdImzrxhxghrova symptoms and ill-defined conditions (6 sources)Dysuria; Translations: [Dysuria]Onset: 800413-22-3756Nydaajyu Hypertension with complications and secondary hypertension (2 sources)Hypertensive heart disease with heart failure; Translations: [Hypertensive heart disease with heartfailure]Onset: 75-56-8631Bouxpwl Immunizations and screening for infectious disease (3 sources)Patient encounter status; Translations: [Encounter for immunization] 63-57-2921XjnwevtuSfnqxjtfn of skin (2 sources)History of malignant melanoma of the skin; Translations: [Personal history of malignant melanoma ofskin]EpisodicMood disorders (2 sources)Major depression, single episode; Translations: [Major depressive disorder, single episode, unspecified]ChronicOsteoarthritis (18 sources)Arthritis of first carpometacarpal joint of left hand; Translations: [Unilateral primary osteoarthritis of first carpometacarpal joint, left hand] Onset: 727023-57-6198QnajkltFhhos circulatory disease (2 sources)Personal history of other diseases of the circulatory system; Translations: [Personal history of other diseases of the circulatory system] Onset: 30-69-2110QlnlcacoLubre connective tissue disease (4 sources)Pain in right hand; Translations: [Pain in right hand]06-28-2024 EpisodicOther connective tissue disease (2 sources)Pain in finger of right hand; Translations: [Pain in right finger(s)] 64-05-7603WummajcfDnsdf connective tissue disease (2 sources)Triggering of digit; Translations: [Trigger finger, right middle finger]64-84-3522ZgguehkkAloom non-traumatic joint disorders (4 sources)Other specified joint disorders, right hand; Translations: [Other specified disorders of joint, hand]45-22-8494LddqzdttBbkzy screening for suspected conditions (not mental disorders or infectious disease) (16 sources)Encounter for screening mammogram for malignant neoplasm of breast; Translations: [Patient encounter status]Onset: 41-02-2116AyufyadkEahid skin disorders (4 sources)Swelling of hand; Translations: [Other specified soft tissue disorders]62-09-8002EaghkuuiUvdwm upper respiratory infections (7 sources)Acute maxillary sinusitis; Translations: [Acute maxillary sinusitis, unspecified]05-95-3097CsqvbknvFxoywmpy codes; unclassified (2 sources)Other specified postprocedural states; Translations: [Other specified postprocedural states]Onset: 88-48-9282Dqwvdycb Past or Other Problems Problem ClassificationProblemDateDocumented DateEpisodic/ChronicOther connective tissue disease (2 sources)Pain in right hand; Translations: [Pain in right hand]Onset: 85-28-6729AcjytmrkUjsnt eye disorders (9 sources)Dermatochalasis of left upper eyelid; Translations: [Dermatochalasis of left upper eyelid]Onset: 497786-96-9957TcuoettyBitsj eye disorders (9 sources)Excess skin of eyelid; Translations: [Blepharochalasis unspecified eye, unspecified eyelid]Onset: 939538-07-0520PjfcwvocEbpcleze codes; unclassified (2 sources)Pain; Translations: [Pain]Onset: 45-41-0755Qsttdmkr Results Test NameValueInterpretationReference RangeFacilityOffice Visiton 04-26-2025 Follow-up [id number] Porfirio Fernandes 1950 F Date Provider Department Center 04/26/2025 241-TIMI NIXON KIMBERLY [facility] Family History Problem Relation Age of Onset Other Mother Coronary artery disease Mother Parkinsonism Father Atrial fibrillation Brother Stroke Maternal Grandmother Family Status - Relation Status Age at Mother Father Sister Alive Brother Alive Maternal Grandmother Level of Service:66692 [place] OFFICE/OUTPATIENT ESTABLISHED LOW [facility] Panel Informationon 85-90-5186IffomwoALIN Bruner 04/13/2025 12:33 PM Tendon Sheath Inj (CPT 79505 Only): R long A1 on 04/13/2025 11:24 [...] and draped in the usual sterile fashion. [facility]Orders Onlyon 42-31-5688Blhfpv [id number] Porfirio Fernandes 1950 F Date Provider Department Center 03/23/2025 1987-BRITTNEY CALDERON [facility] [place] [facility] Family History Problem Relation Age of Onset Other Mother Coronary artery disease Mother Parkinsonism Father Atrial fibrillation Brother Stroke Maternal Grandmother Family Status - Relation Status Age at Mother Father Sister Alive Brother Alive Maternal GrandmotherNElyria Memorial HospitalFollow-Upon 10-90-5555Illwpz-[id number] Porfirio Fernandes 1950 F Date Provider Department Center 02/18/2025 65462-ZJUIFO, ADAM KIMBERLY [facility] Family History Problem Relation Age of Onset Other Mother Coronary artery disease Mother Parkinsonism Father Atrial fibrillation Brother Stroke Maternal Grandmother Family Status - Relation Status Age at Mother Father Sister Alive Brother Alive Maternal Grandmother Level of Service:84359 MA OFFICE/OUTPATIENT ESTABLISHED MOD MDM [facility] Only[facility] 00-96-7654Xvryxn [id number] Porfirio Fernandes 1950 F Date Provider Department Center 02/15/20251986-BRITTNEY CALDERON [facility] [place] [facility] Family History Problem Relation Age of Onset Other Mother Coronary artery disease Mother Parkinsonism Father Atrial fibrillation Brother Stroke Maternal Grandmother Family Status - Relation Status Age at Mother Father Sister Alive Brother Alive Maternal GrandmotherNElyria Memorial HospitalTelephoneon [id number] Porfirio Fernandes 1950 F Date Provider Department Center 02/15/20251986-BRITTNEY CALDERON [facility] [place] [facility] Family History Problem Relation Age of Onset Other Mother Coronary artery disease Mother Parkinsonism Father Atrial fibrillation Brother Stroke Maternal Grandmother Family Status - Relation Status Age at Mother Father Sister Alive Brother Alive Maternal Grandmother Reason for Visit and Comments: BP recordings [Other][facility] HospitalOrders Onlyon 38-98-2482Sxjeaa [id number] Porfirio Fernandes 1950 F Date Provider Department Center 02/08/20251986-BRITTNEY CALDERON [facility] [place] [facility] Family History Problem Relation Age of Onset Other Mother Coronary artery disease Mother Parkinsonism Father Atrial fibrillation Brother Stroke Maternal Grandmother Family Status - Relation Status Age at Mother Father Sister Alive Brother Alive Maternal GrandmotherNElyria Memorial HospitalTelephoneon [id number] Porfirio Fernandes 1950 F Date Provider Department Center 02/08/20251986-BRITTNEY CALDERON [facility] [place] [facility] Family History Problem Relation Age of Onset Other Mother Coronary artery disease Mother Parkinsonism Father Atrial fibrillation Brother Stroke Maternal Grandmother Family Status - Relation Status Age at Mother Father Sister Alive Brother Alive Maternal Grandmother Reason for Visit and Comments: BP recordings [Other][facility]36on Johnson ([facility]) called to make provider aware of medication interaction. Pt is on lisinopril 5mg tablet daily, and spironolactone (Aldactone) 25 mg 1 tablet daily.Pt's potassium could increase; pt should be monitored w/labs.[facility]36Patient called with BP recordings, BP ranged from 130/60-154/71. HR ranged from 53-64. updated, ordered to stop metoprolol, continue to hold amiodarone, and begin lisinopril 5 mg everyday. Patient updated with new orders.Instructed to call back next week with new BP,HR recordings.Normal [facility] HospitalOrders Onlyon 89-38-8272Pahykk [id number] Porfirio Fernandes 1950 F Date Provider Department Center 02/02/20251986-BRITTNEY CALDERON [facility] [place] [facility] Family History Problem Relation Age of Onset Other Mother Coronary artery disease Mother Parkinsonism Father Atrial fibrillation Brother Stroke Maternal Grandmother Family Status - Relation Status Age at Mother Father Sister Alive Brother Alive Maternal GrandmotherNElyria Memorial HospitalTelephoneon [id number] Porfirio Fernandes 1950 Date Provider Department Center 02/02/2025 09428-FABKNCRFRANCISCA BERMAN [facility] [place] [facility] Family History Problem Relation Age of Onset Other Mother Coronary artery disease Mother Parkinsonism Father Atrial fibrillation Brother Stroke Maternal Grandmother Family Status - Relation Status Age at Mother Father Sister Alive Brother Alive Maternal Grandmother Reason for Visit and Comments: Medication (Interaction) [Other][facility] [id number] Porfirio Fernandes 1950 Date Provider Department Center 02/02/20251986-BRITTNEY CALDERON [facility] [place] [facility] Family History Problem Relation Age of Onset Other Mother Coronary artery disease Mother Parkinsonism Father Atrial fibrillation Brother Stroke Maternal Grandmother Family Status - Relation Status Age at Mother Father Sister Alive Brother Alive Maternal Grandmother Reason for Visit and Comments: BP recordings [Other][facility]36 c/o of feeling fatigued,HR between 40's-50's.called vnice office and they were told per Jesus to hold amiodarone.pt also on metoprolol,instructed to monitor Bp,HR until next week call with readings so new orders can be given.groin look good,taking blood thinners,eating and drinkin well.[facility] HospitalOrders Onlyon 93-28-9981Diqicc [id number] Porfirio Fernandes 1950 F Date Provider Department Center 01/28/2025 TIMI ELLIS [facility] [place] [facility] Family History Problem Relation Age of Onset Other Mother Coronary artery disease Mother Parkinsonism Father Atrial fibrillation Brother Stroke Maternal Grandmother Family Status - Relation Status Age at Mother Father Sister Alive Brother Alive Maternal GrandmotherNormalGuernsey Memorial HospitalTelephoneon [id number] Porfirio Fernandes 1950 F Date Provider Department Center 01/28/2025 Laney-BRITTNEY CALDERON [facility] [place] [facility] Family History Problem Relation Age of Onset Other Mother Coronary artery disease Mother Parkinsonism Father Atrial fibrillation Brother Stroke Maternal Grandmother Family Status - Relation Status Age at Mother Father Sister Alive Brother Alive Maternal Grandmother Reason for Visit and Comments: afib ablation f/u [Other][facility]36on 70-37-763738[employer] called to make you aware of problems [...] by Dr. Smith. Said she's feeling much better.[facility] HospitalTelephoneon [id number] Porfirio Fernandes 1950 F Date Provider Department Center 01/24/2025 CORRIE BAKER [facility] [place] [facility] Family History Problem Relation Age of Onset Other Mother Coronary artery disease Mother Parkinsonism Father Atrial fibrillation Brother Stroke Maternal Grandmother Family Status - Relation Status Age at Mother Father Sister Alive Brother Alive Maternal GrandmotherNElyria Memorial HospitalUrine Cultureon 46-40-7435Kbfmkjxu identified Cx Nom (U)No Growth 2 Days PERFORMED BY: [facility] [address] [place] [address] PATHOLOGIST MANAGER OPERATING NANI LOJA M.D.[facility] Physician GroupComment on above: Performed By: #### CUU #### [facility] [address] [place] [address] USAAnesthesiaon [id number] Porfirio Fernandes 1950 F Date Provider Department Center 01/20/2025 50477-KQIGICINDY SPARKS [facility] [place] [facility] Family History Problem Relation Age of Onset Other Mother Coronary artery disease Mother Parkinsonism Father Atrial fibrillation Brother Stroke Maternal Grandmother Family Status - Relation Status Age at Mother Father Sister Alive Brother Alive Maternal GrandmotherNormalUnUniversity Hospitals Parma Medical CenterBILIRUBIN, DIRECTon 33-46-6584Sdncysagw [Mass/Vol]0.1 mg/dLNormal0-0.2UnUniversity Hospitals Parma Medical CenterComment on above:Performed By: #### [id number] #### [facility] ([facility]) [address] [place], [place] [address]IMZULERPL, TOTALon 37-15-0052Qunxkcmgc [Mass/Vol]0.7 mg/dLNormal 0.3-1.0UnUniversity Hospitals Parma Medical CenterComment on above:Performed By: #### LAB50 #### [facility] ([facility]) [address] [place], [place] [address]JJQZQTLNLOxb 28-43-4371Aibpgbcewx (Bld) [Mass/Vol]13.9 g/dL Dngdmu90.0-15.0UnUniversity Hospitals Parma Medical CenterComment on above:Performed By: #### [id number] #### [facility] ([facility]) [address] [place], [place] [address]NKig 09-14-2076UMYK Electrophysiology Consult Note Reason for visit: Afib [...] pacemaker and grandmother had a stroke and MS PMH: Past Medical History: Diagnosis Date Abnormal [...] edema, no peripheral (more content not included)... NormalUnUniversity Hospitals Parma Medical CenterLACTATE DEHYDROGENASEon 01-20-2025 LACTATE DEHYDROGENASE (U/L) IN SER/PLAS BY LAC->PYR MMD779 U/KGoesed308-597 [facility] HospitalComment on above:Performed By: #### [id number] #### [facility] ([facility]) [address] [place], [place] [address]PFPTFPAEwe 03-32-3963VVIWDMHSNJZ is at bedsideNormalUniversOhioHealth O'Bleness HospitalPOCT GLUCOSE METER UNSOLICITED RESULTSon 01-20-2025 Glucose [Mass/Vol]100 mg/zBDjhkvr62-128PxgjrrgxbiGuernsey Memorial Hospital Comment on above:Order Comment: Waived Testing in the ED is performed under the ED CLIA certificate #[id number].Result Comment: dhmegll9Wfnuxyeqt By: #### [id number] #### [facility] ([facility]) [address] [place], [place] [address]VAYHMHM-RMHdq 87-97-6630LEQ IN PPP BY COAGULATION ASSAY1.04 Normal0.90-1.10UnUniversity Hospitals Parma Medical CenterComment on above:Result Comment: ACC RECOMMENDED [...] OPTIMAL THERAPEUTIC RANGE. CHEST 1995;108:231S-246S.Performed By: #### [id number] ####[facility] ([facility])[address] [place], [place] [address]FZWCKEQINKO TIME (PT) IN PPP BY COAGULATION ASSAY13.6 XakpidsAxjivh31.3-14.8[facility] HospitalComment on above:Performed By: #### [id number] ####[facility] ([facility])[address] [place], [place] [address]Rsqt for Procedureon 36-09-1057Uqlp for [id number] Porfirio Fernandes 1950 F Date Provider Department Center 01/20/2025 Laney-BRITTNEY CALDERON [facility] [place] [facility] Family History Problem Relation Age of Onset Other Mother Coronary artery disease Mother Parkinsonism Father Atrial fibrillation Brother Stroke Maternal Grandmother Family Status - Relation Status Age at Mother Father Sister Alive Brother Alive Maternal GrandmotherNormalGuernsey Memorial HospitalOffice Visiton 92-49-0281Lvbmbq-up [id number] Porfirio Fernandes 1950 F Date Provider Department Center 01/04/2025 241-TIMI NIXON KIMBERLY [facility] Family History Problem Relation Age of Onset Other Mother Coronary artery disease Mother Parkinsonism Father Atrial fibrillation Brother Stroke Maternal Grandmother Family Status - Relation Status Age at Mother Father Sister Alive Brother Alive Maternal Grandmother Level of Service:78206 MA OFFICE/OUTPATIENT ESTABLISHED HIGH MDM 40 [facility]36on 82-35-197859Qbmsxlx called back to update me on her LE edema s/p stopping amlodipine. She states it went away as soon as she stopped taking it. BP is still very well controlled, 109/80. HR 82. She is scheduled to see Dr. Nixon on Thursday 01/04 prior to afib ablation. Told her to continue to keep track of BP's. Patient verbalized understanding.[facility]36on 58-37-661632Ygupitl called c/o LE edema, which she states is new. Said her BP has been around 106-116 systolic. HR no higher than 106. I advised her to hold amlodipine for a few days and see if the LE edema resolves. I asked her to call me back next week and let me know how she does. Any other suggestions?[facility]36on 38-61-391928Sjqmvqs was called and cancelled surgeryNormalUSelect Medical Specialty Hospital [facility]36Patient would like to cancel the upcoming surgery for 12-15-24 as she is having heart issues. Please contact patient with any questions at [phone]d Clinic Luther[facility] Hospital36on 69-54-872643Duueolkgc bp log from 11/01/2024 MD Edith Mcelroy MA BMP is good after adding Aldactone. Continue current management Left voice massage for patient to continue with current medication.Normal [facility] HospitalPrep for Procedureon 99-67-1580Kwzs for [id number] Porfirio Fernandes 1950 F Provider Department Center 11/09/2024 1987-BRITTNEY CALDERON [facility] [place] [facility] Family History Problem Relation Age of Onset Other Mother Atrial fibrillation Brother Stroke Maternal Grandmother Family Status - Relation Status Age at Mother Brother Maternal GrandmotherNElyria Memorial HospitalOffice Visiton 50-41-0094Tnjryh-up [id number] FernandesPorfirio 1950 Provider Department Center 11/02/2024 241-TIMI NIXON KIMBERLY [facility] Family History Problem Relation Age of Onset Other Mother Atrial fibrillation Brother Stroke Maternal Grandmother Family Status - Relation Status Age at Mother Brother Maternal Grandmother Level of Service:93759 MA OFFICE/OUTPATIENT NEW MODERATE MDM 45 MINUTESNormal [facility] HospitalOrders Onlyon 73-75-0063Klzzgm [id number] Porfirio Fernandes 1950 Provider Department Center 11/02/2024 Renetta-PINO SANDERS KIMBERLY Berg Family History Problem Relation Age of Onset Other Mother Atrial fibrillation Brother Stroke Maternal Grandmother Family Status - Relation Status Age at Mother Brother Maternal GrandmotherNElyria Memorial HospitalOffice Visiton 19-56-0648Msddru-up [id number] Porfirio Fernandes 1950 F Date Provider Department Center 10/13/2024 32826-URALTUSOL MARIE BH KIMBERLY [facility] Family History Problem Relation Age of Onset Other Mother Atrial fibrillation Brother Stroke Maternal Grandmother Family Status - Relation Status Age at Mother Brother Maternal Grandmother Level of Service:16350 MA OFFICE/OUTPATIENT ESTABLISHED MOD MDM 30 MIN Reason for Visit and Comments: Hypertension [521641] - Had echo in Jul 2024 after last apt. Atrial Fibrillation [80] - [facility] [facility] ED in Aug 2024 and again last week. She was started on metoprolol 25mg bid on 09/24/2024. Patient states sometimes HR is in the 40's. Hyperlipidemia [182] Atrial Flutter [101] Palpitations [214765] - Says metoprolol has helped.[facility]36on [id number] echo result from 08/19/2024: MD Pino Mcelroy MA Echo [...] Dr. Nixon soon. She will look into [facility] for both Eliquis and Xarelto and let me know which one she wants us to fax into them.[facility]36on [phone] calling asking for echo results. It is scanned into legal mediator for your review. Also, Eliquis is very expensive for her. She said her takes Xarelto and that is very expensive for them also. Can I send a referral to coumadin clinic or would you like something else? Please advise. Thanks.[facility] HospitalOffice Visiton [phone]-up [id number] Porfirio Fernandes 1950 F Date Provider Department Center 08/13/2024 95060-VVDIHKSOL MARIE KIMBERLY Berg Family History Problem Relation Age of Onset Other Mother Atrial fibrillation Brother Stroke Maternal Grandmother Family Status - Relation Status Age at Mother Brother Maternal Grandmother Level of Service:23996 MA OFFICE/OUTPATIENT NEW MODERATE MDM 45 MINUTES Reason for Visit and Comments: Hypertension [175894] - Used to be on lisinopril but was recently switched to amlodipine 5mg daily. Denies swelling. Hyperlipidemia [182] - On atorvastatin Palpitations [651659] - Recently wore 30 day event monitor for palpitations, but hasn't had them recently. Sleep Apnea [348] - Compliant with bipap therapy.[facility] HospitalOrders Onlyon 25-24-8133Skjbce [id number] Porfirio Fernandes 1950 Date Provider Department Center 08/13/2024 928-KATERINA SAHNI KIMBERLY Berg Family History Problem Relation Age of Onset Other Mother Atrial fibrillation Brother Stroke Maternal Grandmother Family Status - Relation Status Age at Mother Brother Maternal GrandmotherNElyria Memorial Hospital36on Patient was scheduledNormalUniCincinnati VA Medical CenterOrders Onlyon 59-19-7731Bxrfqb [id number] Porfirio Fernandes 1950 Provider Department Center 08/12/2024 803-CATARINA CRANE MP ORTHO MPORTHO Family History Problem Relation Age of Onset Other Mother Atrial fibrillation Brother Stroke Maternal Grandmother Family Status - Relation Status Age at Mother Brother Maternal GrandmotherNElyria Memorial Hospital36on Patient was seen 08/05/24. She called stating that someone was suppose to call her to set up date and time for surgery. She states that she has not received a call. Please advise. Thank you.[facility] HospitalOffice Visiton [phone]-up [id number] Porfirio Fernandes 1950 F Date Provider Department Center 08/05/2024 UDAY GAMING [facility] No family history on file Level of Service:78204 MA OFFICE/OUTPATIENT NEW LOW MDM 30 MINUTES (GC,25) Reason for Visit and Comments: Pain [136]NormalUnUniversity Hospitals Parma Medical Center36on [phone] called to schedule a new patient appointment with our office. 08/05 Patient wants to be seen for: Cyst of joint of right hand Patient had MRI done at [facility] 07/05/24 Patient had Trigger Thumb done on 07/[address] Khan @ [facility] Patient saw Dr. Ospina for this issues. They were referred to us from this provider. This appointment is not a second opionion This appointment IS NOT related to a work related injuryNormalUniversOhioHealth O'Bleness HospitalMR HAND RIGHT W AND WO IV CONTRASTon 80-56-9752TZ HAND RIGHT W AND WO IV CONTRASTEXAMINATION: [...] ELECTRONICALLY SIGNED BY: Bart Hernández, GermánmalNot AvailableCREATININEon 52-47-1376Ilnybkmypn [Mass/Vol]0.90 mg/dLNormal0.60-1.00Quest DiagnosticsComment on above:Performed By: #### 375 #### [facility] [address], [address] [place] [address] Resp Ther: Shiraz Regalado MDGFR/1.73 sq M.predicted among non-blacks MDRD (S/P/Bld) [Vol rate/Area]68 mL/min/{1.73_m2}Normal> OR = 60[facility] Comment on above:Performed By: #### 375 #### [facility] [address], [address] [place] [address] Resp Ther: Shiraz Regalado MDXR Hand - right 3 Viewson 26-76-2444Pihchjn Result: Xrays AP, LAT and OBL of the right hand performed on June 28, 2024 demonstrates Narrowing of the 1st carpometacarpal joint with adjacent sclerosis and slight subluxation consistent withfirst CMC arthritis, no swelling or fractures noted. Impression First [facility] arthritis Jannet Montoya FNPNOMS HealthcareRadiology Study observation (narrative)NOMS HealthcareXR Hand - right 3 ViewsOrdered By: El Khan on 51-75-3201[employer] Work Phone: Basophils Auto (Bld) [#/Vol]on 80-08-8186Ufuooesou (Bld) [#/Vol]0.0 10 3/uL0.0-0.1FBerger HospitalBasophils (Bld) [#/Vol]Automated basophil count0.0-0.1FBerger Hospital Basophils/100 WBC Auto (Bld)on 98-83-4682Tranjooqx/100 WBC (Bld)0.5 %0.2-2.0 [facility] HospitalBasophils/100 WBC (Bld)Automated basophil % 0.2-2.0[facility] HospitalCholesterol in LDL Calc [Mass/Vol]on 02-24-4956Zippjzjjbkx in LDL [Mass/Vol]83.0 mg/dLOhiohealth Van Wert HospitalComment on above:<100 mg/dl EXTMXFE581-182 mg/dl NEAR OR ABOVE AKSCCHN319- 159 mg/dl BORDERLINE PABX278-967 mg/dl HIGH>190 mg/dl VERY HIGHCholesterol in LDL [Mass/Vol]Cholesterol in LDL [Mass/volume] in Serum or Plasma by calculation [facility] HospitalComment on above:<100 mg/dl EMWTCQX449-304 mg/dl NEAR OR ABOVE JEYVVIF387-206 mg/dl BORDERLINE XRGJ190-853 mg/dl HIGH>190 mg/dl VERY HIGHCholesterol in VLDL Calc [Mass/Vol]on 70-98-7017Wwpyfrewcoj in VLDL [Mass/Vol]18.2 mg/dLOhiohealth Van Wert HospitalCholesterol in VLDL [Mass/Vol]Cholesterol in VLDL [Mass/volume] in Serum or Plasma by calculation [facility] HospitalEosinophils/100 WBC Auto (Bld)on 05-03-2024 Eosinophils/100 WBC (Bld)1.6 %0.9-7.0[facility] Eosinophils/100 WBC (d)Automated eosinophil %0.9-7.0[facility] HospitalErythrocyte distribution width Auto (RBC) [Ratio]on 70-54-5483Nvpgvdkypbb distribution width (RBC) [Ratio]14.4 %11.0-15.0[facility] HospitalErythrocyte distribution width (RBC) [Ratio]Erythrocyte distribution width [Ratio] by Automated count11.0-15.0[facility] HospitalEstimated glomerular filtration rate (GFR) non- Americanon 27-72-1985NJG/1.73 sq M.predicted among non-blacks MDRD (S/P/Bld) [Vol rate/Area]55 mL/min/{1.73_m2} Low>=60[facility] HospitalGFR/1.73 sq M.predicted among non-blacks MDRD (S/P/Bld) [Vol rate/Area]Estimated glomerular filtration rate (GFR) non- AmericanLow>=60[facility] HospitalGlobulin Calc (S) [Mass/Vol]on 89-38-2687Ysbiqzra (S) [Mass/Vol]3.7 g/dLOhiohealth Van Wert HospitalGlobulin (S) [Mass/Vol]Serum globulin measurement by calculation (mass/volume)[facility] HospitalHematocrit Auto (Bld) [Volume fraction]on 24-14-1446Sfzhyklbzz (Bld) [Volume fraction]45.3 %36.0-48.0[facility] HospitalHematocrit (Bld) [Volume fraction]Hematocrit [Volume Fraction] of Blood by Automated count36.0-48.0[facility] Hemoglobin [Mass/volume] in Bloodon 25-41-3399Jbzpnhjerj (Bld) [Mass/Vol]14.7 g/dL12.0-16.0[facility] HospitalHemoglobin (Bld) [Mass/Vol] Hemoglobin [Mass/volume] in Blood12.0-16.0[facility] Laboratory - Chemistry and Chemistry - challengeon 09-57-0583Nshuujl [Mass/Vol] 4.0 g/dL3.4-5.0[facility] HospitalALP [Catalytic activity/Vol]107 U/O05-345WobtvdebaOhiohealth Van Wert HospitalALT [Catalytic activity/Vol]29 U/L 14-59[facility] HospitalAST [Catalytic activity/Vol]23 U/L15-37 [facility] HospitalBilirubin [Mass/Vol]0.4 mg/dL0.2-1.0[facility] HospitalCalcium [Mass/Vol]9.7 mg/dL8.5-10.1FBerger HospitalChloride [Moles/Vol]103 mmol/T94-576RifskckcyOhiohealth Van Wert HospitalCholesterol [Mass/Vol]163 mg/dL<=200[facility] Cholesterol in HDL [Mass/Vol]62 mg/sGEhzy14-63BtjegiyzfOhiohealth Van Wert Hospital Comment on above:> or =60 mg/dl - LOW CARDIOVASCULAR RISK<40 mg/dl - HIGH CARDIOVASCULAR RISKCO2 [Moles/Vol]30.1 mmol/L21.0-32.0[facility] HospitalCreatinine [Mass/Vol]0.99 mg/dL0.55-1.02[facility] GFR/1.73 sq M.predicted MDRD (S/P/Bld) [Vol rate/Area]mL/min/{1.73_m2}>=60 [facility] HospitalGlucose [Mass/Vol]91 mg/mR71-405TgxjdaudeOhiohealth Van Wert HospitalPotassium [Moles/Vol]4.1 mmol/L3.5-5.1FBerger HospitalProtein [Mass/Vol]7.7 g/dL6.4-8.2FBerger Hospital Sodium [Moles/Vol]139 mmol/L033-345LainkpmnoOhiohealth Van Wert HospitalTriglyceride [Mass/Vol]91 mg/dL<=150[facility] HospitalTS Qn2.666 m[IU]/L 0.358-3.740[facility] HospitalUrea nitrogen [Mass/Vol]17.0 mg/dL 7.0-18.0[facility] HospitalUrea nitrogen/Creatinine [Mass ratio] 17.2 mg/mgOhiohealth Van Wert HospitalLaboratory - Hematology and Cell countson 99-16-3401Rshlwngw granulocytes/100 WBC (Bld)0.2 %0.0-0.5FBerger HospitalLeukocytes [#/volume] corrected for nucleated erythrocytes in Blood by Automated counon 89-15-9314WVG corrected for nucl RBC Auto (Bld) [#/Vol]8.2 10 3/uL4.0-11.0[facility] HospitalWBC corrected for nucl RBC Auto (Bld) [#/Vol]Leukocytes [#/volume] corrected for nucleated erythrocytes in Blood by Automated coun4.0-11.0[facility] HospitalLymphocytes Auto (Bld) [#/Vol]on 82-68-3683Vsphixvuojr (Bld) [#/Vol]2.5 10 3/uL1.2-3.8[facility] HospitalLymphocytes (Bld) [#/Vol]Lymphocytes [#/volume] in Blood by Automated count1.2-3.8[facility] HospitalLymphocytes/100 WBC Auto (Bld)on 05-03-2024 Lymphocytes/100 WBC (Bld)30.3 %20.5-60.0[facility] Lymphocytes/100 WBC (Bld)Lymphocytes/100 leukocytes in Blood by Automated count 20.5-60.0[facility] HospitalMCH Auto (RBC) [Entitic mass]on 12-41-0885TLI (RBC) [Entitic mass]30.1 pg26.7-34.0[facility] (RBC) [Entitic mass]MCH [Entitic mass] by Automated count26.7-34.0 [facility] HospitalMCHC Auto (RBC) [Mass/Vol]on 30-84-6248AICK (RBC) [Mass/Vol]32.5 g/dL29.9-35.2FBerger HospitalMCHC (RBC) [Mass/Vol]MCHC [Mass/volume] by Automated count29.9-35.2FBerger HospitalMCV Auto (RBC) [Entitic vol]on 95-42-8407GYS (RBC) [Entitic vol] 92.6 fL81.0-99.0Parkview HealthV (RBC) [Entitic vol]MCV [Entitic volume] by Automated count81.0-99.0[facility] Monocytes Auto (Bld) [#/Vol]on 64-35-1193Wfvgigjub (Bld) [#/Vol]0.5 10 3/uL 0.3-0.8[facility] HospitalMonocytes (Bld) [#/Vol]Automated blood monocyte count0.3-0.8[facility] HospitalMonocytes/100 WBC Auto (Bld)on 50-14-6543Dpxlptgjd/100 WBC (Bld)5.9 %1.7-12.0[facility] HospitalMonocytes/100 WBC (Bld)Automated monocyte %1.7-12.0[facility] HospitalNeutrophils Auto (Bld) [#/Vol]on 29-27-9559Oslghpcqjmn (Bld) [#/Vol]5.0 10 3/uL1.4-6.5FBerger HospitalNeutrophils (Bld) [#/Vol]Neutrophils [#/volume] in Blood by Automated count1.4-6.5FBerger HospitalNeutrophils/100 WBC Auto (Bld)on 05-03-2024 Neutrophils/100 WBC (Bld)61.5 %43.0-75.0[facility] Neutrophils/100 WBC (Bld)Automated neutrophil %43.0-75.0[facility] HospitalNo Panel Informationon 88-68-5416Ydmlsjhnepl # (Auto)0.1 10 3/uL 0.0-0.7FBerger HospitalImmature Granulocyte # (Auto)0.02 10 3/uL0.00-0.03[facility] HospitalPlatelet mean volume Auto (Bld) [Entitic vol]on 66-71-9391Rufqpgyi mean volume (Bld) [Entitic vol]9.7 fL9.5-13.5 [facility] HospitalPlatelet mean volume (Bld) [Entitic vol] Platelet mean volume [Entitic volume] in Blood by Automated count9.5-13.5 [facility] HospitalPlatelets Auto (Bld) [#/Vol]on 05-03-2024 Platelets (Bld) [#/Vol]206 10 3/vQ173-558CwkdfhfrwOhiohealth Van Wert Hospital Platelets (Bld) [#/Vol]Platelets [#/volume] in Blood by Automated -495 [facility] HospitalRBC Auto (Bld) [#/Vol]on 25-60-8314ERY (Bld) [#/Vol]4.89 10 6/uL4.20-5.40[facility] Wert HospitalRBC (Bld) [#/Vol] Erythrocytes [#/volume] in Blood by Automated count4.20-5.40UC Medical Centererum or plasma albumin/globulin mass ratioon 05-03-2024 Albumin/Globulin [Mass ratio]1.1 {ratio}[facility] Albumin/Globulin [Mass ratio]Serum or plasma albumin/globulin mass ratio [facility] Medical Centererum or plasma anion gap determinationon 04-56-5393Fceqz gap [Moles/Vol]10.0 mmol/LFBerger HospitalAnion gap [Moles/Vol]Serum or plasma anion gap determinationUC Medical Centererum or plasma total cholesterol/high density lipoprotein (HDL) cholesterol mass gloria 52-64-2558Rrlbisypuia.total/Cholesterol in HDL [Mass ratio]2.6 {ratio}[facility] HospitalComment on above:3.3 - 4.4 LOW RISK4.4 - 7.1 AVERAGE RISK7.1 - 11.0 MODERATE RISK>11.0 HIGH RISK Cholesterol.total/Cholesterol in HDL [Mass ratio]Serum or plasma total cholesterol/high density lipoprotein (HDL) cholesterol mass ratHolmes County Joel Pomerene Memorial Hospital Medical CenterComment on above:3.3 - 4.4 LOW RISK4.4 - 7.1 AVERAGE RISK7.1 - 11.0 MODERATE RISK>11.0 HIGH RISKMG MAMM SCREEN 3D EVAN CADon 95-41-3643DJ MAMM SCREEN 3D EVAN CADPatient: PORFIRIO FERNANDES Exam Date: 06/26/2022 : 1950 Gender:F Ordering : DR KAMI SMITH M.D. Admission #: [id number] Family : Order #: [id number] CLICK HERE TO VIEW EXAM RADIOLOGY REPORT [...] Treatments None Family Cancers None LOCATION: [facility] BREAST COMPOSITION: Heterogeneously dense,which may obscure [...] by: Lotus Sheldon MD on 06/26/2022 at 08:44NoKing's Daughters Medical Center [place] AUTO DIFFon 92-51-5261QMZD #0.0 103/ulNormal0.0-0.1[facility] HospitalComment on above:Performed By: #### CBC #### [facility] [address] [address] [address] Christina Pérezsophils/100 WBC (Bld)0.3 %Normal0.2-2.0[facility] Comment on above:Performed By: #### CBC #### [facility] [address] [address] [address] Christina Landaverde #0.1 103/ulNormal0.0-0.7The [facility] HospitalComment on above: Performed By: #### CBC #### [facility] [address] [place] [address] Dr. Christina Arguetaosinophils/100 WBC (Bld)1.5 %Normal0.9-7.0[facility] Comment on above:Performed By: #### CBC #### [facility] [address] [place] [address] Dr. Christina Arguetarythrocyte distribution width (RBC) [Ratio]14.4 %Cvwsma17.0-15.0 [facility] HospitalComment on above:Performed By: #### CBC #### [facility] [address] [place] [address] Dr. Christina CamarenaHematocrit (Bld) [Volume fraction]46.5 %Ncuplt40.0-48.0[facility] HospitalComment on above:Performed By: #### CBC #### [facility] [address] [place] [address] Dr. Christina CamarenaHemoglobin (Bld) [Mass/Vol]14.8 g/aFOumecc66.0-16.0[facility] HospitalComment on above:Performed By: #### CBC #### [facility] [address] [place] [address] Dr. Christina Buck #0.02 10e3/ulNormal0.00-0.03The [facility] HospitalComment on above:Performed By: #### CBC #### [facility] [address] [place] [address] Dr. Christina Buck %0.2 %Normal0.0-0.5The [facility] HospitalComment on above: Performed By: #### CBC #### [facility] [address] [place] [address] Dr. Christina DiazH #2.4 103/ulNormal1.2-3.8[facility] HospitalComment on above:Performed By: #### CBC #### [facility] [address] [place] [address] Dr. Christina Lazcanomphocytes/100 WBC (Bld)26.2 %Wuxsiy60.5-60.0[facility] HospitalComment on above:Performed By: #### CBC #### [facility] [address] [place] [address] Dr. Christina rOoscoUAL DIFF REQNONormalThe [facility] HospitalComment on above: Performed By: #### CBC #### [facility] [address] [place] [address] Dr. Christina Francois (RBC) [Entitic mass]29.5 awPornyb86.7-34.0[facility] HospitalComment on above:Performed By: #### CBC #### [facility] [address] [place] [address] Dr. Christina Francois (RBC) [Mass/Vol]31.8 g/pGQwptrq79.9-35.2The [facility] HospitalComment on above:Performed By: #### CBC #### [facility] [address] [place] [address] Dr. Christina Francois (RBC) [Entitic vol]92.8 nLZddygt28.0-99.0[facility] HospitalComment on above:Performed By: #### CBC #### [facility] [address] [place] [address] Dr. Christina Coley #0.6 103/ulNormal0.3-0.8The [facility] HospitalComment on above:Performed By: #### CBC #### [facility] [address] [place] [address] Dr. Christina Ottoocytes/100 WBC (Bld)6.7 %Normal1.7-12.0[facility] Comment on above:Performed By: #### CBC #### [facility] [address] [place] [address] Dr. Christina Hare #5.9 103/ulNormal1.4-6.5The [facility] HospitalComment on above:Performed By: #### CBC #### [facility] [address] [place] [address] Dr. Christina Mcgillutrophils/100 WBC (Bld)65.1 %Ffbdpo46.0-75.0[facility] HospitalComment on above:Performed By: #### CBC #### [facility] [address] [place] [address] Dr. Christina Traceylet mean volume (Bld) [Entitic vol]9.8 fLNormal9.5-13.5The [facility] HospitalComment on above:Performed By: #### CBC #### [facility] [address] [place] [address] Dr. Christina CamarenaPLT228 103/hyKzrieq870-745Uvp [facility] HospitalComment on above: Performed By: #### CBC #### [facility] [address] [place] [address] Dr. Christina CamarenaRBC5.01 106/ulNormal4.20-5.40The [facility] HospitalComment on above:Performed By: #### CBC #### [facility] [address] [place] [address] Dr. Christina CamarenaWBC9.1 103/ulNormal4.0-11.0The [facility] HospitalComment on above: Performed By: #### CBC #### [facility] [address] [place] [address] Dr. Christina RandhawaID PROFILEon 25-11-7920NVBK-HDL RATIO NORMSFirelands Regional Medical Center South CampusComment on above:Result Comment: 3.3 - 4.4 LOW RISK 4.4 - 7.1 AVERAGE RISK 7.1 - 11.0 MODERATE RISK >11.0 HIGH RISKPerformed By: #### LIPID, CMP #### [facility] [address] [place] [address] Dr. Christina CamarenaCholesterol [Mass/Vol]172 mg/dLNormal<=200[facility] Comment on above:Performed By: #### LIPID, CMP #### [facility] [address] [place] [address] Dr. Christina Kingesterol in HDL [Mass/Vol]55 mg/oDLyjucc82-74BbwVeterans Health Administration on above:Performed By: #### LIPID, CMP #### [facility] [address] [place] [address] Dr. Christina CamarenaCholesterol in LDL [Mass/Vol]76.8 mg/dLNoAvita Health System [facility] on above:Performed By: #### LIPID, CMP #### [facility] [address] [place] [address] Dr. Christina Kingesterbebe.total/Cholesterol in HDL [Mass ratio]3.1 {ratio} NormalThe [facility] on above:Performed By: #### LIPID, CMP #### [facility] [address] [place] [address] Dr. Christina Schwartz NORMAL> or = 60 mg/dl - LOW CARDIOVASCULAR RISK <40 mg/dl - HIGH CARDIOVASCULAR RISKNoSalem Regional Medical CenterCombeaumont hospital on above:Performed By: #### LIPID, CMP #### [facility] [address] [place] [address] Dr. Christina Alvarado CALC NORMALSEE BELOWSelect Medical Specialty Hospital - CantonCombeaumont hospital on above:Result Comment: <100 mg/dl OPTIMAL 100 - 129 mg/dl NEAR OR ABOVE OPTIMAL 130 - 159 mg/dl BORDERLINE HIGH 160 - 189 mg/dl HIGH >190 mg/dl VERY HIGH Performed By: #### LIPID, CMP #### [facility] [address] [place] [address] Dr. Christina CamarenaTriglyceride [Mass/Vol]201 mg/dLCritically high<=150The [facility] on above:Performed By: #### LIPID, CMP #### [facility] [address] [place] [address] Dr. Christina CamarenaVLDL CALC40.2 mg/dLNoSalem Regional Medical CenterCombeaumont hospital on above: Performed By: #### LIPID, CMP #### [facility] [address] [place] [address] Dr. Christina CamarenaPROF 14(COMP METB)on 31-19-4709Qrmerpm [Mass/Vol]4.1 g/dLNormal 3.4-5.0The [facility] HospitalComment on above:Performed By: #### LIPID, CMP #### [facility] [address] [place] [address] Dr. Christina CamarenaAlbumin/Globulin [Mass ratio]1.1 {ratio}NormalThe [facility] HospitalComment on above:Performed By: #### LIPID, CMP #### [facility] [address] [place] [address] Dr. Christina BertrandP [Catalytic activity/Vol]99 U/WNtuktx21-121Vbm [facility] HospitalComment on above:Performed By: #### LIPID, CMP #### [facility] [address] [place] [address] Dr. Christina Adame [Catalytic activity/Vol]29 U/RJjakkv06-19Mbu [facility] HospitalComment on above:Performed By: #### LIPID, CMP #### [facility] [address] [place] [address] Dr. Christina Stahl gap [Moles/Vol]13.7 mmol/LNormalThe [facility] Comment on above:Performed By: #### LIPID, CMP #### [facility] [address] [place] [address] Dr. Christina CamarenaAST [Catalytic activity/Vol]24 U/QPpgbbj27-46Wdh [facility] HospitalComment on above:Performed By: #### LIPID, CMP #### [facility] [address] [place] [address] Dr. Christina CamarenaBilirubin [Mass/Vol]0.5 mg/dLNormal0.2-1.0[facility] Comment on above:Performed By: #### LIPID, CMP #### [facility] [address] [place] [address] Dr. Christina CamarenaCalcium [Mass/Vol]9.4 mg/dLNormal8.5-10.1The [facility] Comment on above:Performed By: #### LIPID, CMP #### [facility] [address] [place] [address] Dr. Christina CamarenaChloride [Moles/Vol]104 mmol/FFvuwqo31-634Rzt [facility] Comment on above:Performed By: #### LIPID, CMP #### [facility] [address] [address] [address] Christina CamarenaCO2 [Moles/Vol]25.4 mmol/XBcjajl88.0-32.0The [facility] Comment on above:Performed By: #### LIPID, CMP #### [facility] [address] [place] [address] Dr. Christina CamarenaCreatinine [Mass/Vol]0.99 mg/dLNormal0.55-1.02The [facility] HospitalComment on above:Performed By: #### LIPID, CMP #### [facility] [address] [place] [address] Dr. Vasquez ChangEGFR-AF ENGLISH>60Normal>=60The [facility] HospitalComment on above:Performed By: #### LIPID, CMP #### [facility] [address] [place] [address] Dr. Christina ArguetaGFR-NON AF TXOMMGEE33 mL/min/1.56p2Bfssxmuwgr low>=60The [facility] HospitalComment on above:Performed By: #### LIPID, CMP #### [facility] [address] [place] [address] Dr. Christina CamarenaGlobulin (S) [Mass/Vol]3.8 g/dLNormalThe [facility]st HospitalComment on above:Performed By: #### LIPID, CMP #### [facility] [address] [place] [address] Dr. Christina CamarenaGlucose [Mass/Vol]98 mg/bXFxpmhb78-694Hcn [facility] Comment on above:Performed By: #### LIPID, CMP #### [facility] [address] [place] [address] Dr. Christina CamarenaPotassium [Moles/Vol]4.1 mmol/LNormal3.5-5.1[facility] Comment on above:Performed By: #### LIPID, CMP #### [facility] [address] [place] [address] Dr. Christina CamarenaProtein [Mass/Vol]7.9 g/dLNormal6.4-8.2[facility] Comment on above:Performed By: #### LIPID, CMP #### [facility] [id number] Christina CamarenaSodium [Moles/Vol]139 mmol/QNbhohu538-216Gyv [facility] Comment on above:Performed By: #### LIPID, CMP #### [facility] [address] [address] [address] Christina CamarenaUrea nitrogen [Mass/Vol]20.0 mg/dLCritically high7.0-18.0The [facility] HospitalComment on above:Performed By: #### LIPID, CMP #### [facility] [address] [address] [address] Christina Kearns nitrogen/Creatinine [Mass ratio]20.2 mg/mgNormalThe [facility] HospitalComment on above:Performed By: #### LIPID, CMP #### [facility] [address] [address] [address] Christina Whelan Summary.on 18-33-6577Fvfxct Summary. CD:[id number]:[id number]+PGhlYWQ+CU5POXBxF82ilKVlnC1SC6nTBV3WUILNJRYADL6RJC2co AO2BFlkW5QydzLz [file] LWNv (more content not included)...NormalLakehealth Beachwood Medical CenterPhysician Orderon 95-24-7779Oewtwsknp Order [id number]#1.00CD:127NoFostoria City [facility] Vital Signs Date TimeVital SignValuePerforming PetllvfwiXgrrnbpu85-40-2949 08:57-0400Body .48 cmKami Smith MD Work Phone: [facility]09-12-2025 08:57-0400 Body mass index (BMI) [Ratio]33.3 kg/p9QqqizoKami Smith MD Work Phone: [phone]83[facility]09-12-2025 08:57-0400 Body .55 kgKami Smith MD Work Phone: [phone]78[facility]09-12-2025 08:57-0400 Diastolic blood qexvqdmz99 mm[Hg]Kami Smith MD Work Phone: [phone]09-12-2025 08:57-0400 Heart rate65 /Pawel Smith MD Work Phone: [phone]09-12-2025 08:57-0400 Respiratory rate12 /Pawel Smith MD Work Phone: [phone]09-12-2025 08:57-0400 SaO2% (BldA) [Mass fraction]98 %Kami Smith MD Work Phone: [phone]09-12-2025 08:57-0400 Systolic blood duaofzra694 mm[Hg]Kami Smith MD Work Phone: [phone]10-21-2024 14:25-0400 Body qahnwz179.48 cmOhio[facility]10-21-2024 14:25-0400Body mass index (BMI) [Ratio]31.2 kg/c3TamgjjtwzOhiohealth [facility] Hospital10-21-2024 14:25-0400Body rerqhwsprai14 [degF][facility]10-21-2024 14:25-0400Body ahuwbp87.56 kgOhio[facility]10-21-2024 14:25-0400Diastolic blood wwwonxzz17 mm[Hg][facility] 06-14-2024 14:25-0400Heart rate77 /[facility] 06-14-2024 14:25-7003BwA5% (BldA) [Mass fraction]94 %[facility]10-21-2024 14:25-0400Systolic blood ekjsbrgv608 mm[Hg][facility]09-09-2024 10:03-0400Body fqpadn989.48 cmOhio[facility]09-09-2024 10:03-0400Body mass index (BMI) [Ratio]31.2 kg/m2 [facility]09-09-2024 10:03-0400Body tkxogh11.56 kg [facility]09-09-2024 10:03-0400Diastolic blood nwtrpocc36 mm[Hg][facility]09-09-2024 10:03-0400Heart rate62 /min [facility]09-09-2024 10:03-0400Systolic blood qihcegze038 mm[Hg][facility]09-07-2023 10:00-0400Body exmiby418.02 cmKami Smith Other [facility] Other 09-07-2023 10:00-0400Body mass index (BMI) [Ratio] 29.33 kg/z0LbdfwgKami Smith Other [facility] Other 09-07-2023 10:00-0400Body hjrjuz81.12 kgKami Smith Other [facility] Other 09-07-2023 10:00-0400Diastolic blood ixbeguhx60 mm[Hg] Kami Smith Other [facility] Other 09-07-2023 10:00-0400Systolic blood yzqadudx334 mm[Hg] Kami Smith Other [facility] Other Encounters Encounter DateEncounter TypeCare ProviderFacilityStart: 05-06-2025 End: 57-71-2649uazrblywyyWilxsz E Braun MD Work Phone: [facility] Work Phone: Start: 05-06-2025 End: 53-35-9337Zsklura encounter procedureKami Smith MD-[facility] Work Phone: Start: 04-26-2025 End: 97-97-4038iliyrorsnvZVCH [facility] Hospitaltart: 04-13-2025 End: 31-58-9660Zekhcv flowsGeorgette OGDEN Work Phone: [facility]icsStart: 04-13-2025 End: 51-45-2683Cfedbu flowsGeorgette OGDEN Work Phone: [facility] OrthopaedicsStart: 04-13-2025 End: 96-50-4077Tlayrp outpatient visit 15 minutesMaelvi OGDEN Work Phone: [facility] OrthopaedicsComment on above:Finger pain, right (Primary Dx); Trigger middle finger of right handStart: 04-13-2025 End: 18-95-1901gslyqmsvjdMPUIAUK J MEYERNot AvailableStart: 02-18-2025 End: 34-11-6348iuxipytgrkCTDS SNMercy Health Anderson Hospitaltart: 01-24-2025 End: 71-94-9463Bbkdhyu encounter procedureMartin General Hospital Physician [facility] Work Phone: Start: 01-24-2025 End: 75-89-7718abykayffsrJlnhfn E [facility] Work Phone: Start: 01-24-2025 End: 93-21-9191Jztrtkax Miranda Smith MD Work Phone: [facility] [place] Work Phone: Start: 68-04-4779zydmtjhukaXXTS [facility] Hospitaltart: 01-20-2025 End: 61-00-1988vwunehcomoMCRN [facility] Hospitaltart: 01-04-2025 End: 34-31-8060ptalsgcylfNBJHOhio State Health Systemtart: 11-02-2024 End: 64-54-2917pqoyajlzvaVZOB [facility] Hospitaltart: 10-13-2024 End: 38-49-1382skoqsjhvhlXHPNMMercy Health Urbana Hospitaltart: 08-13-2024 End: 58-31-5607xcctmokqnxUNZWVMercy Health Urbana Hospitaltart: 08-05-2024 End: 57-98-1546vgckhjnyptGSWWLJ [facility] Hospitaltart: 07-14-2024 End: 90-30-5649Oavwdv flowsheetJr. Kelly Ospina DO Work Phone: [facility] SWS ORTHOStart: 07-14-2024 End: 99-48-7338Vncmoa flowsheetJr. Kelly Ospina DO Work Phone: [facility]WS ORTHOStart: 07-14-2024 End: 38-25-7805Ecuypi outpatient visit 25 minutesJr. Kelly Ospina DO Work Phone: [facility] SWS ORTHOComment on above:Cyst of joint of right hand (Primary Dx)Start: 07-14-2024 End: 23-39-2106euzlludoqwRQ., KELLY OSPINANot AvailableStart: 07-09-2024 End: 56-54-4698bkwmseloniDMM [facility] Work Phone: Start: 07-09-2024 End: 85-17-7697Buqfvbc encounter [facility] Work Phone: Start: 07-05-2024 End: 71-77-9414jwbqzxmaymULNGI B APLINGNot AvailableStart: 06-28-2024 End: 33-03-0502Elqeub flowsheetMaria B Apling IRRIGATION ENGINEER Work Phone: [facility] ORTHOPAEDICSStart: 06-28-2024 End: 34-84-0160Frpiay flowsheetMaria B Apling IRRIGATION ENGINEER Work Phone: [facility] ORTHOPAEDICSStart: 06-28-2024 End: 20-32-0586Ujtdwh outpatient visit 15 minutesMaria B Apling IRRIGATION ENGINEER Work Phone: NOQJ CI ORTHOPAEDICSComment on above:Swelling of right hand (Primary Dx); Right hand pain; Cyst of joint of right handStart: 06-28-2024 End: 66-84-6167lspzphfztsLELEI B APLINGNot AvailableStart: 06-14-2024 End: 88-90-3558ojeoaswktgEIC [facility] Work Phone: Start: 06-14-2024 End: 95-25-4505Fiubeay encounter procedureMartin General Hospital Physician [facility] Work Phone: Start: 26-46-4668Ado-patient / Non-visitMartin General Hospital Physician [facility] Work Phone: Start: 75-89-3662Whzojzh encounter procedureUC Medical Centertart: 05-03-2024 End: 02-10-5640mitrexpfjxKEHSt. Anthony's Hospital Work Phone: Start: 05-03-2024 End: 70-58-4084Pcoeldl encounter procedureMartin General Hospital Physician [facility] Work Phone: Start: 05-15-2023 End: 91-98-6036cagrczitjcGpyape Braun Other [facility] Other Start: 12-32-4884Ptvabnloq encounterMarcia Maniilaq Health Centertart: 05-01-2023 End: 44-18-5134akkseyzvjiHsebki Luis Other [facility] Other Start: 08-00-4408Oiwkfgq encounter procedureMarcia Maniilaq Health Centertart: 06-26-2022 End: 41-71-1924kmheyffolbDP LOTUS Chester WESTFacility:K9Sgotz: 05-13-2022 End: 63-06-0535rpxaahkjxgUR KAMI Montes BRAUNFacility:H1 Procedures DateProcedureProcedure DetailPerforming ClinicianStart: 90-77-1149Ldbcpvloq 1 tendon sheath/ligament aponeurosisMatthew Jose OGDEN Work Phone: Start: 90-75-7219Ftzrn hand minimum 3 viewsMaria B Jan FRANCOIS Work Phone: Plan of Treatment DateCare ActivityDetailAuthorStart: 71-24-4742Dwofacbdp vaccinationInfluenza Vaccine (#1)[facility] HealthcareStart: 04-13-2025 End: 57-64-3429Ssmhdow encounter qgopmagba83/20/2025 10:45 AM EDT Office Visit [facility] [address] [place] [address] Leanna Ivan PA [address] [place] [address] Finger pain, right (Primary Dx)[facility] Comment on above:Finger pain, right (Primary Dx)Start: 29-07-1616Elgnxddn identified in Urine by [facility]Met[facility] Start: 01-24-2025 End: 49-66-1145GjkfySelect Medical [facility]ty [facility], Inctart: 07-14-2024 End: 35-34-5811Qocnzrc encounter procedureNOMS SWS ORTHOComment on above:Arrived Start: 07-05-2024 End: 44-87-6684Vhccjcibgbyd / ancillary services xkrtjsuiqp12/11/2024 8:30 AM EST Ancillary Procedure [facility] [address] [place] [address] [facility] FNR MRStart: 06-28-2024 End: 88-06-6998Gqlwvljsbe [Mass/volume] in Serum or PlasmaCreatinine, Serum Lab Routine Swelling of right hand Right hand pain Expected: 06/28/2024 (Approxima te), Expires: 06/28/2025[facility] HealthcareComment on above:Expected: 06/28/2024 (Approximate), Expires: 06/28/2025Start: 06-28-2024 End: 21-74-2324DJ Hand - right WO and W contrast IVMR hand right w and wo IV contrast Imaging Routine Swelling of right hand Right hand pain Expected: 06/28/2024 (Approximate), Expires: 06/28/2025[facility] Work Phone: Comment on above:Expected: 06/28/2024 (Approximate), Expires: 06/28/2025Start: 06-28-2024 End: 10-66-4486Dtxoqyo encounter ppyrtyxub39/04/2024 8:00 AM EST Office Visit [facility] [address] [place] [address] Jannet Montoya NP [address] [place] [address] Swelling of right hand (Primary Dx)[facility] CI ORTHOPAEDICSComment on above:Swelling of right hand (Primary Dx)Start: 10-33-4812OWP [address] [facility] Hospitaltart: 04-25-2024 Influenza vaccinationInfluenza Vaccine (#1)[facility] HealthcareStart: 04-20-2020 Pneumococcal Vaccine: 65+ Years (2 of 2 - PPSV23)Pneumococcal Vaccine: 65+ Years (2 of 2 - PPSV23)[facility]OM HealthcareStart: 43-57-8934Ejyvztnrx for malignant neoplasm of breastMammogramNOMS HealthcareStart: 82-53-6862Httcrtgmm for malignant neoplasm of colonNOMS HealthcareComprehensive metabolic 1999 panel - Serum or PlasmaOhiohealth Van Wert HospitalComprehensive metabolic 1999 panel - Serum or PlasmaOhiohealth Van Wert HospitalHolter monitor study [facility] HospitalMG Breast - bilateral ScreeningNemours Children's [facility] Immunizations Immunization DateImmunizationNotesCare AjnmpibxKfszqqli91-21-7414qadmlyxpe, high dose seasonal, preservative-freeKami Smith MD Work Phone: [facility]11-15-2024influenza, high dose seasonal, preservative-freeOhiohealth Van [facility]ert Hospital11-15-2024 influenza virus vaccine, unspecified formulationMatthew Ivan PA Work Phone: [facility] HospitalXquntdjkfw97-96-7315otmngdwfk virus vaccine, unspecified formulationOhiohealth [facility] Hospital09-07-2023influenza, high dose seasonal, preservative-freeKami Smith Other [facility] Other 10040122-62-9918FUFGJ-93 Pfizer (Pediatric)Kami Smith Other [facility]10-31-2022influenza virus vaccine, split virus (incl. purified surface antigen)Kami Smith Other [facility] Other 10804129-20-6361bgmrrmgpd virus vaccine, unspecified formulationOhiohealth [facility] Hospital03-23-2021COVID-19 Vaccine Pfizer - Documentation Purposes OnlyKami Smith Other [facility]09-02-2020influenza virus vaccine, split virus (incl. purified surface antigen)Kami Smith Other [facility] Other 09847568-70-3892nagcxbebu virus vaccine, unspecified formulationOhiohealth [facility] Hospital09-02-2020pneumococcal polysaccharide vaccine, 23 valentYazmina Smith Other [facility]08-27-2019 pneumococcal conjugate vaccine, 13 valentLindacia Smith Other [facility] Payers DatePayer CategoryPayerPolicy [id number] Health InsuranceCLEVELAND CLINIC FOUNDATIONCAL MUTUAL Member Subscriber Plan / Payer (Effective 2022- Present) Name: Porfirio Fernandes Relation to Subscriber: Self Name: Porfirio Fernandes Payer ID: Not on file Type: Not on file Address: [address] [place], [place] [id number] 2017MedicareMEDICARE Member Subscriber Plan / Payer (Effective 2017- Present) Name: Porfirio Fernandes Member ID: [id number] Relation to Subscriber: Self Name: Porfirio Fernandes Subscriber ID: [id number] Payer ID: STATE Group ID: Not on file Type: Medicare Address: [facility] [id number] 1960Medicare [id number] 2..1.523325.3.57[id number] 2..1.622924.3.57[id number] 2..1.532684.3.57[id number] 2..1.441315.3.57[id number] 2..1.438626.3.57[id number] 2.0.1.675216.3.57[id number] 2.0.1.49[id number] 2.0.1.424135.3.579.2.531 [id number] 2.0.1.350152.3.579.2.531 Social History DateTypeDetailFacilityStart: 07-28-2023 End: 14-44-7853Zez Assigned At [facility] [address] Other Start: 01-30-2023 End: 89-78-7001Gqqmpja smoking status NHISNever smoked tobacco (finding) [facility]art: 80-95-6040Ndu Assigned At [facility] HealthFeFairfield Medical Centertart: 83-49-8752Fzzkdlt use and exposure Smokeless tobacco non-userNOMS HealthcareStart: 07-28-2023 End: 81-16-0027Pawnoeeyp beverage intakeEx-drinker (finding)[facility] Start: 07-28-2023 End: 01-14-8857Ltzpigv of Social functionNOAR HealthcareStart: 92-46-0846Hci assigned at birthNot on fileSTEWARD HEALTH CARE SYSTEM HealthcareStart: 07-09-2024 End: 49-75-1457NahKycdow (finding)[facility] Clinical Notes 05-01-2023 to 04-26-2025 Note Date & RxjsAyjrPvegishn72-15-5184 NoteUT Electrophysiology Consult Note [place] [facility] Reason for visit: Afib [...] pacemaker and grandmother had a stroke and MS PMH: Past Medical History: Diagnosis Date Abnormal [...] trachea midline Carotid Arteri (more content not included)...[facility] 04-13-2025 History of Present illness Narrative* ALIN Bruner - 04/13/2025 10:45 AM EDTAssociated Order(s): Tendon Sheath Inj (CPT 80768 Only): R long A1 Post-Procedure Diagnose(s): Trigger [...] This Encounter Procedures Tendon Sheath Inj (CPT 50092 Only): Whitney Stroud This order was created via procedure documentation Tendon Sheath Inj (CPT 72808 Only): Whitney Stroud on 04/13/2025 11:24 AM [...] right hand M65.331 Tendon Sheath Inj (CPT 31434 Only): Whitney Stroud Assessment & Plan Right [...] requiring urgent evaluation. Visit was preformed using [employer]-marine pilot speech recognition. documented in this encounterLiberty HospitalJhqxefzbbi82-34-2077 NoteSUBJECTIVE Reason for Visit: Porfirio Fernandes is [...] pacemaker and grandmother had a stroke and MS She is status post A-fib ablation 01/20/2025 [...] 01/20/2025 392 QTC CALCULATION(BAZETT) 01/20/2025 425 P Gordon 01/20/2025 107 R-Gordon 01/20/2025 36 T Wave Gordon 01/20/2025 42 Glucose POC 01/20/2025 100 Ventricular Rate 01/20/2025 60 Atrial Rate 01/20/2025 60 MA Interval 01/20/2025 168 QRS DURATION 01/20/2025 90 QT Interval 01/20/2025 436 QTC CALCULATION(BAZETT) 01/20 (more content not included)...[facility]06-27-2025 NotePatient here s/p A-fib ablation. Patient states she is doing well. Review of Systems Constitutional: Negative.[facility]06-06-2025 NotePt has nina. Will stop amioUnUniversity Hospitals Parma Medical Center06-02-2025 Evaluation note* Diagnosis Onset Date Resolution Status Admit Date Dysuria acuteJune 2024 9:44am [facility] Work Phone: [phone] NotePatient: Deepika Fernandes Procedure Summary Date: 01/20/25 Room / Location: [facility] EDUCATIONAL PSYCHOLOGY PROFESSOR 1 EP / [facility] HV VASCULAR LAB (Cath) Anesthesia Start: 826 [...] were no known notable events for this encounter.[facility]05-29-2025 NoteATRIAL FIBRILLATION ABLATION PROCEDURE NOTE DATE OF PROCEDURE: 01/20/2025 PERFORMING PHYSICIAN: Dr. Timi Nixon SALES REPRESENTATIVE MEATS: TOMMIE CONSENT: Patient NAME OF THE PROCEDURE: [...] Posterior wall isolation w (more content not included)...[facility]05-29-2025 Note Arterial Line: Date/Time: 01/20/2025 [...] procedure well with no complications. Staffing Performed: resident/DIAL PRINTER/CAA and anesthesiologist Anesthesiologist: Constantin Crockett MD Resident/DIAL PRINTER: Cindy Sparks MD Performed by: Cindy Sparks MD Authorized by: Constantin Crockett MDGuernsey Memorial Hospital05-29-2025 NoteAirway Date/Time: 01/20/2025 8:48 AM Urgency: elective Airway not difficult General Information and Staff Patient location during procedure: [place] Anesthesiologist: Constantin Crockett MD Resident/DIAL PRINTER/CAA: Cindy Sparks MD Performed: resident/DIAL PRINTER/CAA Indications and Patient Condition Indications for airway [...] approach: 1 Number of other approaches attempted: 0UnUniversity Hospitals Parma Medical Center 01-20-2025 NotePatient: Deepika Fernandes Procedure Information Date/Time: 01/20/25 0830 Procedure: Ablation a-fib paroxysmal Location: [facility] EDUCATIONAL PSYCHOLOGY PROFESSOR 1 EP / [facility] HVC VASCULAR LAB (Cath) Providers: Timi Nixon [...] products. Plan discussed with attending. Additional Equipment RequestsGuernsey Memorial Hospital05-13-2025 Note [place] Electrophys[place] Consult Note [place] [facility] Reason for visit: Afib [...] pacemaker and grandmother had a stroke and MS PMH: Past Medical History: Diagnosis Date Abnormal [...] HDL , LDL CALC (more content not included)...[facility]03-11-2025 NoteUT Electrophysiology Consult Note [place] [facility] - [facility] Reason for visit: Afib HPI: [...] pacemaker and grandmother had a stroke and MS PMH: Past Medical History: Diagnosis Date Abnormal [...] rhythm with premature supraventricular (more content not included)...[facility]02-19-2025 Note [place] [facility] Note Reason for cardiology [...] pacemaker and grandmother had a stroke and MS ROS: All systems were reviewed and they [...] TSH 2.66 Last Images: (more content not included)...[facility]01-06-2025 Note Patient called back and said she'd like to go with Xarelto. RX printed and faxed into [employer].[facility]12-20-2024 Note [place] [facility] [...] pacemaker and grandmother had a stroke and MS Cardiology ROS: GENERAL: Denies fever, chills, night [...] and left upper ext (more content not included)...[facility]12-12-2024 NoteOrthopaedic Surgery Subjective Pain of [...] years. 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 wrist extension/flexion [...] to verify the correct patient, procedure, equipment, network and threat support specialist and site/side marked as required. [...] may be an additional personal documentation from me.[facility]12-12-2024 NotePatient ID: Porfirio Fernandes is [...] to verify the correct patient, procedure, equipment, network and threat support specialist and site/side marked as required. Procedure Attestation Level of Attending Supervision for Procedure I was present for the frey and critical portions and I was otherwise immediately available to assistUnUniversity Hospitals Parma Medical Center11-20-2024 History of Present illness Narrative* Jr. Kelly Ospina, - 07/14/2024 1:00 PM EST Images from the original note were not included. HISTORY OF PRESENT ILLNESS: EST PT Porfirio Fernandes is an 74 y.o. @ female. (EST PT ; LAST APPT W/ MOR) RECHECK (R) HAND CYST ; HERE FOR MRI RESULTS 07/05/24 IN [facility] XRAYS 06/28/24 IN [facility] MRI 07[facility]05/24 IN [facility] NO MDP / PREDNISONE NO CORTISONE [...] for requiring urgent evaluation. documented in this encounterLiberty HospitalHefjypsxpa48-92-1520 History of Present illness Narrative* Jannet Montoya, [...] noted. Impression [facility] arthritis Jannet Montoya PER DIEM NURSE Assessment/Plan Encounter Diagnoses: ICD-10-CM 1. Swelling of [...] f/u s/p [facility] [place] documented in this encounterLiberty HospitalXgrusspiyr90-30-4779 Evaluation note* Diagnosis Onset Date Resolution Status Admit Date Dyslipidemia acuteSept2023 9:55amEssential hypertensionacuteSept2023 9:55amMedicare annual wellness visit, subsequentacuteSept2023 9:55am PalpitationsacuteSept2023 9:55amScreening mammogram for breast cancer acuteSept2023 9:55amMaxillary sinusitis, acuteacuteOctober 2023 2:21pm [facility] Work Phone: 1(292) 183-384109-07-2023 Evaluation note* Encounter Date Diagnosis Assessment Notes [...] mammogram for breast cancer (ICD-10 - Z12.31) [facility] Other Evaluation noteNo InformationNortPenn State Health [facility] Other Evaluation note* Diagnosis Onset Date Resolution Status Dyslipidemia acuteEssential hypertensionacutePalpitationsacuteScreening mammogram for breast canceracute [facility] Work Phone: Evaluation note* Diagnosis Onset Date Resolution Status Dyslipidemia acuteEssential hypertensionacuteMedicare annual wellness visit, subsequentacute PalpitationsacuteScreening mammogram for breast canceracute [facility] Work Phone: Evaluation note* Diagnosis Onset Date Resolution Status Dyslipidemia acuteEssential hypertensionacuteMedicare annual wellness visit, subsequentacute PalpitationsacuteScreening mammogram for breast canceracuteMaxillary sinusitis, acuteacute [facility] Work Phone: Evaluation note* Diagnosis Swelling of right hand- Primary Right hand pain Pain in soft tissues of limb Cyst of joint of right hand documented in this encounter [facility] HealthcareEvaluation note* Diagnosis Cyst of joint of right hand- Primary documented in this encounter [facility] HealthcareEvaluation note* Diagnosis Onset Date Resolution Status Admit Date Dysuria acuteJune 2024 9:44am [facility] Work Phone: Evaluation note* Diagnosis Finger pain, right- Primary Pain in soft tissues of limb Trigger middle finger of right hand documented in this encounter [facility] HealthcareEvaluation note* Diagnosis Onset Date Resolution Status Admit Date Dyslipidemia acuteSeptember 2024 8:53amElevated glucoseacuteSeptember 2024 8:53am Essential hypertensionacuteSeptember 2024 8:53amMedicare annual wellness visit, subsequentacuteSeptember 2024 8:53am [facility] Work Phone: History general Narrative - Reported* Type Description Date Medical History Dyslipidemia Medical HistoryEssential hypertensionMedical HistoryMajor depressive disorder without psychotic featuresMedical HistoryPersonal history of malignant melanoma of skinSurgical HistoryCholecystectomySurgical HistoryWide excision of Melanoma 2013Surgical HistoryD&CHospitalization Historysee surgical hx Shuropody Other History general Narrative - Reported* Type Description Date Surgical History Cholecystectomy Surgical HistoryWide excision of Melanoma 2013Surgical HistoryD&CHospitalization Historysee surgical hx Shuropody Other Reason for referral (narrative)No reason for referral information availableSelect Medical [facility] Work Phone: Summary Purpose Family History Relationship [...] section and content) DATE CREATED AUTHOR 03/13/2022 [facility] DATE CREATED AUTHOR AUTHOR'S ORGANIZ ATION 07/30/2022 [facility] DATE CREATED AUTHOR AUTHOR'S ORGANIZ ATION 07/05/2024 [facility] DATE CREATED AUTHOR AUTHOR'S ORGANIZ ATION 02/01/2025 [facility] DATE CREATED AUTHOR AUTHOR'S ORGANIZ ATION 04/15/2025 [facility] EPIC DATE CREATED AUTHOR AUTHOR'S ORGANIZ ATION 04/26/2025 [facility] REASON FOR VISIT (unrecogniz ed [...] 2024 End: June 14, 2024Karis Pearl APRN IRRIGATION ENGINEER-CAttending ProviderActive Start: June 14, 2024 End: June 14, 2024Team MemberRelationshipSpecialtyStart DateEnd Date Kami Smith MD [address] [place] [id number] PCP - GeneralFamily Medicine01/17/23Team MemberRelationshipSpecialtyStart DateEnd Date Kami Smith MD [address] [place] [facility] [address] PCP - Generalmily Medicine01/17/23 Team Status: Inactive Member Role Status Dates NON STAFF Primary Care Provider Active Start: July 09, 2024 End: July 09, 2024Linnea Ko ProviderActiveStart: July 09, 2024 End: July 09, 2024Team MemberRelationshipSpecialtyStart DateEnd Date Kami Smith MD [address] [place] [facility] [phone] PCP - GeneralFamily Medicine01/17/23Team MemberRelationshipSpecialtyStart DateEnd Date Kami Smith MD [address] [place] [facility] [phone] [facility]/23 Team Status: Inactive Member Role Status Dates NON STAFF Primary Care Provider Active Start: January 24, 2025 End: January 24, 2025Linnea Ko ProviderActiveStart: January 24, 2025 End: January 24, 2025 Team Status: Inactive Member Role Status Dates Kami Smith MD Attending Provider Active St art: January 24, 2025 End: January 24, 2025Team MemberRelationshipSpecialtyStart DateEnd Date Kami Smith MD [address] [place] [facility] [phone] PCP - GeneralFamily Medicine04/13/25 Sepideh Wu DO [address] [place] [address] Referring PhysicianNeurolog09/17/24Team MemberRelationshipSpecialtyStart DateEnd Date Kami Smith MD [address] [facility] [place] [address] PCP - GeneralFamily Medicine04/13/25 Sepideh Wu DO [address] [place] [address] Referring PhysicianNeurolog09/17/24 Team Status: Active Member Role [...] BE BASED ON THE PRIMARY CLINICAL RECORDS. [facility]. provides no warranty or guarantee of the accuracy or completeness of information in this document.
== END 2025-07-19 09:38 | disposition home or self-care (01) ==
LOC: MAMMO 09:38
PROVIDERS: PCP Family Medicine; Visit Provider Family Medicine
DX: Z12.31 Encounter for screening mammogram for malignant neoplasm of breast (principal); Z78.0 Asymptomatic menopausal state; R92.8 Other abnormal and inconclusive findings on diagnostic imaging of breast
CPT/HCPCS: 76642; 77065; G0279